=== PATIENT | female | born 1965 | race Caucasian/White ===

== ENCOUNTER 2024-01-03 15:17 | Emergency (ER) | payer MEDICAID, SELFPAY ==
[2024-01-03 15:20] VITALS: BP 158/104; PULSE 73; RESP 18; TEMP 35.9; O2SAT 99; BMI 29.9
--- NOTE | 2024-01-03 15:44 | EDS_ITS ---
HPI History of Present Illness Chief Complaint: Other, Pain/Inj Informant: patient Narrative Narrative: 58-year-old female states her left neck into her trapezius area has hurt for 3 years. 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 She states it is worse in the last 3 days but she has no acute new symptoms. She states she sees a PCP in [place], and this all started [place] to [place] She states between those 2 doctors, there and in [place], she has never talked to her doctor about the symptoms before. She presents to the ER for this, for the first time in 3 years, on Thursday because the pain is worse and she is having trouble tolerating it. She has tried Tylenol but nothing else. She states she is on warfarin because of a longstanding history of DVTs back in the , 1 of which was associated with and the other which happened 2 years later apparently was not triggered by anything obvious, and she states that someone in the told her she was going to be on warfarin for the rest of her life. She states last time she had her INR checked was when she saw her doctor last 3 months ago. She denies any bleeding or systemic symptoms. Denies any obvious injury but states that it seemed to get worse again while she was mopping at work. [facility] Medical History (Updated 01/03/24 @ 15:[address] Amadou Collado MD) DVT (deep venous thrombosis) Arthritis Hypothyroidism Type 2 diabetes mellitus Hyperlipidemia Home Medications ?Medication ?Instructions ?Recorded ?Last Taken ?Type orphenadrine citrate 100 mg 100 mg PO Q12H PRN muscle pain #14 01/03/24 Unknown Rx tablet,extended release tabs tramadol 50 mg tablet 50 mg PO Q6H PRN pain 3 days #12 01/03/24 Unknown Rx tabs Allergy/AdvReac Type Severity Reaction Status Date / Time sulfamethoxazole (From Allergy Mild Rash Verified 01/03/24 15:20 Bactrim) trimethoprim (From Bactrim) Allergy Mild Rash Verified 01/03/24 15:20 metformin AdvReac Intermediate Diarrhea Verified 01/03/24 15:20 Surgical History (Updated 01/03/24 @ 15:[address] Amadou Collado MD) H/O bilateral oophorectomy History of Tubal ligation status ROS ROS ED Constitutional Constitutional ED: Denies chills or fever(s) Eyes Eyes: Denies change in vision or diplopia ENT ENT ED: Denies ear pain, rhinorrhea or sore throat Cardiovascular Cardiovascular: Denies chest pain Gastrointestinal Gastrointestinal: Denies abdominal pain, nausea or vomiting Musculoskeletal Musculoskeletal: Reports back pain and neck pain Integumentary Denies abscess or rash Neurologic Neurologic: Denies headache(s), paresthesias or weakness EXAM Physical Exam Const Vital Signs: 01/03/24 15:20 Temperature 96.6 F L Temperature Source Temporal Pulse Rate 73 Respiratory Rate 18 Blood Pressure 158/104 H Blood Pressure Mean 122 Pulse Ox 99 Oxygen Delivery Method Room Air Positive well nourished and well developed General Appearance ED: well developed and NAD HEENT Reports moist mucous membranes Eyes PERRL and EOMs intact bilaterally Neck no lymphadenopathy and supple Neck Narrative: Tender throughout the left cervical paraspinal musculature and into the trapezius toward th acromion but not including it. No scapular bony tenderness. No midline cervical bony tenderness. No mastoid tenderness or sternocleidomastoid tenderness. Patient can turn to the contralateral right side without any apparent difficulty but has pain with turning to the left. General: tenderness Chest Wall inspection of chest normal Resp normal respiratory effort Extremity normal to inspection Extremity Narrative: Painless abduction both shoulders General Extremety ED: Negative for tenderness Neuro oriented x3, CN's II-XII intact bilaterally, no sensory deficits noted and gait normal Sensorium / Orientation: alert Motor Exam: strength 5/5 throughout MDM MDM MDM Narrative Medical decision making narrative: I do not think this patient needs any emergent imaging or testing. She needs to follow-up with her PCP regarding his chronic pain, and she can have an INR checked when she does so. The area of interest is basically all trapezius, and it is normal-appearing without any signs of ecchymosis or purpura or petechiae to suggest she needs her INR emergently checked Discharge Plan Triage Chief Complaint: Other, Pain/Inj ED Provider: Amadou Collado Dx/Rx/DC Orders Clinical Impression: Acute neck pain Instructions: ED Chronic Pain, ED Neck Pain Prescriptions: New orphenadrine citrate 100 mg tablet extended release 100 mg PO Q12H PRN (Reason: muscle pain) Qty: 14 0RF tramadol 50 mg tablet 50 mg PO Q6H PRN (Reason: pain) 3 Days Qty: 12 0RF Primary Care Provider: Jhony Swenson Jr. Referrals: Jhony Swenson Jr., DO [Primary Care Provider] - As soon as possible Print Language: Georgian Disposition Disposition: Home, Self Care
--- OUTSIDE RECORDS SUMMARY | 2024-01-03 15:59 | XMS RPT_ITS | CCD ---
Author Organization [facility] Care Team Providers Care Photonics Engineer Name Role Phone RYAN HOPE Primary Care Provider JACOBO DAS Emergency Provider LUCAS GRECO Attending Provider LUCAS GRECO Referring Provider DO RYAN HOPE Primary Care Provider [phone] CADENCE GRECO Attending Provider CADENCE GRECO Referring Provider CADENCE GRECO Primary Care Provider CADENCE GRECO Primary Care Provider CADENCE GRECO Attending Provider CADENCE GRECO Primary Care Provider CADENCE GRECO Attending Provider CADENCE GRECO Primary Care Provider CADENCE GRECO Attending Provider CADENCE GRECO Primary Care Provider [phone] CADENCE GRECO Attending Provider CADENCE GRECO Referring Provider Ángel Diop Attending Physician CADENCE GRECO Primary Care Provider DO OMAR VERGARA Emergency Provider [phone] CADENCE GRECO Attending Provider DO MICHELLE CAMACHO Emergency Provider Daemon, Background Attending Unavailable ENCINAS, LEXUS Attending Unavailable Daemon, Background Attending Unavailable JUANA QUINTANA Attending Unavailable VISPAFLOW2, AUTOMATION Attending Unavailab le VISPAFLOW, AUTOMATION Attending Unavailleticia ROBLES, KURT Attending Unavailable ENCINAS, LEXUS Attending Unavailable CHRISTINA CARPENTER Attending Unavailable BAUERBACH, LAYO Attending Unavailable ENCINAS, LEXUS Attending Unavailable MARGARET, KURT Attending Unavailable ENCINAS, LEXUS Attending Unavailable ENCINAS, LEXUS Attending Unavailable BILUCAS TURK Attending Unavailable LUCAS GRECO Referring Unavailable LUCAS GRECO Primary Care Unavailable FANNIE, LUCAS Estes Referring Unavailable BIROSALEE, LUCAS Estes Attending Unavailable BILUCAS TURK Primary Care Unavailable FANNIE, LUCAS Estes Attending Unavailable LUCAS GRECO Referring Unavailable LUCAS GRECO Primary Care Unavailable LUCAS GRECO Referring Unavailable FANNIE, LUCAS Estes Primary Care Unavailable LUCAS GRECO Attending Unavailable GEE, ÁNGEL Referring Unavailable GEE, ÁNGEL Attending Unavailable LUCAS GRCEO Primary Care Unavailable FANNIE, LUCAS Estes Attending Unavailable LUCAS GRECO Primary Care Unavailable FANNIE, LUCAS Estes Attending Unavailable LUCAS GRECO Primary Care Unavailable BIROSALEE, LUCAS Estes Attending Unavailable BILUCAS TURK Primary Care Unavailable LUCAS GRECO Primary Care Unavailable MICHELLE CAMACHO Attending Unavailable OMAR VERGARA Attending Unavailable LUCAS GRECO Primary Care Unavailable GEE, ÁNGEL Referring Unavailable GEE, ÁNGEL Attending Unavailable BIROSALEE, LUCAS Estes Primary Care Unavailable BILUCAS TURK Attending Unavailable BIROSALEE, LUCAS Estes Primary Care Unavailable FANNIE, LUCAS Estes Attending Unavailable FANNIE, LUCAS Estes Primary Care Unavailable GEE, ÁNGEL Referring Unavailable GEE, ÁNGEL Attending Unavailable LUCAS GRECO Primary Care Unavailable Johny Swenson DO Primary Care Provider JOHNY SWENSON Referring Unavailable JOHNY SWENSON Primary Care Unavailable JOHNY SWENSON Attending Unavailable Unavailable Unavailable Unavailable Unavailable Unavailable Unavailable Allergies Allergy Classification Reported Allergen(s) Allergy Type Date of Onset Reaction(s) Facility Dihydrofolate Reductase Inhibitors (antibiotic) (3 sources) Trimethoprim Drug Allergy 1 Itching [facility] Work Phone: Sulfonamides (antibiotic) (4 sources) Sulfamethoxazole; Translations: [SULFAMETHOXAZOLE] Drug Allergy 1 Itching [facility] Repository (20 sources) Sulfamethoxazole; Translations: [SULFAMETHOXAZOLE] Drug Allergy 1 Rash [facility] (20 sources) Trimethoprim Drug Allergy 9 Itching [facility] (20 sources) metFORMIN; Translations: [METFORMIN] Drug Allergy 1 Severe diarrhea, GI Upset [facility] (1 source) Sulfamethoxazole / Trimethoprim Drug Allergy 0 Itching [facility] [place] Work Phone: (1 source) metFORMIN Drug Allergy 3 [facility] Repository (1 source) Sulfamethoxazole Drug Allergy 3 [facility] Repository (1 source) Trimethoprim Drug Allergy 3 [facility] Repository Medications Current Medications Medication Drug Class(es) Dates Sig (Normalized) Sig (Original) [id number] 200 actuat albuterol 0.09 mg/actuat metered dose inhaler (20 sources) beta2-Adrenergic Agonist Start: 08-27-2022 take 2 puff(s) by inhalation every four hours as needed for wheezing Albuterol Hfa Inhaler 90 Mcg/actuation (ProAir HFA) (discharge) [id number] RxNorm 2022-08-27 HFA Inhaler 2 puff every 4 hours prn shortness of breath or wheezing Active Start: 03-21-2021 take 1 puff(s) by in halation every four hours Albuterol Sulfate Active 2 PUFF INH Q4H 8.5 March 21, 2021 8:08am Start: 03-21-2021 take 1 puff(s) by in halation every four hours Albuterol Sulfate Active 2 PUFF INH Q4H 8.5 March 21, 2021 9:08am Start: 08-16-2018 End: 03-21-2021 take 2 puff(s) by inhalation every four hours as needed, then take 2 puff(s) by inhalation every four hours as needed Albuterol Sulfate Discontinued 2 PUFF INH Q4H 1 September 04, 2020 10:10am September 21, 2020 8:41am Inhale 2 puffs every 4 hours while awake for 24 hours, then 2 puffs every 4 hours as needed. Start: 08-16-2018 take 2 puff(s) by in halation every four hours as needed, then take 2 puff(s) by inhalation every four hours as needed Albuterol Inhaler (Ventolin Hfa) 60 PUFF inhaler Active 2 PUFF INH Q4H 1 August 16, 2018 9:05pm Inhale 2 puffs every 4 hours while awake for 24 hours, then 2 puffs every 4 hours as needed. Start: 08-16-2018 take 2 puff(s) by in halation every four hours as needed, then take 2 puff(s) by inhalation every four hours as needed Albuterol Inhaler Active 2 PUFF Q4H August 16, 2018 9:05pm Inhale 2 puffs every 4 hours while awake for 24 hours, then 2 puffs every 4 hours as needed. Start: 08-16-2018 End: 03-21-2021 take 2 puff(s) by inhalation every four hours as needed, then take 2 puff(s) by inhalation every four hours as needed Albuterol Sulfate Discontinued 2 PUFF INH Q4H 1 September 04, 2020 9:10am September 21, 2020 7:41am Inhale 2 puffs every 4 hours while awake for 24 hours, then 2 puffs every 4 hours as needed. baclofen 10 mg oral tablet (20 sources) gamma-Aminobutyric Acid-ergic Agonist Start: 07-06-2023 take 1 tablet by mouth once daily at bedtime baclofen 10 mg tablet Take 10 mg by mouth daily at bedtime. 0 07/06/2023 Active Start: 05-19-2018 End: 03-21-2021 take 10 mg by mouth at bedtime Baclofen Discontinued 1 0 MG PO Bedtime March 18, 2021 11:00am March 21, 2021 8:11am Start: 05-19-2018 End: 05-19-2018 take 5 mg by mouth at bedtime Baclofen (Lioresal) 10 m g tablet Discontinued 5 MG PO Bedtime May 19, 2018 2:02pm May 19, 2018 2:13pm Start: 05-19-2018 End: 05-19-2018 take 5 mg by mouth at bedtime Baclofen Discontinued 5 MG PO Bedtime May 18, 2018 11:00pm May 19, 2018 1:13pm Start: 11-24-2017 End: 05-19-2018 take 5 mg by mouth at bedtime Baclofen Discontinued 5 MG PO Bedtime November 24, 2017 6:22am May 19, 2018 1:01pm Start: 08-13-2017 End: 11-24-2017 take 5 mg by mouth at bedtime Baclofen (Lioresal) 10 M G tablet Discontinued 5 MG PO Bedtime August 13, 2017 8:20am November 24, 2017 7:23am Start: 08-13-2017 End: 11-24-2017 take 5 mg by mouth at bedtime Baclofen Discontinued 5 MG PO Bedtime August 12, 2017 11:00pm November 24, 2017 6:23am Blood-Glucose Meter (20 sources) Start: 04-22-2022 Blood-Glucose Meter Active 0 .ROUTE .MEDSUPPLY April 22, 2022 10:39am DAILY Start: 04-22-2022 Blood-Glucose Meter Active 0 .ROUTE .MEDSUPPLY April 22, 2022 9:39am DAILY Start: 09-07-2020 Blood-Glucose Meter Active 0 .ROUTE .MEDSUPPLY September 07, 2020 9:32am DAILY Start: 09-07-2020 End: 04-22-2022 Blood-Glucose Meter Disconti nued 0 .ROUTE .MEDSUPPLY September 07, 2020 12:00am April 22, 2022 10:40am DAILY Start: 09-07-2020 End: 04-22-2022 Blood-Glucose Meter Disconti nued 0 .ROUTE .MEDSUPPLY September 06, 2020 11:00pm April 22, 2022 9:40am DAILY Start: 09-07-2020 Blood-Glucose Meter Active 0 .ROUTE .MEDSUPPLY September 06, 2020 11:00pm DAILY Start: 09-07-2020 Blood-Glucose Meter Active 0 .ROUTE .MEDSUPPLY September 07, 2020 12:00am DAILY cetirizine hydrochloride 10 mg oral tablet (20 sources) Histamine-1 Receptor Antagonist Start: 07-06-2023 take 1 tablet by mouth once daily cetirizine (ZYRTEC) 10 mg tablet Take 10 mg by mouth once daily. 0 07/06/2023 Active Start: 03-13-2015 End: 04-28-2016 take 1 tablet by mouth once daily Cetirizine Discontinued 1 TAB PO Daily March 13, 2015 1:47pm April 28, 2016 10:57am Start: 03-13-2015 End: 04-28-2016 take 1 tablet by mouth once daily Cetirizine Discontinued 1 TAB PO Daily March 13, 2015 2:47pm April 28, 2016 11:57am Start: 10-12-2013 End: 12-23-2021 take 10 mg by mouth once daily Cetirizine Discontinued 10 MG PO Daily October 28, 2016 4:28pm November 24, 2017 6:23am cloNIDine hydrochloride 0.1 mg oral tablet (20 sources) Central alpha-2 Adrenergic Agonist Start: 04-28-2016 End: 01-10-2024 take 1 tablet by mouth once daily cloNIDine HCl (CATAPRES) 0.1 mg tablet Indications: Medication refill Take 1 tablet by mouth once daily. 90 tablet 1 07/14/2023 01/10/2024 Active Start: 03-13-2015 End: 01-09-2016 take 1 tablet by mouth at bedtime Clonidine Hcl Discontinued 1 TAB PO Bedtime March 13, 2015 2:47pm January 09, 2016 6:06am Start: 03-13-2015 End: 04-28-2016 take 1 tablet by mouth at bedtime Clonidine Hcl Discontinued 1 TAB PO Bedtime March 13, 2015 2:47pm April 28, 2016 11:58am Start: 03-13-2015 End: 01-09-2016 take 1 tablet by mouth at bedtime Clonidine Hcl Discontinued 1 TAB PO Bedtime March 13, 2015 1:47pm January 09, 2016 6:06am Start: 03-13-2015 End: 04-28-2016 take 1 tablet by mouth at bedtime Clonidine Hcl Discontinued 1 TAB PO Bedtime March 13, 2015 1:47pm April 28, 2016 10:58am Start: 12-18-2014 End: 03-13-2015 take 1 tablet by mouth at bedtime Clonidine Hcl Discontinued 1 TAB PO Bedtime December 18, 2014 7:52am March 13, 2015 2:47pm Start: 12-18-2014 End: 03-13-2015 take 1 tablet by mouth at bedtime Clonidine Hcl Discontinued 1 TAB PO Bedtime December 18, 2014 7:52am March 13, 2015 1:47pm Start: 06-06-2014 End: 12-18-2014 take 1 tablet by mouth at bedtime Clonidine Hcl Discontinued 1 TAB PO Bedtime June 06, 2014 1:58pm December 18, 2014 7:52am Start: 03-16-2014 End: 06-06-2014 take 1 tablet by mouth at bedtime Clonidine Hcl Discontinued 1 TAB PO Bedtime March 16, 2014 3:02pm June 06, 2014 1:58pm Start: 03-16-2014 End: 06-06-2014 take 1 tablet by mouth at bedtime Clonidine Hcl Discontinued 1 TAB PO Bedtime March 16, 2014 2:02pm June 06, 2014 1:58pm Start: 03-16-2014 End: 03-16-2014 take 1 tablet by mouth at bedtime Clonidine Hcl Discontinued 1 TAB PO Bedtime March 16, 2014 2:46pm March 16, 2014 3:02pm Start: 03-16-2014 End: 03-16-2014 take 1 tablet by mouth at bedtime Clonidine Hcl Discontinued 1 TAB PO Bedtime March 16, 2014 1:46pm March 16, 2014 2:02pm Start: 02-16-2014 End: 03-16-2014 take 1 tablet by mouth at bedtime Clonidine Hcl Discontinued 1 TAB PO Bedtime February 16, 2014 4:18pm March 16, 2014 2:46pm Start: 02-16-2014 End: 03-16-2014 take 1 tablet by mouth at bedtime Clonidine Hcl Discontinued 1 TAB PO Bedtime February 16, 2014 3:18pm March 16, 2014 1:46pm dapagliflozin 5 mg oral tablet (20 sources) Sodium-Glucose Cotransporter 2 Inhibitor Start: 04-15-2023 take 1 tablet by mouth once daily at breakfast FARXIGA 5 mg tablet Take 1 tablet by mouth daily with breakfast. 0 04/15/2023 Active Start: 01-12-2023 take 1 tablet by evangelina th once daily in the morning Dapagliflozin Propanediol (Farxiga) 5 mg Tablet Active 5 MG PO Every morning January 12, 2023 12:00am Start: 10-03-2021 End: 07-01-2022 take 1 tablet by mouth once daily in the morning Dapagliflozin Propanediol (Farxiga) 10 mg tablet Discontinued 10 MG PO Every morning October 03, 2021 6:49am July 01, 2022 9:32am Start: 09-06-2020 End: 10-03-2021 take 1 tablet by mouth once daily in the morning Dapagliflozin Propanediol (Farxiga) 5 mg tablet Discontinued 5 MG PO Every morning November 21, 2020 11:00pm March 21, 2021 8:11am FREESTYLE AMADOR 2 SENSOR kit (5 sources) Start: 07-03-2023 FREESTYLE AMADOR 2 SENSOR kit insulin glargine 100 unt/ml injectable solution (5 sources) Insulin Analog Start: 07-07-2023 inject 18 [IU] by subcutaneous injection once daily at bedtime LANTUS U-100 INSULIN 100 unit/mL injection Inject 18 Units subcutaneously daily at bedtime. 0 07/07/2023 Active levothyroxine sodium 0.125 mg oral tablet (20 sources) l-Thyroxine Start: 04-07-2023 End: 07-08-2024 take 1 tablet by mouth once daily levothyroxine (SYNTHROID) 125 mcg tablet Indications: Medication refill Take 1 tablet by mouth once daily. 90 tablet 3 07/14/2023 07/08/2024 Active Start: 08-27-2022 take 112 mg by mouth once colleen y Levothyroxine Oral (Levothroid) (discharge) [id number] RxNorm 2022-08-27 Oral 112 microgram every day Active Start: 01-21-2022 End: 09-10-2022 take 137 ug by mouth once daily Levothyroxine Disconti nued 137 MCG PO Daily June 13, 2022 8:56am September 10, 2022 12:12pm Start: 03-21-2021 End: 01-21-2022 take 112 ug by mouth once daily Levothyroxine Disconti nued 112 MCG PO Daily March 21, 2021 12:00am January 21, 2022 7:27am Start: 09-05-2020 End: 03-21-2021 take 1 tablet by mouth once daily in the morning Levothyroxine Discontinued 0 .ROUTE .COMPLEX February 26, 2021 10:39am March 21, 2021 9:10am take 1 tablet by mouth every morning with WATER ONLY (NO OTHER FOOD, DRINK, OR MEDICATIONS FOR 1 HOUR) as directed. F/U APPOINTMENT NEEDED Start: 06-21-2020 End: 03-21-2021 take 1 tablet by mouth once daily in the morning Levothyroxine Discontinued 0 .ROUTE .COMPLEX February 26, 2021 9:39am March 21, 2021 8:10am take 1 tablet by mouth every morning with WATER ONLY (NO OTHER FOOD, DRINK, OR MEDICATIONS FOR 1 HOUR) as directed. F/U APPOINTMENT NEEDED Start: 05-19-2018 End: 06-21-2020 take 112 ug by mouth once daily Levothyroxine Disconti nued 112 MCG PO Daily May 19, 2018 1:11pm June 21, 2020 3:17pm Start: 11-24-2017 End: 05-19-2018 take 100 ug by mouth before breakfast Levothyroxine Discontinued 100 MCG PO BEFORE BREAKFAST November 24, 2017 6:23am May 19, 2018 1:01pm Start: 03-13-2015 End: 11-24-2017 take 1 tablet by mouth before breakfast Levothyroxine Discontinued 1 TAB PO BEFORE BREAKFAST March 13, 2015 1:47pm November 24, 2017 6:23am Start: 03-13-2015 End: 11-24-2017 take 1 tablet by mouth before breakfast Levothyroxine Discontinued 1 TAB PO BEFORE BREAKFAST March 13, 2015 2:47pm November 24, 2017 7:23am Start: 03-13-2015 End: 01-09-2016 take 1 tablet by mouth before breakfast Levothyroxine Sodium Discontinued 1 TAB PO BEFORE BREAKFAST March 13, 2015 2:47pm January 09, 2016 6:06am Start: 03-13-2015 End: 11-24-2017 take 1 tablet by mouth before breakfast Levothyroxine Sodium Discontinued 1 TAB PO BEFORE BREAKFAST March 13, 2015 2:47pm November 24, 2017 7:23am Start: 03-13-2015 End: 01-09-2016 take 1 tablet by mouth before breakfast Levothyroxine Sodium Discontinued 1 TAB PO BEFORE BREAKFAST March 13, 2015 1:47pm January 09, 2016 6:06am Start: 03-13-2015 End: 11-24-2017 take 1 tablet by mouth before breakfast Levothyroxine Sodium Discontinued 1 TAB PO BEFORE BREAKFAST March 13, 2015 1:47pm November 24, 2017 7:23am Start: 10-17-2014 End: 03-13-2015 take 1 tablet by mouth before breakfast Levothyroxine Sodium Discontinued 1 TAB PO BEFORE BREAKFAST October 17, 2014 11:05am March 13, 2015 2:47pm Start: 10-17-2014 End: 03-13-2015 take 1 tablet by mouth before breakfast Levothyroxine Sodium Discontinued 1 TAB PO BEFORE BREAKFAST October 17, 2014 11:05am March 13, 2015 1:47pm Start: 07-12-2014 End: 10-17-2014 take 1 tablet by mouth before breakfast Levothyroxine Sodium Discontinued 1 TAB PO BEFORE BREAKFAST July 12, 2014 8:26am October 17, 2014 11:05am omeprazole 40 mg delayed release oral capsule (20 sources) Proton Pump Inhibitor Start: 03-21-2021 End: 07-08-2024 take 1 capsule by mouth once daily omeprazole (PRILOSEC) 40 mg capsule Indications: Medication refill Take 1 capsule by mouth once daily. 90 capsule 3 07/14/2023 07/08/2024 Active rizatriptan 5 mg oral tablet (20 sources) Serotonin-1b and Serotonin-1d Receptor Agonist Start: 05-08-2023 take 1 tablet by mouth every two hours rizatriptan (MAXALT) 5 mg tablet TAKE 1 TABLET BY MOUTH AT ONSET OF HEADACHE IF NEEDED REPEAT IN 2 HOURS IF HEADACHE HASNT SUBSIDED 0 05/08/2023 Active Start: 05-19-2018 End: 03-21-2021 take 1 tablet by mouth every two hours as needed Rizatriptan Discontinued 5 MG PO PRN September 04, 2020 9:11am March 21, 2021 8:11am take 1 tablet at onset of headache; if no relief, may repeat 1 tablet in 2 hrs PO Rizatriptan Oral Dose Pack 5 Mg (Maxalt) (discharge) (1 source) Start: 08-27-2022 Rizatriptan Or al Dose Pack 5 Mg (Maxalt) (discharge) 0 [facility] 2022-08-27 Oral Dose Pack 5 milligram once Active Indication: migraine sertraline 50 mg oral tablet (20 sources) Serotonin Reuptake Inhibitor Start: 04-15-2023 take 1 tablet by mouth once daily sertraline (ZOLOFT) 50 mg tablet Take 1 tablet by mouth once daily. 0 04/15/2023 Active Start: 08-13-2017 End: 03-21-2021 take 50 mg by mouth once daily Sertraline Discontinued 50 MG PO Daily September 04, 2020 9:11am March 21, 2021 8:11am warfarin sodium 3 mg oral tablet (20 sources) Vitamin K Antagonist Start: 08-27-2022 End: 04-09-2024 take 1 tablet by mouth once daily warfarin (COUMADIN) 1 mg tablet Indications: History of DVT (deep vein thrombosis) Take 1 tablet by mouth daily as directed. Take 1 mg tablet along with 3 mg tablet daily 90 tablet 2 07/14/2023 04/09/2024 Active Start: 08-27-2022 Warfarin Oral (discharge) [id number] [facility] 2022-08-27 Oral 0 3.5 mg daily Active Parameters: 3.5 mg daily Start: 01-20-2022 End: 01-20-2022 take 3.5 mg by mouth once daily Warfarin Discontinued 3.5 MG PO Daily January 20, 2022 9:06am January 20, 2022 12:42pm Start: 01-20-2022 End: 03-17-2022 take 3 mg by mouth once daily Warfarin Active 0.5 MG P O Daily March 17, 2022 8:09am 1/2 tab along with 3 mg tablet every day Start: 03-13-2015 End: 05-21-2016 take 1 tablet by mouth once daily in the evening Warfarin Discontinued 1 TAB PO Every evening March 13, 2015 1:47pm May 21, 2016 1:17pm Start: 03-13-2015 End: 05-21-2016 take 1 tablet by mouth once daily in the evening Warfarin Discontinued 1 TAB PO Every evening March 13, 2015 2:47pm May 21, 2016 2:17pm Start: 03-13-2015 End: 01-09-2016 take 1 tablet by mouth once daily in the evening Warfarin Sodium Discontinued 1 TAB PO Every evening March 13, 2015 2:47pm January 09, 2016 6:06am Start: 03-13-2015 End: 05-21-2016 take 1 tablet by mouth once daily in the evening Warfarin Sodium Discontinued 1 TAB PO Every evening March 13, 2015 2:47pm May 21, 2016 2:17pm Start: 03-13-2015 End: 01-09-2016 take 1 tablet by mouth once daily in the evening Warfarin Sodium Discontinued 1 TAB PO Every evening March 13, 2015 1:47pm January 09, 2016 6:06am Start: 03-13-2015 End: 05-21-2016 take 1 tablet by mouth once daily in the evening Warfarin Sodium Discontinued 1 TAB PO Every evening March 13, 2015 1:47pm May 21, 2016 2:17pm Start: 01-03-2015 End: 03-13-2015 take 1 tablet by mouth once daily in the evening Warfarin Sodium Discontinued 1 TAB PO Every evening January 03, 2015 10:07am March 13, 2015 2:47pm Start: 01-03-2015 End: 03-13-2015 take 1 tablet by mouth once daily in the evening Warfarin Sodium Discontinued 1 TAB PO Every evening January 03, 2015 10:07am March 13, 2015 1:47pm Start: 06-06-2014 End: 01-03-2015 take 1 tablet by mouth once daily in the evening Warfarin Sodium Discontinued 1 TAB PO Every evening June 06, 2014 1:58pm January 03, 2015 10:07am Start: 11-24-2013 End: 06-06-2014 take 1 tablet by mouth once daily in the evening Warfarin Sodium Discontinued 1 TAB PO Every evening November 24, 2013 3:19pm June 06, 2014 1:58pm Start: 09-26-2013 End: 11-24-2013 take 1 tablet by mouth once daily in the evening Warfarin Sodium Discontinued 1 TAB PO Every evening September 26, 2013 12:04pm November 24, 2013 3:19pm Start: 09-26-2013 End: 09-26-2013 take 1 tablet by mouth once daily in the evening Warfarin Discontinued 1 TAB PO Every evening September 26, 2013 11:03am September 26, 2013 11:04am Start: 09-26-2013 End: 09-26-2013 take 1 tablet by mouth once daily in the evening Warfarin Discontinued 1 TAB PO Every evening September 26, 2013 12:03pm September 26, 2013 12:04pm Start: 09-26-2013 End: 09-26-2013 take 1 tablet by mouth once daily in the evening Warfarin Sodium Discontinued 1 TAB PO Every evening September 26, 2013 12:03pm September 26, 2013 12:04pm Start: 07-21-2013 End: 10-12-2013 take 0.5 tablet by mouth at bedtime Warfarin Sodium Discontinued 0.5 TAB PO Bedtime July 21, 2013 2:14pm October 12, 2013 12:59pm Start: 07-11-2013 End: 07-08-2024 take 1 mg by mouth once daily warfarin (COUMADIN) 3 mg tablet Indications: History of DVT (deep vein thrombosis) Take 1 tablet by mouth once daily. Take 3 mg tablet along with 1 mg tablet daily 90 tablet 3 07/14/2023 07/08/2024 Active Completed/Discontinued Medications Medication Drug Class(es) Dates Sig (Normalized) Sig (Original) acetaminophen 300 mg / codeine phosphate 30 mg oral tablet (20 sources) Opioid Agonist Start: 11-29-2014 End: 12-19-2014 take 1 tablet by mouth every six hours Acetaminophen-Codei ne Discontinued 1 TAB PO Q6H November 29, 2014 7:14pm December 19, 2014 1:33pm Start: 11-29-2014 End: 12-19-2014 take 1 tablet by mouth every six hours Acetaminophen-Codeine Discontinued 1 TAB PO Q6H November 28, 2014 11:00pm December 19, 2014 12:33pm Start: 09-03-2014 End: 10-24-2014 take 1 tablet by mouth four times daily Acetaminophen-Codeine Discontinued 1 TAB PO 4 times per day September 03, 2014 8:38pm October 24, 2014 1:30pm Start: 09-03-2014 End: 10-24-2014 take 1 tablet by mouth four times daily Acetaminophen-Codeine Discontinued 1 TAB PO 4 times per day September 02, 2014 11:00pm October 24, 2014 12:30pm Acetaminophen / HYDROcodone (20 sources) Opioid Agonist Start: 09-28-2017 End: 11-23-2017 take 1 tablet by mouth every four hours Hydrocodone-Acetaminophen Discontinued 1 - 2 TAB PO Q4H 42 September 28, 2017 8:14am November 23, 2017 12:36pm Start: 09-28-2017 End: 11-23-2017 take 1 tablet by mouth every four hours Hydrocodone-Acetaminophen Discontinued 1 - 2 TAB PO Q4H 42 September 28, 2017 9:14am November 23, 2017 1:36pm Start: 09-28-2017 End: 11-23-2017 Hydrocodone/Acetaminophen ([place] or[place] 5-325 Tablet) 1 EACH tablet Discontinued 1 - 2 TAB PO Q4H 42 September 28, 2017 9:14am November 23, 2017 1:36pm Start: 08-13-2017 End: 05-19-2018 Hydrocodone-Acetaminophen Di scontinued 1 EA PO 4 times per day August 13, 2017 8:25am May 19, 2018 2:03pm Start: 08-13-2017 End: 05-19-2018 Hydrocodone-Acetaminophen Di scontinued 1 EA PO 4 times per day August 12, 2017 11:00pm May 19, 2018 1:03pm Start: 11-14-2015 End: 05-05-2016 take 1 tablet by mouth every six hours Hydrocodone-Acetaminophen Discontinued 1 TAB PO Every 6 hours 60 November 14, 2015 9:11am May 05, 2016 9:40am Start: 11-14-2015 End: 05-05-2016 take 1 tablet by mouth every six hours Hydrocodone-Acetaminophen Discontinued 1 TAB PO Every 6 hours 60 November 14, 2015 10:11am May 05, 2016 10:40am Start: 11-14-2015 End: 05-05-2016 Hydrocodone Bit/Acetaminophe n (Hydrocodon-Acetaminophen 5-325) 5 MG-325 MG tablet Discontinued 1 TAB PO Every 6 hours 60 November 14, 2015 10:11am May 05, 2016 10:40am Start: 07-04-2015 End: 10-15-2015 take 6 tablets by mouth once as needed Hydrocodone/Acetaminophen ([place] 5-325 Tablet) 5 MG-325 MG TABLET Discontinued 1 EACH PO Q6PRN 120 July 04, 2015 1:12pm October 15, 2015 9:24am Start: 06-06-2015 End: 07-04-2015 take 6 tablets by mouth once as needed Hydrocodone/Acetaminophen ([place] 5-325 Tablet) 5 MG-325 MG TABLET Discontinued 1 EACH PO Q6PRN 120 June 06, 2015 1:45pm July 04, 2015 1:12pm Start: 05-09-2015 End: 06-06-2015 take 6 tablets by mouth once as needed Hydrocodone/Acetaminophen ([place] 5-325 Tablet) 5 MG-325 MG TABLET Discontinued 1 EACH PO Q6PRN 120 May 09, 2015 2:30pm June 06, 2015 1:45pm Start: 05-09-2015 End: 06-06-2015 take 6 tablets by mouth once as needed Hydrocodone/Acetaminophen (Independence 5-325 Tablet) 5 MG-325 MG TABLET Discontinued 1 EACH PO Q6PRN 120 May 09, 2015 1:30pm June 06, 2015 1:45pm Start: 04-12-2015 End: 05-09-2015 take 6 tablets by mouth once as needed Hydrocodone/Acetaminophen (Independence 5-325 Tablet) 5 MG-325 MG TABLET Discontinued 1 EACH PO Q6PRN 120 April 12, 2015 10:32am May 09, 2015 2:30pm Start: 04-12-2015 End: 05-09-2015 take 6 tablets by mouth once as needed Hydrocodone/Acetaminophen (Independence 5-325 Tablet) 5 MG-325 MG TABLET Discontinued 1 EACH PO Q6PRN 120 April 12, 2015 9:32am May 09, 2015 1:30pm Start: 03-13-2015 End: 04-12-2015 take 6 tablets by mouth once as needed Hydrocodone/Acetaminophen (Independence 5-325 Tablet) 5 MG-325 MG TABLET Discontinued 1 EACH PO Q6PRN 120 March 13, 2015 2:23pm April 12, 2015 10:32am Start: 03-13-2015 End: 04-12-2015 take 6 tablets by mouth once as needed Hydrocodone/Acetaminophen (Independence 5-325 Tablet) 5 MG-325 MG TABLET Discontinued 1 EACH PO Q6PRN 120 March 13, 2015 1:23pm April 12, 2015 9:32am Start: 02-13-2015 End: 03-13-2015 take 6 tablets by mouth once as needed Hydrocodone/Acetaminophen (Independence 5-325 Tablet) 5 MG-325 MG TABLET Discontinued 1 EACH PO Q6PRN 120 February 13, 2015 2:17pm March 13, 2015 2:23pm Start: 02-13-2015 End: 03-13-2015 take 6 tablets by mouth once as needed Hydrocodone/Acetaminophen (Independence 5-325 Tablet) 5 MG-325 MG TABLET Discontinued 1 EACH PO Q6PRN 120 February 13, 2015 1:17pm March 13, 2015 1:23pm Start: 01-16-2015 End: 02-13-2015 take 6 tablets by mouth once as needed Hydrocodone/Acetaminophen (Independence 5-325 Tablet) 5 MG-325 MG TABLET Discontinued 1 EACH PO Q6PRN 120 January 16, 2015 2:28pm February 13, 2015 2:17pm Start: 01-16-2015 End: 02-13-2015 take 6 tablets by mouth once as needed Hydrocodone/Acetaminophen (Independence 5-325 Tablet) 5 MG-325 MG TABLET Discontinued 1 EACH PO Q6PRN 120 January 16, 2015 1:28pm February 13, 2015 1:17pm Start: 12-19-2014 End: 01-16-2015 take 6 tablets by mouth once as needed Hydrocodone/Acetaminophen (Independence 5-325 Tablet) 5 MG-325 MG TABLET Discontinued 1 EACH PO Q6PRN 120 December 19, 2014 1:16pm January 16, 2015 2:28pm Start: 12-19-2014 End: 01-16-2015 take 6 tablets by mouth once as needed Hydrocodone/Acetaminophen (Independence 5-325 Tablet) 5 MG-325 MG TABLET Discontinued 1 EACH PO Q6PRN 120 December 19, 2014 1:16pm January 16, 2015 1:28pm Start: 11-21-2014 End: 12-19-2014 take 6 tablets by mouth once as needed Hydrocodone/Acetaminophen (Independence 5-325 Tablet) 5 MG-325 MG TABLET Discontinued 1 EACH PO Q6PRN 120 November 21, 2014 1:34pm December 19, 2014 1:16pm Start: 10-24-2014 End: 11-21-2014 take 6 tablets by mouth once as needed Hydrocodone/Acetaminophen (Independence 5-325 Tablet) 5 MG-325 MG TABLET Discontinued 1 EACH PO Q6PRN 120 October 24, 2014 1:30pm November 21, 2014 1:34pm Start: 09-26-2014 End: 10-24-2014 take 6 tablets by mouth once as needed Hydrocodone/Acetaminophen (Independence 5-325 Tablet) 5 MG-325 MG TABLET Discontinued 1 EACH PO Q6PRN 120 September 26, 2014 1:21pm October 24, 2014 1:30pm Start: 08-29-2014 End: 09-26-2014 take 6 tablets by mouth once as needed Hydrocodone/Acetaminophen (Independence 5-325 Tablet) 5 MG-325 MG TABLET Discontinued 1 EACH PO Q6PRN 120 August 29, 2014 1:17pm September 26, 2014 1:21pm Start: 08-01-2014 End: 08-29-2014 take 6 tablets by mouth once as needed Hydrocodone/Acetaminophen (Independence 5-325 Tablet) 5 MG-325 MG TABLET Discontinued 1 EACH PO Q6PRN 120 August 01, 2014 1:54pm August 29, 2014 1:17pm Start: 07-04-2014 End: 08-01-2014 take 6 tablets by mouth once as needed Hydrocodone/Acetaminophen (Independence 5-325 Tablet) 5 MG-325 MG TABLET Discontinued 1 EACH PO Q6PRN 120 July 04, 2014 1:19pm August 01, 2014 1:54pm Start: 06-06-2014 End: 07-04-2014 take 6 tablets by mouth once as needed Hydrocodone/Acetaminophen (Independence 5-325 Tablet) 5 MG-325 MG TABLET Discontinued 1 EACH PO Q6PRN 120 June 06, 2014 1:08pm July 04, 2014 1:19pm Start: 05-09-2014 End: 06-06-2014 take 6 tablets by mouth once as needed Hydrocodone/Acetaminophen (Independence 5-325 Tablet) 5 MG-325 MG TABLET Discontinued 1 EACH PO Q6PRN 120 May 09, 2014 4:07pm June 06, 2014 1:08pm Start: 05-09-2014 End: 06-06-2014 take 6 tablets by mouth once as needed Hydrocodone/Acetaminophen (Independence 5-325 Tablet) 5 MG-325 MG TABLET Discontinued 1 EACH PO Q6PRN 120 May 09, 2014 3:07pm June 06, 2014 1:08pm Start: 04-13-2014 End: 05-09-2014 take 6 tablets by mouth once as needed Hydrocodone/Acetaminophen (Independence 5-325 Tablet) 5 MG-325 MG TABLET Discontinued 1 EACH PO Q6PRN 120 April 13, 2014 2:37pm May 09, 2014 4:07pm Start: 04-13-2014 End: 05-09-2014 take 6 tablets by mouth once as needed Hydrocodone/Acetaminophen (Independence 5-325 Tablet) 5 MG-325 MG TABLET Discontinued 1 EACH PO Q6PRN 120 April 13, 2014 1:37pm May 09, 2014 3:07pm Start: 03-16-2014 End: 04-13-2014 take 6 tablets by mouth once as needed Hydrocodone/Acetaminophen (Independence 5-325 Tablet) 5 MG-325 MG TABLET Discontinued 1 EACH PO Q6PRN 120 March 16, 2014 2:46pm April 13, 2014 2:37pm Start: 03-16-2014 End: 04-13-2014 take 6 tablets by mouth once as needed Hydrocodone/Acetaminophen (Independence 5-325 Tablet) 5 MG-325 MG TABLET Discontinued 1 EACH PO Q6PRN 120 March 16, 2014 1:46pm April 13, 2014 1:37pm Start: 02-16-2014 End: 03-16-2014 take 6 tablets by mouth once as needed Hydrocodone/Acetaminophen (Independence 5-325 Tablet) 5 MG-325 MG TABLET Discontinued 1 EACH PO Q6PRN 120 February 16, 2014 3:40pm March 16, 2014 2:46pm Start: 02-16-2014 End: 03-16-2014 take 6 tablets by mouth once as needed Hydrocodone/Acetaminophen (Independence 5-325 Tablet) 5 MG-325 MG TABLET Discontinued 1 EACH PO Q6PRN 120 February 16, 2014 2:40pm March 16, 2014 1:46pm Start: 01-19-2014 End: 02-16-2014 take 6 tablets by mouth once as needed Hydrocodone/Acetaminophen (Independence 5-325 Tablet) 5 MG-325 MG TABLET Discontinued 1 EACH PO Q6PRN 120 January 19, 2014 3:24pm February 16, 2014 3:40pm Start: 01-19-2014 End: 02-16-2014 take 6 tablets by mouth once as needed Hydrocodone/Acetaminophen (Independence 5-325 Tablet) 5 MG-325 MG TABLET Discontinued 1 EACH PO Q6PRN 120 January 19, 2014 2:24pm February 16, 2014 2:40pm Start: 12-22-2013 End: 01-19-2014 take 6 tablets by mouth once as needed Hydrocodone/Acetaminophen (Independence 5-325 Tablet) 5 MG-325 MG TABLET Discontinued 1 EACH PO Q6PRN 120 December 22, 2013 2:17pm January 19, 2014 3:24pm Start: 12-22-2013 End: 01-19-2014 take 6 tablets by mouth once as needed Hydrocodone/Acetaminophen (Independence 5-325 Tablet) 5 MG-325 MG TABLET Discontinued 1 EACH PO Q6PRN 120 December 22, 2013 2:17pm January 19, 2014 2:24pm Start: 11-24-2013 End: 12-22-2013 take 6 tablets by mouth once as needed Hydrocodone/Acetaminophen (Independence 5-325 Tablet) 5 MG-325 MG TABLET Discontinued 1 EACH PO Q6PRN 120 November 24, 2013 2:19pm December 22, 2013 2:17pm Start: 10-27-2013 End: 11-24-2013 take 6 tablets by mouth once as needed Hydrocodone/Acetaminophen (Independence 5-325 Tablet) 5 MG-325 MG TABLET Discontinued 1 EACH PO Q6PRN 120 October 27, 2013 3:13pm November 24, 2013 2:19pm Start: 10-12-2013 End: 10-27-2013 take 6 tablets by mouth once as needed Hydrocodone/Acetaminophen (Independence 5-325 Tablet) 5 MG-325 MG TABLET Discontinued 1 EACH PO Q6PRN 56 October 12, 2013 1:09pm October 27, 2013 3:13pm Start: 10-12-2013 End: 10-12-2013 take 6 tablets by mouth once as needed Hydrocodone-Acetaminophen (Independence 5-325 Tablet) 5 MG-325 MG tablet Discontinued 1 EACH PO Q6PRN 120 October 12, 2013 11:59am October 12, 2013 12:09pm Start: 10-12-2013 End: 10-12-2013 take 6 tablets by mouth once as needed Hydrocodone-Acetaminophen (Independence 5-325 Tablet) 5 MG-325 MG tablet Discontinued 1 EACH PO Q6PRN 120 October 12, 2013 12:59pm October 12, 2013 1:09pm Start: 10-12-2013 End: 10-12-2013 take 6 tablets by mouth once as needed Hydrocodone/Acetaminophen (Independence 5-325 Tablet) 5 MG-325 MG TABLET Discontinued 1 EACH PO Q6PRN 120 October 12, 2013 12:59pm October 12, 2013 1:09pm Start: 07-21-2013 End: 09-14-2013 take 1 tablet by mouth four times daily as needed for pain Hydrocodone-Acetaminophen Discontinued 1 TAB PO 4 times per day 120 July 21, 2013 1:14pm September 14, 2013 11:47am USE NEEDED FOR PAIN Start: 07-21-2013 End: 09-14-2013 take 1 tablet by mouth four times daily as needed for pain Hydrocodone-Acetaminophen Discontinued 1 TAB PO 4 times per day 120 July 21, 2013 2:14pm September 14, 2013 12:47pm USE NEEDED FOR PAIN Start: 07-21-2013 End: 09-14-2013 Hydrocodone Bit/Acetaminophe n (Hydrocodon-Acetaminophen 5-325) 5 MG-325 MG TABLET Discontinued 1 TAB PO 4 times per day 120 July 21, 2013 2:14pm September 14, 2013 12:47pm USE NEEDED FOR PAIN amoxicillin 875 mg oral tablet (14 sources) Penicillin-class Antibacterial Start: 12-20-2021 End: 01-20-2022 take 875 mg by mouth twice daily Amoxicillin Discontinued 875 MG PO 2 times per day December 19, 2021 11:00pm January 20, 2022 8:02am amoxicillin 875 mg / clavulanate 125 mg oral tablet (9 sources) Penicillin-class Antibacterial Start: 10-12-2013 End: 10-27-2013 Amoxicillin/Potass ium Clav (Augmentin 875-125 Tablet) 875 MG-125 MG TABLET Discontinued 1 EACH PO 2 times per day October 12, 2013 1:11pm October 27, 2013 3:13pm Amphet Asp/Amphet/D-Amph et (Adderall 20 Mg Tablet) 20 MG TABLET (20 sources) Start: 12-19-2014 End: 01-16-2015 take 1 tablet by mouth once daily Amphet Asp/Amphet/D-Amphe t (Adderall 20 Mg Tablet) 20 MG TABLET Discontinued 1 TAB PO Daily December 19, 2014 1:16pm January 16, 2015 2:49pm Start: 12-19-2014 End: 01-16-2015 take 1 tablet by mouth once daily Amphet Asp/Amphet/D-Amphet (Adderall 20 Mg Tablet) 20 MG TABLET Discontinued 1 TAB PO Daily December 19, 2014 1:16pm January 16, 2015 1:49pm Start: 11-21-2014 End: 12-19-2014 take 1 tablet by mouth once daily Amphet Asp/Amphet/D-Amphet (Adderall 20 Mg Tablet) 20 MG TABLET Discontinued 1 TAB PO Daily November 21, 2014 1:34pm December 19, 2014 1:16pm Start: 10-24-2014 End: 11-21-2014 take 1 tablet by mouth once daily Amphet Asp/Amphet/D-Amphet (Adderall 20 Mg Tablet) 20 MG TABLET Discontinued 1 TAB PO Daily October 24, 2014 1:30pm November 21, 2014 1:34pm Start: 09-26-2014 End: 10-24-2014 take 1 tablet by mouth once daily Amphet Asp/Amphet/D-Amphet (Adderall 20 Mg Tablet) 20 MG TABLET Discontinued 1 TAB PO Daily September 26, 2014 1:21pm October 24, 2014 1:30pm Start: 08-29-2014 End: 09-26-2014 take 1 tablet by mouth once daily Amphet Asp/Amphet/D-Amphet (Adderall 20 Mg Tablet) 20 MG TABLET Discontinued 1 TAB PO Daily August 29, 2014 1:17pm September 26, 2014 1:21pm Start: 08-01-2014 End: 08-29-2014 take 1 tablet by mouth once daily Amphet Asp/Amphet/D-Amphet (Adderall 20 Mg Tablet) 20 MG TABLET Discontinued 1 TAB PO Daily August 01, 2014 1:54pm August 29, 2014 1:17pm Start: 07-04-2014 End: 08-01-2014 take 1 tablet by mouth once daily Amphet Asp/Amphet/D-Amphet (Adderall 20 Mg Tablet) 20 MG TABLET Discontinued 1 TAB PO Daily July 04, 2014 1:19pm August 01, 2014 1:54pm Start: 06-06-2014 End: 07-04-2014 take 1 tablet by mouth once daily Amphet Asp/Amphet/D-Amphet (Adderall 20 Mg Tablet) 20 MG TABLET Discontinued 1 TAB PO Daily June 06, 2014 2:01pm July 04, 2014 1:19pm 24 hr amphetamine aspartate 5 mg / amphetamine sulfate 5 mg / dextroamphetamine saccharate 5 mg / dextroamphetamine sulfate 5 mg extended release oral capsule (20 sources) Central Nervous System Stimulant Start: 06-09-2016 End: 05-19-2018 take 1 capsule by mouth once daily, then take 1 capsule by mouth every twenty-four hours Dextroamphetamine-Amphetamine (Adderall Xr) 20 mg capsule,extended release 24hr Discontinued 20 MG PO Daily June 09, 2016 1:20pm May 19, 2018 2:03pm Start: 01-16-2015 End: 05-05-2016 take 1 capsule by mouth once daily Dextroamphetamine/Amphetamine (Adderall Xr 20 Mg Capsule) 20 MG capsule,extended release 24hr Discontinued 1 CAP PO Daily January 16, 2015 2:49pm May 05, 2016 10:40am Start: 01-19-2014 End: 06-06-2014 take 1 tablet by mouth once daily Dextroamphetamine/Amphetamine (Adderall 30 Mg Tablet) 30 MG TABLET Discontinued 1 TAB PO Daily June 06, 2014 1:08pm June 06, 2014 2:01pm Start: 09-25-2013 End: 01-19-2014 take 1 tablet by mouth once daily Dextroamphetamine/Amphetamine (Amphetami ne Salts 20 Mg Tablet) 20 MG TABLET Discontinued 20 MG PO Daily December 22, 2013 2:36pm January 19, 2014 4:20pm atorvastatin 20 mg oral tablet (20 sources) HMG-CoA Reductase Inhibitor Start: 11-28-2016 End: 03-21-2021 take 20 mg by mouth once daily Atorvastatin Discontinued 20 MG PO Daily June 08, 2017 8:51am May 19, 2018 1:13pm benzonatate 100 mg oral capsule (20 sources) Non-narcotic Antitussive Start: 08-16-2018 End: 03-10-2019 take 100 mg by mouth three times daily Benzonatate Discontinued 100 MG PO 3 times per day August 15, 2018 11:00pm March 10, 2019 11:15pm bisacodyl 5 mg delayed release oral tablet (20 sources) Stimulant Laxative Start: 07-19-2020 take 8 [oz_av] by mouth once Bisacodyl Active 20 MG PO Once July 19, 2020 1:28pm Take at 12 noon day before colonoscopy with 8 oz of clear liquid Start: 07-19-2020 End: 12-12-2020 take 8 [oz_av] by mouth once Bisacodyl (Dulcolax (Bisa codyl)) 5 mg tablet,delayed release (DR/EC) Discontinued 20 MG PO Once July 18, 2020 11:00pm December 12, 2020 12:50pm Take at 12 noon day before colonoscopy with 8 oz of clear liquid Start: 12-01-2017 End: 05-19-2018 take 4 tablets by mouth once daily Bisacodyl (Dulcolax (Bisacodyl)) 5 mg tablet,delayed release (DR/EC) Discontinued 5 MG PO Once 4 December 01, 2017 6:20pm May 19, 2018 2:11pm Take 4 tabs @ 8am the day before your surgery Bisacodyl (Dulcolax (Bisacodyl)) 5 mg tablet,delayed release (DR/EC) (17 sources) Start: 12-01-2017 End: 05-19-2018 take 4 tablets by mouth once daily Bisacodyl (Dulcolax (Bisacodyl)) 5 mg tablet,delayed release (DR/EC) Discontinued 5 MG PO Once December 01, 2017 6:20pm May 19, 2018 2:11pm Take 4 tabs @ 8am the day before your surgery Start: 12-01-2017 End: 05-19-2018 take 4 tablets by mouth once daily Bisacodyl (Dulcolax (Bisacodyl)) 5 mg tablet,delayed release (DR/EC) Discontinued 5 MG PO Once November 30, 2017 11:00pm May 19, 2018 1:11pm Take 4 tabs @ 8am the day before your surgery Start: 12-01-2017 End: 05-19-2018 take 4 tablets by mouth once daily Bisacodyl (Dulcolax (Bisacodyl)) 5 mg tablet,delayed release (DR/EC) Discontinued 5 MG PO Once 4 December 01, 2017 12:00am May 19, 2018 2:11pm Take 4 tabs @ 8am the day before your surgery carisoprodol 350 mg oral tablet (20 sources) Muscle Relaxant Start: 05-09-2015 End: 05-05-2016 Carisoprodol Discontinued 1 TAB PO Bedtime May 09, 2015 1:48pm May 05, 2016 9:39am TAKE NEEDED FOR MUSCLE SPASMS Start: 02-13-2015 End: 05-05-2016 Carisoprodol Discontinued 1 TAB PO Bedtime May 09, 2015 2:48pm May 05, 2016 10:39am TAKE NEEDED FOR MUSCLE SPASMS Start: 10-24-2014 End: 02-13-2015 Carisoprodol Discontinued 1 TAB PO Bedtime October 24, 2014 1:32pm February 13, 2015 2:21pm TAKE NEEDED FOR MUSCLE SPASMS Start: 10-24-2014 End: 02-13-2015 Carisoprodol Discontinued 1 TAB PO Bedtime October 24, 2014 1:32pm February 13, 2015 1:21pm TAKE NEEDED FOR MUSCLE SPASMS Start: 08-29-2014 End: 10-24-2014 Carisoprodol Discontinued 1 TAB PO Bedtime August 29, 2014 1:34pm October 24, 2014 1:32pm TAKE NEEDED FOR MUSCLE SPASMS cefdinir 300 mg oral capsule (9 sources) Cephalosporin Antibacterial Start: 05-09-2014 End: 06-06-2014 take 300 mg by mouth twice daily Cefdinir Discontinued 300 MG PO 2 times per day May 09, 2014 5:09pm June 06, 2014 1:57pm cefuroxime 500 mg oral tablet (20 sources) Cephalosporin Antibacterial Start: 11-27-2014 End: 12-19-2014 take 9-19 tablets by mouth twice daily Cefuroxime Axetil (Ceftin) 500 MG tablet Discontinued 500 MG PO 2 times per day November 27, 2014 10:01am December 19, 2014 12:33pm ER Rx'd 11-25-14 cephalexin 500 mg oral capsule (20 sources) Cephalosporin Antibacterial Start: 12-19-2013 End: 12-22-2013 take 500 mg by mouth three times daily Cephalexin Discontinued 500 MG PO 3 times per day December 18, 2013 11:00pm December 22, 2013 1:17pm Dextroamphetamine -Amphetamine (19 sources) Start: 01-16-2015 End: 05-05-2016 take 1 capsule by mouth once daily Dextroamphetamine- Amphetamine Discontinued 1 CAP PO Daily January 16, 2015 1:49pm May 05, 2016 9:40am Start: 01-16-2015 End: 05-05-2016 take 1 capsule by mouth once daily Dextroamphetamine-Amphetamine Discontinu ed 1 CAP PO Daily January 16, 2015 2:49pm May 05, 2016 10:40am Dextroamphetamine-Amphetamin e (Adderall Xr) 20 mg capsule,extended release 24hr (15 sources) Start: 06-09-2016 End: 05-19-2018 take 1 capsule by mouth once daily, then take 1 capsule by mouth every twenty-four hours Dextroamphetamine-Amphetamine (Adderall Xr) 20 mg capsule,extended release 24hr Discontinued 20 MG PO Daily June 08, 2016 11:00pm May 19, 2018 1:03pm Start: 06-09-2016 End: 05-19-2018 take 1 capsule by mouth once daily, then take 1 capsule by mouth every twenty-four hours Dextroamphetamine-Amphetamine (Adderall Xr) 20 mg capsule,extended release 24hr Discontinued 20 MG PO Daily June 09, 2016 12:00am May 19, 2018 2:03pm Dextroamphetamine/Amphetamin e (Amphetamine Salts 20 Mg Tablet) 20 MG TABLET (4 sources) Start: 12-22-2013 End: 01-19-2014 take 1 tablet by mouth once daily Dextroamphetamine/Amphetamine (Amphetamine Salts 20 Mg Tablet) 20 MG TABLET Discontinued 20 MG PO Daily December 22, 2013 2:36pm January 19, 2014 4:20pm Start: 11-29-2013 End: 12-22-2013 take 1 tablet by mouth once daily Dextroamphetamine/Amphetamine (Amphetami ne Salts 20 Mg Tablet) 20 MG TABLET Discontinued 20 MG PO Daily November 29, 2013 8:18am December 22, 2013 2:36pm Start: 10-12-2013 End: 11-29-2013 take 1 tablet by mouth once daily Dextroamphetamine/Amphetamine (Amphetami ne Salts 20 Mg Tablet) 20 MG TABLET Discontinued 20 MG PO Daily October 12, 2013 1:09pm November 29, 2013 8:18am Start: 09-25-2013 End: 10-12-2013 take 1 tablet by mouth once daily Dextroamphetamine/Amphetamine (Amphetami ne Salts 20 Mg Tablet) 20 MG TABLET Discontinued 20 MG PO Daily September 25, 2013 4:31pm October 12, 2013 1:09pm dicyclomine hydrochloride 20 mg oral tablet (20 sources) Anticholinergic Start: 03-11-2019 End: 03-20-2020 take 20 mg by mouth four times daily Dicyclomine Discontinued 20 MG PO 4 times per day March 11, 2019 1:45am March 20, 2020 10:17am doxycycline hyclate 100 mg oral tablet (9 sources) Tetracycline-class Drug Start: 11-27-2014 End: 12-19-2014 take 100 mg by mouth twice daily Doxycycline Hyclate Discontinued 100 MG PO 2 times per day November 27, 2014 11:22am December 19, 2014 1:33pm fluocinonide 0.5 mg/ml topical cream (20 sources) Corticosteroid Start: 06-12-2020 End: 12-12-2020 Fluocinonide Discontinued 1 APPLIC TOP 2 times per day June 12, 2020 1:13pm December 12, 2020 1:52pm Start: 06-12-2020 End: 12-12-2020 Fluocinonide Discontinued 1 APPLIC TOP 2 times per day June 11, 2020 11:00pm December 12, 2020 12:52pm fluticasone propionate 0.05 mg/actuat metered dose nasal spray (9 sources) Corticosteroid Start: 05-09-2014 End: 06-06-2014 Fluticasone Propionate Discontinued 1 - 2 SPRAY NS Daily May 09, 2014 5:09pm June 06, 2014 1:57pm Guaifenesin (Guaifenesin Er) 600 MG TABLET.ER (9 sources) Start: 05-09-2014 End: 06-06-2014 take 1 tablet by mouth twice daily Guaifenesin (Guaifenesin Er) 600 MG TABLET.ER Discontinued 600 MG PO 2 times per day May 09, 2014 5:09pm June 06, 2014 1:57pm Start: 05-09-2014 End: 06-06-2014 take 1 tablet by mouth twice daily Guaifenesin (Guaifenesin Er) 600 MG TABLET.ER Discontinued 600 MG PO 2 times per day May 09, 2014 4:09pm June 06, 2014 1:57pm lisdexamfetamine dimesylate 40 mg oral capsule (9 sources) Central Nervous System Stimulant Start: 09-14-2013 End: 09-25-2013 take 1 capsule by mouth once daily Lisdexamfetamine Dimesylate (Vyvanse) 40 MG CAPSULE Discontinued 1 CAPSULE PO Daily September 14, 2013 1:01pm September 25, 2013 4:31pm melatonin 10 mg extended release oral tablet (20 sources) Start: 05-19-2018 End: 05-21-2021 take 10 mg by mouth at bedtime Melatonin Discontinued 10 MG PO Bedtime May 19, 2018 2:00pm May 21, 2021 4:34pm Start: 05-19-2018 Melatonin Acti ve 10 MG Bedtime May 19, 2018 2:00pm Start: 05-19-2018 End: 05-21-2021 take 10 mg by mouth at bedtime Melatonin Discontinued 10 MG PO Bedtime May 18, 2018 11:00pm May 21, 2021 3:34pm metFORMIN hydrochloride 500 mg oral tablet (20 sources) Biguanide Start: 05-05-2016 End: 03-23-2020 take 500 mg by mouth once daily Metformin Discontinued 500 MG PO Daily April 08, 2019 2:58pm March 23, 2020 1:00pm Start: 05-05-2016 End: 03-23-2020 take 500 mg by mouth once daily Metformin Discontinued 500 MG PO Daily April 08, 2019 1:58pm March 23, 2020 12:00pm Methylphenidate (20 sources) Central Nervous System Stimulant Start: 07-21-2013 End: 07-21-2013 take 1 tablet by mouth twice daily Methylphenidate Hcl Discontinued 1 TAB PO 2 times per day 60 July 21, 2013 1:14pm July 21, 2013 1:37pm Start: 07-21-2013 End: 07-21-2013 take 1 tablet by mouth twice daily Methylphenidate Hcl Discontinued 1 TAB PO 2 times per day July 21, 2013 2:14pm July 21, 2013 2:37pm Start: 03-22-2013 End: 07-21-2013 take 1 tablet by mouth once daily Methylphenidate Hcl Discontinued 1 TAB PO Daily March 22, 2013 10:59am July 21, 2013 2:14pm Start: 03-03-2013 take 1 tablet by evangelina th once daily methylphenidate ER (RITALIN SR) 20 mg ER tablet Indications: ADD (attention deficit disorder) Take 1 tablet by mouth once daily. 30 tablet 0 03/03/2013 Active Methylphenidate Hcl (Methylphenidate Sr) 20 MG TABLET.ER (20 sources) Start: 08-18-2013 End: 09-14-2013 take 1 tablet by mouth twice daily Methylphenidate Hcl (Methylphenidate Sr) 20 MG TABLET.ER Discontinued 1 TAB PO 2 times per day 60 August 18, 2013 1:02pm September 14, 2013 1:01pm Start: 07-21-2013 End: 08-18-2013 take 1 tablet by mouth twice daily Methylphenidate Hcl (Methylphenidate Sr) 20 MG TABLET.ER Discontinued 1 TAB PO 2 times per day 60 July 21, 2013 2:37pm August 18, 2013 1:02pm Start: 07-21-2013 End: 07-21-2013 take 1 tablet by mouth twice daily Methylphenidate Hcl (Methylphenidate Sr) 20 MG TABLET.ER Discontinued 1 TAB PO 2 times per day 60 July 21, 2013 2:14pm July 21, 2013 2:37pm polyethylene glycol 3350 62731 mg powder for oral solution (20 sources) Osmotic Laxative Start: 07-19-2020 End: 09-21-2020 Polyethylene Glycol 3350 (Miralax) 17 gram powder in packet Discontinued 238 G PO Daily July 18, 2020 11:00pm September 21, 2020 7:40am Mix with 64 oz of Gatorade. Start drinking at 2 pm day before colonoscopy Start: 12-01-2017 End: 08-16-2018 Polyethylene Glycol 3350 (Mi ralax) 17 gram/dose powder Discontinued 0 PO .COMPLEX 238 December 01, 2017 6:22pm August 16, 2018 8:45pm Mix with 64oz of clear liquid. Drink an 8oz glass every 30 minutes, starting @ 11am the day before your surgery. Drink all until gone. Start: 12-01-2017 End: 08-16-2018 Polyethylene Glycol 3350 (Mi ralax) 17 gram/dose powder Discontinued 0 PO .COMPLEX November 30, 2017 11:00pm August 16, 2018 7:45pm Mix with 64oz of clear liquid. Drink an 8oz glass every 30 minutes, starting @ 11am the day before your surgery. Drink all until gone. predniSONE 20 mg oral tablet (20 sources) Start: 03-18-2016 End: 05-05-2016 take 2 tablets by mouth once daily Prednisone (Prednisone Tablet) 20 MG tablet Discontinued 40 MG PO Daily March 18, 2016 7:11pm May 05, 2016 10:39am Start: 03-18-2016 End: 05-05-2016 take 40 mg by mouth once daily Prednisone Discontinued 40 MG PO Daily March 18, 2016 12:00am May 05, 2016 9:39am tiZANidine 4 mg oral tablet (20 sources) Central alpha-2 Adrenergic Agonist Start: 07-21-2013 End: 08-29-2014 take 4 mg by mouth at bedtime Tizanidine Hcl Discontinued 4 MG PO Bedtime June 06, 2014 1:58pm August 29, 2014 1:34pm Urea (9 sources) Start: 06-06-2014 End: 11-14-2015 Urea Discontinued 1 APLICATION TP Bedtime June 06, 2014 2:03pm November 14, 2015 10:11am Problems Active Problems Problem Classification Problem Date Documented Da te Episodic/Chronic Abdominal pain (20 sources) Abdominal pain; Translations: [Unspecified abdominal pain] 04-26-2019 Episodic Administrative/social admission (1 source) Repeated prescription; Translations: [Encounter for issue of repeat prescription] 07-14-2023 Episodic Anal and rectal conditions (20 sources) Rectal pain; Translations: [Other specified diseases of anus and rectum] 04-26-2019 Episodic Anxiety disorders (1 source) Anxiety disorder Onset: 06-12-2020 Chronic Asthma (5 sources) Asthma; Translations: [Asthma] 11-25-2011 Chronic Attention-deficit conduct and disruptive behavior disorders (20 sources) Attention deficit hyperactivity disorder; Translations: [Attention-deficit hyperactivity disorder, unspecified type] Onset: 04-06-2019 09-16-2016 Chronic Complications of surgical procedures or medical care (5 sources) Postsurgical menopause; Translations: [Asymptomatic postprocedural ovarian failure] Onset: 10-26-2008 11-25-2011 Chronic Conditions associated with dizziness or vertigo (4 sources) Dizziness; Translations: [Dizziness and giddiness] 01-12-2023 Episodic Diabetes mellitus with complications (5 sources) Hyperglycemia due to type 2 diabetes mellitus; Translations: [Type 2 diabetes mellitus with hyperglycemia] Onset: 01-12-2023 01-12-2023 Chronic Diabetes mellitus without complication (20 sources) Type 2 diabetes mellitus; Translations: [Type 2 diabetes mellitus without complications] Onset: 04-08-2019 04-26-2019 Chronic Disorders of lipid metabolism (20 sources) Mixed hyperlipidemia; Translations: [Mixed hyperlipidemia] Onset: 04-06-2019 09-16-2016 Chronic Disorders usually diagnosed in infancy, childhood, or adolescence (5 sources) Attention deficit hyperactivity disorder, predominantly inattentive type; Translations: [Other specified behavioral and emotional disorders with onset usually occurring in childhood and adolescence] Onset: 11-04-2011 11-25-2011 Chronic Esophageal disorders (2 sources) Moreno's esophagus; Translations: [Gastroesophageal reflux disease with hiatal hernia] Onset: 01-03-2021 Chronic Essential hypertension (1 source) Essential hypertension; Translations: [Essential (primary) hypertension] 07-14-2023 Chronic Gastrointestinal hemorrhage (20 sources) Rectal hemorrhage; Translations: [Hemorrhage of anus and rectum] 04-26-2019 Episodic Headache; including migraine (20 sources) Migraine; Translations: [Migraine, unspecified, not intractable, without status migrainosus] 04-26-2019 Chronic Immunizations and screening for infectious disease (2 sources) Viral screening status; Translations: [Encounter for screening for other viral diseases] Onset: 07-14-2023 07-14-2023 Episodic Nonmalignant breast conditions (20 sources) Discharge from nipple; Translations: [Nipple discharge] 04-26-2019 Episodic Open wounds of extremities (20 sources) Laceration of finger; Translations: [Laceration without foreign body of left thumb without damage to nail, initial encounter] 04-26-2019 Episodic Osteoarthritis (20 sources) Degenerative joint disease involving multiple joints; Translations: [Other hypertrophic osteoarthropathy, multiple sites] Onset: 04-08-2019 09-16-2016 Chronic Other gastrointestinal disorders (20 sources) Diarrhea; Translations: [Diarrhea, unspecified] 04-26-2019 Episodic Other lower respiratory disease (20 sources) Cough; Translations: [Cough] 04-26-2019 Episodic Other nutritional; endocrine; and metabolic disorders (5 sources) Disorder of lipid metabolism; Translations: [Disorder of lipoprotein metabolism, unspecified] Onset: 12-18-2008 11-25-2011 Chronic Other screening for suspected conditions (not mental disorders or infectious disease) (2 sources) Patient encounter status; Translations: [Encounter for screening mammogram for malignant neoplasm of breast] 07-15-2023 Episodic Other skin disorders (1 source) Foot callus Onset: 07-01-2022 Episodic Phlebitis; thrombophlebitis and thromboembolism (20 sources) Deep venous thrombosis; Translations: [Acute embolism and thrombosis of unspecified deep veins of unspecified lower extremity] Onset: 06-12-2020 04-26-2019 Episodic Spondylosis; intervertebral disc disorders; other back problems (20 sources) Degeneration of cervical intervertebral disc; Translations: [Other cervical disc degeneration, unspecified cervical region] Onset: 04-06-2019 09-16-2016 Chronic Spondylosis; intervertebral disc disorders; other back problems (20 sources) Chronic neck pain; Translations: [Pain in spine] Onset: 05-11-2009 04-26-2019 Episodic Substance-related disorders (20 sources) Smoker; Translations: [Nicotine dependence, unspecified, uncomplicated] Onset: 10-26-2008 04-26-2019 Chronic Thyroid disorders (20 sources) Acquired hypothyroidism; Translations: [Mindy thyroiditis] Onset: 04-06-2019 09-16-2016 Chronic Viral infection (20 sources) Verruca plantaris; Translations: [Plantar wart] 04-26-2019 Episodic Past or Other Problems Problem Classification Problem Date Documented Da te Episodic/Chronic Diabetes mellitus without complication (5 sources) Impaired fasting glycemia; Translations: [Impaired fasting glucose] Onset: 12-18-2008 11-25-2011 Episodic Malaise and fatigue (5 sources) Physical deconditioning; Translations: [Other malaise] Onset: 07-20-2012 07-20-2012 Episodic Other and unspecified benign neoplasm (1 source) Polyp of colon Onset: 01-03-2021 Episodic Other connective tissue disease (5 sources) Acquired trigger finger; Translations: [Trigger finger, unspecified finger] Onset: 08-10-2009 11-25-2011 Episodic Other connective tissue disease (5 sources) Trochanteric bursitis of left hip; Translations: [Trochanteric bursitis, left hip] Onset: 02-13-2011 11-25-2011 Episodic Other connective tissue disease (5 sources) Impingement syndrome of left shoulder region; Translations: [Impingement syndrome of left shoulder] Onset: 02-13-2011 11-25-2011 Episodic Other connective tissue disease (5 sources) Myofascial pain; Translations: [Myalgia, other site] Onset: 07-20-2012 07-20-2012 Episodic Other diseases of kidney and ureters (1 source) Cyst of kidney Onset: 09-24-2020 Episodic Other non-traumatic joint disorders (1 source) Hip pain Onset: 05-21-2021 Episodic Other upper respiratory infections (20 sources) Sore throat symptom; Translations: [Acute pharyngitis, unspecified] Onset: 01-28-2023 04-26-2019 Episodic Unclassified (1 source) Acute COVID-19 Onset: 12-20-2021 Results Test Name Value Interpretation Reference Range Facility [facility] JD [facility] ([id number]) 1965 F Date Time Provider Department 07/21/23 JOHNY SWENSON During your visit today, we recorded the following information about you: Lizbeth Infante LPN 07/21/2023 4:27 PM Signed ----- Message from Johny Swenson DO sent at 07/21/2023 2:55 PM EDT ----- Pt can do a phone visit to discuss results Kea Amaro 07/22/2023 10:40 AM Signed Called and left Kae Powers 07/23/2023 12:13 PM Signed 2nd try. Left Luna Walsh 07/24/2023 8:19 AM Signed 3rd attempt LVM to call our office back to [facility] to discuss results. Please assist with scheduling once patient calls back. Thanks Luna Hargrove Allergies As of Date: 07/21/2023 Noted Allergy Reaction BACTRIM (SULFAMETHOXAZOLE) 08/15/2010 2 - Rash Comments: itching METFORMIN 07/14/2023 8 - GI Upset Date Reviewed: 07/14/2023 Reviewed by: Lizbeth Infante LPN - Fully Assessed Prescriptions as of 07/28/2023 - baclofen 10 mg tablet Take 10 mg by mouth daily at bedtime. - cetirizine (ZYRTEC) 10 mg tablet Take 10 mg by mouth once daily. - FARXIGA 5 mg tablet Take 1 tablet by mouth daily with breakfast. - FREESTYLE AMADOR 2 SENSOR kit - ONETOUCH DELICA PLUS LANCET 33 gauge use 1 LANCET to TEST BLOOD SUGAR daily - LANTUS U-100 INSULIN 100 unit/mL injection Inject 18 Units subcutaneously daily at bedtime. - rizatriptan (MAXALT) 5 mg tablet TAKE 1 TABLET BY MOUTH AT ONSET OF HEADACHE IF NEEDED REPEAT IN 2 HOURS IF HEADACHE HASNT SUBSIDED - sertraline (ZOLOFT) 50 mg tablet Take 1 tablet by mouth once daily. - BD INSULIN SYRINGE ULTRA-FINE 0.3 mL 31 gauge x 5/16 Inject 1 Each subcutaneously once daily. - cloNIDine HCl (CATAPRES) 0.1 mg tablet Take 1 tablet by mouth once daily. - omeprazole (PRILOSEC) 40 mg capsule Take 1 capsule by mouth once daily. - warfarin (COUMADIN) 1 mg tablet Take 1 tablet by mouth daily as directed. Take 1 mg tablet along with 3 mg tablet daily - warfarin (COUMADIN) 3 mg tablet Take 1 tablet by mouth once daily. Take 3 mg tablet along with 1 mg tablet daily - levothyroxine (SYNTHROID) 125 mcg tablet Take 1 tablet by mouth once daily. - methylphenidate ER (RITALIN SR) 20 mg ER tablet Take 1 tablet by mouth once daily. Problem List As Of Date 07/21/2023 Noted Resolved Asthma [493] Phlebitis and Thrombophlebitis of Unspecified S* Lumbago [M54.50] Tobacco dependency [F17.200] 10/26/2008 Postsurgical menopause [E89.40] 10/26/2008 Impaired fasting glucose [R73.01] 12/18/2008 Lipid disorder [E78.9] 12/18/2008 Low Back Ache; chronic; very rare use of Independence *05/11/2009 Trigger finger (acquired) [M65.30] 08/10/2009 Trochanteric bursitis of left hip [M70.62] 02/13/2011 Impingement syndrome of left shoulder [M75.42] 02/13/2011 ADD (attention deficit disorder) [F98.8] 11/04/2011 Myofascial pain [M79.18] 07/20/2012 Physical deconditioning [R53.81] 07/20/2012 Low back pain [M54.50] 07/20/2012 DVT (deep venous thrombosis) ([facility]) [I82.409] 07/14/2023 Encounter Status:Closed by LIZBETH INFANTE on 07/28/23 [facility] 07-15-2023 CNPN Telephone (PHARMN) JD MILLER ([id number]) 1965 F Date Time Provider Department 07/15/23 PHARMACIST PHARMN During your visit today, we recorded the following information about you: Beatris Grimes RN 07/15/2023 4:08 PM Signed A call was placed to patient's home and cell telephone number. A voicemail message was left with request for patient to return call to [facility] at [phone] Option #2 to discuss new referral to PAC. Mychart message sent. Natalee Grimes RN Pharmacy, Anticoagulation Clinic Beatris Grimes RN 07/24/2023 9:56 AM Signed A call was placed to patient's home and cell telephone number. A voicemail message was left with request for patient to return call to [facility] at [phone] Option #2 to discuss new referral to PAC. Mychart message sent. Natalee Grimes RN Pharmacy, Anticoagulation Clinic Beatris Grimes RN 07/28/2023 11:08 AM Signed Call to patient's home/cell telephone number; left a voicemail message with request for the patient to return call to PAC at [phone] Option #2. Patient has not read Mychart message. Natalee Grimes RN Pharmacy, Anticoagulation Clinic Samaria Michel [facility] 07/30/2023 8:55 AM Signed Left voice message asking patient to call the Anticoagulation Clinic at [phone] to discuss her referral to the coumadin clinic. Per Dr. Swenson's note - she has been on coumadin since the . Samaria Michel, PharmD, CACP [facility] Beatris Grimes RN 08/07/2023 4:43 PM Signed A call was placed to patient's home and cell telephone number. A voicemail message was left with request for patient to return call to Pharmacy [facility] at [phone] Option #2 to discuss new referral to PAC. Natalee Grimes RN Pharmacy, Anticoagulation Clinic Beatris Grimes RN 08/12/2023 10:22 AM Signed A call was placed to patient's home and cell telephone number. A voicemail message was left with request for patient to return call to Pharmacy [facility] at [phone] Option #2 to discuss new referral to PAC. Mychart has not been read. Will send the patient a letter. If there is no response, PAC will disregard referral. Natalee Grimes RN Pharmacy, Anticoagulation Clinic Beatris Grimes RN 08/20/2023 1:40 PM Signed Attempted to reach the patient but the number is disconnected. Patient has not read mychart. Letter was sent on 08/12/2023. Natalee Grimes RN [facility] Beatris Grimes RN 08/27/2023 9:03 AM Signed Original referral was placed on 07/14/2023. Patient has not responded to messages, Mychart, or a letter sent to the patient's residence. [facility] will disregard referral at this time. Natalee Grimes RN [facility] Allergies As of Date: 07/15/2023 Noted Allergy Reaction BACTRIM (SULFAMETHOXAZOLE) 08/15/2010 2 - Rash Comments: itching METFORMIN 07/14/2023 8 - GI Upset Date Reviewed: 07/14/2023 Reviewed by: Lizbeth Infante LPN - Fully Assessed Reason for Visit: Anticoagulation - Initial Consult [144] Prescriptions as of 08/27/2023 - baclofen 10 mg tablet Take 10 mg by mouth daily at bedtime. - cetirizine (ZYRTEC) 10 mg tablet Take 10 mg by mouth once daily. - FARXIGA 5 mg tablet Take 1 tablet by mouth daily with breakfast. - FREESTYLE AMADOR 2 SENSOR kit - ONETOUCH DELICA PLUS LANCET 33 gauge use 1 LANCET to TEST BLOOD SUGAR daily - LANTUS U-100 INSULIN 100 unit/mL injection Inject 18 Units subcutaneously daily at bedtime. - rizatriptan (MAXALT) 5 mg tablet TAKE 1 TABLET BY MOUTH AT ONSET OF HEADACHE IF NEEDED REPEAT IN 2 HOURS IF HEADACHE HASNT SUBSIDED - sertraline (ZOLOFT) 50 mg tablet Take 1 tablet by mouth once daily. - BD INSULIN SYRINGE ULTRA-FINE 0.3 mL 31 gauge x 07/22 Inject 1 Each subcutaneously once daily. - cloNIDine HCl (CATAPRES) 0.1 mg tablet Take 1 tablet by mouth once daily. - omeprazole (PRILOSEC) 40 mg capsule Take 1 capsule by mouth once daily. - warfarin (COUMADIN) 1 mg tablet Take 1 tablet by mouth daily as directed. Take 1 mg tablet along with 3 mg tablet daily - warfarin (COUMADIN) 3 mg tablet Take 1 tablet by mouth once daily. Take 3 mg tablet along with 1 mg tablet daily - levothyroxine (SYNTHROID) 125 mcg tablet Take 1 tablet by mouth once daily. - methylphenidate ER (RITALIN SR) 20 mg ER tablet Take 1 tablet by mouth once daily. Problem List As Of Date 07/15/2023 Noted Resolved Asthma [493] Phlebitis and Thrombophlebitis of Unspecified S* Lumbago [M54.50] Tobacco dependency [F17.200] 10/26/2008 Postsurgical menopause [E89.40] 10/26/2008 Impaired fasting glucose [R73.01] 12/18/2008 Lipid disorder [E78.9] 12/18/2008 Low Back Ache; chronic; very rare use of Independence *05/11/2009 Trigger finger ( (more content not included)... Normal [facility] CNOVon 07-14-2023 CNOV Office Visit (FAMDNA) JD MILLER ([id number]) 1965 F Date Time Provider Department 07/14/23 10:20 AM ARJUNJOHNY BHARAT During your visit today, we recorded the following information about you: Temperature Pulse Respiration Blood pressure 97.4 degrees 70/minute 16/minute 182/81 Weight Height 81.1 kg 1.651 m Arjun, ChrismeraryDO 07/14/2023 1:06 PM Signed 58 year old female presenting for new pt I have fully reviewed the past medical, surgical, social and family history and updated the Histories section of [facility]. Recurrent DVTs has been on coumadin since the INR goal 2-3 Coumadin clinic Hypothyroidism diagnosed decades ago stable on regimen Current Outpatient Medications on File Prior to Visit: Current Outpatient Medications Medication Sig Dispense Refill warfarin (COUMADIN) 1 mg tablet Take 1 mg by mouth daily as directed. Take 1 mg tablet along with 3 mg tablet daily baclofen 10 mg tablet Take 10 mg by mouth daily at bedtime. cetirizine (ZYRTEC) 10 mg tablet Take 10 mg by mouth once daily. FARXIGA 5 mg tablet Take 1 tablet by mouth daily with breakfast. FREESTYLE AMADOR 2 SENSOR kit [employer] DEL[employer] PLUS LANCET 33 gauge use 1 LANCET to TEST BLOOD SUGAR daily LANTUS U-100 INSULIN 100 unit/mL injection Inject 18 Units subcutaneously daily at bedtime. levothyroxine (SYNTHROID) 125 mcg tablet Take 1 tablet by mouth once daily. rizatriptan (MAXALT) 5 mg tablet TAKE 1 TABLET BY MOUTH AT ONSET OF HEADACHE IF NEEDED REPEAT IN 2 HOURS IF HEADACHE HASNT SUBSIDED sertraline (ZOLOFT) 50 mg tablet Take 1 tablet by mouth once daily. BD INSULIN SYRINGE ULTRA-FINE 0.3 mL 31 gauge x 07/22 Inject 1 Each subcutaneously once daily. omeprazole (PRILOSEC) 40 mg capsule Take 40 mg by mouth once daily. cloNIDine HCl (CATAPRES) 0.1 mg tablet Take 0.1 mg by mouth once daily. warfarin (COUMADIN) 3 mg tablet Take 3 mg by mouth once daily. Take 3 mg tablet along with 1 mg tablet daily 0 methylphenidate ER (RITALIN SR) 20 mg ER tablet Take 1 tablet by mouth once daily. (Patient not taking: Reported on 07/14/2023) 30 tablet 0 No current facility-administere d medications for this visit. ALLERGIES Allergen Reactions Bactrim [Sulfametho* Rash itching Metformin GI Upset PAST SURGICAL HISTORY Procedure Laterality Date LIG/TRNSXJ FLP TUBE ABDL/VAG APPR UNI/1992 PAST SURGICAL HISTORY OF 1990 csection PAST SURGICAL HISTORY OF right CTR PAST SURGICAL HISTORY OF foot plantar fasciectomy PAST SURGICAL HISTORY OF 1999 dental extractions SALPINGO-OOPHORECTOM Y COMPL/PRTL UNI/BI SPX 1999 Salpingo-oophorectom y B9 d/t pain - uterus remains Social history reviewed in [facility]. REVIEW OF SYSTEMS: Constitutional: Denies fever, denies chills, denies fatigue Head: Denies headache Eyes: Denies changes in vision or blurry vision Ears/Nose/Throat: Denies sore throat, denies rhinorrhea Musculoskeletal: Denies joint pain, denies myalgias Abd: No abd pain, no vomiting, no diarrhea, no nausea Skin/Breast: Denies rash or lesions Cardiovascular: Denies chest pain, denies palpitations, denies LE edema Respiratory: Denies cough, denies SOB, denies wheezing Neurological: Denies numbness, denies tingling, denies weakness PHYSICAL EXAMINATION: General appearance: Well appearing, alert, in no acute distress, well-hydrated, well nourished. Skin: no suspicious rashes or lesions Head: Normocephalic, atraumatic Eyes: Anicteric sclera Nose/Sinuses: Nares normal Oropharynx: Mucosa moist Neck: Supple Lungs: Lungs clear to auscultation. No wheezing, rhonchi, rales. Heart: RRR without murmur, gallop, or rubs. Abdomen: Normal abdominal exam, Abdomen soft, non-tender. No masses Extremities: No deformities, no edema, no cyanosis. Musculoskeletal: No joint swelling, no deformity Neuro: Speech intact ASSESSMENT/PLAN: 1. Primary hypertension - ICD9: 401.9, ICD10: I10 (primary diagnosis) - Controlled - Recommend home blood pressure monitoring, to bring results to next visit - Encouraged sodium restriction, DASH or Mediterranean diet - Recommend regular aerobic exercise - HEMOGLOBIN A1C - LIPID PANEL BASIC - HEPATITIS C ANTIBODY IA WITH CONFIRMATION 2. Special screening examination for viral disease - ICD9: V73.99, ICD10: Z11.59 - HEPATITIS C ANTIBODY IA WITH CONFIRMATION 3. History of DVT (deep vein thrombosis) - ICD9: V12.51, ICD10: Z86.718 - WARFARIN 1 MG TABLET - WARFARIN 3 MG TABLET - ANTICOAG/COUMADIN CLINIC PHARM - PROTHROMBIN TIME 4. Medication refill - ICD9: V68.1, ICD10: Z76.0 - CLONIDINE HCL 0.1 MG TABLET - OMEPRAZOLE 40 MG CAPSULE,DELAYED RELEASE - LEVOTHYROXINE 125 MCG TABLET 5. Hypothyroidism, acquired - ICD9: 244.9, ICD10: E03.9 - Instructed patient on importance of taking on an empty stomach either first thing in the morning or at bedtime. - THYROID ST (more content not included)... Normal [facility] HCV Ab Ql (S)on 07-14-2023 Interpretation and review of laboratory results Normal [facility] HCV Ab Ser Qlon 07-14-2023 HCV Ab Ql (S) Negative Normal Negative [facility] Comment on above: Order Comment: Speci men Type: BLOOD SPECIMEN Ordering Facility: [facility] Address: [address] [place] [address] Result Comment: The result suggests no evidence of active infection with Hepatitis C virus. Should recent infection be suspected, repeat testing may be considered 4-6 weeks after this draw. Performed By: #### 1 6128-1 #### [facility] CLIA [id number] [address] [place] [address] [place] HEPATITIS C ANTIBODY IA WITH CONFIRMATIONon 07-14-2023 HCV Ab Ql (S) Negative Negative [facility] Comment on above: The result suggests no evidence of active infection with Hepatitis C virus. Should recent infection be suspected, repeat testing may be considered 4-6 weeks after this draw. HbA1c (Bld)on 07-14-2023 Average glucose Estimated from glycated hemoglobin (Bld) [Mass/Vol] 154 mg/dL [facility] Comment on above: eAG: (Estimated aver age glucose) is a calculated value from HgbA1c and is education courses sales representative of the average blood glucose level in the last 2-3 month period. HbA1c (Bld) [Mass fraction] 7.0 % High 4.3 - 5.6 % [facility] Comment on above: [place] Diabetes As sociation guidelines indicate that patients with HgbA1c in the range 5.7-6.4% are at increased risk for development of diabetes, and intervention by lifestyle modification may be beneficial. HgbA1c greater or equal to 6.5% is considered diagnostic of diabetes. Interpretation and review of laboratory results Abnormal [facility] Average glucose Estimated from glycated hemoglobin (Bld) [Mass/Vol] 154 mg/dL Normal [facility] Comment on above: Order Comment: Ada anne Type: BLOOD SPECIMEN Ordering Facility: [facility] Address: [address] [place] [address] Result Comment: eAG: (Estimated average glucose) is a calculated value from HgbA1c and is education courses sales representative of the average blood glucose level in the last 2-3 month period. Performed By: #### 5 5454-3 #### [facility] CLIA [id number] [address] [place] [address] [place] HbA1c (Bld) [Mass fraction] 7.0 % High 4.3-5.6 [facility] Comment on above: Order Comment: Ada anne Type: BLOOD SPECIMEN Ordering Facility: [facility] Address: [address] [place] [address] Result Comment: [place] Diabetes Association guidelines indicate that patients with HgbA1c in the range 5.7-6.4% are at increased risk for development of diabetes, and intervention by lifestyle modification may be beneficial. HgbA1c greater or equal to 6.5% is considered diagnostic of diabetes. Performed By: #### 5 5454-3 #### [facility] CLIA [id number] [address] [place] [address] [place] Lipid 1996 panelon 4 Cholesterol [Mass/Vol] 181 mg/dL Normal <200 [facility] Comment on above: Order Comment: Ada anne Type: BLOOD SPECIMEN Ordering Facility: [facility] Address: [address] [place] [address] Result Comment: <200 mg/dL, Desirable 200-239 mg/dL, Borderline high >239 mg/dL, High Performed By: #### 3 016-3, 38700-5 #### [facility] CLIA [id number] [address] [place] [address] [place] Cholesterol in HDL [Mass/Vol] 56 mg/dL Normal >39 [facility] Comment on above: Order Comment: Ada omid Type: BLOOD SPECIMEN Ordering Facility: [facility] Address: [address] [place] [address] Result Comment: 40-5 9 mg/dL, Acceptable >59 mg/dL, High: Negative risk factor for coronary heart disease <40 mg/dL, Low: Positive risk factor for coronary heart disease Performed By: #### 3 016-3, 22843-0 #### [facility] CLIA [id number] [address] Cholesterol in LDL [Mass/Vol] 104 mg/dL High <100 [facility] Comment on above: Order Comment: Ada omid Type: BLOOD SPECIMEN Ordering Facility: [facility] Address: [address] [place] [address] Result Comment: <100 mg/dL, Optimal 100-129 mg/dL, Near optimal/above optimal 130-159 mg/dL, Borderline high 160-189 mg/dL, High >189 mg/dL, Very high Secondary prevention optimal LDL Cholesterol levels are recommended to be < 70 mg/dL Performed By: #### 3 016-3, 32993-2 #### [facility] CLIA [id number] [address] Cholesterol in LDL/Cholesterol in HDL [Mass ratio] 1.86 {ratio} Normal <2.54 [facility] Comment on above: Order Comment: Ada omid Type: BLOOD SPECIMEN Ordering Facility: [facility] Address: [address] [place] [address] Result Comment: Ayesha rojas: 1. National Cholesterol Education Program ATP III Guideline At-A-Glance Quick Desk Reference: National Heart, Lung, and Blood Grubbs. National Institutes of Health. 2001: NIH Publication No. 01-3305. 2. An International Atherosclerosis Society position paper: global recommendations for the management of dyslipidemia: executive summary, Atherosclerosis. 2014: 232(2):410-413. Performed By: #### 3 016-3, 38479-9 #### [facility] CLIA [id number] [address] Cholesterol in VLDL [Mass/Vol] 21 mg/dL Normal <30 [facility] Comment on above: Order Comment: Speci men Type: BLOOD SPECIMEN Ordering Facility: [facility] Address: [address] [place] [address] Performed By: #### 3 016-3, 31082-3 #### [facility] CLIA [id number] [address] Cholesterol non HDL [Mass/Vol] 125 mg/dL Normal <130 [facility] Comment on above: Order Comment: Speci men Type: BLOOD SPECIMEN Ordering Facility: [facility] Address: [address] [place] [address] Result Comment: <130 mg/dL, Optimal 130-159 mg/dL, Near optimal/above optimal 160-189 mg/dL, Borderline high 190-219 mg/dL, High >219 mg/dL, Very high Secondary prevention optimal non HDL Cholesterol levels are recommended to be <100 mg/dL Performed By: #### 3 016-3, 89825-5 #### [facility] CLIA [id number] [address] Cholesterol.total/Annalise sterol in HDL [Mass ratio] 3.23 {ratio} Normal <5.10 [facility] Comment on above: Order Comment: Speci men Type: BLOOD SPECIMEN Ordering Facility: [facility] Address: [address] [place] [address] Performed By: #### 3 016-3, 79325-9 #### [facility] CLIA [id number] [address] FASTING TIME 4 hrs Normal [facility] Comment on above: Order Comment: Speci men Type: BLOOD SPECIMEN Ordering Facility: [facility] Address: [address] [place] [address] Performed By: #### 3 016-3, 22893-8 #### [facility] CLIA [id number] [address] Triglyceride [Mass/Vol] 104 mg/dL Normal <150 [facility] Comment on above: Order Comment: Speci men Type: BLOOD SPECIMEN Ordering Facility: [facility] Address: [address] [place] [address] Result Comment: <150 mg/dL, Normal 150-199 mg/dL, Borderline high 200-499 mg/dL, High >499 mg/dL, Very high Performed By: #### 3 016-3, 15254-3 #### [facility] CLIA [id number] [address] [place] [address] [place] Cholesterol [Mass/Vol] 181 mg/dL NINF - 200 mg/dL [facility] Comment on above: <200 mg/dL, Desirabl e 200-239 mg/dL, Borderline high >239 mg/dL, High Cholesterol in HDL [Mass/Vol] 56 mg/dL 39 - PINF mg/dL [facility] Comment on above: 40-59 mg/dL, Accepta ble >59 mg/dL, High: Negative risk factor for coronary heart disease <40 mg/dL, Low: Positive risk factor for coronary heart disease Cholesterol in LDL [Mass/Vol] 104 mg/dL High NINF - 100 mg/dL [facility] Comment on above: <100 mg/dL, Optimal 100-129 mg/dL, Near optimal/above optimal 130-159 mg/dL, Borderline high 160-189 mg/dL, High >189 mg/dL, Very high Secondary prevention optimal LDL Cholesterol levels are recommended to be < 70 mg/dL Cholesterol in LDL/Cholesterol in HDL [Mass ratio] 1.86 {ratio} NINF - 2.54 [facility] Comment on above: Reference: 1. National Cholesterol Education Program ATP III Guideline At-A-Glance Quick Desk Reference: National Heart, Lung, and Blood Grubbs. National Institutes of Health. 2001: NIH Publication No. 01-3305. 2. An International Atherosclerosis Society position paper: global recommendations for the management of dyslipidemia: executive summary, Atherosclerosis. 2014: 232(2):410-413. Cholesterol in VLDL [Mass/Vol] 21 mg/dL NINF - 30 mg/dL [facility] Cholesterol non HDL [Mass/Vol] 125 mg/dL NINF - 130 mg/dL [facility] Comment on above: <130 mg/dL, Optimal 130-159 mg/dL, Near optimal/above optimal 160-189 mg/dL, Borderline high 190-219 mg/dL, High >219 mg/dL, Very high Secondary prevention optimal non HDL Cholesterol levels are recommended to be <100 mg/dL Cholesterol.total/Annalise sterol in HDL [Mass ratio] 3.23 {ratio} NINF - 5.10 [facility] Fasting Time 4 hrs [facility] Interpretation and review of laboratory results Abnormal [facility] Triglyceride [Mass/Vol] 104 mg/dL NINF - 150 mg/dL [facility] Comment on above: <150 mg/dL, Normal 150-199 mg/dL, Borderline high 200-499 mg/dL, High >499 mg/dL, Very high [facility] PT panel Coag (PPP)on 2023 INR Coag (PPP) [Relative time] 1.1 {INR} Normal 0.9-1.3 [facility] Comment on above: Order Comment: Ada anne Type: BLOOD SPECIMEN Ordering Facility: [facility] Address: [address] [place], [place] [id number] Result Comment: Abi min K Antagonist (VKA) Therapeutic Range: INR 2 to 3 (Target INR of 2.5) Note: For patients treated with VKA drugs, such as warfarin, the [place] [employer] 2012 Guideline recommends a therapeutic INR range of 2 to 3 (target INR of 2.5). This recommendation includes high-risk patients with antiphospholipid syndrome with previous arterial or venous thromboembolism, current-generation mechanical or bioprosthetic aortic heart valve replacement. Note: Patients with mechanical aortic valve replacement and additional risk factors for thromboembolic events (atrial fibrillation, previous thromboembolism, LV dysfunction, hypercoagulable conditions) or an older generation mechanical AVR (i.e., ball in-Cage) or any mechanical MVR should have a INR therapeutic range of 2.5 to 3.5 (target INR of 3). Christie GH, et al. Chest 2012, 141:7S-47S Viktor RA, et al. [facility] 2017, 70: 252-289 Performed By: #### 3 4528-0 #### [facility] CLIA [id number] [address] [place] PT Coag (PPP) [Time] 11.4 s Normal 9.7-13.0 [facility] Comment on above: Order Comment: Ada anne Type: BLOOD SPECIMEN Ordering Facility: [facility] Address: [address] [place] [address] Performed By: #### 3 4528-0 #### [facility] CLIA [id number] [address] [place] [address] [place] INR Coag (PPP) [Relative time] 1.1 {INR} 0.9 - 1.3 [facility] Comment on above: Vitamin K Antagonist (VKA) Therapeutic Range: INR 2 to 3 (Target INR of 2.5) Note: For patients treated with VKA drugs, such as warfarin, the [place] [employer] 2012 Guideline recommends a therapeutic INR range of 2 to 3 (target INR of 2.5). This recommendation includes high-risk patients with antiphospholipid syndrome with previous arterial or venous thromboembolism, current-generation mechanical or bioprosthetic aortic heart valve replacement. Note: Patients with mechanical aortic valve replacement and additional risk factors for thromboembolic events (atrial fibrillation, previous thromboembolism, LV dysfunction, hypercoagulable conditions) or an older generation mechanical AVR (i.e., ball in-Cage) or any mechanical MVR should have a INR therapeutic range of 2.5 to 3.5 (target INR of 3). Christie GH, et al. Chest 2012, 141:7S-47S Viktor RA, et al. [facility] 2017, 70: 252-289 Interpretation and review of laboratory results Normal [facility] PT Coag (PPP) [Time] 11.4 s [facility] THYROID STIMULATING HORMONEo n 07-14-2023 TSH Qn 7.770 m[IU]/L High [facility] TSH Qnon 07-14-2023 Interpretation and review of laboratory results Abnormal [facility] TSH SerPl-aCncon 07-14-2023 TSH Qn 7.770 m[IU]/L High 0.270-4.200 [facility] Comment on above: Order Comment: Speci men Type: BLOOD SPECIMEN Ordering Facility: [facility] Address: [address] [place] [address] Performed By: #### 3 016-3, 86324-8 #### [facility] CLIA [id number] [address] [place] [address] [place] Glycosylated Hemoglobinon Glycosylated Hemoglobin 7.2 % High 4.4-5.6 M [facility] Comment on above: Order Comment: Is th is for the Diabetic ED Research Study No Hemoglobin A1c Nurse Monitor? N Diagnosis/Reason for Test: Type 2 diabetes mellitus without complications Comments: 1 sample(s), Collect by: Lab. Comments: 1 sample(s), Collect by: Lab., When: in 3 months Result Comment: PRE- DIABETES 5.7-6.4 DIABETES > OR = 6.5 Performed By: #### G H #### [facility] [address] [place] [address] , Brannon Mckeon M.D. FCAP, FASCP T4-Freeon 04-16-2023 Free T4 [Mass/Vol] 1.49 ng/dL Normal 0.93-1.70 [facility] Comment on above: Order Comment: Nurse Monitor? N Diagnosis/Reason for Test: Hypothyroidism, unspecified Comments: 1 sample(s), Collect by: Collected. TSH Comments: 1 sample(s), Collect by: Collected., When: Urgent (within 24 hours) Performed By: #### T SH #### [facility] [address] [place] [address] , Jeffry Stokes, FASCP Thyroid Stimulating Hormoneo n 04-16-2023 Thyroid Stimulating Hormone 0.5010 uIU/mL Normal 0.270-4.200 [facility] Comment on above: Order Comment: Nurse Monitor? N Diagnosis/Reason for Test: Hypothyroidism, unspecified Comments: 1 sample(s), Collect by: Collected. TSH Comments: 1 sample(s), Collect by: Collected., When: Urgent (within 24 hours) Performed By: #### T SH #### [facility] [address] [place] [address] , Jeffry StokesAP, FASCP Group A Strep NAATon 01-28-2 023 Group A Strep NAAT S pyo DNA Throat Ql CHELSEY+probe: GAS NOT DETECTED NEGATIVE for: Group A Strep by NAAT Note: Negative results should be followed up with a CULTURE for patients when clinical symptoms persist or during an outbreak of Acute Rheumatic Fever. Normal [facility] Comment on above: Performed By: #### G #### [facility] [address] [place] [address] , Brannon Mckeon M.D. FCAP, FASCP Streptococcus group A nuclei c acid amplified probeOrdered By: MICHELLE CAMACHO on 01-28-2023 S. pyogenes DNA CHELSEY+probe Ql (Throat) [facility] Glycosylated Hemoglobinon Glycosylated Hemoglobin 14.1 % High 4.4-5.6 [facility] Comment on above: Order Comment: Is th is for the Diabetic ED Research Study No Hemoglobin A1c Nurse Monitor? N Diagnosis/Reason for Test: Type 2 diabetes mellitus without complications Comments: 1 sample(s), Collect by: Collected. Comments: 1 sample(s), Collect by: Collected., When: Urgent (within 24 hours) Result Comment: PRE- DIABETES 5.7-6.4 DIABETES > OR = 6.5 Performed By: #### G H #### [facility] [address] [place], [place] [id number] , Brannon Mckeon M.D. FCAP, FASCP HbA1c HPLC (Bld) [Mass fract ion]Ordered By: LUCAS GRECO on 01-14-2023 HbA1c (Bld) [Mass fraction] 14.1 % High 4.4-5.6 [facility] Comment on above: PRE-DIABETES 5.7-6.4 DIABETES > OR = 6.5 TSH ser/plasOrdered By: LUCAS GRECO on 01-14-2023 TSH Qn 0.0420 uIU/mL Low 0.270-4.200 [facility] Thyroid Stimulating Hormoneo n 01-14-2023 Thyroid Stimulating Hormone 0.0420 uIU/mL Low 0.270-4.200 [facility] Comment on above: Order Comment: Nurse Monitor? N Diagnosis/Reason for Test: Hypothyroidism, unspecified Comments: 1 sample(s), Collect by: Collected. TSH Comments: 1 sample(s), Collect by: Collected., When: Urgent (within 24 hours) Performed By: #### T SH #### [facility] [address] [place], [place] [id number] , Brannon Mckeon M.D. FCAP, FASCP Alanine aminotransferase [En zymatic activity/volume] in Serum or PlasmaOrdered By: OMAR VERGARA on 01-12-2023 ALT [Catalytic activity/Vol] 13 U/L 10-35 [facility] Bacteria [Presence] in Urine by AutomatedOrdered By: OMAR VERGARA on 01-12-2023 Bacteria Auto Ql (U) Not performed [facility] Base excessOrdered By: CAMRON VERGARA on 01-12-2023 Base excess Calc (BldV) [Moles/Vol] 0 mmol/L -3-3 [facility] Basophils Auto (Bld) [#/Vol] Ordered By: OMAR VERGARA on 01-12-2023 Basophils (Bld) [#/Vol] 0.06 10*3/uL 0.0-0.2 [facility] Basophils/100 WBC Auto (Bld) Ordered By: OMAR VERGARA on 01-12-2023 Basophils/100 WBC (Bld) 0.9 % 0-1.0 [facility] Beta Hydroxybutyrateon 01-12 Beta Hydroxybutyrate < 0.18 Normal 0.00-0.30 [facility] Comment on above: Result Comment: Less than measurable range. Normal: 0.00-0.30 mM/L Ketosis: > 0.30 mM/L Possible ketoacidosis: > 3.00 mM/L Performed By: #### T SH #### [facility] [address] [place], [place] [id number] , Brannon Mckeon M.D. FCAP, FASCP Beta hydroxybutyrate [Moles/ volume] in Serum or PlasmaOrdered By: OMAR VERGARA on 01-12-2023 Beta hydroxybutyrate [Moles/Vol] < 0.18 mM/L 0.00-0.30 [facility] Comment on above: Less than measurable range.Normal: 0.00-0.30 mM/LKetosis: > 0.30 mM/LPossible ketoacidosis: > 3.00 mM/L Bilirubin Auto test strip (U ) [Mass/Vol]Ordered By: OMAR VERGARA on 01-12-2023 Bilirubin (U) [Mass/Vol] Negative NEGATIVE [facility] Blood Glucose Meteron 2022 Glucose [Mass/Vol] 300 mg/dL High 70-100 [facility] Comment on above: Performed By: #### A CC #### [facility] [address] [place] [address] , Brannon Mckeon M.D. FCAP, FASCP Glucose [Mass/Vol] 436 mg/dL Critically high 70-100 [facility] Comment on above: Performed By: #### T SH #### [facility] [address] [place] [address] , Brannon Mckeon M.D. FCAP, FASCP Blood hemoglobin measurement (mass/volume)Ordered By: OMAR VERGARA on 01-12-2023 Hemoglobin (Bld) [Mass/Vol] 13.2 g/dL 11.7-15.7 [facility] Blood lipase measurementOrde red By: OMAR VERGARA on 01-12-2023 Lipase [Catalytic activity/Vol] 44 U/L 13-60 [facility] CBC With Differentialon 11-0 Basophils Absolute Auto 0.06 10*3/uL Normal 0.0-0.2 [facility] Comment on above: Performed By: #### T SH #### [facility] [address] [place] [address] , Brannon Mckeon M.D. FCAP, FASCP Basophils/100 WBC (Bld) 0.9 % Normal 0-1.0 [facility] Comment on above: Performed By: #### T SH #### [facility] [address] [place] [address] , Brannon Mckeon M.D. FCAP, FASCP Differential Type? Auto Differential Normal [facility] Comment on above: Performed By: #### T SH #### [address] [id number] , Brannon Mckeon M.D. FCAP, FASCP Eosinophils (Bld) [#/Vol] 0.07 10*3/uL Normal 0.0-0.5 [facility] Comment on above: Performed By: #### T SH #### [address] [id number] , Brannon Mckeon M.D. FCAP, FASCP Eosinophils/100 WBC (Bld) 1.0 % Normal 0.0-3.0 [facility] Comment on above: Performed By: #### T SH #### [address] [id number] , Brannon Mckeon M.D. FCAP, FASCP Hematocrit (Bld) [Volume fraction] 40.5 % Normal 35.0-47.0 [facility] Comment on above: Performed By: #### T SH #### [address] [id number] , Brannon Mckeon M.D. FCAP, FASCP Hemoglobin (Bld) [Mass/Vol] 13.2 g/dL Normal 11.7-15.7 [facility] Comment on above: Performed By: #### T SH #### [address] [id number] , Brannon Mckeon M.D. FCAP, FASCP Immature Gran Absolute Auto 0.02 10*3/uL Normal 0.01-0.2 [facility] Comment on above: Performed By: #### T SH #### [address] [id number] , Brannon Mckeon M.D. FCAP, FASCP Immature granulocytes/100 WBC (Bld) 0.3 % Normal 0-0.9 [facility] Comment on above: Performed By: #### T SH #### [address] [id number] , Brannon Mckeon M.D. FCAP, FASCP Lymphocytes (Bld) [#/Vol] 2.41 10*3/uL Normal 1.5-4.0 [facility] Comment on above: Performed By: #### T SH #### [address] [id number] , Brannon Mckeon M.D. FCAP, FASCP Lymphocytes/100 WBC (Bld) 35.4 % Normal 20.0-40.0 [facility] Comment on above: Performed By: #### T SH #### [address] [id number] , Brannon Mckeon M.D. FCAP, FASCP MCH (RBC) [Entitic mass] 29.6 pg Normal 27.0-40.0 [facility] Comment on above: Performed By: #### T SH #### [address] [id number] , Brannon Mckeon M.D. FCAP, FASCP Mean Corpusc Hgb Concentration 32.6 g/dL Normal 31.0-36.0 [facility] Comment on above: Performed By: #### T SH #### [address] [id number] , Brannon Mckeon M.D. FCAP, FASCP Mean Corpuscular Volume 90.8 CU uM Normal 80.0-100.0 [facility] Comment on above: Performed By: #### T SH #### [address] [id number] , Brannon Mckeon M.D. FCAP, FASCP Monocytes (Bld) [#/Vol] 0.50 10*3/uL Normal 0.2-0.8 [facility] Comment on above: Performed By: #### T SH #### [address] [id number] , Brannon Mckeon M.D. FCAP, FASCP Monocytes/100 WBC (Bld) 7.4 % Normal 4.0-10.0 [facility] Comment on above: Performed By: #### T SH #### [address] [id number] , Brannon Mckeon M.D. FCAP, FASCP Neutrophils Absolute Auto 3.74 10*3/uL Normal 2.0-7.0 [facility] Comment on above: Performed By: #### T SH #### [address] [id number] , Brannon Mckeon M.D. FCAP, FASCP Neutrophils/100 WBC (Bld) 55.0 % Normal 54.0-62.0 [facility] Comment on above: Performed By: #### T SH #### [address] [id number] , Brannon Mckeon M.D. FCAP, FASCP Nucleated RBC (Bld) [#/Vol] 0.00 10*3/uL Normal -0 [facility] Comment on above: Performed By: #### T SH #### [address] [id number] , Brannon Mckeon M.D. FCAP, FASCP Nucleated RBC's % 0.0 /100WBC Normal -0 [facility] Comment on above: Performed By: #### T SH #### [address], [place] [id number] , Brannon Mckeon M.D. FCAP, FASCP Platelets (Bld) [#/Vol] 187 10*3/uL Normal 130-440 [facility] Comment on above: Performed By: #### T SH #### [facility] [address] [facility], [place] [id number] , Brannon Mckeon M.D. FCAP, FASCP RBC (Bld) [#/Vol] 4.46 10*6/uL Normal 3.80-5.20 [facility] Comment on above: Performed By: #### T SH #### [facility] [address] [facility], [place] [id number] , Brannon Mckeon M.D. FCAP, FASCP Red Cell Distribution 13.1 Normal 11.5-14.5 [facility] Comment on above: Performed By: #### T SH #### [address], [place] [id number] , Brannon Mckeon M.D. FCAP, FASCP WBC (Bld) [#/Vol] 6.8 10*3/uL Normal 3.5-11.0 [facility] Comment on above: Performed By: #### T SH #### [address], [place] [id number] , Brannon Mckeon M.D. FCAP, FASCP Casts [#/area] in Urine sedi ment by Microscopy low power fieldOrdered By: OMAR VERGARA on 01-12-2023 Casts LM.LPF (Urine sed) [#/Area] Not performed [facility] Comprehensive Metabolic Pane betty 01-12-2023 Albumin [Mass/Vol] 3.9 g/dL Low 4.0-4.9 [facility] Comment on above: Performed By: #### T SH #### [facility] [address] [place] [address] [place] [id number] , Brannon Mckeon M.D. FCAP, FASCP ALP [Catalytic activity/Vol] 106 U/L High 35-104 [facility] Comment on above: Performed By: #### T SH #### [address], [place] [id number] , Jeffry StokesAP, FASCP ALT [Catalytic activity/Vol] 13 U/L Normal 10-35 [facility] Comment on above: Performed By: #### T SH #### [address], [place] [phone] , Jeffry StokesAP, FASCP Anion gap [Moles/Vol] 12 mmol/L Normal 9-15 [facility] Comment on above: Performed By: #### T SH #### [address], [place] [id number] , Jeffry StokesAP, FASCP AST [Catalytic activity/Vol] 17 U/L Normal 10-35 [facility] Comment on above: Performed By: #### T SH #### [address], [place] [id number] , Jeffry StokesAP, FASCP Bilirubin [Mass/Vol] 0.2 mg/dL Normal 0.2-1.2 [facility] Comment on above: Performed By: #### T SH #### [address], [place] [id number] , Jeffry StokesAP, FASCP Calcium [Mass/Vol] 9.6 mg/dL Normal 8.6-10.0 [facility] Comment on above: Performed By: #### T SH #### [address], [place] [id number] , Brannon Mckeon M.D. FCAP, FASCP Chloride [Moles/Vol] 103 mmol/L Normal 98-107 [facility] Comment on above: Performed By: #### T SH #### [facility] [address] [place] [address] , Brannon Mckeon M.D. FCAP, FASCP CO2 [Moles/Vol] 24 mmol/L Normal 22-29 [facility] Comment on above: Performed By: #### T SH #### [address] [address] , Brannon Mckeon M.D. FCAP, FASCP Creatinine [Mass/Vol] 0.64 mg/dL Normal 0.51-0.95 [facility] Comment on above: Performed By: #### T SH #### [address] [address] , Brannon Mckeon M.D. FCAP, FASCP GFR/1.73 sq M.predicted among non-blacks MDRD (S/P/Bld) [Vol rate/Area] mL/min/{1.73_m2} Normal [facility] Comment on above: Result Comment: THE GFR IS ESTIMATED USING THE MDRD STUDY EQUATION. *NOTE* IF THE RACE OF THE PATIENT WAS UNKNOWN AT THE TIME OF REGISTRATION, AND THE PATIENT IS , MULTIPLY THE EGFR RESULT PROVIDED BY 1.21. NORMAL: EGFR >60.0 Performed By: #### T SH #### [address] [address] , Brannon Mckeon M.D. FCAP, FASCP Glucose [Mass/Vol] 434 mg/dL Critically high 70-100 M [facility] Comment on above: Result Comment: Darian marroquin Value called to ANNA LOCKHART, DATE: 2023-01-12 19:08:10 BY:kristina Read Back? YES INTREPRETATION FOR FASTING BLOOD GLUCOSE: 70-100 mg/dl NORMAL GLUCOSE TOLERANCE 100-125 mg/dl IMPAIRED FASTING GLUCOSE (PRE-DIABETES) >125 mg/dl DIABETES - ON MORE THAN ONE TESTING ALERT VALUE ATTENTION NURSING ALERT VALUE NOTIFY PHYSICIAN WITHIN 30 MINUTES OF RECEIVING THIS REPORT Performed By: #### T SH #### [address], [place] [id number] , Brannon Mckeon M.D. FCAP, FASCP Potassium [Moles/Vol] 3.6 mmol/L Normal 3.6-5.0 [facility] Comment on above: Performed By: #### T SH #### [address] [id number] , Brannon Mckeon M.D. FCAP, FASCP Protein [Mass/Vol] 6.9 g/dL Normal 6.4-8.3 [facility] Comment on above: Performed By: #### T SH #### [address] [id number] , Jeffry StokesAP, FASCP Sodium [Moles/Vol] 139 mmol/L Normal 136-145 [facility] Comment on above: Performed By: #### T SH #### [address] [id number] , Jeffry StokesAP, FASCP Urea nitrogen [Mass/Vol] 9.0 mg/dL Normal 6.0-20.0 [facility] Comment on above: Performed By: #### T SH #### [address] [id number] , Brannon Mckeon M.D. FCAP, FASCP Differential cell count meth od - BloodOrdered By: OMAR VERGARA on 01-12-2023 Differential cell count method Nom (Bld) Auto differential [facility] Eosinophils Auto (Bld) [#/Vo l]Ordered By: OMAR VERGARA on 01-12-2023 Eosinophils (Bld) [#/Vol] 0.07 10*3/uL 0.0-0.5 [facility] Eosinophils/100 WBC Auto (Bl d)Ordered By: OMAR VERGARA on 01-12-2023 Eosinophils/100 WBC (Bld) 1.0 % 0.0-3.0 [facility] Epithelial cells [#/area] in Urine sediment by Automated countOrdered By: OMAR VERGARA on 01-12-2023 Epithelial cells Auto (Urine sed) [#/Area] Not performed [facility] Erythrocyte distribution wid th Auto (RBC) [Ratio]Ordered By: OMAR VERGARA on 01-12-2023 Erythrocyte distribution width (RBC) [Ratio] 13.1 % 11.5-14.5 [facility] Erythrocytes [#/area] in Uri ne sediment by Automated countOrdered By: OMAR VERGARA on 01-12-2023 RBC Auto (Urine sed) [#/Area] Not performed [facility] Glomerular filtration rate/1 .73 sq M.predicted [Volume Rate/Area] in Serum, Plasma orOrdered By: OMAR VERGARA on 01-12-2023 GFR/1.73 sq M.predicted (S/P/Bld) [Vol rate/Area] mL/min [facility] Comment on above: NORMAL: EGFR >60.0TH E GFR IS ESTIMATED USING THE MDRD STUDY EQUATION.*NOTE* IF THE RACE OF THE PATIENT WAS UNKNOWN AT THE TIME OFREGISTRATION, AND THE PATIENT IS , MULTIPLYTHE EGFR RESULT PROVIDED BY 1.21. Glucose (Bld) [Mass/Vol]Orde red By: OMAR VERGARA on 01-12-2023 Glucose [Mass/Vol] 300 mg/dL High 70-100 [facility] Comment on above: Delta: 436 on -1826 HCO3 (BldV) [Moles/Vol]Order ed By: OMAR VERGARA on 01-12-2023 HCO3 (Bld) [Moles/Vol] 25 mmol/L 22-27 [facility] Hematocrit Auto (Bld) [Volum e fraction]Ordered By: OMAR VERGARA on 01-12-2023 Hematocrit (Bld) [Volume fraction] 40.5 % 35.0-47.0 [facility] Immature granulocytes Auto ( Bld) [#/Vol]Ordered By: OMAR VERGARA on 01-12-2023 Immature granulocytes (Bld) [#/Vol] 0.02 10*3/uL 0.01-0.2 [facility] Immature granulocytes/100 WB C Auto (Bld)Ordered By: OMAR VERGARA on 01-12-2023 Immature granulocytes/100 WBC (Bld) 0.3 % 0-0.9 [facility] Ketones Auto test strip (U) [Mass/Vol]Ordered By: OMAR VERGARA on 01-12-2023 Ketones (U) [Mass/Vol] Negative NEGATIVE [facility] Leukocytes [#/area] in Urine sediment by Automated countOrdered By: OMAR VERGARA on 01-12-2023 WBC Auto (Urine sed) [#/Area] Not performed [facility] Lipase Bloodon 01-12-2023 Lipase Blood 44 U/L Normal 13-60 [facility] Comment on above: Performed By: #### T SH #### [facility] Lab [address] [place] [address] , Brannon Mckeon M.D. FCAP, FASCP Lymphocytes Auto (Bld) [#/Vo l]Ordered By: OMAR VERGARA on 01-12-2023 Lymphocytes (Bld) [#/Vol] 2.41 10*3/uL 1.5-4.0 [facility] Lymphocytes/100 WBC Auto (Bl d)Ordered By: OMAR VERGARA on 01-12-2023 Lymphocytes/100 WBC (Bld) 35.4 % 20.0-40.0 [facility] MCH Auto (RBC) [Entitic mass ]Ordered By: OMAR VERGARA on 01-12-2023 MCH (RBC) [Entitic mass] 29.6 pg 27-40 [facility] MCHC Auto (RBC) [Mass/Vol]Or dered By: OMAR VERGARA on 01-12-2023 MCHC (RBC) [Mass/Vol] 32.6 g/dL 31-36 [facility] MCV Auto (RBC) [Entitic vol] Ordered By: OMAR VERGARA on 01-12-2023 MCV (RBC) [Entitic vol] 90.8 CU uM 80.0-100.0 [facility] Magnesium Bloodon 01-12-2023 Magnesium [Mass/Vol] 2.0 mg/dL Normal 1.6-2.6 [facility] Comment on above: Performed By: #### T #### [facility] Lab [address] [place] [id number] , Brannon Mckeon M.D. FCAP, FASCP Monocytes Auto (Bld) [#/Vol] Ordered By: OMAR VERGARA on 01-12-2023 Monocytes (Bld) [#/Vol] 0.50 10*3/uL 0.2-0.8 [facility] Monocytes/100 WBC Auto (Bld) Ordered By: OMAR VERGARA on 01-12-2023 Monocytes/100 WBC (Bld) 7.4 % 4.0-10.0 [facility] Neutrophils Auto (Bld) [#/Vo l]Ordered By: OMAR VERGARA on 01-12-2023 Neutrophils (Bld) [#/Vol] 3.74 10*3/uL 2.0-7.0 [facility] Neutrophils/100 WBC Auto (Bl d)Ordered By: OMAR VERGARA on 01-12-2023 Neutrophils/100 WBC (Bld) 55.0 % 54.0-62.0 [facility] No Panel InformationOrdered By: OMAR VERGARA on 01-12-2023 Blood Gas Notified Time 01/12/2023 6:35:57 pm [facility] Specimen Drawn By (Blood Gas) Rachel wei [facility] Nucleated RBC Auto (Bld) [#/ Vol]Ordered By: OMAR VERGARA on 01-12-2023 Nucleated RBC (Bld) [#/Vol] 0.00 10*3/uL <0 [facility] Nucleated RBC/100 WBC Auto ( Bld) [Ratio]Ordered By: OMAR VERGARA on 01-12-2023 Nucleated RBC/100 WBC (Bld) [Ratio] 0.0 /100WBC <0 [facility] PCO2 venousOrdered By: CAMRON VERGARA on 01-12-2023 CO2 (BldV) [Partial pressure] 43 mm[Hg] 40-52 [facility] PO2 venousOrdered By: OMAR VERGARA on 01-12-2023 Oxygen (BldV) [Partial pressure] 31 mm[Hg] 30-40 [facility] Platelets Auto (Bld) [#/Vol] Ordered By: OMAR VERGARA on 01-12-2023 Platelets (Bld) [#/Vol] 187 10*3/uL 130-440 [facility] Protein Auto test strip (U) [Mass/Vol]Ordered By: OMAR VERGARA on 01-12-2023 Protein (U) [Mass/Vol] Negative NEGATIVE [facility] RBC Auto (Bld) [#/Vol]Ordere d By: OMAR VERGARA on 01-12-2023 RBC (Bld) [#/Vol] 4.46 10*6/uL 3.80-5.20 [facility] Serum or plasma albumin morgan urement (mass/volume)Ordered By: OMAR VERGARA on 01-12-2023 Albumin [Mass/Vol] 3.9 g/dL Low 4.0-4.9 [facility] Serum or plasma alkaline fatemeh sphatase measurement (enzymatic activity/volume)Ordered By: OMAR VERGARA on 01-12-2023 ALP [Catalytic activity/Vol] 106 U/L High 35-104 [facility] Serum or plasma anion gapOrd ered By: OMAR VERGARA on 01-12-2023 Anion gap [Moles/Vol] 12 mmol/L 9-15 [facility] Serum or plasma aspartate am inotransferase measurement (enzymatic activity/volume)Ordered By: OMAR VERGARA on 01-12-2023 AST [Catalytic activity/Vol] 17 U/L 10-35 [facility] Serum or plasma calcium morgan urement (mass/volume)Ordered By: OMAR VERGARA on 01-12-2023 Calcium [Mass/Vol] 9.6 mg/dL 8.6-10.0 [facility] Serum or plasma carbon dioxi de, total measurement (moles/volume)Ordered By: OMAR VERGARA on 01-12-2023 CO2 [Moles/Vol] 24 mmol/L 22-29 [facility] Serum or plasma chloride sweta surement (moles/volume)Ordered By: OMAR VERGARA on 01-12-2023 Chloride [Moles/Vol] 103 mmol/L 98-107 [facility] Serum or plasma creatinine m easurement (mass/volume)Ordered By: OMAR VERGARA on 01-12-2023 Creatinine [Mass/Vol] 0.64 mg/dL 0.51-0.95 [facility] Serum or plasma glucose morgan urement (mass/volume)Ordered By: OMAR VERGARA on 01-12-2023 Glucose [Mass/Vol] 434 mg/dL High 70-100 [facility] Comment on above: Alert Value called cara LOCKHART, DATE: 2023-01-12 19:08:10 BY:kristina Read Back? YES ALERT VALUE ATTENTION NURSING ALERT VALUE NOTIFY PHYSICIAN WITHIN 30 MINUTES OF RECEIVING THIS REPORTINTREPRETATION FOR FASTING BLOOD GLUCOSE: 70-100 mg/dl NORMAL GLUCOSE [id number] mg/dl IMPAIRED FASTING GLUCOSE (PRE-DIABETES)>125 mg/dl DIABETES - ON MORE THAN ONE TESTING Serum or plasma magnesium me asurement (mass/volume)Ordered By: OMAR VERGARA on 01-12-2023 Magnesium [Mass/Vol] 2.0 mg/dL 1.6-2.6 [facility] Serum or plasma potassium me asurement (moles/volume)Ordered By: OMAR VERGARA on 01-12-2023 Potassium [Moles/Vol] 3.6 mmol/L 3.6-5.0 [facility] Serum or plasma protein morgan urement (mass/volume)Ordered By: OMAR VERGARA on 01-12-2023 Protein [Mass/Vol] 6.9 g/dL 6.4-8.3 [facility] Serum or plasma sodium measu rement (moles/volume)Ordered By: OMAR VERGARA on 01-12-2023 Sodium [Moles/Vol] 139 mmol/L 136-145 [facility] Serum or plasma urea nitroge n measurement (mass/volume)Ordered By: OMAR VERGARA on 01-12-2023 Urea nitrogen [Mass/Vol] 9.0 mg/dL 6.0-20.0 [facility] Serum total bilirubin measur ement (mass/volume)Ordered By: OMAR VERGARA on 01-12-2023 Bilirubin [Mass/Vol] 0.2 mg/dL 0.2-1.2 [facility] Specific gravity Auto test s trip (U) [Rel density]Ordered By: OMAR JAI on 01-12-2023 Specific gravity (U) [Rel density] > 1.035 High 1.005-1.035 [facility] Specimen typeOrdered By: ALLEN SALDAÑA JAI on 01-12-2023 Specimen type Nom (Spec) Venous [facility] Urinalysis complete W Reflex Culture panel - UrineOrdered By: OMARPIOTR VERGARA on 01-12-2023 Urinalysis complete W Reflex Culture panel (U) Not performed [facility] Urinalysis with Reflex Cultu reon 01-12-2023 Specific gravity (U) [Rel density] > 1.035 High 1.005-1.035 [facility] Comment on above: Order Comment: Sourc e Of Urine Specimen? Clean Catch` Performed By: #### U REFLEX #### [facility] Lab [address] [place] [id number] , Brannon Mckeon M.D. FCAP, FASCP Bilirubin Ql (U) Negative Normal NEGATIVE [facility] Comment on above: Order Comment: Sourc e Of Urine Specimen? Clean Catch` Performed By: #### U REFLEX #### [facility] [address] [place] [id number] , Brannon Mckeon M.D. FCAP, FASCP Character Urine CLEAR Normal [facility] Comment on above: Order Comment: Sourc e Of Urine Specimen? Clean Catch` Performed By: #### U REFLEX #### [facility] [address] [place] [id number] , Brannon Mckeon M.D. FCAP, FASCP Color (U) YELLOW Normal [facility] Comment on above: Order Comment: Sourc e Of Urine Specimen? Clean Catch` Performed By: #### U REFLEX #### [facility] [address] [place] [id number] , Brannon Mckeon M.D. FCAP, FASCP Glucose Ql (U) >=1000 Abnormal NEGATIVE [facility] Comment on above: Order Comment: Sourc e Of Urine Specimen? Clean Catch` Performed By: #### U REFLEX #### [address] [address] , Brannon Mckeon M.D. FCAP, FASCP Hemoglobin Ql (U) Negative Normal NEGATIVE [facility] Comment on above: Order Comment: Sourc e Of Urine Specimen? Clean Catch` Performed By: #### U REFLEX #### [address] [address] , Brannon Mckeon M.D. FCAP, FASCP Ketones Ql (U) Negative Normal NEGATIVE [facility] Comment on above: Order Comment: Sourc e Of Urine Specimen? Clean Catch` Performed By: #### U REFLEX #### [address] [address] , Brannon Mckeon M.D. FCAP, FASCP Leukocyte esterase Test strip Ql (U) Negative Normal NEGATIVE [facility] Comment on above: Order Comment: Sourc e Of Urine Specimen? Clean Catch` Performed By: #### U REFLEX #### [address] [address] , Brannon Mckeon M.D. FCAP, FASCP Nitrite Ql (U) Negative Normal NEGATIVE [facility] Comment on above: Order Comment: Sourc e Of Urine Specimen? Clean Catch` Performed By: #### U REFLEX #### [address] [address] , Brannon Mckeon M.D. FCAP, FASCP pH (U) 6.5 [pH] Normal 5.0-8.5 [facility] Comment on above: Order Comment: Sourc e Of Urine Specimen? Clean Catch` Performed By: #### U REFLEX #### [facility] [address] [place] [address] , Brannon Mckeon M.D. FCAP, FASCP Protein Ql (U) Negative Normal NEGATIVE [facility] Comment on above: Order Comment: Sourc e Of Urine Specimen? Clean Catch` Performed By: #### U REFLEX #### [facility] [address] [place] [address] , Brannon Mckeon M.D. FCAP, FASCP Urobilinogen Qn (U) 0.2 {Emily'U}/dL Normal 0-1.0 [facility] Comment on above: Order Comment: Sourc e Of Urine Specimen? Clean Catch` Performed By: #### U REFLEX #### [facility] [address] [place] [id number] , Brannon Mckeon M.D. FCAP, FASCP Urine clarityOrdered By: ALLEN VERGARA on 01-12-2023 Clarity (U) Clear [facility] Urine colorOrdered By: CAMRON VERGARA on 01-12-2023 Color (U) Yellow [facility] Urine glucose measurement by automated test strip (mass/volume)Ordered By: OMAR VERGARA on 01-12-2023 Glucose Auto test strip (U) [Mass/Vol] >=1000 MG/DL High NEGATIVE [facility] Urine hemoglobin measurement by automated test strip (mass/volume)Ordered By: OMAR VERGARA on 01-12-2023 Hemoglobin Auto test strip (U) [Mass/Vol] Negative NEGATIVE [facility] Urine leukocyte esterase det ection by automated test stripOrdered By: OMAR VERGARA on 01-12-2023 Leukocyte esterase Auto test strip Ql (U) Negative NEGATIVE [facility] Urine nitrite detection by a utomated test stripOrdered By: OMAR VERGARA on 01-12-2023 Nitrite Auto test strip Ql (U) Negative NEGATIVE [facility] Urobilinogen Auto test strip (U) [Mass/Vol]Ordered By: OMAR VERGARA on 01-12-2023 Urobilinogen Qn (U) 0.2 {Emily'U}/dL 0-1.0 [facility] Venous Blood Gason 3 HCO3 (Bld) [Moles/Vol] 25 mmol/L Normal 22-27 [facility] Comment on above: Performed By: #### V BG #### [facility] [address] [place] [address] , Brannon Mckeon M.D. FCAP, FASCP Sample Type Venous Normal [facility] Comment on above: Performed By: #### V BG #### [address] [address] , Jeffry StokesAP, FASCP [employer] Rachel Wei Normal [facility] Comment on above: Performed By: #### V BG #### [address] [place] [address] , Brannon Mckeon M.D. FCAP, FASCP Time Notified 01/12/2023 6:35:57 PM Normal [facility] Comment on above: Performed By: #### V BG #### [address] [place] [address] , Brannon Mckeon M.D. FCAP, FASCP Venous Base Excess 0 Normal (-3)-(3) [facility] Comment on above: Performed By: #### V BG #### [address] [place] [address] , Brannon Mckeon M.D. FCAP, FASCP Venous pCO2 43 mmHg Normal 40-52 [facility] Comment on above: Performed By: #### V BG #### [address] [place] [address] , Brannon Mckeon M.D. FCAP, FASCP Venous pH 7.38 Normal 7.31-7.41 [facility] Comment on above: Performed By: #### V BG #### [facility] [address] [place], [place] [id number] , Brannon Mckeon M.D. FCAP, FASCP Venous pO2 31 mmHg Normal 30-40 [facility] Comment on above: Performed By: #### V BG #### [facility] [address], [place] [id number] , Brannon Mckeon M.D. FCAP, FASCP Venous sO2 62.5 % Normal 60-85 [facility] Comment on above: Performed By: #### V BG #### [facility] [address], [place] [id number] , Brannon Mckeon M.D. FCAP, FASCP Venous blood oxygen saturati on (mass fraction)Ordered By: OMAR VERGARA on 01-12-2023 Oxygen saturation in Venous blood 62.5 % 60-85 [facility] Venous blood pH measurementO rdered By: OMAR VERGARA on 01-12-2023 pH (BldV) 7.38 [pH] 7.31-7.41 [facility] WBC Auto (Bld) [#/Vol]Ordere d By: OMAR VERGARA on 01-12-2023 WBC (Bld) [#/Vol] 6.8 10*3/uL 3.5-11.0 [facility] pH Auto test strip (U)Ordere d By: OMAR VERGARA on 01-12-2023 pH (U) 6.5 [pH] 5.0-8.5 [facility] Glycosylated Hemoglobinon Glycosylated Hemoglobin 11.9 % High 4.4-5.6 [facility] Comment on above: Order Comment: Is th is for the Diabetic ED Research Study No Hemoglobin A1c Nurse Monitor? N Diagnosis/Reason for Test: Hypothyroidism, unspecified Comments: 1 sample(s), Collect by: Collected. Comments: 1 sample(s), Collect by: Collected., When: ANGEL Result Comment: PRE- DIABETES 5.7-6.4 DIABETES > OR = 6.5 Performed By: #### G H #### [facility] [address] [place] [address] , Brannon Mckeon M.D. FCAP, FASCP HbA1c HPLC (Bld) [Mass fract ion]on 08-28-2022 HbA1c (Bld) [Mass fraction] 11.52605 % Invalid Interpretation Code 4.4 - 5.6 % [facility] [place] Work Phone: Serum or plasma thyroxine (T 4) free measurement (mass/volume)Ordered By: LUCAS GRECO on 08-28-2022 Free T4 [Mass/Vol] 1.64 ng/dL 0.93-1.70 [facility] T4 Free SerPl-mCncon 023 Free T4 [Mass/Vol] 1.02484 ng/dL Normal 0.93 - 1 .70 ng/dL [facility] [place] Work Phone: T4-Freeon 08-28-2022 Free T4 [Mass/Vol] 1.64 ng/dL Normal 0.93-1.70 [facility] Comment on above: Order Comment: Nurse Monitor? N Diagnosis/Reason for Test: Hypothyroidism, unspecified Comments: 1 sample(s), Collect by: Collected. Free T4 Comments: 1 sample(s), Collect by: Collected., When: ANGEL Nurse Monitor? N Diagnosis/Reason for Test: Hypothyroidism, unspecified Comments: 1 sample(s), Collect by: Collected. TSH Comments: 1 sample(s), Collect by: Collected., When: ANGEL Performed By: #### T SH, T4F #### [facility] [address] [place] [address] , Brannon Mckeon M.D. FCAP, FASCP TSH SerPl-aCncon 08-28-2022 TSH Qn 0.10278 uIU/mL Invalid Interpretation Code 0.270 - 4.200 uIU/mL [facility] [place] Work Phone: TSH ser/plasOrdered By: LUCAS GRECO on 08-28-2022 TSH Qn 0.1770 uIU/mL Low 0.270-4.200 [facility] Thyroid Stimulating Hormoneo n 08-28-2022 Thyroid Stimulating Hormone 0.1770 uIU/mL Low 0.270-4.200 [facility] Comment on above: Order Comment: Nurse Monitor? N Diagnosis/Reason for Test: Hypothyroidism, unspecified Comments: 1 sample(s), Collect by: Collected. Free T4 Comments: 1 sample(s), Collect by: Collected., When: ANGEL Nurse Monitor? N Diagnosis/Reason for Test: Hypothyroidism, unspecified Comments: 1 sample(s), Collect by: Collected. TSH Comments: 1 sample(s), Collect by: Collected., When: ANGEL Performed By: #### T SH, T4F #### [facility] [address] [place] [address] , Brannon Mckeon M.D. FCAP, FASCP HbA1c HPLC (Bld) [Mass fract ion]Ordered By: LUCAS GRECO on 04-22-2022 HbA1c (Bld) [Mass fraction] 7.9 % High 4.4-5.6 [facility] Comment on above: PRE-DIABETES 5.7-6.4 DIABETES > OR = 6.5 TSH ser/plasOrdered By: LUCAS GRECO on 02-04-2022 TSH Qn 2.3400 uIU/mL 0.270-4.200 [facility] Serum or plasma thyroxine (T 4) free measurement (mass/volume)Ordered By: LUCAS GRECO on 01-20-2022 Free T4 [Mass/Vol] 0.63 ng/dL Low 0.93-1.70 [facility] TSH ser/plasOrdered By: LUCAS GRECO on 01-20-2022 TSH Qn 75.2000 uIU/mL High 0.270-4.200 [facility] Absolute immature granulocyt e countOrdered By: LUCAS GRECO on 12-20-2021 Immature granulocytes (Bld) [#/Vol] 0.03 10:3/uL 0.01-0.2 [facility] Absolute lymphocyte countOrd ered By: LUCAS GRECO on 12-20-2021 Lymphocytes Auto (Unsp spec) [#/Vol] 2.61 10:3/uL 1.5-4.0 [facility] Alanine aminotransferase [En zymatic activity/volume] in Serum or PlasmaOrdered By: LUCAS GRECO on 12-20-2021 ALT [Catalytic activity/Vol] 18 U/L 10-35 [facility] Blood basophils count (numbe r/volume)Ordered By: LUCAS GRECO on 12-20-2021 Basophils (Bld) [#/Vol] 0.08 10:3/uL 0.0-0.2 [facility] Blood eosinophils count (num myra/volume)Ordered By: LUCAS GRECO on 12-20-2021 Eosinophils (Bld) [#/Vol] 0.17 10:3/uL 0.0-0.5 [facility] Blood erythrocytes count (nu mber/volume)Ordered By: LUCAS GRECO on 12-20-2021 RBC (Bld) [#/Vol] 4.32 10:6/uL 3.80-5.20 [facility] Blood hemoglobin measurement (mass/volume)Ordered By: LUCAS GRECO on 12-20-2021 Hemoglobin (Bld) [Mass/Vol] 12.8 g/dL 11.7-15.7 [facility] Blood leukocytes count (numb er/volume)Ordered By: LUCAS GRECO on 12-20-2021 WBC (Bld) [#/Vol] 8.9 10:3/uL 3.5-11.0 [facility] Blood nucleated erythrocytes count (number/volume)Ordered By: LUCAS GRECO on 12-20-2021 Nucleated RBC (Bld) [#/Vol] 0.00 10:3/uL <0 [facility] Blood platelet countOrdered By: LUCAS GRECO on 12-20-2021 Platelets (Bld) [#/Vol] 222 10:3/uL 130-440 [facility] Complete blood count (CBC) w ith reflex manual white blood cell differentialOrdered By: LUCAS GRECO on 12-20-2021 CBC W Reflex Manual Differential panel (Bld) No [facility] Determination of erythrocyte mean corpuscular volume (MCV)Ordered By: LUCAS GRECO on 12-20-2021 MCV (RBC) [Entitic vol] 92.8 CU uM 80.0-100.0 [facility] Erythrocyte distribution wid th standard deviationOrdered By: LUCAS GRECO on 12-20-2021 Erythrocyte distribution width (RBC) [Entitic vol] 13.2 fL 11.5-14.5 [facility] Erythrocyte mean corpuscular hemoglobin concentration measurement (mass/volume)Ordered By: LUCAS GRECO on 12-20-2021 MCHC (RBC) [Mass/Vol] 31.9 g/dL 31-36 [facility] HbA1c HPLC (Bld) [Mass fract ion]Ordered By: LUCAS GRECO on 12-20-2021 HbA1c (Bld) [Mass fraction] 8.1 % High 4.4-5.6 [facility] Comment on above: PRE-DIABETES 5.7-6.4 DIABETES > OR = 6.5 Hematocrit Auto (Bld) [Volum e fraction]Ordered By: LUCAS GRECO on 12-20-2021 Hematocrit (Bld) [Volume fraction] 40.1 % 35.0-47.0 [facility] Immature granulocytes/100 WB C Auto (Bld)Ordered By: LUCAS GRECO on 12-20-2021 Immature granulocytes/100 WBC (Bld) 0.3 % 0-0.9 [facility] Laboratory - Chemistry and C hemistry - challengeOrdered By: LUCAS GRECO on 12-20-2021 GFR/1.73 sq M.predicted among non-blacks MDRD (S/P/Bld) [Vol rate/Area] mL/min/{1.73_m2} [facility] Comment on above: NORMAL: EGFR >60.0TH E GFR IS ESTIMATED USING THE MDRD STUDY EQUATION.*NOTE* IF THE RACE OF THE PATIENT WAS UNKNOWN AT THE TIME OFREGISTRATION, AND THE PATIENT IS , MULTIPLYTHE EGFR RESULT PROVIDED BY 1.21. Laboratory - Hematology and Cell countsOrdered By: LUCAS GRECO on 12-20-2021 MCH (RBC) [Entitic mass] 29.6 pg 27-40 [facility] Lymphocyte percentOrdered By : LUCAS GRECO on 12-20-2021 Basophils/100 WBC (Bld) 0.9 % 0-1.0 [facility] Eosinophils/100 WBC (Bld) 1.9 % 0.0-3.0 [facility] Lymphocyte percent 5.38 10:3/uL 2.0-7.0 [facility] Lymphocyte percent 0.63 10:3/uL 0.2-0.8 [facility] Lymphocyte percent 0 /100WBC <0 [facility] Lymphocytes/100 WBC (Bld) 29.3 % 20.0-40.0 [facility] Monocytes/100 WBC (Bld) 7.1 % 4.0-10.0 [facility] Segmented neutrophils/100 WB C Auto (Bld)Ordered By: LUCAS GRECO on 12-20-2021 Segmented neutrophils/100 WBC (Bld) 60.5 % 54.0-62.0 [facility] Serum or plasma albumin morgan urement (mass/volume)Ordered By: LUCAS GRECO on 12-20-2021 Albumin [Mass/Vol] 4.3 g/dL 4.0-4.9 [facility] Serum or plasma alkaline fatemeh sphatase measurement (enzymatic activity/volume)Ordered By: LUCAS GRECO on 12-20-2021 ALP [Catalytic activity/Vol] 109 U/L High 35-104 [facility] Serum or plasma anion gapOrd ered By: LUCAS GRECO on 12-20-2021 Anion gap [Moles/Vol] 9 mmol/L -15 [facility] Serum or plasma aspartate am inotransferase measurement (enzymatic activity/volume)Ordered By: LUCAS GRECO on 12-20-2021 AST [Catalytic activity/Vol] 17 U/L 10 [facility] Serum or plasma calcium morgan urement (mass/volume)Ordered By: LUCAS GRECO on 12-20-2021 Calcium [Mass/Vol] 9.4 mg/dL 8.6-10.0 [facility] Serum or plasma carbon dioxi de, total measurement (moles/volume)Ordered By: LUCAS GRECO on 12-20-2021 CO2 [Moles/Vol] 29 mmol/L 22-29 [facility] Serum or plasma chloride sweta surement (moles/volume)Ordered By: LUCAS GRECO on 12-20-2021 Chloride [Moles/Vol] 105 mmol/L 98-107 [facility] Serum or plasma creatinine m easurement (mass/volume)Ordered By: LUCAS GRECO on 12-20-2021 Creatinine [Mass/Vol] 0.74 mg/dL 0.51-0.95 [facility] Serum or plasma glucose morgan urement (mass/volume)Ordered By: LUCAS GRECO on 12-20-2021 Glucose [Mass/Vol] 171 mg/dL High 70-100 [facility] Comment on above: INTREPRETATION FOR F ASTING BLOOD GLUCOSE: 70-100 mg/dl NORMAL GLUCOSE [id number] mg/dl IMPAIRED FASTING GLUCOSE (PRE-DIABETES)>125 mg/dl DIABETES - ON MORE THAN ONE TESTING Serum or plasma potassium me asurement (moles/volume)Ordered By: LUCAS GRECO on 12-20-2021 Potassium [Moles/Vol] 3.7 mmol/L 3.6-5.0 [facility] Serum or plasma protein morgan urement (mass/volume)Ordered By: LUCAS GRECO on 12-20-2021 Protein [Mass/Vol] 6.7 g/dL 6.4-8.3 [facility] Serum or plasma sodium measu rement (moles/volume)Ordered By: LUCAS GRECO on 12-20-2021 Sodium [Moles/Vol] 143 mmol/L 136-145 [facility] Serum or plasma urea nitroge n measurement (mass/volume)Ordered By: LUCAS GRECO on 12-20-2021 Urea nitrogen [Mass/Vol] 13.4 mg/dL 6.0-20.0 [facility] Serum total bilirubin measur ement (mass/volume)Ordered By: LUCAS GRECO on 12-20-2021 Bilirubin [Mass/Vol] 0.3 mg/dL 0.2-1.2 [facility] TSH ser/plasOrdered By: LUCAS GRECO on 12-20-2021 TSH Qn 51.5000 uIU/mL High 0.270-4.200 [facility] Cholesterol in LDL Calc [Mas s/Vol]Ordered By: LUCAS GRECO on 10-02-2021 Cholesterol in LDL [Mass/Vol] 116 mg/dL High <100 [facility] Serum or plasma cardiac hear t disease risk ratioOrdered By: LUCAS GRECO on 10-02-2021 Cardiac heart disease risk [Ratio] 4.62 [facility] Comment on above: RISK NORMALS MEN WOMEN 1/[address] 23[address]39 11.04 TRIGLYCERIDES >400 MG/DL MAY CAUSE INCONSISTENCIES IN THE LDL. RISK NORMALS MEN WOM EN1/[address] 23[address]39 11.04 TRIGLYCERIDES >400 MG/DL MAY CAUSE INCONSISTENCIES IN THE LDL. Serum or plasma cholesterol measurement (mass/volume)Ordered By: LUCAS GRECO on 10-02-2021 Cholesterol [Mass/Vol] 180 mg/dL 0-199 [facility] Serum or plasma glucose morgan urement (mass/volume)Ordered By: LUCAS GRECO on 10-02-2021 Glucose [Mass/Vol] 277 mg/dL High 70-100 [facility] Comment on above: INTREPRETATION FOR F ASTING BLOOD GLUCOSE: 70-100 mg/dl NORMAL GLUCOSE TOLERANCE 100-125 mg/dl IMPAIRED FASTING GLUCOSE (PRE-DIABETES) >125 mg/dl DIABETES - ON MORE THAN ONE TESTING INTREPRETATION FOR F ASTING BLOOD GLUCOSE: 70-100 mg/dl NORMAL GLUCOSE [id number] mg/dl IMPAIRED FASTING GLUCOSE (PRE-DIABETES)>125 mg/dl DIABETES - ON MORE THAN ONE TESTING Serum or plasma high density lipoprotein (HDL) cholesterol measurementOrdered By: LUCAS GRECO on 10-02-2021 Cholesterol in HDL [Mass/Vol] 39 mg/dL Low >61 [facility] Serum or plasma thyroxine (T 4) free measurement (mass/volume)Ordered By: LUCAS GRECO on 10-02-2021 Free T4 [Mass/Vol] 1.38 ng/dL 0.93-1.70 [facility] Serum or plasma triglyceride measurement (mass/volume)Ordered By: LUCAS GRECO on 10-02-2021 Triglyceride [Mass/Vol] 127 mg/dL <150 [facility] TSH ser/plasOrdered By: LUCAS GRECO on 10-02-2021 TSH Qn 0.8190 uIU/mL 0.270-4.200 [facility] HbA1c HPLC (Bld) [Mass fract ion]on 07-18-2021 HbA1c (Bld) [Mass fraction] 8.5 % 4.4-5.6 [facility] Work Phone: Comment on above: PRE-DIABETES 5.7-6.4 DIABETES > OR = 6.5 Absolute lymphocyte counton 06-12-2020 Lymphocytes Auto (Unsp spec) [#/Vol] 2.20 10:3/uL 1.5-4.0 [facility] Work Phone: Automated blood hematocrit ( volume fraction)on 06-12-2020 Hematocrit (Bld) [Volume fraction] 39.8 % 35.0-47.0 [facility] Work Phone: Automated blood segmented ne utrophils/100 leukocyteson 06-12-2020 Segmented neutrophils/100 WBC (Bld) 63.0 % 54.0-62.0 [facility] Work Phone: Basophil %on 06-12-2020 Basophils/100 WBC (Unsp spec) 0 % 0-1.0 [facility] Work Phone: Blood basophils count (numbe r/volume)on 06-12-2020 Basophils (Bld) [#/Vol] 0 10:3/uL 0.02-0.2 [facility] Work Phone: Blood eosinophils count (num myra/volume)on 06-12-2020 Eosinophils (Bld) [#/Vol] 0.26 10:3/uL 0-0.5 [facility] Work Phone: Blood erythrocytes count (nu mber/volume)on 06-12-2020 RBC (Bld) [#/Vol] 4.37 10:6/uL 3.80-5.20 [facility] Work Phone: Blood hemoglobin measurement (mass/volume)on 06-12-2020 Hemoglobin (Bld) [Mass/Vol] 12.9 g/dL 11.7-15.7 [facility] Work Phone: Blood leukocytes count (numb er/volume)on 06-12-2020 WBC (Bld) [#/Vol] 8.8 10:3/uL 3.5-11.0 [facility] Work Phone: Blood nucleated erythrocytes count (number/volume)on 06-12-2020 Nucleated RBC (Bld) [#/Vol] 0 10:3/uL <0 [facility] Work Phone: Blood platelet counton 06-12 Platelets (Bld) [#/Vol] 196 10:3/uL 130-440 [facility] Work Phone: Cholesterol in LDL [Mass/vol ume] in Serum or Plasma by calculationon 06-12-2020 Cholesterol in LDL [Mass/Vol] 151 mg/dL <100 [facility] Work Phone: Complete blood count (CBC) w ith reflex manual white blood cell differentialon 06-12-2020 CBC W Reflex Manual Differential panel - Blood Yes [facility] Work Phone: Determination of erythrocyte mean corpuscular volume (MCV)on 06-12-2020 MCV (RBC) [Entitic vol] 91.1 CU uM 80.0-100.0 [facility] Work Phone: Erythrocyte distribution wid th standard deviationon 06-12-2020 Erythrocyte distribution width (RBC) [Entitic vol] 13.2 fL 11.5-14.5 [facility] Work Phone: Erythrocyte mean corpuscular hemoglobin concentration measurement (mass/volume)on 06-12-2020 MCHC (RBC) [Mass/Vol] 32.4 g/dL 31-36 [facility] Work Phone: Hematologyon 06-12-2020 MCH (RBC) [Entitic mass] 29.5 pg 27-40 [facility] Work Phone: INR in Platelet poor plasma or blood by Coagulation assayon 06-12-2020 INR Coag (Platelet poor plasma or blood) [Relative time] 1.28 0.92-1.2 [facility] Work Phone: Comment on above: THERAPEUTIC: LOW LEV EL COUMADIN = 2.0 - 3.0 HIGH LEVEL COUMADIN = 2.5 - 3.5 Lymphocyte percenton 021 Eosinophils/100 WBC (Bld) 3.0 % 1.0-3.0 [facility] Work Phone: Lymphocyte percent 5.54 10:3/uL 2.0-7.0 [facility] Work Phone: Lymphocyte percent 0.79 10:3/uL 0.2-0.8 [facility] Work Phone: Lymphocyte percent 0 /100WBC <0 [facility] Work Phone: Lymphocytes/100 WBC (Bld) 25.0 % 20.0-40.0 [facility] Work Phone: Lymphocytes/100 WBC (Bld) 5.54 10:3/uL 2.0-7.0 [facility] Work Phone: Monocytes (Bld) [#/Vol] 0.79 10:3/uL 0.2-0.8 [facility] Work Phone: Monocytes/100 WBC (Bld) 9.0 % 4.0-10.0 [facility] Work Phone: Nucleated RBC (Bld) [#/Vol] 0 /100WBC <0 [facility] Work Phone: Prothrombin time (PT) in pat telet poor plasma by coagulation assayon 06-12-2020 PT Coag (PPP) [Time] 15.9 s 12.1-14.6 [facility] Work Phone: Serum or plasma cardiac hear t disease risk ratioon 06-12-2020 Cardiac heart disease risk [Ratio] 5.55 [facility] Work Phone: Comment on above: RISK NORMALS MEN WOM EN1/[address] 23[address]39 11.04 TRIGLYCERIDES >400 MG/DL MAY CAUSE INCONSISTENCIES IN THE LDL. Serum or plasma cholesterol measurement (mass/volume)on 06-12-2020 Cholesterol [Mass/Vol] 222 mg/dL 0-199 [facility] Work Phone: Serum or plasma high density lipoprotein (HDL) cholesterol measurementon 06-12-2020 Cholesterol in HDL [Mass/Vol] 40 mg/dL >61 [facility] Work Phone: Serum or plasma thyroxine (T 4) free measurement (mass/volume)on 06-12-2020 Free T4 [Mass/Vol] 1.23 ng/dL 0.93-1.70 [facility] Work Phone: Serum or plasma triglyceride measurement (mass/volume)on 06-12-2020 Triglyceride [Mass/Vol] 157 mg/dL <150 [facility] Work Phone: TSH ser/plason 06-12-2020 TSH Qn 5.6500 uIU/mL 0.270-4.200 [facility] Work Phone: Absolute immature granulocyt e counton 03-20-2020 Immature granulocytes (Bld) [#/Vol] 0.05 10:3/uL 0.01-0.2 [facility] Work Phone: Absolute lymphocyte counton 03-20-2020 Lymphocytes Auto (Unsp spec) [#/Vol] 2.32 10:3/uL 1.5-4.0 [facility] Work Phone: Alanine aminotransferase [En zymatic activity/volume] in Serum or Plasmaon 03-20-2020 ALT [Catalytic activity/Vol] 16 U/L 5-33 [facility] Work Phone: Automated blood hematocrit ( volume fraction)on 03-20-2020 Hematocrit (Bld) [Volume fraction] 40.4 % 35.0-47.0 [facility] Work Phone: Automated blood segmented ne utrophils/100 leukocyteson 03-20-2020 Segmented neutrophils/100 WBC (Bld) 62.7 % 54.0-62.0 [facility] Work Phone: Automated immature granulocy te percentageon 03-20-2020 Immature granulocytes/100 WBC (Bld) 0.6 % 0-0.9 [facility] Work Phone: Basophil %on 03-20-2020 Basophils/100 WBC (Unsp spec) 0.7 % 0-1.0 [facility] Work Phone: Blood basophils count (numbe r/volume)on 03-20-2020 Basophils (Bld) [#/Vol] 0.06 10:3/uL 0.02-0.2 [facility] Work Phone: Blood eosinophils count (num myra/volume)on 03-20-2020 Eosinophils (Bld) [#/Vol] 0.11 10:3/uL 0-0.5 [facility] Work Phone: Blood erythrocytes count (nu mber/volume)on 03-20-2020 RBC (Bld) [#/Vol] 4.26 10:6/uL 3.80-5.20 [facility] Work Phone: Blood hemoglobin A1C/total h emoglobin By HPLCon 03-20-2020 HbA1c (Bld) [Mass fraction] 6.7 % 4.4-5.6 [facility] Work Phone: Comment on above: PRE-DIABETES 5.7-6.4 DIABETES > OR = 6.5 Blood hemoglobin measurement (mass/volume)on 03-20-2020 Hemoglobin (Bld) [Mass/Vol] 12.8 g/dL 11.7-15.7 [facility] Work Phone: Blood leukocytes count (numb er/volume)on 03-20-2020 WBC (Bld) [#/Vol] 8.5 10:3/uL 3.5-11.0 [facility] Work Phone: Blood nucleated erythrocytes count (number/volume)on 03-20-2020 Nucleated RBC (Bld) [#/Vol] 0 10:3/uL <0 [facility] Work Phone: Blood platelet counton 03-20 Platelets (Bld) [#/Vol] 197 10:3/uL 130-440 [facility] Work Phone: Cholesterol in LDL [Mass/vol ume] in Serum or Plasma by calculationon 03-20-2020 Cholesterol in LDL [Mass/Vol] 139 mg/dL <100 [facility] Work Phone: Complete blood count (CBC) w ith reflex manual white blood cell differentialon 03-20-2020 CBC W Reflex Manual Differential panel - Blood No [facility] Work Phone: Determination of erythrocyte mean corpuscular volume (MCV)on 03-20-2020 MCV (RBC) [Entitic vol] 94.8 CU uM 80.0-100.0 [facility] Work Phone: Erythrocyte distribution wid th standard deviationon 03-20-2020 Erythrocyte distribution width (RBC) [Entitic vol] 12.8 fL 11.5-14.5 [facility] Work Phone: Erythrocyte mean corpuscular hemoglobin concentration measurement (mass/volume)on 03-20-2020 MCHC (RBC) [Mass/Vol] 31.7 g/dL 31-36 [facility] Work Phone: Hematologyon 03-20-2020 MCH (RBC) [Entitic mass] 30.0 pg 27-40 [facility] Work Phone: INR in Platelet poor plasma or blood by Coagulation assayon 03-20-2020 INR Coag (Platelet poor plasma or blood) [Relative time] 0.98 0.92-1.2 [facility] Work Phone: Comment on above: THERAPEUTIC: LOW LEV EL COUMADIN = 2.0 - 3.0 HIGH LEVEL COUMADIN = 2.5 - 3.5 Lymphocyte percenton 021 Eosinophils/100 WBC (Bld) 1.3 % 1.0-3.0 [facility] Work Phone: Lymphocytes/100 WBC (Bld) 5.34 10:3/uL 2.0-7.0 [facility] Work Phone: Lymphocytes/100 WBC (Bld) 27.2 % 20.0-40.0 [facility] Work Phone: Monocytes (Bld) [#/Vol] 0.64 10:3/uL 0.2-0.8 [facility] Work Phone: Monocytes/100 WBC (Bld) 7.5 % 4.0-10.0 [facility] Work Phone: Nucleated RBC (Bld) [#/Vol] 0 /100WBC <0 [facility] Work Phone: Metabolic Panelon 03-20-2020 GFR/1.73 sq M predicted among non-blacks MDRD (S/P/Bld) [Vol rate/Area] mL/min/{1.73_m2} [facility] Work Phone: Comment on above: NORMAL: EGFR >60.0TH E GFR IS ESTIMATED USING THE MDRD STUDY EQUATION.*NOTE* IF THE RACE OF THE PATIENT WAS UNKNOWN AT THE TIME OFREGISTRATION, AND THE PATIENT IS , MULTIPLYTHE EGFR RESULT PROVIDED BY 1.21. Prothrombin time (PT) in pat telet poor plasma by coagulation assayon 03-20-2020 PT Coag (PPP) [Time] 12.9 s 12.1-14.6 [facility] Work Phone: Serum or plasma albumin morgan urement (mass/volume)on 03-20-2020 Albumin [Mass/Vol] 4.4 g/dL 4.0-4.9 [facility] Work Phone: Serum or plasma alkaline fatemeh sphatase measurement (enzymatic activity/volume)on 03-20-2020 ALP [Catalytic activity/Vol] 95 U/L 35-104 [facility] Work Phone: Serum or plasma anion gapon 03-20-2020 Anion gap [Moles/Vol] 13 mmol/L 9-15 [facility] Work Phone: Serum or plasma aspartate am inotransferase measurement (enzymatic activity/volume)on 03-20-2020 AST [Catalytic activity/Vol] 17 U/L 5-32 [facility] Work Phone: Serum or plasma calcium morgan urement (mass/volume)on 03-20-2020 Calcium [Mass/Vol] 9.5 mg/dL 8.6-10.0 [facility] Work Phone: Serum or plasma carbon dioxi de, total measurement (moles/volume)on 03-20-2020 CO2 [Moles/Vol] 27 mmol/L 22-29 [facility] Work Phone: Serum or plasma cardiac hear t disease risk ratioon 03-20-2020 Cardiac heart disease risk [Ratio] 4.90 [facility] Work Phone: Comment on above: RISK NORMALS MEN WOM EN1/[address] 23.39 11.04 TRIGLYCERIDES >400 MG/DL MAY CAUSE INCONSISTENCIES IN THE LDL. Serum or plasma chloride sweta surement (moles/volume)on 03-20-2020 Chloride [Moles/Vol] 103 mmol/L 98-107 [facility] Work Phone: Serum or plasma cholesterol measurement (mass/volume)on 03-20-2020 Cholesterol [Mass/Vol] 206 mg/dL 0-199 [facility] Work Phone: Serum or plasma creatinine m easurement (mass/volume)on 03-20-2020 Creatinine [Mass/Vol] 0.89 mg/dL 0.51-0.95 [facility] Work Phone: Serum or plasma glucose morgan urement (mass/volume)on 03-20-2020 Glucose [Mass/Vol] 142 mg/dL 70-100 [facility] Work Phone: Comment on above: INTREPRETATION FOR F ASTING BLOOD GLUCOSE: 70-100 mg/dl NORMAL GLUCOSE [id number] mg/dl IMPAIRED FASTING GLUCOSE (PRE-DIABETES)>125 mg/dl DIABETES - ON MORE THAN ONE TESTING Serum or plasma high density lipoprotein (HDL) cholesterol measurementon 03-20-2020 Cholesterol in HDL [Mass/Vol] 42 mg/dL >66 [facility] Work Phone: Serum or plasma potassium me asurement (moles/volume)on 03-20-2020 Potassium [Moles/Vol] 4.1 mmol/L 3.6-5.0 [facility] Work Phone: Serum or plasma protein morgan urement (mass/volume)on 03-20-2020 Protein [Mass/Vol] 6.8 g/dL 6.4-8.3 [facility] Work Phone: Serum or plasma sodium measu rement (moles/volume)on 03-20-2020 Sodium [Moles/Vol] 143 mmol/L 136-145 [facility] Work Phone: Serum or plasma thyroxine (T 4) free measurement (mass/volume)on 03-20-2020 Free T4 [Mass/Vol] 0.72 ng/dL 0.93-1.70 [facility] Work Phone: Serum or plasma triglyceride measurement (mass/volume)on 03-20-2020 Triglyceride [Mass/Vol] 125 mg/dL <150 [facility] Work Phone: Serum or plasma urea nitroge n measurement (mass/volume)on 03-20-2020 Urea nitrogen [Mass/Vol] 10.8 mg/dL 6.0-20.0 [facility] Work Phone: Serum total bilirubin measur ement (mass/volume)on 03-20-2020 Bilirubin [Mass/Vol] 0.3 mg/dL 0.2-1.2 [facility] Work Phone: TSH ser/plason 03-20-2020 TSH Qn 23.1600 uIU/mL 0.270-4.200 [facility] Work Phone: APTT panel in platelet poor plasmaon 03-10-2019 aPTT Coag (Bld) [Time] 27.0 s 23.9-35.7 [facility] Work Phone: Absolute lymphocyte counton 03-10-2019 Lymphocytes Auto (Unsp spec) [#/Vol] 3.13 10:3/uL 1.5-4.0 [facility] Work Phone: Automated blood hematocrit ( volume fraction)on 03-10-2019 Hematocrit (Bld) [Volume fraction] 40.4 % 35.0-47.0 [facility] Work Phone: Automated blood segmented ne utrophils/100 leukocyteson 03-10-2019 Segmented neutrophils/100 WBC (Bld) 64.0 % High 54.0-62.0 [facility] Work Phone: Automated urine erythrocytes count (number/volume)on 03-10-2019 RBC (U) [#/Vol] 3-5 /HPF [facility] Work Phone: Automated urine hyaline cast s count (number/volume)on 03-10-2019 Hyaline casts Auto (U) [#/Vol] 3-5 /LPF High [facility] Work Phone: Basophil %on 03-10-2019 Basophils/100 WBC (Unsp spec) 0 % 0-1.0 [facility] Work Phone: Blood basophils count (numbe r/volume)on 03-10-2019 Basophils (Bld) [#/Vol] 0 10:3/uL Low 0.02-0.2 [facility] Work Phone: Blood eosinophils count (num myra/volume)on 03-10-2019 Eosinophils (Bld) [#/Vol] 0 10:3/uL 0-0.5 [facility] Work Phone: Blood erythrocytes count (nu mber/volume)on 03-10-2019 RBC (Bld) [#/Vol] 4.32 10:6/uL 3.80-5.20 [facility] Work Phone: Blood hemoglobin measurement (mass/volume)on 03-10-2019 Hemoglobin (Bld) [Mass/Vol] 12.7 g/dL 11.7-15.7 [facility] Work Phone: Blood leukocytes count (numb er/volume)on 03-10-2019 WBC (Bld) [#/Vol] 10.1 10:3/uL 3.5-11.0 [facility] Work Phone: Blood lipase measurementon 0 03-10-2019 Lipase [Catalytic activity/Vol] 30 U/L 13-60 [facility] Work Phone: Blood nucleated erythrocytes count (number/volume)on 03-10-2019 Nucleated RBC (Bld) [#/Vol] 0 10:3/uL <0 [facility] Work Phone: Blood platelet counton 03-10 Platelets (Bld) [#/Vol] 227 10:3/uL 130-440 [facility] Work Phone: Determination of erythrocyte mean corpuscular volume (MCV)on 03-10-2019 MCV (RBC) [Entitic vol] 93.5 CU uM 80.0-100.0 [facility] Work Phone: Epithelial cells.squamous [# /volume] in Urine by Automated counton 03-10-2019 Epithelial cells.squamous Auto (U) [#/Vol] 5-10 /HPF High [facility] Work Phone: Erythrocyte distribution wid th standard deviationon 03-10-2019 Erythrocyte distribution width (RBC) [Entitic vol] 13.2 fL 11.5-14.5 [facility] Work Phone: Erythrocyte mean corpuscular hemoglobin concentration measurement (mass/volume)on 03-10-2019 MCHC (RBC) [Mass/Vol] 31.4 g/dL 31-36 [facility] Work Phone: GFR estimate MDRDon 03-10-19 20 GFR/1.73 sq M.predicted MDRD (S/P/Bld) [Vol rate/Area] mL/min/{1.73_m2} [facility] Work Phone: Comment on above: NORMAL: EGFR >60.0TH E GFR IS ESTIMATED USING THE MDRD STUDY EQUATION.*NOTE* IF THE RACE OF THE PATIENT WAS UNKNOWN AT THE TIME OFREGISTRATION, AND THE PATIENT IS , MULTIPLYTHE EGFR RESULT PROVIDED BY 1.21. Hematologyon 03-10-2019 Lymphocytes/100 WBC (Bld) 31.0 % 20.0-40.0 [facility] Work Phone: MCH (RBC) [Entitic mass] 29.4 pg 27-40 [facility] Work Phone: INR in Platelet poor plasma or blood by Coagulation assayon 03-10-2019 INR Coag (Platelet poor plasma or blood) [Relative time] 1.04 0.92-1.2 [facility] Work Phone: Comment on above: THERAPEUTIC: LOW LEV EL COUMADIN = 2.0 - 3.0 HIGH LEVEL COUMADIN = 2.5 - 3.5 Leukocytes [#/volume] in Uri ne by Automated counton 03-10-2019 WBC Auto (U) [#/Vol] 3-5 /HPF [facility] Work Phone: Monocyte %on 03-10-2019 Monocytes/100 WBC (Bld) 5.0 % 4.0-10.0 [facility] Work Phone: Monocytes/100 WBC (Bld) 6.46 10:3/uL 2.0-7.0 [facility] Work Phone: Monocytes/100 WBC (Bld) 0 /100WBC <0 [facility] Work Phone: Monocytes/100 WBC (Bld) 0.50 10:3/uL 0.2-0.8 [facility] Work Phone: Monocytes/100 WBC (Bld) 0 % Low 1.0-3.0 [facility] Work Phone: Prothrombin time (PT) in pat telet poor plasma by coagulation assayon 03-10-2019 PT Coag (PPP) [Time] 13.5 s 12.1-14.6 [facility] Work Phone: Serum or plasma alanine wang otransferase measurement (enzymatic activity/volume)on 03-10-2019 ALT [Catalytic activity/Vol] 16 U/L 5-33 [facility] Work Phone: Serum or plasma albumin morgan urement (mass/volume)on 03-10-2019 Albumin [Mass/Vol] 3.9 g/dL Low 4.0-4.9 [facility] Work Phone: Serum or plasma alkaline fatemeh sphatase measurement (enzymatic activity/volume)on 03-10-2019 ALP [Catalytic activity/Vol] 91 U/L 35-104 [facility] Work Phone: Serum or plasma anion gapon 03-10-2019 Anion gap [Moles/Vol] 12 mmol/L 9-15 [facility] Work Phone: Serum or plasma aspartate am inotransferase measurement (enzymatic activity/volume)on 03-10-2019 AST [Catalytic activity/Vol] 23 U/L 5-32 [facility] Work Phone: Serum or plasma calcium morgan urement (mass/volume)on 03-10-2019 Calcium [Mass/Vol] 9.1 mg/dL 8.6-10.0 [facility] Work Phone: Serum or plasma carbon dioxi de, total measurement (moles/volume)on 03-10-2019 CO2 [Moles/Vol] 27 mmol/L 22-29 [facility] Work Phone: Serum or plasma chloride sweta surement (moles/volume)on 03-10-2019 Chloride [Moles/Vol] 100 mmol/L 98-107 [facility] Work Phone: Serum or plasma creatinine m easurement (mass/volume)on 03-10-2019 Creatinine [Mass/Vol] 0.85 mg/dL 0.51-0.95 [facility] Work Phone: Serum or plasma glucose morgan urement (mass/volume)on 03-10-2019 Glucose [Mass/Vol] 156 mg/dL High 70-100 [facility] Work Phone: Comment on above: INTREPRETATION FOR F ASTING BLOOD GLUCOSE: 70-100 mg/dl NORMAL GLUCOSE [id number] mg/dl IMPAIRED FASTING GLUCOSE (PRE-DIABETES)>125 mg/dl DIABETES - ON MORE THAN ONE TESTING Serum or plasma potassium me asurement (moles/volume)on 03-10-2019 Potassium [Moles/Vol] 3.6 mmol/L 3.6-5.0 [facility] Work Phone: Serum or plasma protein morgan urement (mass/volume)on 03-10-2019 Protein [Mass/Vol] 7.2 g/dL 6.4-8.3 [facility] Work Phone: Serum or plasma sodium measu rement (moles/volume)on 03-10-2019 Sodium [Moles/Vol] 139 mmol/L 136-145 [facility] Work Phone: Serum or plasma total biliru bin measurement (mass/volume)on 03-10-2019 Bilirubin [Mass/Vol] 0.3 mg/dL 0.2-1.2 [facility] Work Phone: Serum or plasma urea nitroge n measurement (mass/volume)on 03-10-2019 Urea nitrogen [Mass/Vol] 10.9 mg/dL 6.0-20.0 [facility] Work Phone: Specific gravity of Urine by Automated test stripon 03-10-2019 Specific gravity (U) [Rel density] 1.011 1.005-1.035 [facility] Work Phone: UA + reflex cultureon 2019 Urinalysis complete W Reflex Culture panel - Urine No culture ordered [facility] Work Phone: Urine clarityon 03-10-2019 Clarity (U) Clear [facility] Work Phone: Urine coloron 03-10-2019 Color (U) Yellow [facility] Work Phone: Urine glucose measurement by automated test strip (mass/volume)on 03-10-2019 Glucose Auto test strip (U) [Mass/Vol] Negative NEGATIVE [facility] Work Phone: Urine hemoglobin measurement by automated test strip (mass/volume)on 03-10-2019 Hemoglobin Auto test strip (U) [Mass/Vol] Negative NEGATIVE [facility] Work Phone: Urine ketones measurement by automated test strip (mass/volume)on 03-10-2019 Ketones (U) [Mass/Vol] Negative NEGATIVE [facility] Work Phone: Urine leukocyte esterase det ection by automated test stripon 03-10-2019 Leukocyte esterase Auto test strip Ql (U) Negative NEGATIVE [facility] Work Phone: Urine nitrite detection by a utomated test stripon 03-10-2019 Nitrite Auto test strip Ql (U) Negative NEGATIVE [facility] Work Phone: Urine pH measurement by auto mated test stripon 03-10-2019 pH (U) 6.0 [pH] 5.0-8.5 [facility] Work Phone: Urine protein measurement by automated test strip (mass/volume)on 03-10-2019 Protein (U) [Mass/Vol] Negative NEGATIVE [facility] Work Phone: Urine total bilirubin measur ement by automated test strip (mass/volume)on 03-10-2019 Bilirubin Auto test strip (U) [Mass/Vol] Negative NEGATIVE [facility] Work Phone: Urine urobilinogen measureme nt by automated test strip (mass/volume)on 03-10-2019 Urobilinogen (U) [Mass/Vol] 0.2 EU/DL [facility] Work Phone: Vital Signs Date Time Vital Sign Value Performing Clinician Facility 07-14-2023 11:01-0400 Diastolic blood pressure 81 mm[Hg] Johny Swenson DO Work Phone: [facility] 07-14-2023 11:01-0400 Systolic blood pressure 182 mm[Hg] Johny Swenson DO Work Phone: [facility] 07-14-2023 10:57-0400 Body height 165.1 cm Johny Swenson DO Work Phone: [facility] 07-14-2023 10:57-0400 Body mass index (BMI) [Ratio] 29.77 kg/m2 Johny Sewnson DO Work Phone: [facility] 07-14-2023 10:57-0400 Body temperature 97.39 [degF] Johny Swenson DO Work Phone: [facility] 07-14-2023 10:57-0400 Body weight 81.15 kg Johny Swenson DO Work Phone: [facility] 07-14-2023 10:57-0400 Heart rate 70 /min Johny Swenson DO Work Phone: [facility] 07-14-2023 10:57-0400 Respiratory rate 16 /min Johny Swenson DO Work Phone: [facility] 07-14-2023 10:57-0400 SaO2% (BldA) [Mass fraction] 100 % Johny Swenson DO Work Phone: [facility] 01-28-2023 16:37-0500 Diastolic blood pressure 69 mm[Hg] CADENCE GRECO Work Phone: [facility] 01-28-2023 16:37-0500 Heart rate 63 /min [employer]LEMENTARY [employer] TE[employer]ER LUCAS GRECO Work Phone: [facility] 01-28-2023 16:37-0500 Respiratory rate 18 /min [employer]LEMENT[employer] TE[employer]ER LUCAS GRECO Work Phone: [facility] 01-28-2023 16:37-0500 SaO2% (BldA) [Mass fraction] 97 % [employer]LEMENT[employer] TEACHER LUCAS GRECO Work Phone: [facility] 01-28-2023 16:37-0500 Systolic blood pressure 146 mm[Hg] ELEMENTARY [employer] TEACHER LUCAS GRECO Work Phone: [facility] 01-28-2023 15:57-0500 Body temperature 98.5 [degF] CADENCE GRECO Work Phone: [facility] 01-28-2023 15:38-0500 Body height 165.1 cm CADENCE GRECO Work Phone: [facility] 01-28-2023 15:38-0500 Body mass index (BMI) [Ratio] 25 kg/m2 CADENCE GRECO Work Phone: [facility] 01-28-2023 15:38-0500 Body weight 68.03 kg CADENCE GRECO Work Phone: [facility] 01-12-2023 18:01-0500 Body height 165.1 cm CADENCE GRECO Work Phone: [facility] 01-12-2023 18:01-0500 Body mass index (BMI) [Ratio] 26.6 kg/m2 CADENCE GRECO Work Phone: [facility] 01-12-2023 18:01-0500 Body temperature 97.8 [degF] CADENCE GRECO Work Phone: [facility] 01-12-2023 18:01-0500 Body weight 72.57 kg CADENCE LUCAS GRECO Work Phone: [facility] 01-12-2023 18:01-0500 Diastolic blood pressure 101 mm[Hg] ELEMENTARY [employer] TE[employer]ER LUCAS GRECO Work Phone: [facility] 01-12-2023 18:01-0500 Heart rate 85 /min [employer]LEMENT[employer] TE[employer]ER LUCAS GRECO Work Phone: [facility] 01-12-2023 18:01-0500 Respiratory rate 19 /min ELEMENTARY [employer] TE[employer]ER LUCAS GRECO Work Phone: [facility] 01-12-2023 18:01-0500 SaO2% (BldA) [Mass fraction] 100 % CADENCE LUCAS GRECO Work Phone: [facility] 01-12-2023 18:01-0500 Systolic blood pressure 180 mm[Hg] CADENCE LUCAS GRECO Work Phone: [facility] 08-27-2022 11:04-0400 Body height 165 cm Ángel Lambertr PA C Mobile Phone: [facility] Work Phone: 08-27-2022 11:04-0400 Body mass index (BMI) [Ratio] 29 kg/m2 Ángel Gee PA C Mobile Phone: [facility] Work Phone: 08-27-2022 11:04-0400 Body weight 78 kg Ángel Lambertr PA C Mobile Phone: [facility] Work Phone: 08-27-2022 11:04-0400 Respiratory rate 18 /min Ángel Lambertr PA C Mobile Phone: [facility] Work Phone: 03-11-2019 01:01-0500 BP Diastolic 84 mm[Hg] [facility] Work Phone: 03-11-2019 01:01-0500 BP Systolic 137 mm[Hg] [facility] Work Phone: 03-11-2019 01:01-0500 Pulse (Heart Rate) 62 /min [facility] Work Phone: 03-11-2019 01:01-0500 Pulse Oximetry 98 % [facility] Work Phone: 03-11-2019 01:01-0500 Respiratory Rate 16 /min [facility] Work Phone: 03-10-2019 23:13-0500 Body Temperature 98.3 [degF] [facility] Work Phone: 03-10-2019 23:10-0500 BMI (Body Mass Index) 31 kg/m2 [facility] Work Phone: 03-10-2019 23:10-0500 Body weight 84.64 kg [facility] Work Phone: 03-10-2019 23:10-0500 Height 165.1 cm [facility] Work Phone: Encounters Encounter Date Encounter Type Care Provider Facility Start: 09-29-2023 ambulatory Johny nazario DO Work Phone: Internal [place] [id number] Start: 07-21-2023 Telephone encounter Johny taylor DO Work Phone: [facility] [place] Start: 07-15-2023 ambulatory Johny nazario DO Work Phone: Internal [facility] Start: 07-15-2023 Telephone encounter Pharmacist [facility] Comment on above: Anticoagulation - In itial Consult Start: 07-14-2023 End: 07-15-2023 ambulatory JOHNY SWENSON Facility:[facility] Start: 07-14-2023 Encounter for genera l adult medical examination without abnormal findings [facility] Start: 07-14-2023 End: 07-14-2023 [facility] Start: 07-14-2023 End: 07-14-2023 Office outpatient new 45 minutes Johny Swenson DO Work Phone: [facility] [place] Comment on above: Primary hypertension (Primary Dx); Special screening examination for viral disease; History of DVT (deep vein thrombosis); Medication refill; Hypothyroidism, acquired Start: 04-21-2023 ambulatory LUCAS GRECO Facil ity:[facility] Start: 04-21-2023 Evaluation and manag ement of inpatient KURT ROBLES [facility] Start: 04-16-2023 End: 04-16-2023 ambulatory LUCAS GRECO Facility:[facility] Start: 04-16-2023 Evaluation and manag ement of inpatient LEXUS ENCINAS [facility] Start: 01-28-2023 End: 01-28-2023 Emergency department patient visit LUCAS GRECO Facility:[facility] Start: 01-28-2023 Evaluation and manag ement of inpatient LEXUS ENCINAS [facility] Start: 01-28-2023 End: 01-28-2023 Emergency department patient visit CADENCE GRECO Work Phone: [facility] Work Phone: Start: 01-23-2023 ambulatory LUCAS GRECO Facil ity:[facility] Start: 01-23-2023 Evaluation and manag ement of inpatient LAYO HERNANDEZ [facility] Start: 01-14-2023 End: 01-14-2023 ambulatory LUCAS GRECO Facility:[facility] Start: 01-14-2023 Evaluation and manag ement of inpatient CHRISTINA CARPENTER [facility] Start: 01-14-2023 End: 01-14-2023 ambulatory CADENCE GRECO Work Phone: [facility] Work Phone: Start: 01-14-2023 End: 01-14-2023 Patient encounter procedure CADENCE GRECO Work Phone: [facility] Start: 01-12-2023 End: 01-12-2023 Emergency department patient visit OMAR VERGARA Facility:[facility] Start: 01-12-2023 Evaluation and manag ement of inpatient LEXUS ENCINAS [facility] Start: 01-12-2023 End: 01-12-2023 Emergency department patient visit CADENCE LUCAS GRECO Work Phone: [facility] Work Phone: Start: 11-26-2022 ambulatory ÁNGEL GEE Facility:[facility] Start: 11-26-2022 Evaluation and manag ement of inpatient AUTOMATION VISPAFLOW [facility] Start: 11-19-2022 ambulatory LUCAS GRECO [facility] Start: 11-19-2022 Evaluation and manag ement of inpatient AUTOMATION VISPAFLOW2 [facility] Start: 08-28-2022 End: 08-28-2022 ambulatory LUCAS GRECO Facility:[facility] Start: 08-28-2022 Evaluation and manag ement of inpatient Background Daon [facility] Start: 08-28-2022 End: 08-28-2022 ambulatory ELEMENTARY [employer] TE[employer]ER LUCAS GRECO Work Phone: [facility] Work Phone: Start: 08-28-2022 End: 08-28-2022 Patient encounter procedure CADENCE GRECO Work Phone: [facility] Start: 08-27-2022 End: 08-27-2022 ambulatory ÁNGEL GEE Facility:[facility] Start: 08-27-2022 Evaluation and manag ement of inpatient Background [facility] Start: 08-27-2022 Office outpatient ne w 30 minutes [facility] Start: 07-01-2022 Non-patient / Non-visit CADENCE GRECO [facility] Start: 04-22-2022 End: 04-22-2022 ambulatory ELEMENTARY [employer] TE[employer]ER LUCAS GRECO Work Phone: [facility] Work Phone: Start: 04-22-2022 End: 04-22-2022 Patient encounter procedure CADENCE GRECO Work Phone: [facility] Start: 02-04-2022 End: 02-04-2022 ambulatory ELEMENTARY [employer] TE[employer]ER LUCAS GRECO Work Phone: [facility] Work Phone: Start: 02-04-2022 End: 02-04-2022 Patient encounter procedure CADENCE GRECO Work Phone: [facility] Start: 01-20-2022 End: 01-20-2022 ambulatory ELEMENTARY [employer] TE[employer]ER LUCAS GRECO Work Phone: [facility] Work Phone: Start: 01-20-2022 End: 01-20-2022 Patient encounter procedure CADENCE GRECO Work Phone: [facility] Start: 12-20-2021 End: 12-20-2021 ambulatory DO RYAN HOPE Work Phone: [facility] Work Phone: Start: 12-20-2021 End: 12-20-2021 Patient encounter procedure DO RYAN HOPE Work Phone: [facility] Start: 10-02-2021 End: 10-02-2021 Patient encounter procedure [facility] Start: 07-18-2021 End: 07-18-2021 Patient encounter procedure [facility] Start: 05-21-2021 End: 05-21-2021 Non-patient / Non-visit [facility] Regina Robles ([facility]) Start: 09-04-2020 Patient encounter procedure [facility] Start: 07-19-2020 End: 07-19-2020 Patient encounter procedure [facility] Start: 07-06-2020 End: 07-06-2020 Patient encounter procedure [facility] Start: 06-21-2020 End: 06-21-2020 Patient encounter procedure [facility] Start: 06-12-2020 End: 06-12-2020 Patient encounter procedure [facility] Start: 03-23-2020 End: 03-23-[address] [facility] Start: 03-20-2020 End: 03-20-2020 Patient encounter procedure [facility] Start: 04-08-2019 [facility] Start: 03-10-2019 End: 03-11-2019 Emergency department patient visit RYAN HOPE -Emergency Room Procedures Date Procedure Procedure Detail Performing Clinician Start: 07-14-2023 Lipid 1996 panel - Serum or Plasma Jean Pierre Swenson DO Work Phone: Start: 01-28-2023 Bacterial nucleic acid assay ELEMENT[employer] TEACHER LUCAS KWAME TURK Work Phone: Start: 11-14-2020 Colonoscopy Ángel Shearer Mobile Phone: Start: 11-14-2020 Esophagogastroduodenoscopy Ángel Shearer Mobile Phone: Start: 07-19-2020 Screening mammography Start: 07-19-2020 Plain chest X-ray Start: 07-06-2020 Ultrasonography of bilateral kidneys Start: 07-06-2020 US scan of thyroid Start: 03-10-2019 Computed tomography of abdomen and pelvis with contrast RYAN HOPE Start: 09-28-2017 Release of trigger finger Ángel Shearer Mobile Phone: Biopsy of breast Ángel Shearer Mobile Phone: section Ángel Shearer Mobile Phone: Decompression of median nerve Ángel Gee PA C Mobile Phone: H/O: tubal ligation Ángel Gee PA C Mobile Phone: Hemorrhoidectomy Ángel Petra r PA C Mobile Phone: Oophorectomy Ángel Gee PA C Mobile Phone: Plan of Treatment Date Care Activity Detail Author Start: 07-13-2028 Lipid panel Lipid Screening [facility] Start: 07-13-2026 Diabetes Screening Diabetes Screenin g [facility] Start: 07-13-2024 Annual PCP Team Acute Dialysis Registered Nurse elyssa Disease Visit Annual PCP Team Chronic Disease Visit [facility] Start: 11-08-2023 Influenza vaccination [facility] Start: 10-14-2023 End: 10-14-2023 Patient encounter procedure 10/14/2023 10:40 AM EDT Office Visit [address] [address] Johny Swenson DO [address] [place] [address] / [place] [address] [facility] Comment on above: Follow Up Start: 09-29-2023 End: 12-29-2023 CBC panel - Blood by Automated count COMPLETE BLOOD COUNT Lab Routine Medication management Expected: 09/29/2023, Expires: 12/29/2023 [facility] Comment on above: Expected: 09/29/2023 , Expires: 12/29/2023 Start: 09-29-2023 End: 12-29-2023 Microalbumin/Creatinine [Mass Ratio] in Urine ALBUMIN/CREATININE RATIO, URINE Lab Routine Medication management Expected: 09/29/2023, Expires: 12/29/2023 [facility] Work Phone: Comment on above: Expected: 09/29/2023 , Expires: 12/29/2023 Start: 03-09-2023 Behavioral Health Screening Behavioral Health Screening [facility] Start: 11-07-2022 Covid-19 Vaccine ( season) Covid-19 Vaccine ( season) [facility] Start: 2017 Shingrix Vaccine (1 of 2) Garcia grix Vaccine (1 of 2) [facility] Start: 2012 Screening for malign ant neoplasm of colon [facility] Start: 01-30-2012 Screening for malign ant neoplasm of breast Mammogram Screening [facility] Start: 06-02-2005 Screening for malign ant neoplasm of cervix Pap Testing [facility] Start: 06-03-2003 Screening for malign ant neoplasm of cervix Cervical Cancer Screening [facility] Start: 1997 Screening for malign ant neoplasm of cervix HPV Testing [facility] Start: 1986 Hepatitis B Vaccine (1 of 3 - + 3-dose series) Hepatitis B Vaccine (1 of 3 - + 3-dose series) [facility] Start: 1986 Urine microalbumin profile DTa P,Tdap,Td Vaccine (1 - Tdap) [facility] Start: 1985 Anxiety Screening Anxiety Screening [facility] Start: 1985 Depression Screening Depression Scre ening [facility] Start: 1985 HIV screening HIV Screening [facility] Start: 1985 Spirometry Spirometry [facility] Start: 1973 Pneumococcal vaccination Pneum ococcal Vaccine (1 of 2 - PCV) [facility] Alanine aminotransfe rase [Enzymatic activity/volume] in Serum or Plasma [facility] Work Phone: Albumin [Mass/volume ] in Serum or Plasma [facility] Work Phone: Alkaline phosphatase [Enzymatic activity/volume] in Serum or Plasma [facility] Work Phone: Anion gap measurement [facility] Phys[facility] Work Phone: Aspartate aminotrans ferase [Enzymatic activity/volume] in Serum or Plasma [facility] Work Phone: Assessment for risk of cardiovascular disease [facility] Work Phone: Bilirubin.total [Mass/volume] in Serum or Plasma [facility] Work Phone: Calcium [Mass/volume ] in Serum or Plasma [facility] Work Phone: Calculated LDL annalise sterol level [facility] Work Phone: Carbon dioxide, tota l [Moles/volume] in Serum or Plasma [facility] Work Phone: CBC W Reflex Manual Differential panel - Blood [facility] Work Phone: Chloride [Moles/volu me] in Serum or Plasma [facility] Work Phone: Cholesterol [Mass/vo lume] in Serum or Plasma [facility] Work Phone: Cholesterol in HDL [Mass/volume] in Serum or Plasma [facility] Work Phone: Creatinine [Mass/vol ume] in Serum or Plasma [facility] Work Phone: Glucose [Mass/volume ] in Serum or Plasma [facility] Work Phone: Hematocrit [Volume Fraction] of Blood [facility] Work Phone: Hemoglobin [Mass/vol ume] in Blood [facility] Work Phone: Hemoglobin A1c/Hemoglobin.total in Blood [facility] Work Phone: Hemoglobin A1c/Hemoglobin.total in Blood [facility] Hemoglobin A1c/Hemoglobin.total in Blood [facility] Hemoglobin A1c/Hemoglobin.total in Blood [facility] Leukocytes [#/volume ] in Blood [facility] Work Phone: Measurement of renal function [facility] Work Phone: End: 08-13-2024 MG Breast Screening NATY SCREENING Radiology Routine Encounter for screening mammogram for breast cancer 1 Occurrences starting 07/15/2023 until 08/13/2024 [facility] Work Phone: Comment on above: 1 Occurrences starti ng 07/15/2023 until 08/13/2024 Patient Education [facility] Work Phone: Patient referral [facility] Work Phone: Platelets [#/volume] in Blood [facility] Work Phone: Potassium [Moles/vol ume] in Serum or Plasma [facility] Work Phone: Protein [Mass/volume ] in Serum or Plasma [facility] Work Phone: Red blood cell count [facility] Physician Work Phone: Segmented neutrophil count, blood [facility] Work Phone: Sodium [Moles/volume ] in Serum or Plasma [facility] Work Phone: Thyrotropin [Units/v olume] in Serum or Plasma [facility] Work Phone: Thyrotropin [Units/v olume] in Serum or Plasma [facility] Thyrotropin [Units/v olume] in Serum or Plasma [facility] Thyroxine (T4) free [Moles/volume] in Serum or Plasma [facility] Work Phone: Thyroxine (T4) free [Moles/volume] in Serum or Plasma [facility] Triglyceride [Mass/v olume] in Serum or Plasma [facility] Work Phone: Urea nitrogen [Mass/volume] in Serum or Plasma [facility] Work Phone: Immunizations Immunization Date Immunization Notes Care Provider [facility] 11-05-2021 influenza, injectabl e, quadrivalent, preservative free Ángel Shearer Mobile Phone: [facility] [place]: 11-05-2021 influenza, seasonal, injectable Ángel Shearer Mobile Phone: [facility] Work Phone: 05-21-2021 COVID-19, mRNA, LNP- S, PF, 100 mcg/0.5 mL dose (Moderna) Ángel Shearer Mobile Phone: [facility] Work Phone: 05-10-2021 COVID-19, mRNA, LNP- S, PF, 100 mcg/0.5 mL dose (Moderna) Ángel Lambertr PA C Mobile Phone: [facility] Work Phone: 11-10-2020 COVID-19, mRNA, LNP- S, PF, 100 mcg/0.5 mL dose (Moderna) Ángel Gee PA C Mobile Phone: [facility] Work Phone: 11-05-2020 influenza, seasonal, injectable, preservative free Ángel Gee PA C Mobile [facility] [place] Work Phone: 10-22-2020 influenza, injectabl e, quadrivalent, preservative free Ángel Gee PA C Mobile Phone: [facility] Work Phone: 10-13-2020 COVID-19 (Moderna); Translations: [COVID-19, mRNA, LNP-S, PF, 100 mcg/0.5 mL dose (Moderna)] [facility] 03-20-2020 influenza, injectabl e, quadrivalent, preservative free Ángel Gee PA C Mobile Phone: [facility] Work Phone: 11-25-2018 influenza virus vacc ine, unspecified formulation Ángel Gee PA Manfred Mobile Phone: [facility] Work Phone: 11-25-2018 influenza, injectabl e, quadrivalent, preservative free; Translations: [influenza, injectable, quadrivalent, preservative free] RYAN HERMINIA [facility] 11-25-2018 zoster vaccine recombinant; Translations: [zoster recombinant] [facility] 11-25-2018 zoster vaccine, live Ángel Shearer Mobile Phone: [facility] Work Phone: 08-17-2018 pneumococcal polysaccharide vaccine, 23 valent; Translations: [pneumococcal polysaccharide PPV23] [facility] 08-17-2018 zoster vaccine recombinant; Translations: [zoster recombinant] [facility] 08-17-2018 zoster vaccine, live Ángel Shearer Mobile Phone: [facility] Work Phone: 11-23-2017 influenza, injectabl e, quadrivalent, preservative free [facility] 11-23-2017 Fluarix Quad 19 (PF) (flu vacc [id number] 6mos up(PF)) 60 mcg (15 mcg x [facility] Work Phone: 12-19-2014 influenza, seasonal, injectable Ángel Shearer Mobile Phone: [facility] Work Phone: 03-09-2014 varicella virus vaccine Raysa etcara Shearer Mobile Phone: [facility] Work Phone: 12-22-2013 Flu Vaccine Qs 2013-(6mos+) (Fluzone Quad ) 1 EACH EACH [facility] Work Phone: 12-22-2013 influenza, seasonal, injectable Ángel Shearer Mobile Phone: [facility] Work Phone: 11-25-2011 influenza virus vacc ine, unspecified formulation Johny Swenson DO Work Phone: [facility] 12-18-2008 influenza virus vacc ine, unspecified formulation Johny Swenson DO Work Phone: [facility] Payers Date Payer Category Payer Self-pay [id number] 2022 Medicaid [id number] 2022 Unknown [id number] 2.16. [id number] Unknown [id number] 2.16. [id number] Unknown [id number] 2.16. [id number] Unknown [id number] 2.16. [id number] Unknown [id number] 2.16. [id number] Unknown [id number] 2.16. [id number] Unknown [id number] 2.16. [id number] Unknown [id number] 2.16. [id number] Unknown [id number] 2.16. [id number] Unknown [id number] 2.16. [id number] Unknown [id number] 2.16. [id number] Unknown [id number] 2.16. [id number] Unknown [id number] 2.16. [id number] Social History Date Type Detail Facility Tobacco smoking stat [email or web address]IS Unknown if ever smoked [facility] Work Phone: Start: 1965 End: 1965 Sex Assigned At Female [facility] Start: 03-10-2019 End: 07-14-2023 Tobacco smoking status NHIS Current every day smoker [facility] Start: 09-21-2017 No [facility] Start: 03-10-2019 Current Every Day Smoker [facility] Start: 09-21-2017 10 [facility] Start: 05-19-2018 [facility] Start: 04-11-201303/10 [facility] Work Phone: Start: 12-17-2017 former substan ce user;marijuana [facility] Start: 09-21-2020 Yes [facility] Start: 04-11-201303/10 [facility] History of tobacco use Cigarette Smoker [facility] Start: 07-14-2023 Cigarettes smoked current (pack per day) - Reported 0.5 [facility] Start: 07-14-2023 Tobacco use and exposure Smokeless tobacco non-user [facility] Start: 07-14-2023 Alcohol intake Current drinke r of alcohol (finding) [facility] Start: 07-14-2023 Tobacco use panel [facility] National Score (1-10 0), lower number is lower risk 80 [facility] Start: 11-04-2011 Alcohol Comment 1 drink every 6 months or so [facility] Start: 1965 Sex Assigned At Not on file [facility] Medical Equipment Procedure Code Equipment Code Equipment Origin al Text Equipment Identifier Dates Implant ([id number]) Start: 03-18-2021 Lancets Start: 02-21-2021 Blood Sugar Diag nostic (Blood Glucose Test) strip Start: 09-07-2020 End: 03-18-2021 Lancets Start: 09-07-2020 End: 01-21-2021 Lancets Start: 01-21-2021 End: 02-21-2021 Blood Sugar Diag nostic (Blood Glucose Test) strip Start: 03-18-2021 Lancets Start: 02-21-2021 Blood Sugar Diag nostic (Blood Glucose Test) strip Start: 09-07-2020 End: 03-18-2021 Lancets Start: 09-07-2020 End: 01-21-2021 Lancets Start: 01-21-2021 End: 02-21-2021 Blood Sugar Diag nostic (Blood Glucose Test) strip Start: 03-18-2021 Lancets Start: 02-21-2021 Blood Sugar Diag nostic (Blood Glucose Test) strip Start: 09-07-2020 End: 03-18-2021 Lancets Start: 09-07-2020 End: 01-21-2021 Lancets Start: 01-21-2021 End: 02-21-2021 Blood Sugar Diag nostic (Blood Glucose Test) strip Start: 03-18-2021 Lancets Start: 02-21-2021 Blood Sugar Diag nostic (Blood Glucose Test) strip Start: 09-07-2020 End: 03-18-2021 Lancets Start: 09-07-2020 End: 01-21-2021 Lancets Start: 01-21-2021 End: 02-21-2021 Blood Sugar Diag nostic (Blood Glucose Test) strip Start: 03-18-2021 Lancets Start: 10-28-2021 Blood Sugar Diag nostic (Blood Glucose Test) strip Start: 09-07-2020 End: 03-18-2021 Lancets Start: 09-07-2020 End: 01-21-2021 Lancets Start: 01-21-2021 End: 02-21-2021 Lancets Start: 02-21-2021 End: 10-28-2021 Blood Sugar Diag nostic (Blood Glucose Test) strip Start: 03-18-2021 Lancets Start: 10-28-2021 Blood Sugar Diag nostic (Blood Glucose Test) strip Start: 09-07-2020 End: 03-18-2021 Lancets Start: 09-07-2020 End: 01-21-2021 Lancets Start: 01-21-2021 End: 02-21-2021 Lancets Start: 02-21-2021 End: 10-28-2021 Blood Sugar Diag nostic (Blood Glucose Test) strip Start: 03-18-2021 Lancets Start: 10-28-2021 Blood Sugar Diag nostic (Blood Glucose Test) strip Start: 09-07-2020 End: 03-18-2021 Lancets Start: 09-07-2020 End: 01-21-2021 Lancets Start: 01-21-2021 End: 02-21-2021 Lancets Start: 02-21-2021 End: 10-28-2021 Blood Sugar Diag nostic (Blood Glucose Test) strip Start: 03-18-2021 Lancets Start: 10-28-2021 Blood Sugar Diag nostic (Blood Glucose Test) strip Start: 09-07-2020 End: 03-18-2021 Lancets Start: 09-07-2020 End: 01-21-2021 Lancets Start: 01-21-2021 End: 02-21-2021 Lancets Start: 02-21-2021 End: 10-28-2021 Blood Sugar Diag nostic (Blood Glucose Test) strip Start: 03-18-2021 Lancets Start: 10-28-2021 Blood Sugar Diag nostic (Blood Glucose Test) strip Start: 09-07-2020 End: 03-18-2021 Lancets Start: 09-07-2020 End: 01-21-2021 Lancets Start: 01-21-2021 End: 02-21-2021 Lancets Start: 02-21-2021 End: 10-28-2021 Blood Sugar Diag nostic (Blood Glucose Test) strip Start: 04-21-2022 Lancets Start: 10-28-2021 Blood Sugar Diag nostic (Blood Glucose Test) strip Start: 09-07-2020 End: 03-18-2021 Blood Sugar Diag nostic (Blood Glucose Test) strip Start: 03-18-2021 End: 04-21-2022 Lancets Start: 09-07-2020 End: 01-21-2021 Lancets Start: 01-21-2021 End: 02-21-2021 Lancets Start: 02-21-2021 End: 10-28-2021 Blood Sugar Diag nostic (Blood Glucose Test) strip Start: 04-21-2022 Lancets Start: 10-28-2021 Blood Sugar Diag nostic (Blood Glucose Test) strip Start: 09-07-2020 End: 03-18-2021 Blood Sugar Diag nostic (Blood Glucose Test) strip Start: 03-18-2021 End: 04-21-2022 Lancets Start: 09-07-2020 End: 01-21-2021 Lancets Start: 01-21-2021 End: 02-21-2021 Lancets Start: 02-21-2021 End: 10-28-2021 Blood Sugar Diag nostic (Blood Glucose Test) strip Start: 04-21-2022 Lancets Start: 10-28-2021 Blood Sugar Diag nostic (Blood Glucose Test) strip Start: 09-07-2020 End: 03-18-2021 Blood Sugar Diag nostic (Blood Glucose Test) strip Start: 03-18-2021 End: 04-21-2022 Lancets Start: 09-07-2020 End: 01-21-2021 Lancets Start: 01-21-2021 End: 02-21-2021 Lancets Start: 02-21-2021 End: 10-28-2021 Blood Sugar Diag nostic (Blood Glucose Test) strip Start: 04-21-2022 Lancets Start: 10-28-2021 Blood Sugar Diag nostic (Blood Glucose Test) strip Start: 09-07-2020 End: 03-18-2021 Blood Sugar Diag nostic (Blood Glucose Test) strip Start: 03-18-2021 End: 04-21-2022 Lancets Start: 09-07-2020 End: 01-21-2021 Lancets Start: 01-21-2021 End: 02-21-2021 Lancets Start: 02-21-2021 End: 10-28-2021 Blood Sugar Diag nostic (Blood Glucose Test) strip Start: 04-21-2022 Lancets Start: 10-28-2021 Blood Sugar Diag nostic (Blood Glucose Test) strip Start: 09-07-2020 End: 03-18-2021 Blood Sugar Diag nostic (Blood Glucose Test) strip Start: 03-18-2021 End: 04-21-2022 Lancets Start: 09-07-2020 End: 01-21-2021 Lancets Start: 01-21-2021 End: 02-21-2021 Lancets Start: 02-21-2021 End: 10-28-2021 Blood Sugar Diag nostic (Blood Glucose Test) strip Start: 04-21-2022 Lancets Start: 10-28-2021 Blood Sugar Diag nostic (Blood Glucose Test) strip Start: 09-07-2020 End: 03-18-2021 Blood Sugar Diag nostic (Blood Glucose Test) strip Start: 03-18-2021 End: 04-21-2022 Lancets Start: 09-07-2020 End: 01-21-2021 Lancets Start: 01-21-2021 End: 02-21-2021 Lancets Start: 02-21-2021 End: 10-28-2021 Blood Sugar Diag nostic (Blood Glucose Test) strip Start: 04-21-2022 Lancets Start: 10-28-2021 Blood Sugar Diag nostic (Blood Glucose Test) strip Start: 09-07-2020 End: 03-18-2021 Blood Sugar Diag nostic (Blood Glucose Test) strip Start: 03-18-2021 End: 04-21-2022 Lancets Start: 09-07-2020 End: 01-21-2021 Lancets Start: 01-21-2021 End: 02-21-2021 Lancets Start: 02-21-2021 End: 10-28-2021 Blood Sugar Diag nostic (Blood Glucose Test) strip Start: 04-21-2022 Lancets Start: 10-28-2021 Blood Sugar Diag nostic (Blood Glucose Test) strip Start: 09-07-2020 End: 03-18-2021 Blood Sugar Diag nostic (Blood Glucose Test) strip Start: 03-18-2021 End: 04-21-2022 Lancets Start: 09-07-2020 End: 01-21-2021 Lancets Start: 01-21-2021 End: 02-21-2021 Lancets Start: 02-21-2021 End: 10-28-2021 Blood Sugar Diag nostic (Blood Glucose Test) strip Start: 04-21-2022 Lancets Start: 10-28-2021 Blood Sugar Diag nostic (Blood Glucose Test) strip Start: 09-07-2020 End: 03-18-2021 Blood Sugar Diag nostic (Blood Glucose Test) strip Start: 03-18-2021 End: 02-13-2023 Lancets Start: 09-07-2020 End: 01-21-2021 Lancets Start: 01-21-2021 End: 02-21-2021 Lancets Start: 02-21-2021 End: 10-28-2021 Blood Sugar Diag nostic (Blood Glucose Test) strip Start: 04-21-2022 Lancets Start: 10-28-2021 Blood Sugar Diag nostic (Blood Glucose Test) strip Start: 09-07-2020 End: 03-18-2021 Blood Sugar Diag nostic (Blood Glucose Test) strip Start: 03-18-2021 End: 04-21-2022 Lancets Start: 09-07-2020 End: 01-21-2021 Lancets Start: 01-21-2021 End: 02-21-2021 Lancets Start: 02-21-2021 End: 10-28-2021 Inject 1 Each subcutaneously once daily. [id number] Start: 04-12-2023 use 1 LANCET to TEST BLOOD SUGAR daily [id number] Start: 04-07-2023 Goals Date Patient Goal Desired Activity /State Mental Status Date Assessment Result Facility 01-28-2023 Cognitive function Person;Place;Time [facility] Work Phone: 03-10-2019 Cognitive function Person;Place;Time [facility] Work Phone: Clinical Notes 07-14-2023 to 08-27-2023 Telephone Encounter - Beatris Grimes RN - 08/27/2023 8:59 AM EDTTelephone Encounter - Beatris Grimes RN - 08/27/2023 8:59 AM EDTTelephone Encounter - Luna Hargrove - 07/24/2023 8:18 AM EDT Note Date & Type Note Facility 08-27-2023 Telephone encounter Note Original referral was placed on 07/14/2023. Patient has not responded to messages, Mychart, or a letter sent to the patient's residence. [facility] will disregard referral at this time. Natalee Grimes RN Pharmacy [facility]tico[facility] 08-27-2023 Miscellaneous Notes Original referral was placed on 07/14/2023. Patient has not responded to messages, Mychart, or a letter sent to the patient's residence. [facility] will disregard referral at this time. Natalee Grimes RN [facility] Attempted to reach the patient but the number is disconnected. Patient has not read mychart. Letter was sent on 08/12/2023. Natalee Grimes RN [facility] A call was placed to patient's home and cell telephone number. A voicemail message was left with request for patient to return call to [facility]acy [facility] at [phone] Option #2 to discuss new referral to PAC. Mychart has not been read. Will send the patient a letter. If there is no response, PAC will disregard referral. Natalee Grimes RN Pharmacy, Anticoagulation Clinic A call was placed to patient's home and cell telephone number. A voicemail message was left with request for patient to return call to [facility]acy [facility] at [phone] Option #2 to discuss new referral to PAC. Natalee Grimes RN Pharmacy, Anticoagulation Clinic Left voice message asking patient to call the Anticoagulation Clinic at [phone] to discuss her referral to the coumadin clinic. Per Dr. Swenson's note - she has been on coumadin since the . Samaria Michel, PharmD, CACP [facility] Call to patient's home/cell telephone number; left a voicemail message with request for the patient to return call to PAC at [phone] Option #2. Patient has not read Mychart message. Natalee Grimes RN Pharmacy, Anticoagulation Clinic A call was placed to patient's home and cell telephone number. A voicemail message was left with request for patient to return call to [facility]acy [facility] at [phone] Option #2 to discuss new referral to PAC. Mychart message sent. Natalee Grimes RN Pharmacy, Anticoagulation Clinic A call was placed to patient's home and cell telephone number. A voicemail message was left with request for patient to return call to [facility]acy [facility] at [phone] Option #2 to discuss new referral to PAC. Mychart message sent. Natalee Grimes RN Pharmacy, Anticoagulation Clinic documented in this encounter [facility] 08-20-2023 Telephone encounter Note Attempted to reach the patient but the number is disconnected. Patient has not read mychart. Letter was sent on 08/12/2023. Natalee Grimes RN [facility] 08-12-2023 Telephone encounter Note A call was placed to patient's home and cell telephone number. A voicemail message was left with request for patient to return call to Pharmacy [facility] at [phone] Option #2 to discuss new referral to PAC. Mychart has not been read. Will send the patient a letter. If there is no response, PAC will disregard referral. Natalee Grimes RN Pharmacy, Anticoagulation Clinic [facility] 08-07-2023 Telephone encounter Note A call was placed to patient's home and cell telephone number. A voicemail message was left with request for patient to return call to Pharmacy [facility] at [phone] Option #2 to discuss new referral to PAC. Natalee Grimes RN Pharmacy, Anticoagulation Clinic [facility] 07-30-2023 Telephone encounter Note Left voice message asking patient to call the Anticoagulation Clinic at [phone] to discuss her referral to the coumadin clinic. Per Dr. Swenson's note - she has been on coumadin since the . Samaria Michel, [place], [facility] 07-28-2023 Telephone encounter Note Call to patient's home/cell telephone number; left a voicemail message with request for the patient to return call to PAC at [phone] Option #2. Patient has not read Mychart message. Natalee Grimes RN Pharmacy, Anticoagulation Clinic [facility] 07-24-2023 Telephone encounter Note A call was placed to patient's home and cell telephone number. A voicemail message was left with request for patient to return call to Pharmacy Anticoagulation Clinic at [phone] Option #2 to discuss new referral to PAC. Mychart message sent. Natalee Grimes RN Pharmacy, Anticoagulation Clinic [facility] 07-24-2023 Telephone encounter Note 3rd attempt LVM to call our office back to scheule a VV to discuss results. Please assist with scheduling once patient calls back. Thanks Luna Hargrove [facility] 07-24-2023 Miscellaneous Notes 3rd attempt LVM to call our office back to scheule a VV to discuss results. Please assist with scheduling once patient calls back. Thanks Luna Hargrove 2nd try. Left Vm Called and left VM ----- Message from Johny Swenson DO sent at 07/21/2023 2:55 PM EDT ----- Pt can do a phone visit to discuss results thx documented in this encounter [facility] 07-23-2023 Telephone encounter Note 2nd try. Left Vm [facility] 07-22-2023 Telephone encounter Note Called and left VM [facility] 07-21-2023 Telephone encounter Note ----- Message from Johny Swenson DO sent at 07/21/2023 2:55 PM EDT ----- Pt can do a phone visit to discuss results thx [facility] 07-15-2023 Telephone encounter Note A call was placed to patient's home and cell telephone number. A voicemail message was left with request for patient to return call to Pharmacy Anticoagulation Clinic at [phone] Option #2 to discuss new referral to PAC. [employer] message sent. Natalee Grimes RN Pharmacy, Anticoagulation Clinic [facility] 07-15-2023 Note Patient Outreach (IN [facility]) JD MILLER ([id number]) 1965 F Date Time Provider Department 07/15/23 JOHNY SWENSON During your visit today, we recorded the following information about you: Allergies As of Date: 07/15/2023 Noted Allergy Reaction BACTRIM (SULFAMETHOXAZOLE) 08/15/2010 2 - Rash Comments: itching METFORMIN 07/14/2023 8 - GI Upset Date Reviewed: 07/14/2023 Reviewed by: Lizbeth Infante LPN - Fully Assessed Visit Diagnosis:Encounter for screening mammogram for breast cancer [Z12.31] Order(s):[facility] [[id number]] Order #: [id number] FUTURE Prescriptions as of 07/20/2023 - baclofen 10 mg tablet Take 10 mg by mouth daily at bedtime. - cetirizine (ZYRTEC) 10 mg tablet Take 10 mg by mouth once daily. - FARXIGA 5 mg tablet Take 1 tablet by mouth daily with breakfast. - FREESTYLE AMADOR 2 SENSOR kit - ONETOUCH DELICA PLUS LANCET 33 gauge use 1 LANCET to TEST BLOOD SUGAR daily - LANTUS U-100 INSULIN 100 unit/mL injection Inject 18 Units subcutaneously daily at bedtime. - rizatriptan (MAXALT) 5 mg tablet TAKE 1 TABLET BY MOUTH AT ONSET OF HEADACHE IF NEEDED REPEAT IN 2 HOURS IF HEADACHE HASNT SUBSIDED - sertraline (ZOLOFT) 50 mg tablet Take 1 tablet by mouth once daily. - BD INSULIN SYRINGE ULTRA-FINE 0.3 mL 31 gauge x 5/16 Inject 1 Each subcutaneously once daily. - cloNIDine HCl (CATAPRES) 0.1 mg tablet Take 1 tablet by mouth once daily. - omeprazole (PRILOSEC) 40 mg capsule Take 1 capsule by mouth once daily. - warfarin (COUMADIN) 1 mg tablet Take 1 tablet by mouth daily as directed. Take 1 mg tablet along with 3 mg tablet daily - warfarin (COUMADIN) 3 mg tablet Take 1 tablet by mouth once daily. Take 3 mg tablet along with 1 mg tablet daily - levothyroxine (SYNTHROID) 125 mcg tablet Take 1 tablet by mouth once daily. - methylphenidate ER (RITALIN SR) 20 mg ER tablet Take 1 tablet by mouth once daily. Problem List As Of Date 07/15/2023 Noted Resolved Asthma [493] Phlebitis and Thrombophlebitis of Unspecified S* Lumbago [M54.50] Tobacco dependency [F17.200] 10/26/2008 Postsurgical menopause [E89.40] 10/26/2008 Impaired fasting glucose [R73.01] 12/18/2008 Lipid disorder [E78.9] 12/18/2008 Low Back Ache; chronic; very rare use of [place] *05/11/2009 Trigger finger (acquired) [M65.30] 08/10/2009 Trochanteric bursitis of left hip [M70.62] 02/13/2011 Impingement syndrome of left shoulder [M75.42] 02/13/2011 ADD (attention deficit disorder) [F98.8] 11/04/2011 Myofascial pain [M79.18] 07/20/2012 Physical deconditioning [R53.81] 07/20/2012 Low back pain [M54.50] 07/20/2012 DVT (deep venous thrombosis) ([facility]) [I82.409] 07/14/2023 Encounter Status:Closed by EPIC, PRODUSER on 07/20/23 [facility] 07-14-2023 Note HNO ID: [id number] Author: JOHNY SWENSON, DO Service: ? Author Type: Physician Type: Progress Notes Filed: 07/14/2023 13:06 Note Text: 58 year old female presenting for new pt I have fully reviewed the past medical, surgical, social and family history and updated the Histories section of [facility]. 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 Take 1 mg tablet along with 3 mg tablet daily baclofen 10 mg tablet Take 10 mg by mouth daily at bedtime. cetirizine (ZYRTEC) 10 mg tablet Take 10 mg by mouth once daily. FARXIGA 5 mg tablet Take 1 tablet by mouth daily with breakfast. FREESTYLE AMADOR 2 SENSOR kit [employer] DELICA PLUS LANCET 33 gauge use 1 LANCET to TEST BLOOD SUGAR daily LANTUS U-100 INSULIN 100 unit/mL injection Inject 18 Units subcutaneously daily at bedtime. levothyroxine (SYNTHROID) 125 mcg tablet Take 1 tablet by mouth once daily. rizatriptan (MAXALT) 5 mg tablet TAKE 1 TABLET BY MOUTH AT ONSET OF HEADACHE IF NEEDED REPEAT IN 2 HOURS IF HEADACHE HASNT SUBSIDED sertraline (ZOLOFT) 50 mg tablet Take 1 tablet by mouth once daily. BD INSULIN SYRINGE ULTRA-FINE 0.3 mL 31 gauge x 5/16 Inject 1 Each subcutaneously once daily. omeprazole (PRILOSEC) 40 mg capsule Take 40 mg by mouth once daily. cloNIDine HCl (CATAPRES) 0.1 mg tablet Take 0.1 mg by mouth once daily. warfarin (COUMADIN) 3 mg tablet Take 3 mg by mouth once daily. Take 3 mg tablet along with 1 mg tablet daily 0 methylphenidate ER (RITALIN SR) 20 mg ER tablet Take 1 tablet by mouth once daily. (Patient not taking: Reported on 07/14/2023) 30 tablet 0 No current facility-administered medications for this visit. ALLERGIES Allergen Reactions Bactrim [Sulfametho* Rash itching Metformin GI Upset PAST SURGICAL HISTORY Procedure Laterality Date LIG/TRNSXJ FLP TUBE ABDL/VAG APPR /1992 PAST SURGICAL HISTORY OF 1990 csection PAST SURGICAL HISTORY OF right CTR PAST SURGICAL HISTORY OF foot plantar fasciectomy PAST SURGICAL HISTORY OF 1999 dental extractions SALPINGO-OOPHORECTOMY COMPL/PRTL UNI/BI SPX 1999 Salpingo-oophorectomy B9 d/t pain - uterus remains Social history reviewed in [facility]. REVIEW OF SYSTEMS: Constitutional: Denies fever, denies chills, denies fatigue Head: Denies headache Eyes: Denies changes in vision or blurry vision Ears/Nose/Throat: Denies sore throat, denies rhinorrhea Musculoskeletal: Denies joint pain, denies myalgias Abd: No abd pain, no vomiting, no diarrhea, no nausea Skin/Breast: Denies rash or lesions Cardiovascular: Denies chest pain, denies palpitations, denies LE edema Respiratory: Denies cough, denies SOB, denies wheezing Neurological: Denies numbness, denies tingling, denies weakness PHYSICAL EXAMINATION: General appearance: Well appearing, alert, in no acute distress, well-hydrated, well nourished. Skin: no suspicious rashes or lesions Head: Normocephalic, atraumatic Eyes: Anicteric sclera Nose/Sinuses: Nares normal Oropharynx: Mucosa moist Neck: Supple Lungs: Lungs clear to auscultation. No wheezing, rhonchi, rales. Heart: RRR without murmur, gallop, or rubs. Abdomen: Normal abdominal exam, Abdomen soft, non-tender. No masses Extremities: No deformities, no edema, no cyanosis. Musculoskeletal: No joint swelling, no deformity Neuro: Speech intact ASSESSMENT/PLAN: 1. Primary hypertension - ICD9: 401.9, ICD10: I10 (primary diagnosis) - Controlled - Recommend home blood pressure monitoring, to bring results to next visit - Encouraged sodium restriction, DASH or Mediterranean diet - Recommend regular aerobic exercise - HEMOGLOBIN A1C - LIPID PANEL BASIC - HEPATITIS C ANTIBODY IA WITH CONFIRMATION 2. Special screening examination for viral disease - ICD9: V73.99, ICD10: Z11.59 - HEPATITIS C ANTIBODY IA WITH CONFIRMATION 3. History of DVT (deep vein thrombosis) - ICD9: V12.51, ICD10: Z86.718 - WARFARIN 1 MG TABLET - WARFARIN 3 MG TABLET - ANTICOAG/COUMADIN CLINIC PHARM - PROTHROMBIN TIME 4. Medication refill - ICD9: V68.1, ICD10: Z76.0 - CLONIDINE HCL 0.1 MG TABLET - OMEPRAZOLE 40 MG CAPSULE,DELAYED RELEASE - LEVOTHYROXINE 125 MCG TABLET 5. Hypothyroidism, acquired - ICD9: 244.9, ICD10: E03.9 - Instructed patient on importance of taking on an empty stomach either first thing in the morning or at bedtime. - THYROID STIMULATING HORMONE INR goal 2-3 recurrent DVTs has been on regimen for 20+ years Follows with GI Discussed with patient red flag symptoms. Discussed risks and benefits of treatment plan. Pt understands to seek appropriate evaluation for new or worsening symptoms. Patient understands and agrees with plan, all (more content not included)... [facility] 07-14-2023 History of Presen t illness Narrative 58 year old female presenting for new pt I have fully reviewed the past medical, surgical, social and family history and updated the Histories section of [facility]. Recurrent DVTs has been on coumadin since the INR goal 2-3 Coumadin clinic Hypothyroidism diagnosed decades ago stable on regimen Current Outpatient Medications on File Prior to Visit: Current Outpatient Medications Medication Sig Dispense Refill warfarin (COUMADIN) 1 mg tablet Take 1 mg by mouth daily as directed. Take 1 mg tablet along with 3 mg tablet daily baclofen 10 mg tablet Take 10 mg by mouth daily at bedtime. cetirizine (ZYRTEC) 10 mg tablet Take 10 mg by mouth once daily. FARXIGA 5 mg tablet Take 1 tablet by mouth daily with breakfast. FREESTYLE AMADOR 2 SENSOR kit ONETOUCH DELICA PLUS LANCET 33 gauge use 1 LANCET to TEST BLOOD SUGAR daily LANTUS U-100 INSULIN 100 unit/mL injection Inject 18 Units subcutaneously daily at bedtime. levothyroxine (SYNTHROID) 125 mcg tablet Take 1 tablet by mouth once daily. rizatriptan (MAXALT) 5 mg tablet TAKE 1 TABLET BY MOUTH AT ONSET OF HEADACHE IF NEEDED REPEAT IN 2 HOURS IF HEADACHE HASNT SUBSIDED sertraline (ZOLOFT) 50 mg tablet Take 1 tablet by mouth once daily. BD INSULIN SYRINGE ULTRA-FINE 0.3 mL 31 gauge x 5/16 Inject 1 Each subcutaneously once daily. omeprazole (PRILOSEC) 40 mg capsule Take 40 mg by mouth once daily. cloNIDine HCl (CATAPRES) 0.1 mg tablet Take 0.1 mg by mouth once daily. warfarin (COUMADIN) 3 mg tablet Take 3 mg by mouth once daily. Take 3 mg tablet along with 1 mg tablet daily 0 methylphenidate ER (RITALIN SR) 20 mg ER tablet Take 1 tablet by mouth once daily. (Patient not taking: Reported on 07/14/2023) 30 tablet 0 No current facility-administered medications for this visit. ALLERGIES Allergen Reactions Bactrim [Sulfametho* Rash itching Metformin GI Upset PAST SURGICAL HISTORY Procedure Laterality Date LIG/TRNSXJ FLP TUBE ABDL/VAG APPR UNI/BI 1992 PAST SURGICAL HISTORY OF 1990 csection PAST SURGICAL HISTORY OF right CTR PAST SURGICAL HISTORY OF foot plantar fasciectomy PAST SURGICAL HISTORY OF 1999 dental extractions SALPINGO-OOPHORECTOMY COMPL/PRTL UNI/BI SPX 1999 Salpingo-oophorectomy B9 d/t pain - uterus remains Social history reviewed in [facility]. REVIEW OF SYSTEMS: Constitutional: Denies fever, denies chills, denies fatigue Head: Denies headache Eyes: Denies changes in vision or blurry vision Ears/Nose/Throat: Denies sore throat, denies rhinorrhea Musculoskeletal: Denies joint pain, denies myalgias Abd: No abd pain, no vomiting, no diarrhea, no nausea Skin/Breast: Denies rash or lesions Cardiovascular: Denies chest pain, denies palpitations, denies LE edema Respiratory: Denies cough, denies SOB, denies wheezing Neurological: Denies numbness, denies tingling, denies weakness PHYSICAL EXAMINATION: General appearance: Well appearing, alert, in no acute distress, well-hydrated, well nourished. Skin: no suspicious rashes or lesions Head: Normocephalic, atraumatic Eyes: Anicteric sclera Nose/Sinuses: Nares normal Oropharynx: Mucosa moist Neck: Supple Lungs: Lungs clear to auscultation. No wheezing, rhonchi, rales. Heart: RRR without murmur, gallop, or rubs. Abdomen: Normal abdominal exam, Abdomen soft, non-tender. No masses Extremities: No deformities, no edema, no cyanosis. Musculoskeletal: No joint swelling, no deformity Neuro: Speech intact ASSESSMENT/PLAN: 1. Primary hypertension - ICD9: 401.9, ICD10: I10 (primary diagnosis) - Controlled - Recommend home blood pressure monitoring, to bring results to next visit - Encouraged sodium restriction, DASH or Mediterranean diet - Recommend regular aerobic exercise - HEMOGLOBIN A1C - LIPID PANEL BASIC - HEPATITIS C ANTIBODY IA WITH CONFIRMATION 2. Special screening examination for viral disease - ICD9: V73.99, ICD10: Z11.59 - HEPATITIS C ANTIBODY IA WITH CONFIRMATION 3. History of DVT (deep vein thrombosis) - ICD9: V12.51, ICD10: Z86.718 - WARFARIN 1 MG TABLET - WARFARIN 3 MG TABLET - ANTICOAG/COUMADIN CLINIC PHARM - PROTHROMBIN TIME 4. Medication refill - ICD9: V68.1, ICD10: Z76.0 - CLONIDINE HCL 0.1 MG TABLET - OMEPRAZOLE 40 MG CAPSULE,DELAYED RELEASE - LEVOTHYROXINE 125 MCG TABLET 5. Hypothyroidism, acquired - ICD9: 244.9, ICD10: E03.9 - Instructed patient on importance of taking on an empty stomach either first thing in the morning or at bedtime. - THYROID STIMULATING HORMONE INR goal 2-3 recurrent DVTs has been on regimen for 20+ years Follows with GI Discussed with patient red flag symptoms. Discussed risks and benefits of treatment plan. Pt understands to seek appropriate evaluation for new or worsening symptoms. Patient understands and agrees with plan, all concerns and questions addressed. documented in this encounter [facility] Evaluation note No assessment inform ation available [facility] Work Phone: Evaluation note 1. Diabetes: Foot ex am performed. Last hemoglobin A1c was 7.9%. Discussed the importance of improving glycemic control through diet, exercise and medication. Patient voiced understanding.2. Foot callus/ right foot pain: Pared today. See procedure note for details.3. Smoker: 4. Difficulty performing nail care: Toenails debrided. Jd is a 57-year-old female who presents today as a new patient to the podiatry department for a diabetic foot exam, right foot pain/callus formation and requesting a toenail debridement. She reports pain during ambulation right lateral foot due to skin lesion. Patient reports she works multiple hours per day at [employer]. She has no other foot complaints at this time.We discussed proper diabetic foot care including daily foot inspection, proper foot hygiene, avoiding barefoot ambulation and proper foot wear. We also discussed complications of diabetes affecting the foot including neuropathy, peripheral vascular disease, foot ulcer, infection and amputation. Today I recommended/patient requested debridement of toenails 1-5 right and left foot in length and thickness using nail nippers without complication. Callus formation right lateral foot pared today (see procedure note for details). Patient tolerated procedure well. Patient will follow-up in 3 months for routine diabetic foot care. [facility] [place] Work Phone: Evaluation note Diagnosis Primary hypertension- Primary Unspecified essential hypertension Special screening examination for viral disease Special screening examination for unspecified viral disease History of DVT (deep vein thrombosis) Personal history of venous thrombosis and embolism Medication refill Issue of repeat prescriptions Hypothyroidism, acquired Unspecified hypothyroidism [facility] Encounter for screening mammogram for breast cancer [facility] Diagnosis Medication management Encounter for long-term (current) use of other medications [facility] Additional Instructions Please follow-up with your PCP for further evaluation and management of your blood sugar. Please return for any new or worsening conditions.[facility] Work Phone: Reason for referral (narrative)* Diagnostic Procedure Only (Routine) - Pending Review Specialty Diagnoses / Procedures Referred By Tanya marroquin Referred To Contact [facility] Diagnoses Encounter for screening mammogram for breast cancer Procedures NATY SCREENING SCREENING MAMMOGRAPHY BI 2-VIEW BREAST INC [facility] Adam [facility] [place] [address] [facility] [address] [place] [address] Referral ID Status Reason Start Date Expiration Date Visits Requested Visits Authorized [id number] Pending Review Auto-Generat ed Referral 07/15/2023 08/13/2024 1 1 [facility] Chief Complaint and Reason for Visit Chief Complaint BACK PAIN/ABD PAIN MEDS Chief Complaint CHECKUP Chief Complaint CHECKUP Hypothyroidism /BIEDENBACH Chief Complaint CHECKUP Hypothyroidism /BIEDENBACH CHECKUP Chief Complaint Hypothyroidism /BIED ENBACH CHECKUP thyroid Chief Complaint CHECKUP thyroid N28.1 E03.8 E06.3 Chief Complaint CHECKUP thyroid N28.1 E03.8 E06.3 projects CHECKUP Chief Complaint COUGH,CONGESTION,SIN US CHECKUP Chief Complaint CHECKUP CHECKUP Chief Complaint CHECKUP - Chief Complaint - - Chief Complaint - - - Chief Complaint - Chief Complaint CHECK UP AND LABS Chief Complaint CHECK UP AND LABS - Chief Complaint HIGH BLOOD SUGAR Chief Complaint HIGH BLOOD SUGAR - SORE THROAT Assessments No Assessments Information AvailableNo Assessments Information AvailableNo Assessments Information AvailableNo Assessments Information AvailableNo Assessments Information AvailableNo Assessments Information AvailableNo Assessments Information Available Family History Relationship Condition Age at Onset Recorded Date/T tari Not Specified Diabetes mellitus Unknown Coronary artery disease Unknown Not Specified Malignant neoplasm Unknown Not Specified Malignant neoplasm of lung Unknown Not Specified Taylor of multiple specified sites Unknow n Not Specified Bipolar affective disorder Unknown Not Specified Epilepsy Unknown Relationship Condition Age at Onset Recorded Date/T tari Not Specified Diabetes mellitus Unknown Coronary artery disease Unknown Not Specified Malignant neoplasm Unknown Parent Malignant neoplasm of lung Unknown Parent Taylor of multiple specified sites Unknown Child Bipolar affective disorder Unknown Child Epilepsy Unknown Relationship Condition Age at Onset Recorded Date/T tari Not Specified Diabetes mellitus Unknown Coronary artery disease Unknown Not Specified Malignant neoplasm Unknown Parent Malignant neoplasm of lung Unknown Parent Taylor of multiple specified sites Unknown Child Bipolar affective disorder Unknown Child Epilepsy Unknown Relationship Condition Age at Onset Recorded Date/T tari Not Specified Diabetes mellitus Unknown Coronary artery disease Unknown Not Specified Malignant neoplasm Unknown Not Specified Malignant neoplasm of lung Unknown Not Specified Taylor of multiple specified sites Unknow n Not Specified Bipolar affective disorder Unknown Not Specified Epilepsy Unknown Discharge Instructions Additional Instructions Take Bentyl as needed for stomach pain, please call and schedule appointment with your PCP for follow-up. Return if you have any worsening symptoms. Advance Directives Advance Directive Response Recorded Date/ Time Does Patient Have Advance Directives? No March 10, 2019 11:10pm Code Status Full Code March 10 0 11:10pm Advance Directive Response Recorded Date/ Time Does Patient Have Advance Directives? No March 10, 2019 11:10pm Code Status Full Code March 10 0 11:10pm advanced care plan March 23, 2020 1:02pm Advance Directive Response Recorded Date/ Time Does Patient Have Advance Directives? No March 10, 2019 11:10pm Code Status Full Code March 10 11:10pm advanced care plan June 21 4:18pm Advance Directive Response Recorded Date/ Time Does Patient Have Advance Directives? No March 11, 2019 12:10am Code Status Full Code March 11 12:10am advanced care plan June 21 4:18pm Advance Directive Response Recorded Date/ Time Living Will No September 21, 2020 8:33am Does Patient Have Advance Directives? No September 21, 2020 8:33am Healthcare POA? No September 21, 2020 8:33am Code Status Full Code March 11 12:10am Legal POA No September 21, 2020 8:33am advanced care plan June 21 4:18pm Advance Directive Response Recorded Date/ Time Living Will No September 21, 2020 7:33am Does Patient Have Advance Directives? No September 21, 2020 7:33am Healthcare POA? No September 21, 2020 7:33am Code Status Full Code March 10 11:10pm Legal POA No September 21, 2020 7:33am advanced care plan June 21 3:18pm Advance Directive Response Recorded Date/ Time Living Will No September 21, 2020 7:33am Does Patient Have Advance Directives? No September 21, 2020 7:33am Healthcare POA? No September 21, 2020 7:33am Code Status Full Code January 12 6:01pm Legal POA No September 21, 2020 7:33am advanced care plan June 21 3:18pm Advance Directive Response Recorded Date/ Time Living Will No September 21, 2020 7:33am Does Patient Have Advance Directives? No January 28, 2023 3:37pm Healthcare POA? No September 21, 2020 7:33am Code Status Full Code January 28 3:37pm Legal POA No September 21, 2020 7:33am advanced care plan June 21 3:18pm Reason for Referral 3 months: DFE Summary Purpose Additional Source Comments Goals (unrecognized section and content) Goals may be documented in a n alternate sectionGoals may be documented in an alternate sectionGoals may be documented in an alternate sectionGoals may be documented in an alternate sectionGoals may be documented in an alternate sectionGoals may be documented in an alternate sectionGoals may be documented in an alternate sectionGoals may be documented in an alternate sectionGoals may be documented in an alternate sectionGoals may be documented in an alternate sectionGoals may be documented in an alternate sectionGoals may be documented in an alternate sectionGoals may be documented in an alternate sectionGoals may be documented in an alternate sectionGoals may be documented in an alternate sectionGoals may be documented in an alternate sectionGoals may be documented in an alternate sectionGoals may be documented in an alternate sectionNo InformationGoals may be documented in an alternate sectionGoals may be documented in an alternate sectionGoals may be documented in an alternate sectionGoals may be documented in an alternate section Care Teams (unrecognized sec tion and content) Team Status: Active Member Role Status Dates LUCAS GRECO CNP Primary Care Provider Active Team Status: Inactive Member Role Status Dates LUCAS GRECO CNP Primary Care Provider Active Start: January 12, 2023 End: January 12, 2023 OMAR VERGARA , Emergency Provider Active Start: January 12, 2023 End: January 12, 2023 Team Status: Active Member Role Status Dates LUCAS GRECO CNP Primary Care Pro vider, Attending Provider, Referring Provider Active Team Status: Inactive Member Role Status Dates RYAN HOPE , Primary Care Provider Active LUCAS GRECO CNP Attending Provider, Referring Provider Active Team Status: Active Member Role Status Dates LUCAS GRECO CNP Primary Care Provider, Attendi ng Provider Active Team Status: Inactive Member Role Status Dates LUCAS GRECO CNP Primary Care Provider, Attendi ng Provider Active Team Status: Active Member Role Status Dates LUCAS GRECO CNP Primary Care Pro vider, Attending Provider Active Start: January 14, 2023 Team Status: Inactive Member Role Status Dates LUCAS GRECO CNP Primary Care Pro vider, Attending Provider Active Start: January 14, 2023 End: January 14, 2023 Team Status: Inactive Member Role Status Dates LUCAS GRECO CNP Primary Care Provider Active Start: January 28, 2023 End: January 28, 2023 MICHELLE CAMACHO , DO Emergency Provider Active St art: January 28, 2023 End: January 28, 2023 Photonics Engineer Relationship Specialty Start Date End Date Arjun ChrismeraryDO [address] [place] [facility] [place] [address] PCP - General Family Medicine 07/14/23 Photonics Engineer Relationship Specialty Start Date End Date Johny Swenson DO [address] [place] [facility] [place] [address] PCP - General Family Medicine 07/14/23 Photonics Engineer Relationship Specialty Start Date End Date Johyn Swenson DO [address] [facility] / [place] [address] PCP - General Family Medicine 07/14/23 Photonics Engineer Relationship Specialty Start Date End Date Johny Swenson DO [address] [facility] / [place] [address] PCP - General Family Medicine 07/14/23 Photonics Engineer Relationship Specialty Start Date End Date Arjun DO Johny [address] [facility] / [place] [address] PCP - General Family Medicine 07/14/23 INFORMATION SOURCE (unrecogn ized section and content) DATE CREATED AUTHOR 07/11/[address] [facility] DATE CREATED AUTHOR AUTHOR'S ORGANIZ ATION 07/11/[address] [facility] DATE CREATED AUTHOR AUTHOR'S ORGANIZ ATION 07/15/2023 [facility] DATE CREATED AUTHOR AUTHOR'S ORGANIZ ATION 08/28/2023 [facility] Source Comments (unrecognize d section and content) In the event this informatio n is protected by the Federal Confidentiality of Alcohol and Drug Abuse Patient Records regulations: The Federal rules restrict any use of the information to criminally investigate or prosecute any alcohol or drug abuse patient.[facility] the event this information is protected by the Federal Confidentiality of Alcohol and Drug Abuse Patient Records regulations: The Federal rules restrict any use of the information to criminally investigate or prosecute any alcohol or drug abuse patient.[facility] the event this information is protected by the Federal Confidentiality of Alcohol and Drug Abuse Patient Records regulations: The Federal rules restrict any use of the information to criminally investigate or prosecute any alcohol or drug abuse patient.[facility] the event this information is protected by the Federal Confidentiality of Alcohol and Drug Abuse Patient Records regulations: The Federal rules restrict any use of the information to criminally investigate or prosecute any alcohol or drug abuse patient.[facility] the event this information is protected by the Federal Confidentiality of Alcohol and Drug Abuse Patient Records regulations: The Federal rules restrict any use of the information to criminally investigate or prosecute any alcohol or drug abuse patient.[facility] Reason for Visit (unrecogniz ed section and content) Reason Comments Establish Care Reason Comments Anticoagulation - Initial Consult FOR RECORDS PERTAINING TO PATIENTS WHO ARE OR HAVE BEEN ENROLLED IN A CHEMICAL DEPENDENCY/SUBSTANCEABUSE PROGRAM, SOME INFORMATION MAY BE OMITTED. This clinical summary was aggregated from multiple sources. Caution should be exercised in using it in the provision of clinical care. This summary normalizes information from multiple sources, and as a consequence, information in this document may materially change the coding, format and clinical context of patient data. In addition, data may be omitted in some cases. CLINICAL DECISIONS SHOULD BE BASED ON THE PRIMARY CLINICAL RECORDS. [employer] [facility]. provides no warranty or guarantee of the accuracy or completeness of information in this document.
== END 2024-01-03 16:19 | disposition home or self-care (01) ==
PROVIDERS: Emergency Provider Emergency Medicine; PCP Family Medicine; Visit Provider Emergency Medicine
DX: M54.2 Cervicalgia (principal); E11.9 Type 2 diabetes mellitus without complications; Z86.718 Personal history of other venous thrombosis and embolism; Z79.899 Other long term (current) drug therapy; Z79.01 Long term (current) use of anticoagulants
CPT/HCPCS: 99282

== ENCOUNTER 2024-07-19 10:35 | Emergency (ER) | payer MEDICAID, SELFPAY ==
[2024-07-19 10:36] VITALS: BP 156/109; PULSE 86; RESP 19; TEMP 36.6; O2SAT 99; BMI 27.3
--- NOTE | 2024-07-19 10:42 | EX.ED.UPPERE ---
HPI History of Present Illness HPI Narrative: Patient presents with left hand numbness and tingling that has been getting worse over the past 2 days. Patient states it is constant. Patient states all of her fingers feel numb. Patient states she has a history of carpal tunnel syndrome and states this feels similar to the symptoms she had prior to her carpal tunnel surgery. Patient denies any trauma or injury. Patient denies any weakness. Patient denies any coldness or cyanosis of her fingers. Chief Complaint: Upper Extremity Injury Informant: patient Onset/Context/Timing Onset: Days (2) Context: Gradual Onset Timing: Continuous Quality of Pain: - (Numbness) Location: Left 2nd through 5th fingers Worsened by: Nothing Relieved by: Nothing Associated Symptoms Associated Symptoms: Positive for Parasthesia; Negative for Weakness or Loss of Funtion [facility] Medical History DVT (deep venous thrombosis) Arthritis Hypothyroidism Type 2 diabetes mellitus Hyperlipidemia Home Medications ?Medication ?Instructions ?Recorded ?Last Taken ?Type cetirizine 10 mg tablet 10 mg PO DAILY 01/03/24 Unknown History clonidine HCl 0.1 mg tablet 0.1 mg PO DAILY 01/03/24 Unknown History levothyroxine 125 mcg tablet 125 mcg PO DAILY 01/03/24 Unknown History omeprazole 40 mg capsule,delayed 40 mg PO DAILY 01/03/24 Unknown History release orphenadrine citrate 100 mg 100 mg PO Q12H PRN muscle pain #14 01/03/24 Unknown Rx tablet,extended release tabs tramadol 50 mg tablet 50 mg PO Q6H PRN pain 3 days #12 01/03/24 Unknown Rx tabs warfarin 1 mg tablet 1 mg PO DAILY 01/03/24 Unknown History warfarin 3 mg tablet mg PO 01/03/24 Unknown History tramadol 50 mg tablet 50 mg PO Q6H PRN PRN Pain 3 days 07/19/24 Unknown Rx #10 tabs Allergy/AdvReac Type Severity Reaction Status Date / Time sulfamethoxazole (From Allergy Mild Rash Verified 07/19/24 10:35 Bactrim) trimethoprim (From Bactrim) Allergy Mild Rash Verified 07/19/24 10:35 metformin AdvReac Intermediate Diarrhea Verified 07/19/24 10:35 Surgical History H/O bilateral oophorectomy History of Tubal ligation status Social History Smoking Status: Unknown if ever smoked ROS ROS ED Constitutional Constitutional ED: Denies chills or fever(s) Eyes Eyes: Denies blurry vision or change in vision ENT ENT ED: Denies rhinorrhea or sore throat Cardiovascular Cardiovascular: Denies chest pain or palpitations Respiratory/Chest Respiratory/Chest: Denies cough or dyspnea Gastrointestinal Gastrointestinal: Denies nausea or vomiting Genitourinary Genitourinary ED: Denies dysuria or hematuria Musculoskeletal Musculoskeletal: Reports neck pain; Denies back pain Integumentary Denies abscess or rash Neurologic Neurologic: Reports paresthesias LUE; Denies headache(s) or weakness Allergic/Immunologic Allergic/Immunologic ED: Denies mouth swelling or urticaria EXAM Physical Exam Const Vital Signs: 07/19/24 10:36 Temperature 98 F Temperature Source Oral Pulse Rate 86 Respiratory Rate 19 H Blood Pressure 156/109 H Blood Pressure Mean 124 Pulse Ox 99 Oxygen Delivery Method Room Air Positive well nourished and well developed General Appearance ED: well developed and NAD HEENT Reports moist mucous membranes Neck full ROM and supple Extremity Extremity Narrative: There is no tenderness, edema, or ecchymosis of the left hand or wrist. There is full range of motion. There is negative Phalen's and Tinel's sign. Strength is 5/5 in the radial, median, and ulnar areas. Sensation was decreased to light touch in the 2nd through 5th fingers. Capillary refill was less than 2 seconds in all digits. Radial pulses are equal bilaterally. Neuro oriented x3, CN's II-XII intact bilaterally, moves all extremities and no focal motor deficits Sensorium / Orientation: alert Motor Exam: strength 5/5 throughout Psych mental status grossly normal MDM MDM MDM Narrative Medical decision making narrative: Patient was advised that this could be carpal tunnel syndrome however, with it including the little finger and having negative Tinel's and Phalen sign, it could be peripheral neuropathy. Patient was given a cock up wrist splint. Patient was given a prescription for a short course of Ultram to take as needed for pain. Patient was instructed to follow-up with her primary care physician in 5 to 7 days. Patient was instructed to return if worse in any way. Patient understood and was agreeable with the plan. All questions were answered. Discharge Plan Triage Chief Complaint: Upper Extremity Injury ED Provider: Philippe Aviles Dx/Rx/DC Orders Clinical Impression: Left hand paresthesia, Tobacco use Instructions: ED Paraesthesias Prescriptions: New tramadol 50 mg tablet 50 mg PO Q6H PRN PRN (Reason: Pain) 3 Days Qty: 10 0RF No Action orphenadrine citrate 100 mg tablet extended release 100 mg PO Q12H PRN (Reason: muscle pain) Qty: 14 0RF tramadol 50 mg tablet 50 mg PO Q6H PRN (Reason: pain) 3 Days Qty: 12 0RF clonidine HCl 0.1 mg tablet 0.1 mg PO DAILY cetirizine 10 mg tablet 10 mg PO DAILY omeprazole 40 mg capsule,delayed release(DR/EC) 40 mg PO DAILY warfarin 3 mg tablet PO levothyroxine 125 mcg tablet 125 mcg PO DAILY warfarin 1 mg tablet 1 mg PO DAILY Primary Care Provider: Johny Swenson Jr. Referrals: Johny Swenson Jr., DO [Primary Care Provider] - 5-7 Days Print Language: Guatemalan Disposition Disposition: Home, Self Care
== END 2024-07-19 12:00 | disposition home or self-care (01) ==
LOC: ED 11:30
PROVIDERS: Emergency Provider Emergency Medicine; Visit Provider Emergency Medicine
DX: R20.2 Paresthesia of skin (principal); E11.9 Type 2 diabetes mellitus without complications; E78.5 Hyperlipidemia, unspecified; E03.9 Hypothyroidism, unspecified; Z79.890 Hormone replacement therapy; Z86.718 Personal history of other venous thrombosis and embolism; Z79.01 Long term (current) use of anticoagulants; Z90.722 Acquired absence of ovaries, bilateral; Z98.51 Tubal ligation status; Z72.0 Tobacco use
CPT/HCPCS: 99282

== ENCOUNTER 2024-09-19 19:23 | Emergency (ER) | payer MEDICAID, SELFPAY ==
[2024-09-19 19:24] VITALS: BP 158/97; PULSE 86; RESP 18; TEMP 36.8; O2SAT 98; BMI 28.7
[2024-09-19 21:48] VITALS: BP 165/85; PULSE 71; RESP 18; O2SAT 99
--- NOTE | 2024-09-19 21:49 | ED.RN ---
PT IS A KNOWN DIABETIC WHO IS ALSO TO BE TAKING HER THYROID MEDS. SHE HAS NOT HAD A PCP FOR ABOUT A MONTH SO SHE HAS NOT HAD ANY OF HER MEDICATIONS FOR ABOUT A MONTH PER PT. SHE HAS AN APPT WITH NEW PCP ON THE OF THIS MONTH.
[2024-09-19 23:00] VITALS: BP 183/99; PULSE 67; RESP 18; O2SAT 97
[2024-09-19] MEDS: 0.9% Normal Saline (1000mL) 1,000 ML 999 ML IV (23:16)
[2024-09-19 23:26] LABS: Hematocrit 41.9 % (37-47); Hemoglobin 14.0 g/dL (12.0-15.0); Immature Granulocytes Count 0.060 X10^3/uL (0.0-0.0); Mean Corp Hgb Conc 33.4 g/dL (32-36); Mean Corpuscular Volume 90.7 fL (81-99); Mean Platelet Vol. 9.1 fl (6.2-12.0); NRBC Flagged by Analyzer 0 % (0-5); POSITIVE MORPHOLOGY YES; Platelet Count 202 K/mm3 (150-450); RBC Distribution Width CV 13.6 % (11.6-14.6); RBC Distribution Width SD 45.3 fl (35.1-43.9); Red Blood Count 4.62 M/mm3 (4.2-5.4); White Blood Count 10.8 K/mm3 (4.4-11.0)
[2024-09-19 23:32] LABS: Differential Indicated SCAN CRITERIA MET
[2024-09-19 23:49] LABS: Anion Gap 12 (5-15); BUN 8 mg/dL (4-19); BUN/Creat Ratio 9.6 RATIO (10-20); Calcium,Total 9.6 mg/dL (7.6-11.0); Carbon Dioxide 27.6 mmol/L (21.0-32.0); Chloride 102 mmol/L (98-108); Estimated Creatinine Clearance 77.34 ml/min (50-250); Glucose 180 mg/dL (70-99); Magnesium 2.4 mg/dL (1.5-2.2); Potassium 3.9 mmol/L (3.3-5.1)
[2024-09-20 00:43] VITALS: BP 180/164; PULSE 66; RESP 18; TEMP 36.7; O2SAT 97
--- NOTE | 2024-09-20 00:44 | EDS_ITS ---
HPI History of Present Illness Chief Complaint: Fatigue Informant: patient Narrative Narrative: Patient is a 59-year-old female with past medical history of [id number] type 2 diabetes as well as hyperlipidemia and hypothyroidism. She states she has been out of her medication for approximately 1 month. She states this is because she has changed doctors and has not been able to see the new physician at this time. She states that in the last few day s she has has had generalized fatigue/weakness. She states has been no fevers or chills or sick symptoms such as vomiting diarrhea or dysuria. However because of the worsening fatigue she presents for evaluation [facility] Medical History DVT (deep venous thrombosis) Arthritis Hypothyroidism Type 2 diabetes mellitus Hyperlipidemia Home Medications ?Medication ?Instructions ?Recorded ?Last Taken ?Type hydralazine 10 mg tablet 10 mg PO TID 30 days #90 tab s 09/20/24 Unknown Rx levothyroxine 75 mcg tablet 75 mcg PO DAILY 30 days #3 0 tabs 09/20/24 Unknown Rx (Synthroid) Allergy/AdvReac Type Severity Reaction Status Date / Time sulfamethoxazole (From Allergy Mild Rash Verified 09/19/24 21:51 Bactrim) trimethoprim (From Bactrim) Allergy Mild Rash Verified 09/19/24 21:51 metformin AdvReac Intermediate Diarrhea Verified 09/19/24 21:51 Surgical History H/O bilateral oophorectomy History of Tubal ligation status Social History Smoking Status: Current every day smoker tobacco type: cigarettes ROS ROS ED Constitutional Constitutional ED: Reports other Details: Positive fatigue ; Denies chills or fever(s) Eyes Eyes: Denies blurry vision or change in vision ENT ENT ED: Denies sore throat Cardiovascular Cardiovascular: Denies chest pain Respiratory/Chest Respiratory/Chest: Denies cough or dyspnea Gastrointestinal Gastrointestinal: Denies abdominal pain, diarrhea, nausea or vomiting Genitourinary Genitourinary ED: Denies dysuria Musculoskeletal Musculoskeletal: Denies myalgias Integumentary Denies rash Neurologic Neurologic: Reports weakness; Denies headache(s) Hematologic/Lymphatic Hematologic/Lymphatic: Denies easy bleeding or easy bruising EXAM Physical Exam Const Vital Signs: 09/19/24 19:24 09/19/24 21:48 09/19/24 21:48 Temperature 98.3 F Temperature Source Oral Pulse Rate 86 71 Respiratory Rate 18 18 Respiratory Effort Normal Respiratory Pattern Normal Blood Pressure 158/97 H 165/85 H Blood Pressure Mean 117 111 Pulse Ox 98 99 Oxygen Delivery Method Room Air Room Air 09/19/24 23:00 Temperature Temperature Source Pulse Rate 67 Respiratory Rate 18 Respiratory Effort Respiratory Pattern Blood Pressure 183/99 H Blood Pressure Mean 127 Pulse Ox 97 Oxygen Delivery Method Room Air Positive well nourished and well developed General Appearance ED: well developed; Negative for pallor HEENT HEENT Narrative: Normocephalic atraumatic No tongue or lip swelling no oral lesions no airway edema or compromise; no secondary findings in the posterior pharynx to suggest infection Eyes PERRL and EOMs intact bilaterally General Eye ED: Negative for scleral icterus Neck supple Neck Narrative: No nuchal rigidity or meningeal signs Resp normal respiratory effort and clear to auscultation bilaterally Cardio regular rate and regular rhythm GI normal to inspection, nondistended, normoactive bowel sounds, non-tender, non-d istended and no masses GI Narrative: No voluntary guarding or rigidity or pulsatile mass Auscultation: normoactive bowel sounds Palpation: soft Back/Spine no CVA tenderness Extremity normal to inspection Neuro oriented x3, CN's II-XII intact bilaterally and no sensory deficits noted Sensorium / Orientation: alert Motor Exam: strength 5/5 throughout Psych mental status grossly normal Skin no rashes or lesions noted and no wounds General Skin Exam: Negative for jaundice or pallor MDM MDM MDM Narrative Medical decision making narrative: Patient arrived to the ER hypertensive otherwise with stable vitals. She denied any sick symptoms but reported generalized fatigue. The patient reports as well that she has not been on her chronic medication. There is high likelihood that her fatigue is related to lack of medication compliance. However in order to rule out acute kidney injury acute blood loss anemia or clinically significant electrolyte abnormality basic blood work was ordered. As the patient also has history of hypothyroidism and has not been taking Synthroid there is concern for developing myxedema. Patient's H&H is stable there is no leukocytosis or left shift to suggest infection and she has no findings of acute kidney injury or electrolyte abnormality. Her TSH however is greatly elevated at 126 consistent with developing myxedema. She is awake and alert without derangement to mental status or focal neurologic deficit. Therefore at this time as she is not showing signs of myxedema coma there is no need for admission. I will start the patient back on Synthroid and this should help reduce her fatigue symptoms. She is also showing persistent hypertension throughout the ER visit and therefore should be placed on hydralazine to help control this. However as she does not have signs of endorgan damage from it there is no need for admission and she is otherwise safe for discharge. History & Record Review Discussion w/independent historian: Patient Lab Data Attestation: I reviewed the patient's lab results. Labs: Laboratory Results - last 24 hr 09/19/24 23:16 WBC 10.8 RBC 4.62 Hgb 14.0 Hct 41.9 MCV 90.7 MCH 30.3 MCHC 33.4 RDW Std Deviation 45.3 H RDW Coeff of Rachele 13.6 Plt Count 202 MPV 9.1 Immature Gran % (Auto) 0.600 Neut % (Auto) 53.8 Lymph % (Auto) 37.4 Cherry % (Auto) 6.1 Eos % (Auto) 1.4 Baso % (Auto) 0.7 Absolute Neuts (auto) 5.8 Absolute Lymphs (auto) 4.04 Nucleated RBC % 0 Atypical Lymphocytes 1+ Sodium 142 Potassium 3.9 Chloride 102 Carbon Dioxide 27.6 Anion Gap 12 BUN 8 Creatinine 0.83 Estim Creat Clear Calc 77.34 Est GFR (MDRD) Non-Af 82 BUN/Creatinine Ratio 9.6 L Glucose 180 H Calcium 9.6 Magnesium 2.4 H TSH 126.000 H Discharge Plan Triage Chief Complaint: Fatigue ED Provider: Zeb Iverson Dx/Rx/DC Orders Clinical Impression: Hypothyroidism, Hypertension Instructions: ED Hypertension New Begin Treatment, ED Hypothyroidism Prescriptions: New hydralazine 10 mg tablet 10 mg PO TID 30 Days Qty: 90 0RF levothyroxine [Synthroid] 75 mcg tablet 75 mcg PO DAILY 30 Days Qty: 30 0RF Primary Care Provider: Care Physician,No Primary Referrals: Jeet Santoyo MD [Med Staff - Active Staff] - Care Physician,No Primary [Primary Care Provider] - Activity Restrictions/Additional Instructions: Please begin taking the Synthroid and hydralazine as directed to improve your fatigue as well as control your blood pressure and thyroid levels. Follow-up with Dr. Santoyo as you will need repeat testing to ensure the medications are at the appropriate dose. Return to the ER should you have any further concerns Print Language: Libyan Disposition Disposition: Home, Self Care Discharge Date/Time: 09/20/24 00:55
== END 2024-09-20 00:55 | disposition home or self-care (01) ==
PROVIDERS: Emergency Provider Emergency Medicine; Visit Provider Emergency Medicine
DX: E03.9 Hypothyroidism, unspecified (principal); I10 Essential (primary) hypertension; F17.210 Nicotine dependence, cigarettes, uncomplicated; Z79.890 Hormone replacement therapy; Z79.899 Other long term (current) drug therapy
CPT/HCPCS: 80048; 83735; 84443; 85025; 96360; 99283; A4216

== ENCOUNTER 2024-09-24 15:22 | Emergency (ER) | payer MEDICAID, SELFPAY ==
[2024-09-24 15:23] VITALS: BP 158/108; PULSE 87; RESP 16; TEMP 36.5; O2SAT 98; BMI 29.0
--- NOTE | 2024-09-24 15:46 | CT_ITS ---
PROCEDURE: BRAIN/HEAD WITHOUT CONTRAST 09/24/2024 REASON FOR EXAM: HTN, BLURRY VISION TECHNIQUE: BRAIN/HEAD WITHOUT CONTRAST Coronal and Sagittal reconstruction series were provided. One or more dose reduction techniques were used (e.g., Automated exposure control, adjustment of the mA and/or kV according to patient size, use of iterative reconstruction technique. RADIATION DOSE SUMMARY: CTDlvol: 45 mGy DLP: 779 mGycm FINDINGS: Brain: No acute intracranial hemorrhage, mass effect, or midline shift. There is focal hypodensity in the left basal ganglia (series 2, image 19; sagittal image 42). Additional areas of low density in the periventricular white matter suggests mild chronic small vessel ischemic changes. CSF Spaces: Normal Sinuses/Mastoids: Trace secretions in the left posterior ethmoid air cells. No mastoid effusion. Bones: Unremarkable CT/Brain/Head without Contrast IMPRESSION: Focal hypodensity in the left basal ganglia could be the result of an infarct o f unknown chronicity, prominent perivascular cyst, or neoplasm. Consider MRI for further evaluation. Reading Location: [id number]
--- NOTE | 2024-09-24 15:46 | RAD_ITS ---
PROCEDURE: CHEST PA AND LATERAL 09/24/2024 REASON FOR EXAM: HTN TECHNIQUE: CHEST PA AND LATERAL COMPARISON: None FINDINGS: Hardware: None Heart: The heart size is normal. Mediastinum: The mediastinal contour is unremarkable. Lungs: Slight increased prominence of the interstitial markings. No focal consolidation. No significant pleural effusion. Bones: Degenerative changes are identified within the thoracic spine. RAD/Chest PA and Lateral IMPRESSION: Slightly prominent interstitial markings may be the result of atypical/viral in fection or pulmonary edema. Reading Location: [id number]
--- NOTE | 2024-09-24 15:47 | EDS_ITS ---
HPI History of Present Illness Chief Complaint: Eye Problem Narrative Narrative: Patient is a 59-year-old female with past medical history of type 2 diabetes, hypothyroidism, hyperlipidemia, DVT on warfarin who presents to the emergency department with a chief complaint of blurry vision. She states that she was here a few days ago and was placed on hydralazine and she states that she has been taking this as prescribed as well as her thyroid medication. States that she has been out of her diabetes medication for a while now as notes that she is attempting to establish with a new doctor. Patient states that today she was walking to work when she developed lightheadedness and states that she was having some blurry vision associated with this therefore she came here for further evaluation management. Patient states that she does have a mild headache associated with this as well. In triage patient was noted to be hypertensive. [facility] Medical History DVT (deep venous thrombosis) Arthritis Hypothyroidism Type 2 diabetes mellitus Hyperlipidemia Home Medications ?Medication ?Instructions ?Recorded ?Last Taken ?Type hydralazine 10 mg tablet 10 mg PO TID 30 days #90 tab s 09/20/24 Unknown Rx levothyroxine 75 mcg tablet 75 mcg PO DAILY 30 days #3 0 tabs 09/20/24 Unknown Rx (Synthroid) Allergy/AdvReac Type Severity Reaction Status Date / Time sulfamethoxazole (From Allergy Mild Rash Verified 09/19/24 21:51 Bactrim) trimethoprim (From Bactrim) Allergy Mild Rash Verified 09/19/24 21:51 metformin AdvReac Intermediate Diarrhea Verified 09/19/24 21:51 Surgical History H/O bilateral oophorectomy History of Tubal ligation status Social History Smoking Status: Current every day smoker tobacco type: cigarettes ROS ROS ED ROS Narrative Constitutional: Planes of headache as noted above as well as lightheadedness denies dizziness, fevers, chills Eyes: Complains of blurry vision denies double vision Cardiovascular: Denies chest pain Respiratory: Denies coughing wheezing shortness of breath Abdomen: Denies nausea vomit diarrhea : Denies urinary symptoms Neurological: Denies any numbness, weakness, tingling Musculoskeletal: Denies back pain Skin: Denies any rashes or lesions EXAM Physical Exam Narrative Exam Narrative: General: Patient is lying in bed rest comfortably did not appear to be in acute distress Head: Atraumatic, normocephalic Eyes: PERRL bilaterally, EOMI blood, no conjunctival injection noted Neck: Soft, supple, trachea midline Cardiovascular: Regular rate and rhythm no murmurs gallops rubs noted Respiratory: Clear to auscultation bilaterally no rales rhonchi or wheeze noted Abdomen: Soft, nondistended, nontender to palpation Extremities: +5/5 strength noted in the bilateral upper and lower extremities, radial pulses +2/4 in the bilateral extremities Neurological: Patient following commands and that she was at [facility] the year is 2024. NIH of 0 GCS 15 Skin: Warm, dry, intact no rashes or lesions noted Const Vital Signs: 09/24/24 15:23 Temperature 97.7 F L Temperature Source Oral Pulse Rate 87 Respiratory Rate 16 Blood Pressure 158/108 H Blood Pressure Mean 124 Pulse Ox 98 Oxygen Delivery Method Room Air MDM MDM MDM Narrative Medical decision making narrative: Patient is a 59-year-old female who presented to the emergency department with a chief complaint of blurry vision and hypertension. On the differential diagnosis includes but not limited to hypertensive emergency, intracranial hemorrhage, migraine headache. Once workup is obtained reviewed she will be reevaluated. Patient will be given IV fluids and Reglan and Tylenol. She will be reevaluated Patient's CBC reviewed and showed no evidence leukocytosis white was count over 9, he was 12.9, plate count of 180. Patient INR was 1, PT 12.8. Patient sodium 140, potassium was 3.4, creatinine was 0.79. Patient's troponin was noted to be 13, delta troponin 12 with a 4-hour troponin of 13. Patient's EKG showed sinus rhythm with a rate of [address] head and brain showed focal hypodensity in the left basal ganglia could be result of infarct of unknown chronicity, prominent perivascular cyst or neoplasm consider MRI for further evaluation management. Patient's chest x-ray reviewed by myself and by radiology showed slightly prominent social markings could be result of atypical/viral infection or pulmonary edema have low suspicion for infection as she has no upper respiratory symptoms at this point in time. Given the patient's uncontrolled hypertension, her abnormal CT findings, blurry vision will discuss case with hospitalist for admission. Patient states that her symptoms are improving here in the emergency department. Discussed case with hospitalist Dr. Guardado who given her abnormal CT findings is recommending transfer to tertiary center. Patient's original request was transferred to [place] however they do not accept her insurance therefore we reach out to [facility]. I spoke with [facility] Transfer line who then discussed with other individuals including a hospitalist there and the hospitalist accepted for transfer Dr. Ramirez. Patient is notified is agreeable this plan all question concerns answered. Discharge Plan Triage Chief Complaint: Eye Problem ED Provider: David Curran Dx/Rx/DC Orders Clinical Impression: Hypothyroidism, Hypertension, Hypertensive emergency, Abnormal CT of the head Prescriptions: No Action hydralazine 10 mg tablet 10 mg PO TID 30 Days Qty: 90 0RF levothyroxine [Synthroid] 75 mcg tablet 75 mcg PO DAILY 30 Days Qty: 30 0RF Primary Care Provider: Care Physician,No Primary Referrals: Care Physician,No Primary [Primary Care Provider] - Print Language: Urdu Disposition Disposition: DC/Tx to Another Type of HCF
--- OUTSIDE RECORDS SUMMARY | 2024-09-24 15:50 | XMS RPT_ITS | CCD ---
Author Organization [facility] CliniSysd Care Team Providers Care 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 Name Role Phone RYAN HOPE Primary Care Provider JACOBO DAS Emergency Provider [phone] LUCAS GRECO Attending Provider [phone] LUCAS GRECO Referring Provider [phone] DO RYAN HOPE Primary Care Provider CADENCE GRECO Attending Provider CADENCE GRECO Referring Provider CADENCE GRECO Primary Care Provider CADENCE GRECO Primary Care Provider CADENCE GRECO Attending Provider CADENCE GRECO Primary Care Provider CADENCE GRECO Attending Provider CADENCE GRECO Primary Care Provider CADENCE GRECO Attending Provider CADENCE GRECO Primary Care Provider CADENCE GRECO Attending Provider CADENCE GRECO Referring Provider Ángel Diop Attending Physician CADENCE GRECO Primary Care Provider DO OMAR VERGARA Emergency Provider CADENCE GRECO Attending Provider DO MICHELLE CAMACHO Emergency Provider Daemon, Background Attending Unavailable ENCINAS, LEXUS Attending Unavailable Daemon, Background Attending Unavailable JUANA QUINTANA Attending Unavailable VISPAFLOW2, AUTOMATION Attending Unavailab le VISPAFLOW, AUTOMATION Attending Unavailleticia e MARGARET, KURT Attending Unavailable ENCINAS, LEXUS Attending Unavailable CHRISTINA CARPENTER Attending Unavailable BAUERBACH, LAYO Attending Unavailable ENCINAS, LEXUS Attending Unavailable MARGARET, KURT Attending Unavailable ENCINAS, LEXUS Attending Unavailable ENCINAS, LEXUS Attending Unavailable BILUCAS TURK Attending Unavailable FANNIE, LUCAS Estes Referring Unavailable BIROSALEE, LUCAS Estes Primary Care Unavailable BIROSALEE, LUCAS Estes Referring Unavailable BIROSALEE, LUCAS Estes Attending Unavailable BIROSALEE, LUCAS Estes Primary Care Unavailable BIROSALEE, LUCAS Estes Attending Unavailable BIROSALEE, LUCAS Estes Referring Unavailable FANNIE, LUCAS Estes Primary Care Unavailable FANNIE, LUCAS Estes Referring Unavailable FANNIE, LUCAS Estes Primary Care Unavailable LUCAS GRECO Attending Unavailable GEE, ÁNGEL Referring Unavailable GEE, ÁNGEL Attending Unavailable LUCAS GRECO Primary Care Unavailable BIROSALEE, LUCAS Estes Attending Unavailable BIROSALEE, LUCAS Estes Primary Care Unavailable FANNIE, LUCAS Estes Attending Unavailable BIROSALEE, LUCAS Estes Primary Care Unavailable BIROSALEE, LUCAS Estes Attending Unavailable FANNIE, LUCAS Estes Primary Care Unavailable FANNIE, LUCAS Estes Primary Care Unavailable MICHELLE CAMACHO Attending Unavailable OMRA VERGARA Attending Unavailable LUCAS GRECO Primary Care Unavailable GEE, ÁNGEL Referring Unavailable GEE, ÁNGEL Attending Unavailable FANNIE, LUCAS Estes Primary Care Unavailable BIROSALEE, LUCAS Estes Attending Unavailable BIROSALEE, LUCAS Estes Primary Care Unavailable BIROSALEE, LUCAS Estes Attending Unavailable BIROSALEE, LUCAS Estes Primary Care Unavailable GEE, ÁNGEL Referring Unavailable GEE, ÁNGEL Attending Unavailable FANNIE, LUCAS Estes Primary Care Unavailable Johny Swenson DO Primary Care Provider JOHNY SWENSON Attending Unavailable Renard [employer], Vani Unavailable JOHNY SWENSON Primary Care Unavailable JOHNY SWENSON Referring Unavailable JOHNY SWENSON Primary Care Unavailable Dr. Philippe Aviles DO Emergency Provider Care Physician, No Primary Primary Care Provider Unavailable Dr. Philippe Aviles DO Attending Provider Dr. Zeb Iverson DO Emergency Provider Amadou Collado Attending Unavailable Johyn Swenson Jr. Primary Care Unavailab le Care Physician, No Primary Primary Care Unava ilable Philippe Aviles Attending Unavailable AndZeb chávez Attending Unavailable Care Physician, No Primary Primary Care Unava ilable Unavailable Unavailable Unavailable Unavailable Unavailable Unavailable Allergies Allergy Classification Reported Allergen(s) Allergy Type Date of Onset Reaction(s) Facility Dihydrofolate Reductase Inhibitors (antibiotic) (3 sources) Trimethoprim Drug Allergy 1 Itching [facility] Work Phone: Sulfonamides (antibiotic) (3 sources) Sulfamethoxazole Drug Allergy 1 Itching [facility] Work Phone: (20 sources) Sulfamethoxazole; Translations: [SULFAMETHOXAZOLE] Drug Allergy 1 Rash [facility] (20 sources) Trimethoprim Drug Allergy 9 Itching, Rash [facility] (20 sources) metFORMIN; Translations: [METFORMIN] Drug Allergy 1 Severe diarrhea, GI Upset [facility] (1 source) Sulfamethoxazole / Trimethoprim Drug Allergy 0 Itching [facility] [place] Work Phone: (2 sources) metFORMIN Drug Allergy 3 [facility] (2 sources) Sulfamethoxazole Drug Allergy 3 [facility] (2 sources) Trimethoprim Drug Allergy 3 [facility] Medications Current Medications Medication Drug Class(es) Dates Sig (Normalized) Sig (Original) [id number] 200 actuat albuterol 0.09 mg/actuat metered dose inhaler (20 sources) beta2-Adrenergic Agonist Start: 08-27-2022 take 2 puff(s) by inhalation every four hours as needed for wheezing Albuterol Hfa Inhaler 90 Mcg/actuation (ProAir HFA) (discharge) [id number] RxNorm 2022-08-27 HFA Inhaler 2 puff every [...] 10 mg by mouth daily at bedtime. 07/06/2023 Active Start: 05-19-2018 End: 03-21-2021 take [...] .ROUTE .MEDSUPPLY September 07, 2020 12:00am DAILY dapagliflozin 5 mg oral tablet (20 sources) Sodium-Glucose Cotransporter 2 Inhibitor Start: 04-15-2023 take 1 tablet by mouth once daily at breakfast FARXIGA 5 mg tablet Take 1 tablet by mouth daily with breakfast. 04/15/2023 Active Start: 01-12-2023 take 1 tablet [...] 2021 8:11am FREESTYLE AMADOR 2 SENSOR kit (7 sources) Start: 07-03-2023 FREESTYLE LIBR E 2 SENSOR kit 07/03/2023 Active Start: 07-03-2023 FREESTYLE LIBR E 2 SENSOR kit hydrALAZINE hydrochloride 10 mg oral tablet (1 source) Arteriolar Vasodilator Start: 09-20-2024 take 1 tablet by mouth three times daily Hydralazine 10 mg tablet Active 10 mg PO THREE TIMES A DAY September 20, 2024 12:00am insulin glargine 100 unt/ml injectable solution (7 sources) Insulin Analog Start: 07-07-2023 inject 18 [IU] by subcutaneous injection once daily at bedtime LANTUS U-100 INSULIN 100 unit/mL injection Inject 18 Units subcutaneously daily at bedtime. 07/07/2023 Active levothyroxine sodium 0.075 mg oral tablet (20 sources) l-Thyroxine Start: 09-20-2024 take 1 tablet by mouth once daily Levothyroxine (Synthroid) 75 mcg tablet Active 75 ug PO DAILY September 20, 2024 12:00am Start: 04-07-2023 End: 09-19-2024 take 1 tablet by mouth once daily Levothyroxine 125 mcg tablet Discontinued 125 ug PO DAILY January 03, 2024 12:00am September 19, 2024 11:18pm Start: 08-27-2022 take 112 mg by mouth once colleen y Levothyroxine Oral (Levothroid) (discharge) [id number] RxNorm 2022-08-27 Oral 112 microgram every day [...] 12, 2014 8:26am October 17, 2014 11:05am rizatriptan 5 mg oral tablet (20 sources) Serotonin-1b and Serotonin-1d Receptor Agonist Start: 05-08-2023 take 1 tablet by mouth every two hours rizatriptan (MAXALT) 5 mg tablet TAKE 1 TABLET BY MOUTH AT ONSET OF HEADACHE IF NEEDED REPEAT IN 2 HOURS IF HEADACHE HASNT SUBSIDED 05/08/2023 Active Start: 05-19-2018 End: 03-21-2021 take [...] Dose Pack 5 Mg (Maxalt) (discharge) 0 RxNorm 2022-08-27 Oral Dose Pack 5 milligram once Active Indication: migraine sertraline 50 mg oral tablet (20 sources) Serotonin Reuptake Inhibitor Start: 04-15-2023 take 1 tablet by mouth once daily sertraline (ZOLOFT) 50 mg tablet Take 1 tablet by mouth once daily. 04/15/2023 Active Start: 08-13-2017 End: 03-21-2021 take 50 mg by mouth once daily Sertraline Discontinued 50 MG PO Daily September 04, 2020 9:11am March 21, 2021 8:11am Completed/Discontinued Medications Medication Drug Class(es) Dates Sig [...] Discontinued 1 - 2 TAB PO Q4H September 28, 2017 9:14am November 23, 2017 [...] tablets by mouth once as needed Hydrocodone/Acetaminophen (Comstock 5-325 Tablet) 5 MG-325 MG TABLET Discontinued 1 EACH PO Q6PRN 120 July 04, 2015 1:12pm October 15, 2015 9:24am Start: 06-06-2015 End: 07-04-2015 take 6 tablets by mouth once as needed Hydrocodone/Acetaminophen (Comstock 5-325 Tablet) 5 MG-325 MG TABLET Discontinued 1 EACH PO Q6PRN 120 June 06, 2015 1:45pm July 04, 2015 1:12pm Start: 05-09-2015 End: 06-06-2015 take 6 tablets by mouth once as needed Hydrocodone/Acetaminophen (Comstock 5-325 Tablet) 5 MG-325 MG TABLET Discontinued 1 EACH PO Q6PRN 120 May 09, 2015 2:30pm June 06, 2015 1:45pm Start: 05-09-2015 End: 06-06-2015 take 6 tablets by mouth once as needed Hydrocodone/Acetaminophen (Comstock 5-325 Tablet) 5 MG-325 MG TABLET Discontinued 1 EACH PO Q6PRN 120 May 09, 2015 1:30pm June 06, 2015 1:45pm Start: 04-12-2015 End: 05-09-2015 take 6 tablets by mouth once as needed Hydrocodone/Acetaminophen (Comstock 5-325 Tablet) 5 MG-325 MG TABLET Discontinued 1 EACH PO Q6PRN 120 April 12, 2015 10:32am May 09, 2015 2:30pm Start: 04-12-2015 End: 05-09-2015 take 6 tablets by mouth once as needed Hydrocodone/Acetaminophen (Comstock 5-325 Tablet) 5 MG-325 MG TABLET Discontinued 1 EACH PO Q6PRN 120 April 12, 2015 9:32am May 09, 2015 1:30pm Start: 03-13-2015 End: 04-12-2015 take 6 tablets by mouth once as needed Hydrocodone/Acetaminophen (Comstock 5-325 Tablet) 5 MG-325 MG TABLET Discontinued 1 EACH PO Q6PRN 120 March 13, 2015 2:23pm April 12, 2015 10:32am Start: 03-13-2015 End: 04-12-2015 take 6 tablets by mouth once as needed Hydrocodone/Acetaminophen (Comstock 5-325 Tablet) 5 MG-325 MG TABLET Discontinued 1 EACH PO Q6PRN 120 March 13, 2015 1:23pm April 12, 2015 9:32am Start: 02-13-2015 End: 03-13-2015 take 6 tablets by mouth once as needed Hydrocodone/Acetaminophen (Comstock 5-325 Tablet) 5 MG-325 MG TABLET Discontinued 1 EACH PO Q6PRN 120 February 13, 2015 2:17pm March 13, 2015 2:23pm Start: 02-13-2015 End: 03-13-2015 take 6 tablets by mouth once as needed Hydrocodone/Acetaminophen (Comstock 5-325 Tablet) 5 MG-325 MG TABLET Discontinued 1 EACH PO Q6PRN 120 February 13, 2015 1:17pm March 13, 2015 1:23pm Start: 01-16-2015 End: 02-13-2015 take 6 tablets by mouth once as needed Hydrocodone/Acetaminophen (Comstock 5-325 Tablet) 5 MG-325 MG TABLET Discontinued 1 EACH PO Q6PRN 120 January 16, 2015 2:28pm February 13, 2015 2:17pm Start: 01-16-2015 End: 02-13-2015 take 6 tablets by mouth once as needed Hydrocodone/Acetaminophen (Comstock 5-325 Tablet) 5 MG-325 MG TABLET Discontinued 1 EACH PO Q6PRN 120 January 16, 2015 1:28pm February 13, 2015 1:17pm Start: 12-19-2014 End: 01-16-2015 take 6 tablets by mouth once as needed Hydrocodone/Acetaminophen (Comstock 5-325 Tablet) 5 MG-325 MG TABLET Discontinued 1 EACH PO Q6PRN 120 December 19, 2014 1:16pm January 16, 2015 2:28pm Start: 12-19-2014 End: 01-16-2015 take 6 tablets by mouth once as needed Hydrocodone/Acetaminophen (Comstock 5-325 Tablet) 5 MG-325 MG TABLET Discontinued 1 EACH PO Q6PRN 120 December 19, 2014 1:16pm January 16, 2015 1:28pm Start: 11-21-2014 End: 12-19-2014 take 6 tablets by mouth once as needed Hydrocodone/Acetaminophen (Comstock 5-325 Tablet) 5 MG-325 MG TABLET Discontinued 1 EACH PO Q6PRN 120 November 21, 2014 1:34pm December 19, 2014 1:16pm Start: 10-24-2014 End: 11-21-2014 take 6 tablets by mouth once as needed Hydrocodone/Acetaminophen (Comstock 5-325 Tablet) 5 MG-325 MG TABLET Discontinued 1 EACH PO Q6PRN 120 October 24, 2014 1:30pm November 21, 2014 1:34pm Start: 09-26-2014 End: 10-24-2014 take 6 tablets by mouth once as needed Hydrocodone/Acetaminophen (Comstock 5-325 Tablet) 5 MG-325 MG TABLET Discontinued 1 EACH PO Q6PRN 120 September 26, 2014 1:21pm October 24, 2014 1:30pm Start: 08-29-2014 End: 09-26-2014 take 6 tablets by mouth once as needed Hydrocodone/Acetaminophen (Comstock 5-325 Tablet) 5 MG-325 MG TABLET Discontinued 1 EACH PO Q6PRN 120 August 29, 2014 1:17pm September 26, 2014 1:21pm Start: 08-01-2014 End: 08-29-2014 take 6 tablets by mouth once as needed Hydrocodone/Acetaminophen (Comstock 5-325 Tablet) 5 MG-325 MG TABLET Discontinued 1 EACH PO Q6PRN 120 August 01, 2014 1:54pm August 29, 2014 1:17pm Start: 07-04-2014 End: 08-01-2014 take 6 tablets by mouth once as needed Hydrocodone/Acetaminophen (Comstock 5-325 Tablet) 5 MG-325 MG TABLET Discontinued 1 EACH PO Q6PRN 120 July 04, 2014 1:19pm August 01, 2014 1:54pm Start: 06-06-2014 End: 07-04-2014 take 6 tablets by mouth once as needed Hydrocodone/Acetaminophen (Comstock 5-325 Tablet) 5 MG-325 MG TABLET Discontinued 1 EACH PO Q6PRN 120 June 06, 2014 1:08pm July 04, 2014 1:19pm Start: 05-09-2014 End: 06-06-2014 take 6 tablets by mouth once as needed Hydrocodone/Acetaminophen (Comstock 5-325 Tablet) 5 MG-325 MG TABLET Discontinued 1 EACH PO Q6PRN 120 May 09, 2014 4:07pm June 06, 2014 1:08pm Start: 05-09-2014 End: 06-06-2014 take 6 tablets by mouth once as needed Hydrocodone/Acetaminophen (Comstock 5-325 Tablet) 5 MG-325 MG TABLET Discontinued 1 EACH PO Q6PRN 120 May 09, 2014 3:07pm June 06, 2014 1:08pm Start: 04-13-2014 End: 05-09-2014 take 6 tablets by mouth once as needed Hydrocodone/Acetaminophen (Comstock 5-325 Tablet) 5 MG-325 MG TABLET Discontinued 1 EACH PO Q6PRN 120 April 13, 2014 2:37pm May 09, 2014 4:07pm Start: 04-13-2014 End: 05-09-2014 take 6 tablets by mouth once as needed Hydrocodone/Acetaminophen (Comstock 5-325 Tablet) 5 MG-325 MG TABLET Discontinued 1 EACH PO Q6PRN 120 April 13, 2014 1:37pm May 09, 2014 3:07pm Start: 03-16-2014 End: 04-13-2014 take 6 tablets by mouth once as needed Hydrocodone/Acetaminophen (Comstock 5-325 Tablet) 5 MG-325 MG TABLET Discontinued 1 EACH PO Q6PRN 120 March 16, 2014 2:46pm April 13, 2014 2:37pm Start: 03-16-2014 End: 04-13-2014 take 6 tablets by mouth once as needed Hydrocodone/Acetaminophen (Comstock 5-325 Tablet) 5 MG-325 MG TABLET Discontinued 1 EACH PO Q6PRN 120 March 16, 2014 1:46pm April 13, 2014 1:37pm Start: 02-16-2014 End: 03-16-2014 take 6 tablets by mouth once as needed Hydrocodone/Acetaminophen (Comstock 5-325 Tablet) 5 MG-325 MG TABLET Discontinued 1 EACH PO Q6PRN 120 February 16, 2014 3:40pm March 16, 2014 2:46pm Start: 02-16-2014 End: 03-16-2014 take 6 tablets by mouth once as needed Hydrocodone/Acetaminophen (Comstock 5-325 Tablet) 5 MG-325 MG TABLET Discontinued 1 EACH PO Q6PRN 120 February 16, 2014 2:40pm March 16, 2014 1:46pm Start: 01-19-2014 End: 02-16-2014 take 6 tablets by mouth once as needed Hydrocodone/Acetaminophen (Comstock 5-325 Tablet) 5 MG-325 MG TABLET Discontinued 1 EACH PO Q6PRN 120 January 19, 2014 3:24pm February 16, 2014 3:40pm Start: 01-19-2014 End: 02-16-2014 take 6 tablets by mouth once as needed Hydrocodone/Acetaminophen (Comstock 5-325 Tablet) 5 MG-325 MG TABLET Discontinued 1 EACH PO Q6PRN 120 January 19, 2014 2:24pm February 16, 2014 2:40pm Start: 12-22-2013 End: 01-19-2014 take 6 tablets by mouth once as needed Hydrocodone/Acetaminophen (Comstock 5-325 Tablet) 5 MG-325 MG TABLET Discontinued 1 EACH PO Q6PRN 120 December 22, 2013 2:17pm January 19, 2014 3:24pm Start: 12-22-2013 End: 01-19-2014 take 6 tablets by mouth once as needed Hydrocodone/Acetaminophen (Comstock 5-325 Tablet) 5 MG-325 MG TABLET Discontinued 1 EACH PO Q6PRN 120 December 22, 2013 2:17pm January 19, 2014 2:24pm Start: 11-24-2013 End: 12-22-2013 take 6 tablets by mouth once as needed Hydrocodone/Acetaminophen (Comstock 5-325 Tablet) 5 MG-325 MG TABLET Discontinued 1 EACH PO Q6PRN 120 November 24, 2013 2:19pm December 22, 2013 2:17pm Start: 10-27-2013 End: 11-24-2013 take 6 tablets by mouth once as needed Hydrocodone/Acetaminophen (Comstock 5-325 Tablet) 5 MG-325 MG TABLET Discontinued 1 EACH PO Q6PRN 120 October 27, 2013 3:13pm November 24, 2013 2:19pm Start: 10-12-2013 End: 10-27-2013 take 6 tablets by mouth once as needed Hydrocodone/Acetaminophen (Comstock 5-325 Tablet) 5 MG-325 MG TABLET Discontinued 1 EACH PO Q6PRN 56 October 12, 2013 1:09pm October 27, 2013 3:13pm Start: 10-12-2013 End: 10-12-2013 take 6 tablets by mouth once as needed Hydrocodone-Acetaminophen (Comstock 5-325 Tablet) 5 MG-325 MG tablet Discontinued 1 EACH PO Q6PRN 120 October 12, 2013 11:59am October 12, 2013 12:09pm Start: 10-12-2013 End: 10-12-2013 take 6 tablets by mouth once as needed Hydrocodone-Acetaminophen (Comstock 5-325 Tablet) 5 MG-325 MG tablet Discontinued 1 EACH PO Q6PRN 120 October 12, 2013 12:59pm October 12, 2013 1:09pm Start: 10-12-2013 End: 10-12-2013 take 6 tablets by mouth once as needed Hydrocodone/Acetaminophen (Comstock 5-325 Tablet) 5 MG-325 MG TABLET Discontinued [...] (DR/EC) Discontinued 5 MG PO Once 4 November 30, 2017 11:00pm May 19, 2018 1:11pm Take 4 tabs @ 8am the day before your surgery Start: 12-01-2017 End: 05-19-2018 take 4 tablets by mouth once daily Bisacodyl (Dulcolax (Bisacodyl)) 5 mg tablet,delayed release (DR/EC) Discontinued 5 MG PO Once December 01, 2017 12:00am May 19, 2018 [...] 18, 2013 11:00pm December 22, 2013 1:17pm cetirizine hydrochloride 10 mg oral tablet (20 sources) Histamine-1 Receptor Antagonist Start: 07-06-2023 End: 09-19-2024 take 1 tablet by mouth once daily Cetirizine 10 mg tablet Discontinued 10 mg PO DAILY January 03, 2024 12:00am September 19, 2024 11:18pm Start: 03-13-2015 End: 04-28-2016 take 1 tablet [...] Central alpha-2 Adrenergic Agonist Start: 04-28-2016 End: 09-19-2024 take 1 tablet by mouth once daily Clonidine Hcl 0.1 mg tablet Discontinued 0.1 mg PO DAILY January 03, 2024 12:00am September 19, 2024 11:18pm Start: 03-13-2015 End: 01-09-2016 take 1 tablet [...] 16, 2014 3:18pm March 16, 2014 1:46pm Dextroamphetamine-Amphetamin e (19 sources) Start: 01-16-2015 End: 05-05-2016 take 1 capsule by mouth once daily Dextroamphetamine-Amphetamine Discontinued 1 CAP PO Daily January 16, [...] 2 times per day July 21, 2013 1:14pm July 21, 2013 [...] 21, 2013 2:14pm July 21, 2013 2:37pm omeprazole 40 mg delayed release oral capsule (20 sources) Proton Pump Inhibitor Start: 03-21-2021 End: 09-19-2024 take 1 capsule by mouth once daily Omeprazole 40 mg capsule,delayed release(DR/EC) Discontinued 40 mg PO DAILY January 03, 2024 12:00am September 19, 2024 11:18pm 12 hr orphenadrine citrate 100 mg extended release oral tablet (2 sources) Muscle Relaxant Start: 01-03-2024 End: 09-19-2024 take 1 tablet by mouth every twelve hours as needed for pain Orphenadrine Citrate 100 mg tablet extended release Discontinued 100 mg PO Q12H as needed for muscle pain 14 0 January 03, 2024 3:46pm September 19, 2024 11:18pm polyethylene glycol [id number] [id number] mg powder for oral solution (20 sources) [...] 06, 2014 1:58pm August 29, 2014 1:34pm traMADol hydrochloride 50 mg oral tablet (4 sources) Opioid Agonist Start: 01-03-2024 End: 09-19-2024 take 1 tablet by mouth every six hours as needed for pain Tramadol 50 mg tablet Discontinued 50 mg PO EVERY 6 HOURS NEEDED as needed for Pain 10 3 0 July 19, 2024 11:20am September 19, 2024 11:18pm Urea (9 sources) Start: 06-06-2014 End: 11-14-2015 Urea Discontinued 1 APLICATION TP Bedtime June 06, 2014 2:03pm November 14, 2015 10:11am warfarin sodium 1 mg oral tablet (20 sources) Vitamin K Antagonist Start: 08-27-2022 End: 09-19-2024 take 1 tablet by mouth once daily Warfarin 1 mg tablet Discontinued 1 mg PO DAILY January 03, 2024 12:00am September 19, 2024 11:18pm Start: 08-27-2022 Warfarin Oral (discharge) [id number] RxNorm 2022-08-27 Oral 0 3.5 mg daily Active [...] October 12, 2013 12:59pm Start: 07-11-2013 End: 09-19-2024 Warfarin 3 mg tablet Discont inued mg PO January 03, 2024 12:00am September 19, 2024 11:18pm Problems Active Problems Problem Classification Problem Date Documented Da te Episodic/Chronic Abdominal pain (20 sources) Abdominal pain; Translations: [Unspecified abdominal pain] 04-26-2019 Episodic Administrative/social admission (2 sources) Repeated prescription; Translations: [Encounter for issue of repeat prescription] 07-14-2023 Episodic Anal and rectal conditions (20 sources) Rectal pain; Translations: [Other specified diseases of anus and rectum] 04-26-2019 Episodic Anxiety disorders (1 source) Anxiety disorder Onset: 06-12-2020 Chronic Asthma (7 sources) Asthma; Translations: [Asthma] 11-25-2011 Chronic Attention-deficit conduct and disruptive behavior disorders (20 sources) Attention deficit hyperactivity disorder; Translations: [Attention-deficit hyperactivity disorder, unspecified type] Onset: 04-06-2019 09-16-2016 Chronic Complications of surgical procedures or medical care (7 sources) Postsurgical menopause; Translations: [Asymptomatic postprocedural ovarian [...] usually diagnosed in infancy, childhood, or adolescence (7 sources) Attention deficit hyperactivity disorder, predominantly inattentive type; Translations: [Other specified behavioral and emotional disorders with onset usually occurring in childhood and adolescence] Onset: 11-04-2011 11-25-2011 Chronic Esophageal disorders (2 sources) Moreno's esophagus; Translations: [Gastroesophageal reflux disease with hiatal hernia] Onset: 01-03-2021 Chronic Essential hypertension (2 sources) Essential hypertension; Translations: [Essential (primary) hypertension] 07-14-2023 Chronic Gastrointestinal hemorrhage (20 sources) Rectal hemorrhage; Translations: [Hemorrhage of anus and rectum] 04-26-2019 Episodic Headache; including migraine (20 sources) Migraine; Translations: [Migraine, unspecified, not intractable, without status migrainosus] 04-26-2019 Chronic Nonmalignant breast conditions (20 sources) Discharge from [...] respiratory disease (20 sources) Cough; Translations: [Cough] Onset: 04-27-2024 04-26-2019 Episodic Other nervous system disorders (2 sources) Paresthesia of hand ; Translations: [Paresthesia of skin] 07-19-2024 Episodic Other nervous system disorders (1 source) Paresthesia of skin; Translations: [Paresthesia of skin] Onset: 07-27-2024 Episodic Other nutritional; endocrine; and metabolic disorders (7 sources) Disorder of lipid metabolism; Translations: [Disorder of lipoprotein metabolism, unspecified] Onset: 12-18-2008 11-25-2011 Chronic Other screening for suspected conditions (not mental disorders or infectious disease) (2 sources) Patient encounter status; Translations: [Encounter for screening mammogram for malignant neoplasm of breast] 07-15-2023 Episodic Other skin disorders (1 source) Foot callus Onset: 07-01-2022 Episodic Residual codes; unclassified (2 sources) Tobacco use and exposure - finding; Translations: [Tobacco use] 07-19-2024 Episodic Spondylosis; intervertebral disc disorders; other back problems (20 sources) Degeneration of cervical intervertebral disc; Translations: [Other cervical disc degeneration, unspecified cervical region] Onset: 04-06-2019 09-16-2016 Chronic Substance-related disorders (20 sources) Smoker; Translations: [Nicotine dependence, unspecified, uncomplicated] Onset: 10-26-2008 04-26-2019 Chronic Thyroid disorders (20 sources) Acquired hypothyroidism; Translations: [Mindy thyroiditis] Onset: 04-06-2019 09-16-2016 Chronic Viral infection (20 sources) Verruca plantaris; Translations: [Plantar wart] 04-26-2019 Episodic Past or Other Problems Problem Classification Problem Date Documented Da te Episodic/Chronic Diabetes mellitus without complication (7 sources) Impaired fasting glycemia; Translations: [Impaired fasting glucose] Onset: 12-18-2008 11-25-2011 Episodic Immunizations and screening for infectious disease (2 sources) Viral screening status; Translations: [Encounter for screening for other viral diseases] Onset: 07-14-2023 07-14-2023 Episodic Malaise and fatigue (7 sources) Physical deconditioning; Translations: [Other malaise] Onset: 07-20-2012 07-20-2012 Episodic Other and unspecified benign neoplasm (1 source) Polyp of colon Onset: 01-03-2021 Episodic Other connective tissue disease (7 sources) Acquired trigger finger; Translations: [Trigger finger, unspecified finger] Onset: 08-10-2009 11-25-2011 Episodic Other connective tissue disease (7 sources) Trochanteric bursitis of left hip; Translations: [Trochanteric bursitis, left hip] Onset: 02-13-2011 11-25-2011 Episodic Other connective tissue disease (7 sources) Impingement syndrome of left shoulder region; Translations: [Impingement syndrome of left shoulder] Onset: 02-13-2011 11-25-2011 Episodic Other connective tissue disease (7 sources) Myofascial pain; Translations: [Myalgia, other site] Onset: 07-20-2012 07-20-2012 Episodic Other diseases of kidney and ureters (1 source) Cyst of kidney Onset: 09-24-2020 Episodic Other non-traumatic joint disorders (1 source) Hip pain Onset: 05-21-2021 Episodic Other upper respiratory infections (20 sources) Sore throat symptom; Translations: [Acute pharyngitis, unspecified] Onset: 01-28-2023 04-26-2019 Episodic Phlebitis; thrombophlebitis and thromboembolism (20 sources) Deep venous thrombosis; Translations: [Acute embolism and thrombosis of unspecified deep veins of unspecified lower extremity] Onset: 06-12-2020 04-26-2019 Episodic Spondylosis; intervertebral disc disorders; other back problems (20 sources) Chronic neck pain; Translations: [Pain in spine] Onset: 05-11-2009 04-26-2019 Episodic Unclassified (1 source) Acute COVID-19 Onset: 12-20-2021 Results Test Name Value Interpretation Reference Range Facility CBC W/Diff, Automatedon 09-06 ATYPICAL LYMPH 1+ Normal [facility] Comment on above: Performed By: #### L 500.2500, L100.0100, L501.9520, L501.5200 #### [facility] Laboratory [address] [place], [address] Emergency Department Summary on 09-20-2024 Emergency Department Summary [facility] Medical Records Department [address] [place] [address] Emergency Department Summary 09/20/24 MR#: [id number] Acct: [id number] Name: JD MILLER Rep #: [id number] : 1965 59 From: Zeb Iverson DO PCP: Care Physician,No Primary Status:DEP ER Location: ED HPI History of Present Illness Chief Complaint: Fatigue Informant: patient Narrative Narrative: Patient is a 59-year-old female with past medical history of vhc-yiovaur-amghxtygs type 2 diabetes as well as hyperlipidemia and hypothyroidism. She states she has been out of her medication for approximately 1 month. She states this is because she has changed doctors and has not been able to see the new physician at this time. She states that in the last few days she has has had generalized fatigue/weakness. She states has been no fevers or chills or sick symptoms such as vomiting diarrhea or dysuria. However because of the worsening fatigue she presents for evaluation [facility] Medical History DVT (deep venous thrombosis) Arthritis Hypothyroidism Type 2 diabetes mellitus Hyperlipidemia Home Medications ???Medication ???Instructions ???Recorded ???Last Taken ???Type hydralazine 10 mg tablet 10 mg PO TID 30 days #90 tabs 09/06 07/31 Unknown Rx levothyroxine 75 mcg tablet 75 mcg PO DAILY 30 days #30 tabs 0 09/20/24 Unknown Rx (Synthroid) Allergy/AdvReac Type Severity Reaction Status Date / Time sulfamethoxazole (From Allergy Mild Rash Verified 09/19/24 21:51 Bactrim) trimethoprim (From Bactrim) Allergy Mild Rash Verified 09/19/24 21:51 metformin AdvReac Intermediate Diarrhea Verified 09/19/24 21:51 Surgical History H/O bilateral oophorectomy History of Tubal ligation status Social History Smoking Status: Current every day smoker tobacco type: cigarettes ROS ROS ED Constitutional Constitutional ED: Reports other Details: Positive fatigue ; Denies chills or fever(s) Eyes Eyes: Denies blurry vision or change in vision ENT ENT ED: Denies sore throat Cardiovascular Cardiovascular: Denies chest pain Respiratory/Chest Respiratory/Chest: Denies cough or dyspnea Gastrointestinal Gastrointestinal: Denies abdominal pain, diarrhea, nausea or vomiting Genitourinary Genitourinary ED: Denies dysuria Musculoskeletal Musculoskeletal: Denies myalgias Integumentary Denies rash Neurologic Neurologic: Reports weakness; Denies headache(s) Hematologic/Lymphatic Hematologic/Lymphatic: Denies easy bleeding or easy bruising EXAM Physical Exam Const Vital Signs: 09/19/24 19:24 09/19/24 21:48 09/19/24 21:48 Temperature 98.3 F Temperature Source Oral Pulse Rate 86 71 Respiratory Rate 18 18 Respiratory Effort Normal Respiratory Pattern Normal Blood Pressure 158/97 H 165/85 H Blood Pressure Mean 117 111 Pulse Ox 98 99 Oxygen Delivery Method Room Air Room Air 09/19/24 23:00 Temperature Temperature Source Pulse Rate 67 Respiratory Rate 18 Respiratory Effort Respiratory Pattern Blood Pressure 183/99 H Blood Pressure Mean 127 Pulse Ox 97 Oxygen Delivery Method Room Air Positive well nourished and well developed General Appearance ED: well developed; Negative for pallor HEENT HEENT Narrative: Normocephalic atraumatic No tongue or lip swelling no oral lesions no airway edema or compromise; no secondary findings in the posterior pharynx to suggest infection Eyes PERRL and EOMs intact bilaterally General Eye ED: Negative for scleral icterus Neck supple Neck Narrative: No nuchal rigidity or meningeal signs Resp normal respiratory effort and clear to auscultation bilaterally Cardio regular rate and regular rhythm GI normal to inspection, nondistended, normoactive bowel sounds, non-tender, non-distended and no masses GI Narrative: No voluntary guarding or rigidity or pulsatile mass Auscultation: normoactive bowel sounds Palpation: soft Back/Spine no CVA tenderness Extremity normal to inspection Neuro oriented x3, CN's II-XII intact bilaterally and no sensory deficits noted Sensorium / Orientation: alert Motor Exam: strength 5/5 throughout Psych mental status grossly normal Skin no rashes or lesions noted and no wounds General Skin Exam: Negative for jaundice or pallor MDM MDM MDM Narrative Medical decision making narrative: Patient arrived to the ER hypertensive otherwise with stable vitals. She denied any sick symptoms but reported generalized fatigue. The patient reports as well that she has not been on her chronic medication. There is high likelihoo (more content not included)... Normal [facility] Thyroid Stim Hormone (TSH)on 09-20-2024 TSH 126.000 uIU/mL High 0.300-4.200 [facility] Comment on above: Performed By: #### L 500.2500, L100.0100, L501.9520, L501.5200 #### [facility] Laboratory [facility] [place] [address], [address] Absolute lymphocyte countOrd ered By: Zeb Iverson on 09-19-2024 Lymphocytes Auto (Unsp spec) [#/Vol] 4.04 10*3/uL 0.83-4.51 [facility] Absolute neutrophil countOrd ered By: Zeb Iverson on 09-19-2024 Neutrophils (Bld) [#/Vol] 5.8 10*3/uL 2.0-7.7 [facility] Anion gap in Serum or Plasma Ordered By: Zeb Iverson on 09-19-2024 Anion gap [Moles/Vol] 12 mmol/L - [facility] Automated lymphocyte count a s percentage of total leukocytesOrdered By: Zeb Iverson on 09-19-2024 Lymphocytes/100 WBC Auto (Unsp spec) 37.4 % - [facility] BUN/creatinine ratioOrdered By: Zeb Iverson on 09-19-2024 Urea nitrogen/Creatinine [Mass ratio] 9.6 mg/mg Low 10-20 [facility] Basic Metabolic Profile (BMP )on 07-14-2025 BUN/CRE 9.6 RATIO Low 10-20 [facility] Comment on above: Performed By: #### L 500.2500, L100.0100, L501.9520, L501.5200 #### [facility] Laboratory [address] [place], [address] Calcium [Mass/Vol] 9.6 mg/dL Normal 7.6-11.0 [facility] Comment on above: Performed By: #### L 500.2500, L100.0100, L501.9520, L501.5200 #### [facility] [address] [place], [address] Chloride [Moles/Vol] 102 mmol/L Normal 98-108 [facility] Comment on above: Performed By: #### L 500.2500, L100.0100, L501.9520, L501.5200 #### [facility] [address] [place], [address] CO2 [Moles/Vol] 27.6 mmol/L Normal 21.0-32.0 [facility] Comment on above: Performed By: #### L 500.2500, L100.0100, L501.9520, L501.5200 #### [facility] [address] [place], [address] Creatinine [Mass/Vol] 0.83 mg/dL Normal 0.70-1.20 [facility] Comment on above: Performed By: #### L 500.2500, L100.0100, L501.9520, L501.5200 #### [facility] [address] [place], [address] ECRCL 77.34 ml/min Normal 50-250 [facility] Comment on above: Performed By: #### L 500.2500, L100.0100, L501.9520, L501.5200 #### [facility] [address] [place], [address] GAP 12 Normal 5-15 [facility] Comment on above: Performed By: #### L 500.2500, L100.0100, L501.9520, L501.5200 #### [facility] [address] [place], [address] GFR/1.73 sq M.predicted among non-blacks MDRD (S/P/Bld) [Vol rate/Area] 82 mL/min/{1.73_m2} Normal >60 [facility] Comment on above: Result Comment: mL/m in/1.73m2 CKD-EPI Creatinine Equation (2020) Performed By: #### L 500.2500, L100.0100, L501.9520, L501.5200 #### [facility] [address] [place], [address] Glucose [Mass/Vol] 180 mg/dL High 70-99 [facility] Comment on above: Performed By: #### L 500.2500, L100.0100, L501.9520, L501.5200 #### [facility] [address] [place], [address] Potassium [Moles/Vol] 3.9 mmol/L Normal 3.3-5.1 [facility] Comment on above: Performed By: #### L 500.2500, L100.0100, L501.9520, L501.5200 #### [facility] [address] [place], [address] Sodium [Moles/Vol] 142 mmol/L Normal 133-145 [facility] Comment on above: Performed By: #### L 500.2500, L100.0100, L501.9520, L501.5200 #### [facility] [address] [place], [address] Urea nitrogen [Mass/Vol] 8 mg/dL Normal 4-19 [facility] Comment on above: Performed By: #### L 500.2500, L100.0100, L501.9520, L501.5200 #### [facility] [address] [place], [address] Basophil percentageOrdered B y: Zeb Iverson on 09-19-2024 Basophils/100 WBC (Bld) 0.7 % 0-1 [facility] Carbon dioxide, total [Moles /volume] in Central venous bloodOrdered By: Zeb Iverson on 09-19-2024 CO2 [Moles/Vol] 27.6 mmol/L 21.0-32.0 [facility] Chloride assayOrdered By: Kami Iverson on 09-19-2024 Chloride [Moles/Vol] 102 mmol/L 98-108 [facility] Eosinophil percentageOrdered By: Zeb Iverson on 09-19-2024 Eosinophils/100 WBC (Bld) 1.4 % 0-5 [facility] Erythrocyte distribution wid th ratioOrdered By: Zeb Iverson on 09-19-2024 Erythrocyte distribution width (RBC) [Ratio] 13.6 % 11.6-14.6 [facility] Erythrocyte distribution wid th standard deviationOrdered By: Zeb Iverson on 09-19-2024 Erythrocyte distribution width (RBC) [Ratio] 45.3 fl High 35.1-43.9 [facility] Glomerular filtration rate ( GFR) estimation/1.73 sq m using serum, plasma, or whole bOrdered By: Zeb Iverson on 09-19-2024 GFR/1.73 sq M.predicted among non-blacks MDRD (S/P/Bld) [Vol rate/Area] 82 mL/min/{1.73_m2} >60 [facility] Comment on above: mL/min/1.73m2 CKD-EP I Creatinine Equation (2020) Hematocrit Auto (Bld) [Volum e fraction]Ordered By: Zeb Iverson on 09-19-2024 Hematocrit (Bld) [Volume fraction] 41.9 % 37-47 [facility] Hemoglobin measurementOrdere d By: Zeb Iverson on 09-19-2024 Hemoglobin (Bld) [Mass/Vol] 14.0 g/dL 12.0-15.0 [facility] Immature granulocytes/100 WB C Auto (Bld)Ordered By: Zeb Iverson on 09-19-2024 Immature granulocytes/100 WBC (Bld) 0.600 % 0.0-0.9 [facility] Comment on above: IG% - Immature Granu locytes (promyelocytes, myelocytes and metamyelocytes) > 1% indicates that a LEFT SHIFT is Present. MCV (mean corpuscular volume ) determinationOrdered By: Zeb Iverson on 09-19-2024 MCV (RBC) [Entitic vol] 90.7 fL 81-99 [facility] Magnesiumon 09-19-2024 Magnesium [Mass/Vol] 2.4 mg/dL High 1.5-2.2 [facility] Comment on above: Performed By: #### L 500.2500, L100.0100, L501.9520, L501.5200 #### [facility] [address] [place] [address], [id number] Magnesium measurement (mass/ volume)Ordered By: Zeb Iverson on 09-19-2024 Magnesium (Unsp spec) [Mass/Vol] 2.4 mg/dL High 1.5-2.2 [facility] Mean corpuscular hemoglobin (MCH) determinationOrdered By: Zeb Iverson on 09-19-2024 MCH (RBC) [Entitic mass] 30.3 pg 27.0-32.0 [facility] Mean corpuscular hemoglobin concentration (MCHC) determinationOrdered By: Zeb Iverson on 09-19-2024 MCHC (RBC) [Mass/Vol] 33.4 g/dL 32-36 [facility] Mean platelet volume determi nationOrdered By: Zeb Iverson on 09-19-2024 Platelet mean volume (Bld) [Entitic vol] 9.1 fL 6.2-12.0 [facility] Monocyte percentageOrdered B y: Zeb Iverson on 09-19-2024 Monocytes/100 WBC (Bld) 6.1 % 0-10 [facility] Neutrophil percentageOrdered By: Zeb Iverson on 09-19-2024 Neutrophils/100 WBC (Bld) 53.8 % 47-70 [facility] Nucleated red blood cell per centageOrdered By: Zeb Iverson on 09-19-2024 Nucleated RBC/100 WBC (Bld) [Ratio] 0 % 0-5 [facility] Platelet countOrdered By: Kami Iverson on 09-19-2024 Platelets (Bld) [#/Vol] 202 10*3/uL 150-450 [facility] Potassium measurement (mass/ volume)Ordered By: Zeb Iverson on 09-19-2024 Potassium (Unsp spec) [Mass/Vol] 3.9 mmol/L 3.3-5.1 [facility] RBC Auto (Bld) [#/Vol]Ordere d By: Zeb Iverson on 09-19-2024 RBC (Bld) [#/Vol] 4.62 10*6/uL 4.2-5.4 [facility] Serum creatinine measurement (mass/volume)Ordered By: Zeb Iverson on 09-19-2024 Creatinine [Mass/Vol] 0.83 mg/dL 0.70-1.20 [facility] Serum glucose measurement (m ass/volume)Ordered By: Zeb Iverson on 09-19-2024 Glucose [Mass/Vol] 180 mg/dL High 70-99 [facility] Serum or plasma calcium morgan urement (mass/volume)Ordered By: Zeb Iverson on 09-19-2024 Calcium [Mass/Vol] 9.6 mg/dL 7.6-11.0 [facility] Serum or plasma urea nitroge n measurement (mass/volume)Ordered By: Zeb Iverson on 09-19-2024 Urea nitrogen [Mass/Vol] 8 mg/dL 4-19 [facility] Sodium levelOrdered By: Jesu Iverson on 09-19-2024 Sodium [Moles/Vol] 142 mmol/L 133-145 [facility] TSH DL <= 0.005 mIU/L QnOrde red By: Zeb Iverson on 09-19-2024 TSH Qn 126.000 uIU/mL High 0.300-4.200 [facility] White blood cell (WBC) count Ordered By: Zeb Iverson on 09-19-2024 WBC (Bld) [#/Vol] 10.8 10*3/uL 4.4-11.0 [facility] Emergency Department Summary on 07-19-2024 Emergency Department Summary [facility] Medical Records Department [address] [place] [address] Emergency Department Summary 07/19/24 MR#: [id number] Acct: [id number] Name: JD MILLER Rep #: [id number] : 1965 59 From: Philippe Aviles DO PCP: Care Physician,No Primary Status:DEP ER Location: ED HPI History of Present Illness HPI Narrative: Patient presents with left hand numbness and tingling that has been getting worse over the past 2 days. Patient states it is constant. Patient states all of her fingers feel numb. Patient states she has a history of carpal tunnel syndrome and states this feels similar to the symptoms she had prior to her carpal tunnel surgery. Patient denies any trauma or injury. Patient denies any weakness. Patient denies any coldness or cyanosis of her fingers. Chief Complaint: Upper Extremity Injury Informant: patient Onset/Context/Timing Onset: Days (2) Context: Gradual Onset Timing: Continuous Quality of Pain: - (Numbness) Location: Left 2nd through 5th fingers Worsened by: Nothing Relieved by: Nothing Associated Symptoms Associated Symptoms: Positive for Parasthesia; Negative for Weakness or Loss of Funtion [facility] Medical History DVT (deep venous thrombosis) Arthritis Hypothyroidism Type 2 diabetes mellitus Hyperlipidemia Home Medications ???Medication ???Instructions ???Recorded ???Last Taken ???Type cetirizine 10 mg tablet 10 mg PO DAILY 01/03/24 Unknown Hi story clonidine HCl 0.1 mg tablet 0.1 mg PO DAILY 01/03/24 Unknown H istory levothyroxine 125 mcg tablet 125 mcg PO DAILY 01/03/24 Unknown History omeprazole 40 mg capsule,delayed 40 mg PO DAILY 01/03/24 Unknown Hi story release orphenadrine citrate 100 mg 100 mg PO Q12H PRN muscle pain #14 01/03/24 Unknown Rx tablet,extended release tabs tramadol 50 mg tablet 50 mg PO Q6H PRN pain 3 days #12 1 Unknown Rx tabs warfarin 1 mg tablet 1 mg PO DAILY 01/03/24 Unknown His tory warfarin 3 mg tablet mg PO 01/03/24 Unknown History tramadol 50 mg tablet 50 mg PO Q6H PRN PRN Pain 3 days 0 07/19/24 Unknown Rx #10 tabs Allergy/AdvReac Type Severity Reaction Status Date / Time sulfamethoxazole (From Allergy Mild Rash Verified 07/19/24 10:35 Bactrim) trimethoprim (From Bactrim) Allergy Mild Rash Verified 07/19/24 10:35 metformin AdvReac Intermediate Diarrhea Verified 07/19/24 10:35 Surgical History H/O bilateral oophorectomy History of Tubal ligation status Social History Smoking Status: Unknown if ever smoked ROS ROS ED Constitutional Constitutional ED: Denies chills or fever(s) Eyes Eyes: Denies blurry vision or change in vision ENT ENT ED: Denies rhinorrhea or sore throat Cardiovascular Cardiovascular: Denies chest pain or palpitations Respiratory/Chest Respiratory/Chest: Denies cough or dyspnea Gastrointestinal Gastrointestinal: Denies nausea or vomiting Genitourinary Genitourinary ED: Denies dysuria or hematuria Musculoskeletal Musculoskeletal: Reports neck pain; Denies back pain Integumentary Denies abscess or rash Neurologic Neurologic: Reports paresthesias LUE; Denies headache(s) or weakness Allergic/Immunologic Allergic/Immunologic ED: Denies mouth swelling or urticaria EXAM Physical Exam Const Vital Signs: 07/19/24 10:36 Temperature 98 F Temperature Source Oral Pulse Rate 86 Respiratory Rate 19 H Blood Pressure 156/109 H Blood Pressure Mean 124 Pulse Ox 99 Oxygen Delivery Method Room Air Positive well nourished and well developed General Appearance ED: well developed and NAD HEENT Reports moist mucous membranes Neck full ROM and supple Extremity Extremity Narrative: There is no tenderness, edema, or ecchymosis of the left hand or wrist. There is full range of motion. There is negative Phalen's and Tinel's sign. Strength is 5/5 in the radial, median, and ulnar areas. Sensation was decreased to light touch in the 2nd through 5th fingers. Capillary refill was less than 2 seconds in all digits. Radial pulses are equal bilaterally. Neuro oriented x3, CN's II-XII intact bilaterally, moves all extremities and no focal motor deficits Sensorium / Orientation: alert Motor Exam: strength 5/5 throughout Psych mental status grossly normal MDM MDM MDM Narrative Medical decision making narrative: Patient was advised that this could be carpal tunnel syndrome however, with it including the little finger and having negative Tinel's and Phalen sign, it could be peripheral neuropathy. Patient was given a cock up wrist splint. Patient was given a prescription for a short (more content not included)... [facility] HEALTHon 04-27-2024 ALLIED HEALTH HNO ID: [id number] Author: MIS FRANCISCO RT(R) Service: Radiology Author Type: Technologist Type: Allied Health Filed: 04/27/2024 11:48 Note Text: Radiology Service Progress Note PATIENT NAME: Jd Miller DATE OF SERVICE: April 27, 2024 TIME: 11:47 AM PATIENT IDENTITY VERIFICATION COMPLETED USING TWO (2) IDENTIFIERS: Name and Date of confirmed by patient verbally. FALL SCREENING: Has the patient had 2 falls in the last year or 1 fall with injury or currently using an Ambulatory Assistive Device (Walker, Cane, Wheelchair, Crutches, etc.)? Emergency Room Patient: Screened in ED PATIENT GENDER DATA: Assigned female at . status: : No status: NO. PATIENT RELEVANT IMPLANT DATA REVIEWED: Not Applicable PATIENT PRESENTS WITH AN IMPLANTABLE OR ATTACHED HUNTER: No RADIOLOGY DEPARTMENT: General X-ray: Exam(s) Completed: Chest X-Ray PERIPHERAL IV DATA: Not applicable SIGNED BY: RT Sen(R) April 27, 2024 11:47 AM [facility] ED NOTEon 04-27-2024 ED NOTE HNO ID: [id number] Author: ADRIEL VIERA RN Service: ? Author Type: Registered Nurse Type: ED Notes Filed: 04/27/2024 12:08 Note Text: TALHA Benjamin rounded on patient at this time. Patient results of testing, imaging, and discharge plan of care was discussed by provider at this time. Patient is agreeable to discharge plan of care at this time. This RN provided prescription education, discharge instructions, and follow up care instructions. Patient verbalized understanding of all discharge teaching. VS are stable. Patient was discharged in stable condition in care of self Normal [facility] ED PROV NOTEon 04-27-2024 ED PROV NOTE HNO ID: [id number] Author: KAREN SOLOMON APRN.CADENCE Service: ? Author Type: Nurse Practitioner Type: ED Provider Notes Filed: 04/27/2024 12:03 Note Text: ED Provider Note Patient Name: Jd Miller : 1965 SERVICE DATE: 04/27/24 History Patient presents with: Cough: Cough and congestion x one month. Denies fevers, sob. Smoker 59-year-old female presents the emergency department with cough and congestion x 1 month. She denies any fevers or chills. She is not bringing up any mucus. She has been using NyQuil with some relief in symptoms. She is a current smoker. No known history of COPD she does not have oxygen requirements at home. She denies that she has seen anybody for the symptoms yet, she has not been on any antibiotics or had any treatment thus far. 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: No PAST MEDICAL HISTORY Diagnosis Date - DM (diabetes mellitus) (HCC) - Hemorrhoids, internal - History of blood clots PAST SURGICAL HISTORY Procedure Laterality Date - LIG/TRNSXJ FLP TUBE ABDL/VAG APPR UNI/BI 1992 - PAST SURGICAL HISTORY OF 1990 csection - PAST SURGICAL HISTORY OF right CTR - PAST SURGICAL HISTORY OF foot plantar fasciectomy - PAST SURGICAL HISTORY OF 1999 dental extractions - SALPINGO-OOPHORECTOMY COMPL/PRTL UNI/BI SPX 1999 Salpingo-oophorectomy B9 d/t pain - uterus remains FAMILY HISTORY Problem Relation Age of Onset - Alzheimer's Disease Maternal Grandmother - Cancer Father lung - Coronary Artery Disease Maternal Uncle - Diabetes Maternal Uncle - Stroke Maternal Grandmother Social History Tobacco Use - Smoking status: Every Day Current packs/day: 0.50 Average packs/day: 0.5 packs/day for 20.0 years (10.0 ttl pk-yrs) Types: Cigarettes - Smokeless tobacco: Never Substance and Sexual Activity - Alcohol use: Yes Comment: 1 drink every 6 months or so - Drug use: No - Sexual activity: Yes Partners: Male control/protection: Surgical ALLERGIES Allergen Reactions - Bactrim [Sulfametho* Rash itching - Metformin GI Upset Review of Systems Constitutional: Negative for chills and fever. HENT: Positive for congestion. Negative for sore throat. Eyes: Negative. Respiratory: Positive for cough and shortness of breath. Cardiovascular: Negative for chest pain and palpitations. Gastrointestinal: Negative for abdominal pain and vomiting. Endocrine: Negative. Genitourinary: Negative for dysuria and frequency. Musculoskeletal: Negative for arthralgias and myalgias. Skin: Negative for rash and wound. Allergic/Immunologic: Negative. Neurological: Negative for dizziness and syncope. Psychiatric/Behavioral : Negative. Physical Exam Vitals [04/27/24 1112] BP Pulse Temp Temp src Resp SpO2 Weight Height 147/87 85 36.6 ?C (97.9 ?F) Oral 16 100 % 78 kg (171 lb 15.3 oz) -- Physical Exam Vitals and nursing note reviewed. Constitutional: General: She is not in acute distress. Appearance: Normal appearance. She is not toxic-appearing. HENT: Head: Normocephalic and atraumatic. Cardiovascular: Rate and Rhythm: Normal rate and regular rhythm. Pulses: Normal pulses. Pulmonary: Effort: Pulmonary effort is normal. Breath sounds: Normal breath sounds. No wheezing, rhonchi or rales. Abdominal: General: Bowel sounds are normal. Palpations: Abdomen is soft. Tenderness: There is no abdominal tenderness. Skin: General: Skin is warm. Capillary Refill: Capillary refill takes less than 2 seconds. Neurological: Mental Status: She is alert and oriented to person, place, and time. Psychiatric: Mood and Affect: Mood normal. Behavior: Behavior normal. Behavior is cooperative. Diagnostic Testing ED Labs Ordered and Reviewed - No data to display Procedures ED Course / Clinical Impression Clinical Impressions as of 04/27/24 1203 Bronchitis Current smoker MDM / Disposition / Plan Vital signs, triage records and nursing notes were reviewed and incorporated. Patient is a 59 year old female who presents today with cough and congestion x 1 month. Physical exam reveals non-toxic appearing female, AANDOX3, neurologically intact, breathing is unlabored, no use of accessory muscles. Heart rate and rhythm are regular. Lungs are clear. Abdomen is soft, nondistended, nontender. . Vital signs are stable on initial exam. History and Record Review External record(s) reviewed: prior outpatient record. Findings from review of outpatient records: Follows outpatient with PCP for routine medical care Differential Diagnoses - Bronchitis is more likely for the following reason(s): suggested by HANDP - Pneumonia, sinusitis, AOM is less likely for the following reason(s): HANDP not suggestive and no evidence on imaging Management I performed an independent interpretation of the following:imaging Imaging: My interpretation is no infiltrate on CXR Radiolog (more content not included)... [facility] XR CHEST 2V FRONTAL/LATon XR CHEST 2V FRONTAL/LAT * * *Final Repor t* * * DATE OF EXAM: Apr 27 2024 11:47AM MDX 5291 - XR CHEST 2V FRONTAL/LAT / PROCEDURE REASON: Cough * * * * Physician Interpretation * * * * EXAMINATION: CHEST RADIOGRAPH (2 VIEW FRONTAL and LATERAL) CLINICAL HISTORY: Cough MQ: XC2_6 EXAM DATE/TIME: 04/27/2024 11:47 AM COMPARISON: No relevant prior studies available. RESULT: Lines, tubes, and devices: None. Lungs and pleura: No consolidation. No lung mass. No pleural effusion. No pneumothorax. Cardiomediastinal silhouette: Normal cardiomediastinal silhouette. Bones and soft tissues: Unremarkable. IMPRESSION: No acute radiographic abnormality. Concrete Form Setter: PSCB Transcribe Date/Time: Apr 27 2024 11:49A Dictated by : CYNDY SPENCE MD This examination was interpreted and the report reviewed and electronically signed by: CYNDY SPENCE MD on Apr 27 2024 11:50AM EST [id number] [facility] JD MILLER ([id number]) 1965 F Date Time Provider Department 01/04/24 JOHNY SWENSON During your visit today, we recorded the following information about you: Christina Martinez 01/04/2024 12:23 PM Signed Patient calling today in regard to ER visit at [facility] Patient is asking for prior authorization for medication Tramadol and orphenacrine which was written by the ER. Patient states she was told by ER that her PCP had to get the prior authorization for the medication. We don't have those records in our system including the ER visit and medications prescribed as we are not tied to the same system. Please return call [phone] Lizbeth Infante LPN 01/05/2024 11:54 AM Signed Message left on Patient Private voicemail. Advised that we do not have records from her ER visit at [facility]. Fax number given. Patient has an ER follow up appointment scheduled for 01/11/[address] Swenson, advised that she can bring information with her to that visit. Allergies As of Date: 01/04/2024 Noted Allergy Reaction BACTRIM (SULFAMETHOXAZOLE) 08/15/2010 2 - Rash Comments: itching METFORMIN 07/14/2023 8 - GI Upset Date Reviewed: 07/14/2023 Reviewed by: Lizbeth Infante LPN - Fully Assessed Reason for Visit: prior authorization [Other] Prescriptions as of 01/05/2024 - baclofen 10 mg tablet Take 10 [...] once daily. Problem List As Of Date 01/04/2024 Noted Resolved Asthma [493] Phlebitis and Thrombophlebitis of Unspecified S* Lumbago [M54.50] Tobacco dependency [F17.200] 10/26/2008 Postsurgical menopause [E89.40] 10/26/2008 Impaired fasting glucose [R73.01] 12/18/2008 Lipid disorder [E78.9] 12/18/2008 Low Back Ache; chronic; very rare use of Comstock *05/11/2009 Trigger finger (acquired) [M65.30] 08/10/2009 Trochanteric bursitis of left hip [M70.62] 02/13/2011 Impingement syndrome of left shoulder [M75.42] 02/13/2011 ADD (attention deficit disorder) [F98.8] 11/04/2011 Myofascial pain [M79.18] 07/20/2012 Physical deconditioning [R53.81] 07/20/2012 Low back pain [M54.50] 07/20/2012 DVT (deep venous thrombosis) ([facility]) [I82.409] 07/14/2023 Encounter Status:Closed by LIZBETH INFANTE on 01/05/24 Normal [facility] Emergency Department Summary on 01-03-2024 Emergency Department Summary [facility] Medical Records Department [address] [place] [address] Emergency Department Summary 01/03/24 MR#: [id number] Acct: [id number] Name: JD MILLER Rep #: [id number] : 1965 58 From: Amadou Collado MD PCP: Dr. Johny Swenson Jr., DO Status:PRE ER Location: ED HPI History of Present Illness Chief Complaint: Other, Pain/Inj Informant: patient Narrative Narrative: 58-year-old female states her left neck into her trapezius area has hurt for 3 years. 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 She states it is worse in the last 3 days but she has no acute new symptoms. She states she sees a PCP in [place], and this all started [place] to [place] She states between those 2 doctors, there and in [place], she has never talked to her doctor about the symptoms before. She presents to the ER for this, for the first time in 3 years, on Thursday because the pain is worse and she is having trouble tolerating it. She has tried Tylenol but nothing else. She states she is on warfarin because of a longstanding history of DVTs back in the , 1 of which was associated with and the other which happened 2 years later apparently was not triggered by anything obvious, and she states that someone in the told her she was going to be on warfarin for the rest of her life. She states last time she had her INR checked was when she saw her doctor last 3 months ago. She denies any bleeding or systemic symptoms. Denies any obvious injury but states that it seemed to get worse again while she was mopping at work. [facility] Medical History (Updated 01/03/24 @ 15:[address] Amadou Collado MD) DVT (deep venous thrombosis) Arthritis Hypothyroidism Type 2 diabetes mellitus Hyperlipidemia Home Medications ???Medication ???Instructions ???Recorded ???Last Taken ???Type orphenadrine citrate 100 mg 100 mg PO Q12H PRN muscle pain #14 01/03/24 Unknown Rx tablet,extended release tabs tramadol 50 mg tablet 50 mg PO Q6H PRN pain 3 days #12 01/03/24 Unknown Rx tabs Allergy/AdvReac Type Severity Reaction Status Date / Time sulfamethoxazole (From Allergy Mild Rash Verified 01/03/24 15:20 Bactrim) trimethoprim (From Bactrim) Allergy Mild Rash Verified 01/03/24 15:20 metformin AdvReac Intermediate Diarrhea Verified 01/03/24 15:20 Surgical History (Updated 01/03/24 @ 15:[address] Amadou Collado MD) H/O bilateral oophorectomy History of Tubal ligation status ROS ROS ED Constitutional Constitutional ED: Denies chills or fever(s) Eyes Eyes: Denies change in vision or diplopia ENT ENT ED: Denies ear pain, rhinorrhea or sore throat Cardiovascular Cardiovascular: Denies chest pain Gastrointestinal Gastrointestinal: Denies abdominal pain, nausea or vomiting Musculoskeletal Musculoskeletal: Reports back pain and neck pain Integumentary Denies abscess or rash Neurologic Neurologic: Denies headache(s), paresthesias or weakness EXAM Physical Exam Const Vital Signs: 01/03/24 15:20 Temperature 96.6 F L Temperature Source Temporal Pulse Rate 73 Respiratory Rate 18 Blood Pressure 158/104 H Blood Pressure Mean 122 Pulse Ox 99 Oxygen Delivery Method Room Air Positive well nourished and well developed General Appearance ED: well developed and NAD HEENT Reports moist mucous membranes Eyes PERRL and EOMs intact bilaterally Neck no lymphadenopathy and supple Neck Narrative: Tender throughout the left cervical paraspinal musculature and into the trapezius toward th acromion but not including it. No scapular bony tenderness. No midline cervical bony tenderness. No mastoid tenderness or sternocleidomastoid tenderness. Patient can turn to the contralateral right side without any apparent difficulty but has pain with turning to the left. General: tenderness Chest Wall inspection of chest normal Resp normal respiratory effort Extremity normal to inspection Extremity Narrative: Painless abduction both shoulders General Extremety ED: Negative for tenderness Neuro oriented x3, CN's II-XII intact bilaterally, no sensory deficits noted and gait normal Sensorium / Orientation: alert Motor Exam: strength 5/5 throughout MDM MDM MDM Narrative Medical decision making narrative: I do not think this patient needs any emergent imaging or testing. She needs to follow-up with her PCP regarding his chronic pain, and she can have an INR checked when she does so. The area of interest is basically all trapezius, and it is normal-appearing without any signs of ecchymosis or purpura or petechiae to suggest she needs her INR emergently checked Discharge Plan Triage Chief Complai (more content not included)... [facility] ANGELAJD ([id number]) 1965 F Date Time Provider Department 07/21/23 JOHNY SWENSON During your visit today, we recorded the following information about you: Lizbeth Infante LPN 07/21/2023 4:27 PM Signed ----- Message from Johny Swenson DO sent at 07/21/2023 2:55 PM EDT ----- Pt can do a phone visit to discuss results thKae Hollis 07/22/2023 10:40 AM Signed Called and left [...] Back Ache; chronic; very rare use of Comstock *05/11/2009 Trigger finger (acquired) [M65.30] 08/10/2009 Trochanteric bursitis of left hip [M70.62] 02/13/2011 Impingement syndrome of left shoulder [M75.42] 02/13/2011 ADD (attention deficit disorder) [F98.8] 11/04/2011 Myofascial pain [M79.18] 07/20/2012 Physical deconditioning [R53.81] 07/20/2012 Low back pain [M54.50] 07/20/2012 DVT (deep venous thrombosis) ([facility]) [I82.409] 07/14/2023 Encounter Status:Closed by LIZBETH INFANTE on 07/28/23 [facility] 07-15-2023 KATI Telephone (PHARMN) JD MILLER ([id number]) 1965 F Date Time Provider Department 07/15/23 PHARMACIST PHARMN During your visit today, we recorded the following information about you: Beatris Grimes RN 07/15/2023 4:08 PM Signed A call was placed to patient's home and cell telephone number. A voicemail message was left with request for patient to return call to Pharmacy [facility] at [phone] Option #2 to discuss new referral to PAC. Mychart message sent. Natalee Grimes RN Pharmacy, Anticoagulation Clinic Beatris Grimes RN 07/24/2023 9:56 AM Signed A call was placed to patient's home and cell telephone number. A voicemail message was left with request for patient to return call to [facility]acy [facility] at [phone] Option #2 to discuss new referral to PAC. Mychart message sent. Natalee Grimes RN Pharmacy, Anticoagulation Clinic Beatris Grimes RN 07/28/2023 11:08 AM Signed Call to patient's home/cell telephone number; left a voicemail message with request for the patient to return call to PAC at [phone] Option #2. Patient has not read Mychart message. Natalee Grimes RN Pharmacy, Anticoagulation Clinic Samaria Michel [facility] 07/30/2023 8:55 AM Signed Left voice message asking patient to call the Anticoagulation Clinic at [phone] to discuss her referral to the coumadin clinic. Per Dr. Swenson's note - she has been on coumadin since the . Samaria Michel[facility] Beatris Grimes RN 08/07/2023 4:43 PM Signed A call was placed to patient's home and cell telephone number. A voicemail message was left with request for patient to return call to Pharmacy [facility] at [phone] Option #2 to discuss new referral to PAC. Natalee Grimes RN Pharmacy, Anticoagulation Clinic Beatris Grimes RN 08/12/2023 10:22 AM Signed A call was placed to patient's home and cell telephone number. A voicemail message was left with request for patient to return call to Pharmacy Anticoagulation Clinic at [phone] Option #2 to discuss new referral to [...] SYRINGE ULTRA-FINE 0.3 mL 31 gauge x 16 Inject 1 Each subcutaneously once daily. - [...] Back Ache; chronic; very rare use of Comstock *05/11/2009 Trigger finger ( (more content not included)... Normal [facility] CNOVon 07-14-2023 CNOV Office Visit (FAMDNA ) JD MILLER ([id number]) 1965 F Date Time Provider Department 07/14/23 10:20 AM JOHNY SWENSON During your visit today, we recorded the following information about you: Temperature Pulse Respiration Blood pressure 97.4 degrees 70/minute 16/minute 182/81 Weight Height 81.1 kg 1.651 m Johny Swenson DO 07/14/2023 1:06 PM Signed 58 year old female presenting for new pt I have fully reviewed the past medical, surgical, social and family history and updated the Histories section of [facility]. Recurrent DVTs has been on coumadin since [...] with breakfast. FREESTYLE AMADOR 2 SENSOR kit School YourselfTOUCH DELICA PLUS LANCET 33 gauge use 1 [...] SYRINGE ULTRA-FINE 0.3 mL 31 gauge x 516 Inject 1 Each subcutaneously once daily. omeprazole [...] - uterus remains Social history reviewed in epic. REVIEW OF SYSTEMS: Constitutional: Denies fever, denies [...] THYROID ST (more content not included)... Normal [facility] HCV Ab Ql (S)on 07-14-2023 Interpretation and review of laboratory results Normal [facility] HCV Ab Ser Qlon 07-14-2023 HCV Ab Ql (S) Negative Normal Negative [facility] Comment on above: Order Comment: Ada anne Type: BLOOD SPECIMEN Ordering Facility: [facility] Address: [address] [place] [address] Result Comment: The result suggests no evidence of active infection with Hepatitis C virus. Should recent infection be suspected, repeat testing may be considered 4-6 weeks after this draw. Performed By: #### 1 6128-1 #### [facility] CLIA [id number] [address] [place] [address] [place] HEPATITIS C ANTIBODY IA WITH CONFIRMATIONon 07-14-2023 HCV Ab Ql (S) Negative Negative [facility] Comment on above: The result suggests no evidence of active infection with Hepatitis C virus. Should recent infection be suspected, repeat testing may be considered 4-6 weeks after this draw. HbA1c (Bld)on 07-14-2023 Average glucose Estimated from glycated hemoglobin (Bld) [Mass/Vol] 154 mg/dL [facility] Comment on above: eAG: (Estimated aver age glucose) is a calculated value from HgbA1c and is brand representative of the average blood glucose level in the last 2-3 month period. HbA1c (Bld) [Mass fraction] 7.0 % High 4.3 - 5.6 % [facility] Comment on above: [place] Diabetes As sociation guidelines indicate that patients with HgbA1c in the range 5.7-6.4% are at increased risk for development of diabetes, and intervention by lifestyle modification may be beneficial. HgbA1c greater or equal to 6.5% is considered diagnostic of diabetes. Interpretation and review of laboratory results Abnormal [facility] Average glucose Estimated from glycated hemoglobin (Bld) [Mass/Vol] 154 mg/dL Normal [facility] Comment on above: Order Comment: Ada anne Type: BLOOD SPECIMEN Ordering Facility: [facility] Address: [address] [place] [address] Result Comment: eAG: (Estimated average glucose) is a calculated value from HgbA1c and is brand representative of the average blood glucose level in the last 2-3 month period. Performed By: #### 5 5454-3 #### [facility] CLIA [id number] [facility] [place] [address] [place] HbA1c (Bld) [Mass fraction] 7.0 % High 4.3-5.6 [facility] Comment on above: Order Comment: Speci men Type: BLOOD SPECIMEN Ordering Facility: [facility] Address: [address] [place] [address] [place] [address] Result Comment: [place] Diabetes Association guidelines indicate that patients with HgbA1c in the range 5.7-6.4% are at increased risk for development of diabetes, and intervention by lifestyle modification may be beneficial. HgbA1c greater or equal to 6.5% is considered diagnostic of diabetes. Performed By: #### 5 5454-3 #### [facility] CLIA [id number] [address] [place] [address] [place] Lipid 1996 panelon 4 Cholesterol [Mass/Vol] 181 mg/dL NINF - 200 mg/dL [facility] Comment on above: <200 mg/dL, Desirabl e 200-239 mg/dL, Borderline high >239 mg/dL, High Cholesterol in HDL [Mass/Vol] 56 mg/dL 39 - PINF mg/dL [facility] Comment on above: 40-59 mg/dL, Accepta ble >59 mg/dL, High: Negative risk factor for coronary heart disease <40 mg/dL, Low: Positive risk factor for coronary heart disease Cholesterol in LDL [Mass/Vol] 104 mg/dL High NINF - 100 mg/dL [facility] Comment on above: <100 mg/dL, Optimal 100-129 mg/dL, Near optimal/above optimal 130-159 mg/dL, Borderline high 160-189 mg/dL, High >189 mg/dL, Very high Secondary prevention optimal LDL Cholesterol levels are recommended to be < 70 mg/dL Cholesterol in LDL/Cholesterol in HDL [Mass ratio] 1.86 {ratio} NINF - 2.54 [facility] Comment on above: Reference: 1. National Cholesterol Education Program ATP III Guideline At-A-Glance Quick Desk Reference: National Heart, Lung, and Blood [place]. National Institutes of Health. 2001: NIH Publication No. 01-3305. 2. An International Atherosclerosis Society position paper: global recommendations for the management of dyslipidemia: executive summary, Atherosclerosis. 2014: 232(2):410-413. Cholesterol in VLDL [Mass/Vol] 21 mg/dL NINF - 30 mg/dL [facility] Cholesterol non HDL [Mass/Vol] 125 mg/dL NINF - 130 mg/dL [facility] Comment on above: <130 mg/dL, Optimal 130-159 mg/dL, Near optimal/above optimal 160-189 mg/dL, Borderline high 190-219 mg/dL, High >219 mg/dL, Very high Secondary prevention optimal non HDL Cholesterol levels are recommended to be <100 mg/dL Cholesterol.total/Annalise sterol in HDL [Mass ratio] 3.23 {ratio} NINF - 5.10 [facility] Fasting Time 4 hrs [facility] Interpretation and review of laboratory results Abnormal [facility] Triglyceride [Mass/Vol] 104 mg/dL NINF - 150 mg/dL [facility] Comment on above: <150 mg/dL, Normal 150-199 mg/dL, Borderline high 200-499 mg/dL, High >499 mg/dL, Very high [facility] Cholesterol [Mass/Vol] 181 mg/dL Normal <200 [facility] Comment on above: Order Comment: Ada anne Type: BLOOD SPECIMEN Ordering Facility: [facility] Address: [address] [place] [address] Result Comment: <200 mg/dL, Desirable 200-239 mg/dL, Borderline high >239 mg/dL, High Performed By: #### 3 016-3, 90520-5 #### [facility] CLIA [id number] [address] OF [facility] Cholesterol in HDL [Mass/Vol] 56 mg/dL Normal >39 [facility] Comment on above: Order Comment: Ada anne Type: BLOOD SPECIMEN Ordering Facility: [facility] Address: [address] [place] [address] Result Comment: 40-5 9 mg/dL, Acceptable >59 mg/dL, High: Negative risk factor for coronary heart disease <40 mg/dL, Low: Positive risk factor for coronary heart disease Performed By: #### 3 016-3, 68147-4 #### [facility] CLIA [id number] [address] [place] Cholesterol in LDL [Mass/Vol] 104 mg/dL High <100 [facility] Comment on above: Order Comment: Ada anne Type: BLOOD SPECIMEN Ordering Facility: [facility] Address: [address] [place] [address] Result Comment: <100 mg/dL, Optimal 100-129 mg/dL, Near optimal/above optimal 130-159 mg/dL, Borderline high 160-189 mg/dL, High >189 mg/dL, Very high Secondary prevention optimal LDL Cholesterol levels are recommended to be < 70 mg/dL Performed By: #### 3 -, 23463-0 #### [facility] CLIA [id number] [address] Cholesterol in LDL/Cholesterol in HDL [Mass ratio] 1.86 {ratio} Normal <2.54 [facility] Comment on above: Order Comment: Ada nane Type: BLOOD SPECIMEN Ordering Facility: [facility] Address: [address] [place] [address] Result Comment: Refe rence: 1. National Cholesterol Education Program ATP III Guideline At-A-Glance Quick Desk Reference: National Heart, Lung, and Blood [place]. National Institutes of Health. 2001: NIH Publication No. 01-3305. 2. An International Atherosclerosis Society position paper: global recommendations for the management of dyslipidemia: executive summary, Atherosclerosis. 2014: 232(2):410-413. Performed By: #### 3 , 40043-7 #### [facility] CLIA [id number] [address] STATES [facility] Cholesterol in VLDL [Mass/Vol] 21 mg/dL Normal <30 [facility] Comment on above: Order Comment: Ada omid Type: BLOOD SPECIMEN Ordering Facility: [facility] Address: [address] [place] [address] Performed By: #### 3 016-3, 20067-7 #### [facility] CLIA [id number] [address] [place] Cholesterol non HDL [Mass/Vol] 125 mg/dL Normal <130 [facility] Comment on above: Order Comment: Mollydenis anne Type: BLOOD SPECIMEN Ordering Facility: [facility] Address: [address] [place] [address] Result Comment: <130 mg/dL, Optimal 130-159 mg/dL, Near optimal/above optimal 160-189 mg/dL, Borderline high 190-219 mg/dL, High >219 mg/dL, Very high Secondary prevention optimal non HDL Cholesterol levels are recommended to be <100 mg/dL Performed By: #### 3 016-3, 67690-7 #### [facility] CLIA [id number] [address] Cholesterol.total/Annalise sterol in HDL [Mass ratio] 3.23 {ratio} Normal <5.10 [facility] Comment on above: Order Comment: Ada omid Type: BLOOD SPECIMEN Ordering Facility: [facility] Address: [address] [place] [address] Performed By: #### 3 016-3, 76835-8 #### [facility] CLIA [id number] [address] FASTING TIME 4 hrs Normal [facility] Comment on above: Order Comment: Ada omid Type: BLOOD SPECIMEN Ordering Facility: [facility] Address: [address] [place] [address] Performed By: #### 3 016-3, 60437-4 #### [facility] CLIA [id number] [address] Triglyceride [Mass/Vol] 104 mg/dL Normal <150 [facility] Comment on above: Order Comment: Ada anne Type: BLOOD SPECIMEN Ordering Facility: [facility] Address: [address] [place] [address] Result Comment: <150 mg/dL, Normal 150-199 mg/dL, Borderline high 200-499 mg/dL, High >499 mg/dL, Very high Performed By: #### 3 016-3, 74919-1 #### [facility] CLIA [id number] [address] PT panel Coag (PPP)on 2023 INR Coag (PPP) [Relative time] 1.1 {INR} 0.9 - 1.3 [facility] Comment on above: Vitamin K Antagonist (VKA) Therapeutic Range: INR 2 to 3 (Target INR of 2.5) Note: For patients treated with VKA drugs, such as warfarin, the [employer] 2012 Guideline recommends [...] to 3.5 (target INR of 3). Christie REDDING et al. Chest 2012, 141:7S-47S Viktor RILEY, et al. [facility] 2017, 70: 252-289 Interpretation and review of laboratory results Normal [facility] PT Coag (PPP) [Time] 11.4 s [facility] INR Coag (PPP) [Relative time] 1.1 {INR} Normal 0.9-1.3 [facility] Comment on above: Order Comment: Speci men Type: BLOOD SPECIMEN Ordering Facility: [facility] Address: [address] [place], [place] [id number] Result Comment: Abi min K Antagonist (VKA) Therapeutic Range: INR 2 to 3 (Target INR of 2.5) Note: For patients treated with VKA drugs, such as warfarin, the [employer] 2012 Guideline recommends [...] 2.5 to 3.5 (target INR of 3). Guyatt GH, et al. Chest 2012, 141:7S-47S Viktor RA, et al. [facility] 2017, 70: 252-289 Performed By: #### 3 4528-0 #### [facility] CLIA [id number] [address] [place] [address] [place] PT Coag (PPP) [Time] 11.4 s Normal 9.7-13.0 [facility] Comment on above: Order Comment: Speci men Type: BLOOD SPECIMEN Ordering Facility: [facility] Address: [address] [place] [address] Performed By: #### 3 4528-0 #### [facility] CLIA [id number] [address] [place] THYROID STIMULATING HORMONEo n 07-14-2023 TSH Qn 7.770 m[IU]/L High [facility] TSH Qnon 07-14-2023 Interpretation and review of laboratory results Abnormal [facility] TSH SerPl-aCncon 07-14-2023 TSH Qn 7.770 m[IU]/L High 0.270-4.200 [facility] Comment on above: Order Comment: Speci men Type: BLOOD SPECIMEN Ordering Facility: [facility] Address: [address] [place] [address] Performed By: #### 3 016-3, 76864-2 #### [facility] CLIA [id number] [address] [place] [address] [place] Glycosylated Hemoglobinon Glycosylated Hemoglobin 7.2 % High 4.4-5.6 M [facility] Comment on above: Order Comment: Is th is for the Diabetic ED Research Study No Hemoglobin A1c Nurse Monitor? N Diagnosis/Reason for Test: Type 2 diabetes mellitus without complications Comments: 1 sample(s), Collect by: Lab. Comments: 1 sample(s), Collect by: Lab., When: in 3 months Result Comment: PRE- DIABETES 5.7-6.4 DIABETES > OR = 6.5 Performed By: #### G H #### [facility] [address] [place] [address] , Brannon Mckeon M.D. [facility], FASCP T4-Freeon 04-16-2023 Free T4 [Mass/Vol] 1.49 ng/dL Normal 0.93-1.70 [facility] Comment on above: Order Comment: Nurse Monitor? N Diagnosis/Reason for Test: Hypothyroidism, unspecified Comments: 1 sample(s), Collect by: Collected. TSH Comments: 1 sample(s), Collect by: Collected., When: Urgent (within 24 hours) Performed By: #### T SH #### [facility] [address] [place] [address] , Jeffry Stokes, FASCP Thyroid Stimulating Hormoneo n 04-16-2023 Thyroid Stimulating Hormone 0.5010 uIU/mL Normal 0.270-4.200 [facility] Comment on above: Order Comment: Nurse Monitor? N Diagnosis/Reason for Test: Hypothyroidism, unspecified Comments: 1 sample(s), Collect by: Collected. TSH Comments: 1 sample(s), Collect by: Collected., When: Urgent (within 24 hours) Performed By: #### T SH #### [facility] [address] [place] [address] , Jeffry Stokes, FASCP Group A Strep NAATon 023 Group A Strep NAAT S pyo DNA Throat Ql CHELSEY+probe: GAS NOT DETECTED NEGATIVE for: Group A Strep by NAAT Note: Negative results should be followed up with a CULTURE for patients when clinical symptoms persist or during an outbreak of Acute Rheumatic Fever. Normal [facility] Comment on above: Performed By: #### G #### [facility] [address] [place] [address] , Jeffry Stokes, FASCP Streptococcus group A nuclei c acid amplified probeOrdered By: MICHELLE CAMACHO on 01-28-2023 S. pyogenes DNA CHELSEY+probe Ql (Throat) [facility] Glycosylated Hemoglobinon Glycosylated Hemoglobin 14.1 % High 4.4-5.6 M [facility] Comment on above: Order Comment: Is th is for the Diabetic ED Research Study No Hemoglobin A1c Nurse Monitor? N Diagnosis/Reason for Test: Type 2 diabetes mellitus without complications Comments: 1 sample(s), Collect by: Collected. Comments: 1 sample(s), Collect by: Collected., When: Urgent (within 24 hours) Result Comment: PRE- DIABETES 5.7-6.4 DIABETES > OR = 6.5 Performed By: #### G H #### [facility] [address], [place] [id number] , Brannon Mckeon M.D. [employer], FASCP HbA1c HPLC (Bld) [Mass fract ion]Ordered By: LUCAS GRECO on 01-14-2023 HbA1c (Bld) [Mass fraction] 14.1 % High 4.4-5.6 [facility] Comment on above: PRE-DIABETES 5.7-6.4 DIABETES > OR = 6.5 TSH ser/plasOrdered By: LUCAS GRECO on 01-14-2023 TSH Qn 0.0420 uIU/mL Low 0.270-4.200 [facility] Thyroid Stimulating Hormoneo n 01-14-2023 Thyroid Stimulating Hormone 0.0420 uIU/mL Low 0.270-4.200 [facility] Comment on above: Order Comment: Nurse Monitor? N Diagnosis/Reason for Test: Hypothyroidism, unspecified Comments: 1 sample(s), Collect by: Collected. TSH Comments: 1 sample(s), Collect by: Collected., When: Urgent (within 24 hours) Performed By: #### T SH #### [facility] [address] [place], [place] [id number] , Brannon Mckeon M.D. [employer], FASCP Alanine aminotransferase [En zymatic activity/volume] in Serum or PlasmaOrdered By: OMAR VERGARA on 01-12-2023 ALT [Catalytic activity/Vol] 13 U/L 10-35 [facility] Bacteria [Presence] in Urine by AutomatedOrdered By: OMAR VERGARA on 01-12-2023 Bacteria Auto Ql (U) Not performed [facility] Base excessOrdered By: CAMRON VERGARA on 01-12-2023 Base excess Calc (BldV) [Moles/Vol] 0 mmol/L -3-3 [facility] Basophils Auto (Bld) [#/Vol] Ordered By: OMAR VERGARA on 01-12-2023 Basophils (Bld) [#/Vol] 0.06 10*3/uL 0.0-0.2 [facility] Basophils/100 WBC Auto (Bld) Ordered By: OMAR VERGARA on 01-12-2023 Basophils/100 WBC (Bld) 0.9 % 0-1.0 M [facility] Beta Hydroxybutyrateon 01-12 Beta Hydroxybutyrate < 0.18 Normal 0.00-0.30 [facility] Comment on above: Result Comment: Less than measurable range. Normal: 0.00-0.30 mM/L Ketosis: > 0.30 mM/L Possible ketoacidosis: > 3.00 mM/L Performed By: #### T SH #### [facility] [address] [place] [address] , Brannon Mckeon M.D. [employer], FASCP Beta hydroxybutyrate [Moles/ volume] in Serum or PlasmaOrdered By: OMAR VERGARA on 01-12-2023 Beta hydroxybutyrate [Moles/Vol] < 0.18 mM/L 0.00-0.30 [facility] Comment on above: Less than measurable range.Normal: 0.00-0.30 mM/LKetosis: > 0.30 mM/LPossible ketoacidosis: > 3.00 mM/L Bilirubin Auto test strip (U ) [Mass/Vol]Ordered By: OMAR VERGARA on 01-12-2023 Bilirubin (U) [Mass/Vol] Negative NEGATIVE [facility] Blood Glucose Meteron 2022 Glucose [Mass/Vol] 300 mg/dL High 70-100 [facility] Comment on above: Performed By: #### A CC #### [facility] [address] [place] [address] , Brannon Mckeon M.D. [employer], FASCP Glucose [Mass/Vol] 436 mg/dL Critically high 70-100 M [facility] Comment on above: Performed By: #### T SH #### [facility] [address] [facility], [place] [id number] , Brannon Mckeon M.D. [employer], FASCP Blood hemoglobin measurement (mass/volume)Ordered By: OMAR VERGARA on 01-12-2023 Hemoglobin (Bld) [Mass/Vol] 13.2 g/dL 11.7-15.7 [facility] Blood lipase measurementOrde red By: OMAR VERGARA on 01-12-2023 Lipase [Catalytic activity/Vol] 44 U/L 13-60 [facility] CBC With Differentialon 11-0 Basophils Absolute Auto 0.06 10*3/uL Normal 0.0-0.2 [facility] Comment on above: Performed By: #### T SH #### [facility] [address] [place] [address], [place] [id number] , Brannon Mckeon M.D. [employer], FASCP Basophils/100 WBC (Bld) 0.9 % Normal 0-1.0 [facility] Comment on above: Performed By: #### T SH #### [address], [place] [id number] , Brannon Mckeon M.D. [employer], FASCP Differential Type? Auto Differential Normal [facility] Comment on above: Performed By: #### T SH #### [facility] [address] [facility], [place] [id number] , Brannon Mckeon M.D. [employer], FASCP Eosinophils (Bld) [#/Vol] 0.07 10*3/uL Normal 0.0-0.5 [facility] Comment on above: Performed By: #### T SH #### [facility] [address] [place] [address], [place] [id number] , Brannon Mckeon M.D. [employer], FASCP Eosinophils/100 WBC (Bld) 1.0 % Normal 0.0-3.0 [facility] Comment on above: Performed By: #### T SH #### [address] [id number] , Brannon Mckeon M.D. [employer], FASCP Hematocrit (Bld) [Volume fraction] 40.5 % Normal 35.0-47.0 [facility] Comment on above: Performed By: #### T SH #### [address] [id number] , Brannon Mckeon M.D. [employer], FASCP Hemoglobin (Bld) [Mass/Vol] 13.2 g/dL Normal 11.7-15.7 [facility] Comment on above: Performed By: #### T SH #### [address] [id number] , Brannon Mckeon M.D. [employer], FASCP Immature Gran Absolute Auto 0.02 10*3/uL Normal 0.01-0.2 [facility] Comment on above: Performed By: #### T SH #### [address] [id number] , Brannon Mckeon M.D. [employer], FASCP Immature granulocytes/100 WBC (Bld) 0.3 % Normal 0-0.9 [facility] Comment on above: Performed By: #### T SH #### [address] [id number] , Brannon Mckeon M.D. [employer], FASCP Lymphocytes (Bld) [#/Vol] 2.41 10*3/uL Normal 1.5-4.0 [facility] Comment on above: Performed By: #### T SH #### [address] [id number] , Brannon Mckeon M.D. [employer], FASCP Lymphocytes/100 WBC (Bld) 35.4 % Normal 20.0-40.0 [facility] Comment on above: Performed By: #### T SH #### [address] [place] [address] , Brannon Mckeon M.D. [employer], FASCP MCH (RBC) [Entitic mass] 29.6 pg Normal 27.0-40.0 [facility] Comment on above: Performed By: #### T SH #### [address] [address] , Brannon Mckeon M.D. [employer], FASCP Mean Corpusc Hgb Concentration 32.6 g/dL Normal 31.0-36.0 [facility] Comment on above: Performed By: #### T SH #### [address] [id number] , Brannon Mckeon M.D. [employer], FASCP Mean Corpuscular Volume 90.8 CU uM Normal 80.0-100.0 [facility] Comment on above: Performed By: #### T SH #### [address] [id number] , Brannon Mckeon M.D. [employer], FASCP Monocytes (Bld) [#/Vol] 0.50 10*3/uL Normal 0.2-0.8 [facility] Comment on above: Performed By: #### T SH #### [address] [address] , Brannon Mckeon M.D. FC[employer], FASCP Monocytes/100 WBC (Bld) 7.4 % Normal 4.0-10.0 [facility] Comment on above: Performed By: #### T SH #### [address] [place] [address] , Brannon Mckeon M.D. [employer], FASCP Neutrophils Absolute Auto 3.74 10*3/uL Normal 2.0-7.0 [facility] Comment on above: Performed By: #### T SH #### [address] [address] , Brannon Mckeon M.D. [employer], FASCP Neutrophils/100 WBC (Bld) 55.0 % Normal 54.0-62.0 [facility] Comment on above: Performed By: #### T SH #### [address] [place] [address] , Brannon Mckeon M.D. [employer], FASCP Nucleated RBC (Bld) [#/Vol] 0.00 10*3/uL Normal -0 [facility] Comment on above: Performed By: #### T SH #### [address] [place] [address] , Brannon Mckeon M.D. [employer], FASCP Nucleated RBC's % 0.0 /100WBC Normal -0 [facility] Comment on above: Performed By: #### T SH #### [address] [place] [address] , Brannon Mckeon M.D. FC[employer], FASCP Platelets (Bld) [#/Vol] 187 10*3/uL Normal 130-440 [facility] Comment on above: Performed By: #### T SH #### [address] [place] [address] , Brannon Mckeon M.D. FC[employer], FASCP RBC (Bld) [#/Vol] 4.46 10*6/uL Normal 3.80-5.20 [facility] Comment on above: Performed By: #### T SH #### [facility] [address] [facility], [place] [id number] , Brannon Mckeon M.D. FC[employer], FASCP Red Cell Distribution 13.1 Normal 11.5-14.5 [facility] Comment on above: Performed By: #### T SH #### [facility] [address] [facility], [place] [address] , Brannon Mckeon M.D. FCAP, FASCP WBC (Bld) [#/Vol] 6.8 10*3/uL Normal 3.5-11.0 [facility] Comment on above: Performed By: #### T SH #### [address] [id number] , Brannon Mckeon M.D. FC[employer], FASCP Casts [#/area] in Urine sedi ment by Microscopy low power fieldOrdered By: OMAR VERGARA on 01-12-2023 Casts LM.LPF (Urine sed) [#/Area] Not performed [facility] Comprehensive Metabolic Pane betty 01-12-2023 Albumin [Mass/Vol] 3.9 g/dL Low 4.0-4.9 [facility] Comment on above: Performed By: #### T SH #### [address] [id number] , Brannon Mckeon M.D. [employer], FASCP ALP [Catalytic activity/Vol] 106 U/L High 35-104 [facility] Comment on above: Performed By: #### T SH #### [address] [id number] , Brannon Mckeon M.D. [employer], FASCP ALT [Catalytic activity/Vol] 13 U/L Normal 10-35 [facility] Comment on above: Performed By: #### T SH #### [facility] [address] [place], [place] [address] , Jeffry StokesAP, FASCP Anion gap [Moles/Vol] 12 mmol/L Normal 9-15 [facility] Comment on above: Performed By: #### T SH #### [address] [place] [address] , Brannon Mckeon M.D. [employer], FASCP AST [Catalytic activity/Vol] 17 U/L Normal 10-35 [facility] Comment on above: Performed By: #### T SH #### [address] [place] [address] , Brannon Mckeon M.D. [employer], FASCP Bilirubin [Mass/Vol] 0.2 mg/dL Normal 0.2-1.2 [facility] Comment on above: Performed By: #### T SH #### [address] [place] [address] , Jeffry StokesAP, FASCP Calcium [Mass/Vol] 9.6 mg/dL Normal 8.6-10.0 [facility] Comment on above: Performed By: #### T SH #### [address] [place] [address] , Jeffry StokesAP, FASCP Chloride [Moles/Vol] 103 mmol/L Normal 98-107 [facility] Comment on above: Performed By: #### T SH #### [address] [place] [address] , Brannon Mckeon M.D. [employer], FASCP CO2 [Moles/Vol] 24 mmol/L Normal 22-29 [facility] Comment on above: Performed By: #### T SH #### [address] [place] [address] , Jeffry Stokes, FASCP Creatinine [Mass/Vol] 0.64 mg/dL Normal 0.51-0.95 [facility] Comment on above: Performed By: #### T SH #### [facility] [address] [place] [address] , Brannon Mckeon M.D. [employer], FASCP GFR/1.73 sq M.predicted among non-blacks MDRD (S/P/Bld) [Vol rate/Area] mL/min/{1.73_m2} Normal [facility] Comment on above: Result Comment: THE GFR IS ESTIMATED USING THE MDRD STUDY EQUATION. *NOTE* IF THE RACE OF THE PATIENT WAS UNKNOWN AT THE TIME OF REGISTRATION, AND THE PATIENT IS , MULTIPLY THE EGFR RESULT PROVIDED BY 1.21. NORMAL: EGFR >60.0 Performed By: #### T SH #### [address] [address] , Jeffry StokesAP, FASCP Glucose [Mass/Vol] 434 mg/dL Critically high 70-100 [facility] Comment on above: Result Comment: Darian [...] REPORT Performed By: #### T SH #### [address] [address] , Brannon Mckeon M.D. FC[employer], FASCP Potassium [Moles/Vol] 3.6 mmol/L Normal 3.6-5.0 [facility] Comment on above: Performed By: #### T SH #### [address] [id number] , Brannon Mckeon M.D. FC[employer], FASCP Protein [Mass/Vol] 6.9 g/dL Normal 6.4-8.3 [facility] Comment on above: Performed By: #### T SH #### [facility] [address], [place] [id number] , Brannon Mckeon M.D. FCAP, FASCP Sodium [Moles/Vol] 139 mmol/L Normal 136-145 [facility] Comment on above: Performed By: #### T SH #### [facility] [address] [place] [address] , Brannon Mckeon M.D. [employer], FASCP Urea nitrogen [Mass/Vol] 9.0 mg/dL Normal 6.0-20.0 [facility] Comment on above: Performed By: #### T SH #### [facility] [address] [place], [place] [id number] , Brannon Mckeon M.D. FC[employer], FASCP Differential cell count meth od - BloodOrdered By: OMAR VERGARA on 01-12-2023 Differential cell count method Nom (Bld) Auto differential [facility] Eosinophils Auto (Bld) [#/Vo l]Ordered By: OMAR VERGARA on 01-12-2023 Eosinophils (Bld) [#/Vol] 0.07 10*3/uL 0.0-0.5 [facility] Eosinophils/100 WBC Auto (Bl d)Ordered By: OMAR VERGARA on 01-12-2023 Eosinophils/100 WBC (Bld) 1.0 % 0.0-3.0 [facility] Epithelial cells [#/area] in Urine sediment by Automated countOrdered By: OMAR VERGARA on 01-12-2023 Epithelial cells Auto (Urine sed) [#/Area] Not performed [facility] Erythrocyte distribution wid th Auto (RBC) [Ratio]Ordered By: OMAR VERGARA on 01-12-2023 Erythrocyte distribution width (RBC) [Ratio] 13.1 % 11.5-14.5 [facility] Erythrocytes [#/area] in Uri ne sediment by Automated countOrdered By: OMAR VERGARA on 01-12-2023 RBC Auto (Urine sed) [#/Area] Not performed [facility] Glomerular filtration rate/1 .73 sq M.predicted [Volume Rate/Area] in Serum, Plasma orOrdered By: OMAR VERGARA on 01-12-2023 GFR/1.73 sq M.predicted (S/P/Bld) [Vol rate/Area] mL/min [facility] Comment on above: NORMAL: EGFR >60.0TH E GFR IS ESTIMATED USING THE MDRD STUDY EQUATION.*NOTE* IF THE RACE OF THE PATIENT WAS UNKNOWN AT THE TIME OFREGISTRATION, AND THE PATIENT IS , MULTIPLYTHE EGFR RESULT PROVIDED BY 1.21. Glucose (Bld) [Mass/Vol]Orde red By: OMAR VERGARA on 01-12-2023 Glucose [Mass/Vol] 300 mg/dL High 70-100 [facility] Comment on above: Delta: 436 on -1826 HCO3 (BldV) [Moles/Vol]Order ed By: OMAR VERGARA on 01-12-2023 HCO3 (Bld) [Moles/Vol] 25 mmol/L 22-27 [facility] Hematocrit Auto (Bld) [Volum e fraction]Ordered By: OMAR VERGARA on 01-12-2023 Hematocrit (Bld) [Volume fraction] 40.5 % 35.0-47.0 [facility] Immature granulocytes Auto ( Bld) [#/Vol]Ordered By: OMAR VERGARA on 01-12-2023 Immature granulocytes (Bld) [#/Vol] 0.02 10*3/uL 0.01-0.2 [facility] Immature granulocytes/100 WB C Auto (Bld)Ordered By: OMAR VERGARA on 01-12-2023 Immature granulocytes/100 WBC (Bld) 0.3 % 0-0.9 [facility] Ketones Auto test strip (U) [Mass/Vol]Ordered By: OMAR VERGARA on 01-12-2023 Ketones (U) [Mass/Vol] Negative NEGATIVE [facility] Leukocytes [#/area] in Urine sediment by Automated countOrdered By: OMAR VERGARA on 01-12-2023 WBC Auto (Urine sed) [#/Area] Not performed [facility] Lipase Bloodon 01-12-2023 Lipase Blood 44 U/L Normal 13-60 [facility] Comment on above: Performed By: #### T SH #### [facility] [address] [place] [address] , Brannon Mckeon M.D. [employer], FASCP Lymphocytes Auto (Bld) [#/Vo l]Ordered By: OMAR VERGARA on 01-12-2023 Lymphocytes (Bld) [#/Vol] 2.41 10*3/uL 1.5-4.0 [facility] Lymphocytes/100 WBC Auto (Bl d)Ordered By: OMAR VERGARA on 01-12-2023 Lymphocytes/100 WBC (Bld) 35.4 % 20.0-40.0 [facility] MCH Auto (RBC) [Entitic mass ]Ordered By: OMAR VERGARA on 01-12-2023 MCH (RBC) [Entitic mass] 29.6 pg 27-40 [facility] MCHC Auto (RBC) [Mass/Vol]Or dered By: OMAR VERGARA on 01-12-2023 MCHC (RBC) [Mass/Vol] 32.6 g/dL 31-36 [facility] MCV Auto (RBC) [Entitic vol] Ordered By: OMAR VERGARA on 01-12-2023 MCV (RBC) [Entitic vol] 90.8 CU uM 80.0-100.0 [facility] Magnesium Bloodon 01-12-2023 Magnesium [Mass/Vol] 2.0 mg/dL Normal 1.6-2.6 [facility] Comment on above: Performed By: #### T SH #### [facility] [address] [place] [address] , Brannon Mckeon M.D. [employer], FASCP Monocytes Auto (Bld) [#/Vol] Ordered By: OMAR VERGARA on 01-12-2023 Monocytes (Bld) [#/Vol] 0.50 10*3/uL 0.2-0.8 [facility] Monocytes/100 WBC Auto (Bld) Ordered By: OMAR VERGARA on 01-12-2023 Monocytes/100 WBC (Bld) 7.4 % 4.0-10.0 M [facility] Neutrophils Auto (Bld) [#/Vo l]Ordered By: OMAR VERGARA on 01-12-2023 Neutrophils (Bld) [#/Vol] 3.74 10*3/uL 2.0-7.0 [facility] Neutrophils/100 WBC Auto (Bl d)Ordered By: OMAR VERGARA on 01-12-2023 Neutrophils/100 WBC (Bld) 55.0 % 54.0-62.0 [facility] No Panel InformationOrdered By: OMAR VERGARA on 01-12-2023 Blood Gas Notified Time 01/12/2023 6:35:57 pm [facility] Specimen Drawn By (Blood Gas) Rachel wei [facility] Nucleated RBC Auto (Bld) [#/ Vol]Ordered By: OMAR VERGARA on 01-12-2023 Nucleated RBC (Bld) [#/Vol] 0.00 10*3/uL <0 [facility] Nucleated RBC/100 WBC Auto ( Bld) [Ratio]Ordered By: OMAR VERGARA on 01-12-2023 Nucleated RBC/100 WBC (Bld) [Ratio] 0.0 /100WBC <0 [facility] PCO2 venousOrdered By: CAMRON VERGARA on 01-12-2023 CO2 (BldV) [Partial pressure] 43 mm[Hg] 40-52 [facility] PO2 venousOrdered By: OMAR VERGARA on 01-12-2023 Oxygen (BldV) [Partial pressure] 31 mm[Hg] 30-40 [facility] Platelets Auto (Bld) [#/Vol] Ordered By: OMAR VERGARA on 01-12-2023 Platelets (Bld) [#/Vol] 187 10*3/uL 130-440 [facility] Protein Auto test strip (U) [Mass/Vol]Ordered By: OMAR VERGARA on 01-12-2023 Protein (U) [Mass/Vol] Negative NEGATIVE [facility] RBC Auto (Bld) [#/Vol]Ordere d By: OMAR VERGARA on 01-12-2023 RBC (Bld) [#/Vol] 4.46 10*6/uL 3.80-5.20 [facility] Serum or plasma albumin morgan urement (mass/volume)Ordered By: OMAR VERGARA on 01-12-2023 Albumin [Mass/Vol] 3.9 g/dL Low 4.0-4.9 [facility] Serum or plasma alkaline fatemeh sphatase measurement (enzymatic activity/volume)Ordered By: OMAR VERGARA on 01-12-2023 ALP [Catalytic activity/Vol] 106 U/L High 35-104 [facility] Serum or plasma anion gapOrd ered By: OMAR VERGARA on 01-12-2023 Anion gap [Moles/Vol] 12 mmol/L 9-15 [facility] Serum or plasma aspartate am inotransferase measurement (enzymatic activity/volume)Ordered By: OMAR VERGARA on 01-12-2023 AST [Catalytic activity/Vol] 17 U/L 10-35 [facility] Serum or plasma calcium morgan urement (mass/volume)Ordered By: OMAR VERGARA on 01-12-2023 Calcium [Mass/Vol] 9.6 mg/dL 8.6-10.0 [facility] Serum or plasma carbon dioxi de, total measurement (moles/volume)Ordered By: OMAR VERGARA on 01-12-2023 CO2 [Moles/Vol] 24 mmol/L 22-29 [facility] Serum or plasma chloride sweta surement (moles/volume)Ordered By: OMAR VERGARA on 01-12-2023 Chloride [Moles/Vol] 103 mmol/L 98-107 [facility] Serum or plasma creatinine m easurement (mass/volume)Ordered By: OMAR VERGARA on 01-12-2023 Creatinine [Mass/Vol] 0.64 mg/dL 0.51-0.95 [facility] Serum or plasma glucose morgan urement (mass/volume)Ordered By: OMAR VERGARA on 01-12-2023 Glucose [Mass/Vol] 434 mg/dL High 70-100 [facility] Comment on above: Alert Value called cara LOCKHART, DATE: 2023-01-12 19:08:10 BY:kristina Read Back? YES ALERT VALUE ATTENTION NURSING ALERT VALUE NOTIFY PHYSICIAN WITHIN 30 MINUTES OF RECEIVING THIS REPORTINTREPRETATION FOR FASTING BLOOD GLUCOSE: 70-100 mg/dl NORMAL GLUCOSE DEWNXONIX290-587 mg/dl IMPAIRED FASTING GLUCOSE (PRE-DIABETES)>125 mg/dl DIABETES - ON MORE THAN ONE TESTING Serum or plasma magnesium me asurement (mass/volume)Ordered By: OMAR VERGARA on 01-12-2023 Magnesium [Mass/Vol] 2.0 mg/dL 1.6-2.6 [facility] Serum or plasma potassium me asurement (moles/volume)Ordered By: OMAR VERGARA on 01-12-2023 Potassium [Moles/Vol] 3.6 mmol/L 3.6-5.0 [facility] Serum or plasma protein morgan urement (mass/volume)Ordered By: OMAR VERGARA on 01-12-2023 Protein [Mass/Vol] 6.9 g/dL 6.4-8.3 [facility] Serum or plasma sodium measu rement (moles/volume)Ordered By: OMAR VERGARA on 01-12-2023 Sodium [Moles/Vol] 139 mmol/L 136-145 [facility] Serum or plasma urea nitroge n measurement (mass/volume)Ordered By: OMAR VERGARA on 01-12-2023 Urea nitrogen [Mass/Vol] 9.0 mg/dL 6.0-20.0 [facility] Serum total bilirubin measur ement (mass/volume)Ordered By: OMAR VERGARA on 01-12-2023 Bilirubin [Mass/Vol] 0.2 mg/dL 0.2-1.2 [facility] Specific gravity Auto test s trip (U) [Rel density]Ordered By: OMAR VERGARA on 01-12-2023 Specific gravity (U) [Rel density] > 1.035 High 1.005-1.035 [facility] Specimen typeOrdered By: ALLEN VERGARA on 01-12-2023 Specimen type Nom (Spec) Venous [facility] Urinalysis complete W Reflex Culture panel - UrineOrdered By: OMAR VERGARA on 01-12-2023 Urinalysis complete W Reflex Culture panel (U) Not performed [facility] Urinalysis with Reflex Cultu reon 01-12-2023 Specific gravity (U) [Rel density] > 1.035 High 1.005-1.035 [facility] Comment on above: Order Comment: Sourc e Of Urine Specimen? Clean Catch` Performed By: #### U REFLEX #### [facility] [address] [place] [id number] , Brannon Mckeon M.D. FCAP, FASCP Bilirubin Ql (U) Negative Normal NEGATIVE [facility] Comment on above: Order Comment: Sourc e Of Urine Specimen? Clean Catch` Performed By: #### U REFLEX #### [address] [id number] , Brannon Mckeon M.D. FCAP, FASCP Character Urine CLEAR Normal [facility] Comment on above: Order Comment: Sourc e Of Urine Specimen? Clean Catch` Performed By: #### U REFLEX #### [address] [id number] , Brannon Mckeon M.D. FCAP, FASCP Color (U) YELLOW Normal [facility] Comment on above: Order Comment: Sourc e Of Urine Specimen? Clean Catch` Performed By: #### U REFLEX #### [facility] [address] [place] [id number] , Brannon Mckeon M.D. FCAP, FASCP Glucose Ql (U) >=1000 Abnormal NEGATIVE [facility] Comment on above: Order Comment: Sourc e Of Urine Specimen? Clean Catch` Performed By: #### U REFLEX #### [facility] [address] [place] [address] , Brannon Mckeon M.D. FCAP, FASCP Hemoglobin Ql (U) Negative Normal NEGATIVE [facility] Comment on above: Order Comment: Sourc e Of Urine Specimen? Clean Catch` Performed By: #### U REFLEX #### [address] [id number] , Brannon Mckeon M.D. FCAP, FASCP Ketones Ql (U) Negative Normal NEGATIVE [facility] Comment on above: Order Comment: Sourc e Of Urine Specimen? Clean Catch` Performed By: #### U REFLEX #### [address] [id number] , Brannon Mckeon M.D. FCAP, FASCP Leukocyte esterase Test strip Ql (U) Negative Normal NEGATIVE [facility] Comment on above: Order Comment: Sourc e Of Urine Specimen? Clean Catch` Performed By: #### U REFLEX #### [address] [id number] , Brannon Mckeon M.D. FCAP, FASCP Nitrite Ql (U) Negative Normal NEGATIVE [facility] Comment on above: Order Comment: Sourc e Of Urine Specimen? Clean Catch` Performed By: #### U REFLEX #### [address] [id number] , Brannon Mckeon M.D. FCAP, FASCP pH (U) 6.5 [pH] Normal 5.0-8.5 [facility] Comment on above: Order Comment: Sourc e Of Urine Specimen? Clean Catch` Performed By: #### U REFLEX #### [address] [id number] , Brannon Mckeon M.D. FCAP, FASCP Protein Ql (U) Negative Normal NEGATIVE [facility] Comment on above: Order Comment: Sourc e Of Urine Specimen? Clean Catch` Performed By: #### U REFLEX #### [address] [id number] , Brannon Mckeon M.D. FCAP, FASCP Urobilinogen Qn (U) 0.2 {Emily'U}/dL Normal 0-1.0 [facility] Comment on above: Order Comment: Sourc e Of Urine Specimen? Clean Catch` Performed By: #### U REFLEX #### [facility] [address], [place] [id number] , Brannon Mckeon M.D. FCAP, FASCP Urine clarityOrdered By: ALLEN VERGARA on 01-12-2023 Clarity (U) Clear [facility] Urine colorOrdered By: CAMRON VERGARA on 01-12-2023 Color (U) Yellow [facility] Urine glucose measurement by automated test strip (mass/volume)Ordered By: OMAR VERGARA on 01-12-2023 Glucose Auto test strip (U) [Mass/Vol] >=1000 MG/DL High NEGATIVE [facility] Urine hemoglobin measurement by automated test strip (mass/volume)Ordered By: OMAR VERGARA on 01-12-2023 Hemoglobin Auto test strip (U) [Mass/Vol] Negative NEGATIVE [facility] Urine leukocyte esterase det ection by automated test stripOrdered By: OMAR VERGARA on 01-12-2023 Leukocyte esterase Auto test strip Ql (U) Negative NEGATIVE [facility] Urine nitrite detection by a utomated test stripOrdered By: OMAR VERGARA on 01-12-2023 Nitrite Auto test strip Ql (U) Negative NEGATIVE [facility] Urobilinogen Auto test strip (U) [Mass/Vol]Ordered By: OMAR VERGARA on 01-12-2023 Urobilinogen Qn (U) 0.2 {Emily'U}/dL 0-1.0 [facility] Venous Blood Gason 3 HCO3 (Bld) [Moles/Vol] 25 mmol/L Normal 22-27 [facility] Comment on above: Performed By: #### V BG #### [facility] [address] [place] [address] , Brannon J. Macatol, M.D. FCAP, FASCP Sample Type Venous Normal [facility] Comment on above: Performed By: #### V BG #### [address] [place] [address] , Brannon Mckeon M.D. FCAP, FASCP [employer] Rachel Wei Normal [facility] Comment on above: Performed By: #### V BG #### [address] [place] [address] , Brannon Mckeon M.D. FCAP, FASCP Time Notified 01/12/2023 6:35:57 PM Normal [facility] Comment on above: Performed By: #### V BG #### [address] [id number] , Brannon Mckeon M.D. FCAP, FASCP Venous Base Excess 0 Normal (-3)-(3) [facility] Comment on above: Performed By: #### V BG #### [address] [id number] , Jeffry StokesAP, FASCP Venous pCO2 43 mmHg Normal 40-52 [facility] Comment on above: Performed By: #### V BG #### [address] [place] [address] , Brannon Mckeon M.D. FCAP, FASCP Venous pH 7.38 Normal 7.31-7.41 [facility] Comment on above: Performed By: #### V BG #### [address] [place] [address] , Jeffry StokesAP, FASCP Venous pO2 31 mmHg Normal 30-40 [facility] Comment on above: Performed By: #### V BG #### [address] [place] [address] , Brannon Mckeon M.D. FCAP, FASCP Venous sO2 62.5 % Normal 60-85 [facility] Comment on above: Performed By: #### V BG #### [facility] [address] [place] [address] , Brannon Mckeon M.D. FCAP, FASCP Venous blood oxygen saturati on (mass fraction)Ordered By: MOAR VERGARA on 01-12-2023 Oxygen saturation in Venous blood 62.5 % 60-85 [facility] Venous blood pH measurementO rdered By: OMAR VERGARA on 01-12-2023 pH (BldV) 7.38 [pH] 7.31-7.41 [facility] WBC Auto (Bld) [#/Vol]Ordere d By: OMAR VERGARA on 01-12-2023 WBC (Bld) [#/Vol] 6.8 10*3/uL 3.5-11.0 [facility] pH Auto test strip (U)Ordere d By: OMAR VERGARA on 01-12-2023 pH (U) 6.5 [pH] 5.0-8.5 [facility] Glycosylated Hemoglobinon Glycosylated Hemoglobin 11.9 % High 4.4-5.6 M [facility] Comment on above: Order Comment: Is th is for the Diabetic ED Research Study No Hemoglobin A1c Nurse Monitor? N Diagnosis/Reason for Test: Hypothyroidism, unspecified Comments: 1 sample(s), Collect by: Collected. Comments: 1 sample(s), Collect by: Collected., When: ANGEL Result Comment: PRE- DIABETES 5.7-6.4 DIABETES > OR = 6.5 Performed By: #### G H #### [facility] [address] [place] [address] , Brannon Mckeon M.D. FCAP, FASCP HbA1c HPLC (Bld) [Mass fract ion]on 08-28-2022 HbA1c (Bld) [Mass fraction] 11.80356 % Invalid Interpretation Code 4.4 - 5.6 % [facility] Work Phone: Serum or plasma thyroxine (T 4) free measurement (mass/volume)Ordered By: LUCAS GRECO on 08-28-2022 Free T4 [Mass/Vol] 1.64 ng/dL 0.93-1.70 [facility] T4 Free SerPl-mCncon 023 Free T4 [Mass/Vol] 1.04127 ng/dL Normal 0.93 - 1 .70 ng/dL [facility] [place] Work [facility]: T4-Freeon 08-28-2022 Free T4 [Mass/Vol] 1.64 ng/dL Normal 0.93-1.70 [facility] Comment on above: Order Comment: Nurse Monitor? N Diagnosis/Reason for Test: Hypothyroidism, unspecified Comments: 1 sample(s), Collect by: Collected. Free T4 Comments: 1 sample(s), Collect by: Collected., When: ANGEL Nurse Monitor? N Diagnosis/Reason for Test: Hypothyroidism, unspecified Comments: 1 sample(s), Collect by: Collected. TSH Comments: 1 sample(s), Collect by: Collected., When: ANGEL Performed By: #### T SH, T4F #### [facility] [address] [place] [address] , Brannon Mckeon M.D. FCAP, FASCP TSH SerPl-aCncon 08-28-2022 TSH Qn 0.55707 uIU/mL Invalid Interpretation Code 0.270 - 4.200 uIU/mL [facility] [place] Work Phone: TSH ser/plasOrdered By: LUCAS GRECO on 08-28-2022 TSH Qn 0.1770 uIU/mL Low 0.270-4.200 [facility] Thyroid Stimulating Hormoneo n 08-28-2022 Thyroid Stimulating Hormone 0.1770 uIU/mL Low 0.270-4.200 [facility] Comment on above: Order Comment: Nurse Monitor? N Diagnosis/Reason for Test: Hypothyroidism, unspecified Comments: 1 sample(s), Collect by: Collected. Free T4 Comments: 1 sample(s), Collect by: Collected., When: ANGEL Nurse Monitor? N Diagnosis/Reason for Test: Hypothyroidism, unspecified Comments: 1 sample(s), Collect by: Collected. TSH Comments: 1 sample(s), Collect by: Collected., When: ANGEL Performed By: #### T SH, T4F #### [facility] [address] [place] [address] , Brannon Mckeon M.D. FCAP, FASCP HbA1c HPLC (Bld) [Mass fract ion]Ordered By: LUCAS GRECO on 04-22-2022 HbA1c (Bld) [Mass fraction] 7.9 % High 4.4-5.6 [facility] Comment on above: PRE-DIABETES 5.7-6.4 DIABETES > OR = 6.5 TSH ser/plasOrdered By: LUCAS GRECO on 02-04-2022 TSH Qn 2.3400 uIU/mL 0.270-4.200 [facility] Serum or plasma thyroxine (T 4) free measurement (mass/volume)Ordered By: LUCAS GRECO on 01-20-2022 Free T4 [Mass/Vol] 0.63 ng/dL Low 0.93-1.70 [facility] TSH ser/plasOrdered By: LUCAS GRECO on 01-20-2022 TSH Qn 75.2000 uIU/mL High 0.270-4.200 [facility] Absolute immature granulocyt e countOrdered By: LUCAS GRECO on 12-20-2021 Immature granulocytes (Bld) [#/Vol] 0.03 10:3/uL 0.01-0.2 [facility] Absolute lymphocyte countOrd ered By: LUCAS GRECO on 12-20-2021 Lymphocytes Auto (Unsp spec) [#/Vol] 2.61 10:3/uL 1.5-4.0 [facility] Alanine aminotransferase [En zymatic activity/volume] in Serum or PlasmaOrdered By: LUCAS GRECO on 12-20-2021 ALT [Catalytic activity/Vol] 18 U/L 10-35 [facility] Blood basophils count (numbe r/volume)Ordered By: LUCAS GRECO on 12-20-2021 Basophils (Bld) [#/Vol] 0.08 10:3/uL 0.0-0.2 [facility] Blood eosinophils count (num myra/volume)Ordered By: LUCAS GRECO on 12-20-2021 Eosinophils (Bld) [#/Vol] 0.17 10:3/uL 0.0-0.5 [facility] Blood erythrocytes count (nu mber/volume)Ordered By: LUCAS GRECO on 12-20-2021 RBC (Bld) [#/Vol] 4.32 10:6/uL 3.80-5.20 [facility] Blood hemoglobin measurement (mass/volume)Ordered By: LUCAS GRECO on 12-20-2021 Hemoglobin (Bld) [Mass/Vol] 12.8 g/dL 11.7-15.7 [facility] Blood leukocytes count (numb er/volume)Ordered By: LUCAS GRECO on 12-20-2021 WBC (Bld) [#/Vol] 8.9 10:3/uL 3.5-11.0 [facility] Blood nucleated erythrocytes count (number/volume)Ordered By: LUCAS GRECO on 12-20-2021 Nucleated RBC (Bld) [#/Vol] 0.00 10:3/uL <0 [facility] Blood platelet countOrdered By: LUCAS GRECO on 12-20-2021 Platelets (Bld) [#/Vol] 222 10:3/uL 130-440 [facility] Complete blood count (CBC) w ith reflex manual white blood cell differentialOrdered By: LUCAS GRECO on 12-20-2021 CBC W Reflex Manual Differential panel (Bld) No [facility] Determination of erythrocyte mean corpuscular volume (MCV)Ordered By: LUCAS GRECO on 12-20-2021 MCV (RBC) [Entitic vol] 92.8 CU uM 80.0-100.0 M [facility] Erythrocyte distribution wid th standard deviationOrdered By: LUCAS GRECO on 12-20-2021 Erythrocyte distribution width (RBC) [Entitic vol] 13.2 fL 11.5-14.5 [facility] Erythrocyte mean corpuscular hemoglobin concentration measurement (mass/volume)Ordered By: LUCAS GRECO on 12-20-2021 MCHC (RBC) [Mass/Vol] 31.9 g/dL 31-36 [facility] HbA1c HPLC (Bld) [Mass fract ion]Ordered By: LUCAS GRECO on 12-20-2021 HbA1c (Bld) [Mass fraction] 8.1 % High 4.4-5.6 [facility] Comment on above: PRE-DIABETES 5.7-6.4 DIABETES > OR = 6.5 Hematocrit Auto (Bld) [Volum e fraction]Ordered By: LUCAS GRECO on 12-20-2021 Hematocrit (Bld) [Volume fraction] 40.1 % 35.0-47.0 [facility] Immature granulocytes/100 WB C Auto (Bld)Ordered By: LUCSA GRECO on 12-20-2021 Immature granulocytes/100 WBC (Bld) 0.3 % 0-0.9 [facility] - Chemistry and C hemistry - challengeOrdered By: LUCAS GRECO on 12-20-2021 GFR/1.73 sq M.predicted among non-blacks MDRD (S/P/Bld) [Vol rate/Area] mL/min/{1.73_m2} [facility] Comment on above: NORMAL: EGFR >60.0TH E GFR IS ESTIMATED USING THE MDRD STUDY EQUATION.*NOTE* IF THE RACE OF THE PATIENT WAS UNKNOWN AT THE TIME OFREGISTRATION, AND THE PATIENT IS , MULTIPLYTHE EGFR RESULT PROVIDED BY 1.21. Laboratory - Hematology and Cell countsOrdered By: LUCAS GRECO on 12-20-2021 MCH (RBC) [Entitic mass] 29.6 pg 27-40 [facility] Lymphocyte percentOrdered By : LUCAS GRECO on 12-20-2021 Basophils/100 WBC (Bld) 0.9 % 0-1.0 M [facility] Eosinophils/100 WBC (Bld) 1.9 % 0.0-3.0 [facility] Lymphocyte percent 5.38 10:3/uL 2.0-7.0 [facility] Lymphocyte percent 0.63 10:3/uL 0.2-0.8 [facility] Lymphocyte percent 0 /100WBC <0 [facility] Lymphocytes/100 WBC (Bld) 29.3 % 20.0-40.0 [facility] Monocytes/100 WBC (Bld) 7.1 % 4.0-10.0 [facility] Segmented neutrophils/100 WB C Auto (Bld)Ordered By: LUCAS GRECO on 12-20-2021 Segmented neutrophils/100 WBC (Bld) 60.5 % 54.0-62.0 [facility] Serum or plasma albumin morgan urement (mass/volume)Ordered By: LUCAS GRECO on 12-20-2021 Albumin [Mass/Vol] 4.3 g/dL 4.0-4.9 [facility] Serum or plasma alkaline fatemeh sphatase measurement (enzymatic activity/volume)Ordered By: LUCAS GRECO on 12-20-2021 ALP [Catalytic activity/Vol] 109 U/L High 35-104 [facility] Serum or plasma anion gapOrd ered By: LUCAS GRECO on 12-20-2021 Anion gap [Moles/Vol] 9 mmol/L 9-15 [facility] Serum or plasma aspartate am inotransferase measurement (enzymatic activity/volume)Ordered By: LUCAS GRECO on 12-20-2021 AST [Catalytic activity/Vol] 17 U/L 10- [facility] Serum or plasma calcium morgan urement (mass/volume)Ordered By: LUCAS GRECO on 12-20-2021 Calcium [Mass/Vol] 9.4 mg/dL 8.6-10.0 [facility] Serum or plasma carbon dioxi de, total measurement (moles/volume)Ordered By: LUCAS GRECO on 12-20-2021 CO2 [Moles/Vol] 29 mmol/L 22-29 [facility] Serum or plasma chloride sweta surement (moles/volume)Ordered By: LUCAS GRECO on 12-20-2021 Chloride [Moles/Vol] 105 mmol/L 98-107 [facility] Serum or plasma creatinine m easurement (mass/volume)Ordered By: LUCAS GRECO on 12-20-2021 Creatinine [Mass/Vol] 0.74 mg/dL 0.51-0.95 [facility] Serum or plasma glucose morgan urement (mass/volume)Ordered By: LUCAS GRECO on 12-20-2021 Glucose [Mass/Vol] 171 mg/dL High 70-100 [facility] Comment on above: INTREPRETATION FOR F ASTING BLOOD GLUCOSE: 70-100 mg/dl NORMAL GLUCOSE [id number] mg/dl IMPAIRED FASTING GLUCOSE (PRE-DIABETES)>125 mg/dl DIABETES - ON MORE THAN ONE TESTING Serum or plasma potassium me asurement (moles/volume)Ordered By: LUCAS GRECO on 12-20-2021 Potassium [Moles/Vol] 3.7 mmol/L 3.6-5.0 [facility] Serum or plasma protein morgan urement (mass/volume)Ordered By: LCUAS GRECO on 12-20-2021 Protein [Mass/Vol] 6.7 g/dL 6.4-8.3 [facility] Serum or plasma sodium measu rement (moles/volume)Ordered By: LUCAS GRECO on 12-20-2021 Sodium [Moles/Vol] 143 mmol/L 136-145 [facility] Serum or plasma urea nitroge n measurement (mass/volume)Ordered By: LUCAS GRECO on 12-20-2021 Urea nitrogen [Mass/Vol] 13.4 mg/dL 6.0-20.0 [facility] Serum total bilirubin measur ement (mass/volume)Ordered By: LUCAS GRECO on 12-20-2021 Bilirubin [Mass/Vol] 0.3 mg/dL 0.2-1.2 [facility] TSH ser/plasOrdered By: LUCAS GRECO on 12-20-2021 TSH Qn 51.5000 uIU/mL High 0.270-4.200 [facility] Cholesterol in LDL Calc [Mas s/Vol]Ordered By: LUCAS GRECO on 10-02-2021 Cholesterol in LDL [Mass/Vol] 116 mg/dL High <100 [facility] Serum or plasma cardiac hear t disease risk ratioOrdered By: LUCAS GRECO on 10-02-2021 Cardiac heart disease risk [Ratio] 4.62 [facility] Comment on above: RISK NORMALS MEN WOMEN [...] on 10-02-2021 Cholesterol [Mass/Vol] 180 mg/dL 0-199 [facility] Serum or plasma glucose morgan urement (mass/volume)Ordered By: LUCAS GRECO on 10-02-2021 Glucose [Mass/Vol] 277 mg/dL High 70-100 [facility] Comment on above: INTREPRETATION FOR F ASTING BLOOD GLUCOSE: 70-100 mg/dl NORMAL GLUCOSE TOLERANCE 100-125 mg/dl IMPAIRED FASTING GLUCOSE (PRE-DIABETES) >125 mg/dl DIABETES - ON MORE THAN ONE TESTING INTREPRETATION FOR F ASTING BLOOD GLUCOSE: 70-100 mg/dl NORMAL GLUCOSE [id number] mg/dl IMPAIRED FASTING GLUCOSE (PRE-DIABETES)>125 mg/dl DIABETES - ON MORE THAN ONE TESTING Serum or plasma high density lipoprotein (HDL) cholesterol measurementOrdered By: LUCAS GRECO on 10-02-2021 Cholesterol in HDL [Mass/Vol] 39 mg/dL Low >61 [facility] Serum or plasma thyroxine (T 4) free measurement (mass/volume)Ordered By: LUCAS GRECO on 10-02-2021 Free T4 [Mass/Vol] 1.38 ng/dL 0.93-1.70 [facility] Serum or plasma triglyceride measurement (mass/volume)Ordered By: LUCAS GRECO on 10-02-2021 Triglyceride [Mass/Vol] 127 mg/dL <150 M [facility] TSH ser/plasOrdered By: LUCAS GRECO on 10-02-2021 TSH Qn 0.8190 uIU/mL 0.270-4.200 [facility] HbA1c HPLC (Bld) [Mass fract ion]on 07-18-2021 HbA1c (Bld) [Mass fraction] 8.5 % 4.4-5.6 [facility] Work Phone: Comment on above: PRE-DIABETES 5.7-6.4 DIABETES > OR = 6.5 Absolute lymphocyte counton 06-12-2020 Lymphocytes Auto (Unsp spec) [#/Vol] 2.20 10:3/uL 1.5-4.0 [facility] Work Phone: Automated blood hematocrit ( volume fraction)on 06-12-2020 Hematocrit (Bld) [Volume fraction] 39.8 % 35.0-47.0 [facility] Work Phone: Automated blood segmented ne utrophils/100 leukocyteson 06-12-2020 Segmented neutrophils/100 WBC (Bld) 63.0 % 54.0-62.0 [facility] Work Phone: Basophil %on 06-12-2020 Basophils/100 WBC (Unsp spec) 0 % 0-1.0 [facility] Work Phone: Blood basophils count (numbe r/volume)on 06-12-2020 Basophils (Bld) [#/Vol] 0 10:3/uL 0.02-0.2 M [facility] Work Phone: Blood eosinophils count (num myra/volume)on 06-12-2020 Eosinophils (Bld) [#/Vol] 0.26 10:3/uL 0-0.5 [facility] Work Phone: Blood erythrocytes count (nu mber/volume)on 06-12-2020 RBC (Bld) [#/Vol] 4.37 10:6/uL 3.80-5.20 [facility] Work Phone: Blood hemoglobin measurement (mass/volume)on 06-12-2020 Hemoglobin (Bld) [Mass/Vol] 12.9 g/dL 11.7-15.7 [facility] Work Phone: Blood leukocytes count (numb er/volume)on 06-12-2020 WBC (Bld) [#/Vol] 8.8 10:3/uL 3.5-11.0 [facility] Work Phone: Blood nucleated erythrocytes count (number/volume)on 06-12-2020 Nucleated RBC (Bld) [#/Vol] 0 10:3/uL <0 [facility] Work Phone: Blood platelet counton 06-12 Platelets (Bld) [#/Vol] 196 10:3/uL 130-440 [facility] Work Phone: Cholesterol in LDL [Mass/vol ume] in Serum or Plasma by calculationon 06-12-2020 Cholesterol in LDL [Mass/Vol] 151 mg/dL <100 [facility] Work Phone: Complete blood count (CBC) w ith reflex manual white blood cell differentialon 06-12-2020 CBC W Reflex Manual Differential panel - Blood Yes [facility] Work Phone: Determination of erythrocyte mean corpuscular volume (MCV)on 06-12-2020 MCV (RBC) [Entitic vol] 91.1 CU uM 80.0-100.0 M [facility] Work Phone: Erythrocyte distribution wid th standard deviationon 06-12-2020 Erythrocyte distribution width (RBC) [Entitic vol] 13.2 fL 11.5-14.5 [facility] Work Phone: Erythrocyte mean corpuscular hemoglobin concentration measurement (mass/volume)on 06-12-2020 MCHC (RBC) [Mass/Vol] 32.4 g/dL 31-36 Mar [facility] Work Phone: Hematologyon 06-12-2020 MCH (RBC) [Entitic mass] 29.5 pg 27-40 [facility] Work Phone: INR in Platelet poor plasma or blood by Coagulation assayon 06-12-2020 INR Coag (Platelet poor plasma or blood) [Relative time] 1.28 0.92-1.2 [facility] Work Phone: Comment on above: THERAPEUTIC: LOW LEV EL COUMADIN = 2.0 - 3.0 HIGH LEVEL COUMADIN = 2.5 - 3.5 Lymphocyte percenton 021 Eosinophils/100 WBC (Bld) 3.0 % 1.0-3.0 [facility] Work Phone: Lymphocyte percent 5.54 10:3/uL 2.0-7.0 [facility] Work Phone: Lymphocyte percent 0.79 10:3/uL 0.2-0.8 [facility] Work Phone: Lymphocyte percent 0 /100WBC <0 [facility] Work Phone: Lymphocytes/100 WBC (Bld) 25.0 % 20.0-40.0 [facility] Work Phone: Lymphocytes/100 WBC (Bld) 5.54 10:3/uL 2.0-7.0 [facility] Work Phone: [phone] Monocytes (Bld) [#/Vol] 0.79 10:3/uL 0.2-0.8 [facility] Work Phone: [phone] Monocytes/100 WBC (Bld) 9.0 % 4.0-10.0 [facility] Work Phone: [phone] Nucleated RBC (Bld) [#/Vol] 0 /100WBC <0 [facility] Work Phone: [phone] Prothrombin time (PT) in pat telet poor plasma by coagulation assayon 06-12-2020 PT Coag (PPP) [Time] 15.9 s 12.1-14.6 [facility] Work Phone: Serum or plasma cardiac hear t disease risk ratioon 06-12-2020 Cardiac heart disease risk [Ratio] 5.55 [facility] Work Phone: Comment on above: RISK NORMALS MEN WOM EN1/[address] 23[address]39 11[address]04 TRIGLYCERIDES >400 MG/DL MAY CAUSE INCONSISTENCIES IN THE LDL. Serum or plasma cholesterol measurement (mass/volume)on 06-12-2020 Cholesterol [Mass/Vol] 222 mg/dL 0-199 [facility] Work Phone: Serum or plasma high density lipoprotein (HDL) cholesterol measurementon 06-12-2020 Cholesterol in HDL [Mass/Vol] 40 mg/dL >61 [facility] Work Phone: Serum or plasma thyroxine (T 4) free measurement (mass/volume)on 06-12-2020 Free T4 [Mass/Vol] 1.23 ng/dL 0.93-1.70 [facility] Work Phone: Serum or plasma triglyceride measurement (mass/volume)on 06-12-2020 Triglyceride [Mass/Vol] 157 mg/dL <150 M [facility] Work Phone: TSH ser/plason 06-12-2020 TSH Qn 5.6500 uIU/mL 0.270-4.200 [facility] Work Phone: [phone] Absolute immature granulocyt e counton 03-20-2020 Immature granulocytes (Bld) [#/Vol] 0.05 10:3/uL 0.01-0.2 [facility] Work Phone: Absolute lymphocyte counton 03-20-2020 Lymphocytes Auto (Unsp spec) [#/Vol] 2.32 10:3/uL 1.5-4.0 [facility] Work Phone: Alanine aminotransferase [En zymatic activity/volume] in Serum or Plasmaon 03-20-2020 ALT [Catalytic activity/Vol] 16 U/L 5-33 [facility] Work Phone: Automated blood hematocrit ( volume fraction)on 03-20-2020 Hematocrit (Bld) [Volume fraction] 40.4 % 35.0-47.0 [facility] Work Phone: Automated blood segmented ne utrophils/100 leukocyteson 03-20-2020 Segmented neutrophils/100 WBC (Bld) 62.7 % 54.0-62.0 [facility] Work Phone: Automated immature granulocy te percentageon 03-20-2020 Immature granulocytes/100 WBC (Bld) 0.6 % 0-0.9 [facility] Work Phone: Basophil %on 03-20-2020 Basophils/100 WBC (Unsp spec) 0.7 % 0-1.0 [facility] Work Phone: Blood basophils count (numbe r/volume)on 03-20-2020 Basophils (Bld) [#/Vol] 0.06 10:3/uL 0.02-0.2 [facility] Work Phone: Blood eosinophils count (num myra/volume)on 03-20-2020 Eosinophils (Bld) [#/Vol] 0.11 10:3/uL 0-0.5 [facility] Work Phone: Blood erythrocytes count (nu mber/volume)on 03-20-2020 RBC (Bld) [#/Vol] 4.26 10:6/uL 3.80-5.20 [facility] Work Phone: Blood hemoglobin A1C/total h emoglobin By HPLCon 03-20-2020 HbA1c (Bld) [Mass fraction] 6.7 % 4.4-5.6 [facility] Work Phone: Comment on above: PRE-DIABETES 5.7-6.4 DIABETES > OR = 6.5 Blood hemoglobin measurement (mass/volume)on 03-20-2020 Hemoglobin (Bld) [Mass/Vol] 12.8 g/dL 11.7-15.7 [facility] Work Phone: Blood leukocytes count (numb er/volume)on 03-20-2020 WBC (Bld) [#/Vol] 8.5 10:3/uL 3.5-11.0 [facility] Work Phone: Blood nucleated erythrocytes count (number/volume)on 03-20-2020 Nucleated RBC (Bld) [#/Vol] 0 10:3/uL <0 [facility] Work Phone: Blood platelet counton 03-20 Platelets (Bld) [#/Vol] 197 10:3/uL 130-440 [facility] Work Phone: Cholesterol in LDL [Mass/vol ume] in Serum or Plasma by calculationon 03-20-2020 Cholesterol in LDL [Mass/Vol] 139 mg/dL <100 [facility] Work Phone: Complete blood count (CBC) w ith reflex manual white blood cell differentialon 03-20-2020 CBC W Reflex Manual Differential panel - Blood No [facility] Work Phone: Determination of erythrocyte mean corpuscular volume (MCV)on 03-20-2020 MCV (RBC) [Entitic vol] 94.8 CU uM 80.0-100.0 M [facility] Work Phone: Erythrocyte distribution wid th standard deviationon 03-20-2020 Erythrocyte distribution width (RBC) [Entitic vol] 12.8 fL 11.5-14.5 [facility] Work Phone: Erythrocyte mean corpuscular hemoglobin concentration measurement (mass/volume)on 03-20-2020 MCHC (RBC) [Mass/Vol] 31.7 g/dL 31-36 [facility] Work Phone: Hematologyon 03-20-2020 MCH (RBC) [Entitic mass] 30.0 pg 27-40 [facility] Work Phone: INR in Platelet poor plasma or blood by Coagulation assayon 03-20-2020 INR Coag (Platelet poor plasma or blood) [Relative time] 0.98 0.92-1.2 [facility] Work Phone: Comment on above: THERAPEUTIC: LOW LEV EL COUMADIN = 2.0 - 3.0 HIGH LEVEL COUMADIN = 2.5 - 3.5 Lymphocyte percenton 021 Eosinophils/100 WBC (Bld) 1.3 % 1.0-3.0 [facility] Work Phone: Lymphocytes/100 WBC (Bld) 5.34 10:3/uL 2.0-7.0 [facility] Work Phone: Lymphocytes/100 WBC (Bld) 27.2 % 20.0-40.0 [facility] Work Phone: Monocytes (Bld) [#/Vol] 0.64 10:3/uL 0.2-0.8 [facility] Work Phone: Monocytes/100 WBC (Bld) 7.5 % 4.0-10.0 M [facility] Work Phone: Nucleated RBC (Bld) [#/Vol] 0 /100WBC <0 [facility] Work Phone: Metabolic Panelon 03-20-2020 GFR/1.73 sq M predicted among non-blacks MDRD (S/P/Bld) [Vol rate/Area] mL/min/{1.73_m2} [facility] Work Phone: Comment on above: NORMAL: EGFR >60.0TH E GFR IS ESTIMATED USING THE MDRD STUDY EQUATION.*NOTE* IF THE RACE OF THE PATIENT WAS UNKNOWN AT THE TIME OFREGISTRATION, AND THE PATIENT IS , MULTIPLYTHE EGFR RESULT PROVIDED BY 1.21. Prothrombin time (PT) in pat telet poor plasma by coagulation assayon 03-20-2020 PT Coag (PPP) [Time] 12.9 s 12.1-14.6 [facility] Work Phone: Serum or plasma albumin morgan urement (mass/volume)on 03-20-2020 Albumin [Mass/Vol] 4.4 g/dL 4.0-4.9 [facility] Work Phone: Serum or plasma alkaline fatemeh sphatase measurement (enzymatic activity/volume)on 03-20-2020 ALP [Catalytic activity/Vol] 95 U/L 35-104 [facility] Work Phone: Serum or plasma anion gapon 03-20-2020 Anion gap [Moles/Vol] 13 mmol/L 9-15 [facility] Work Phone: Serum or plasma aspartate am inotransferase measurement (enzymatic activity/volume)on 03-20-2020 AST [Catalytic activity/Vol] 17 U/L 5-32 [facility] Work Phone: Serum or plasma calcium morgan urement (mass/volume)on 03-20-2020 Calcium [Mass/Vol] 9.5 mg/dL 8.6-10.0 [facility] Work Phone: Serum or plasma carbon dioxi de, total measurement (moles/volume)on 03-20-2020 CO2 [Moles/Vol] 27 mmol/L 22-29 [facility] Work Phone: Serum or plasma cardiac hear t disease risk ratioon 03-20-2020 Cardiac heart disease risk [Ratio] 4.90 [facility] Work Phone: Comment on above: RISK NORMALS MEN WOM EN1/[address] 23[address]39 11.04 TRIGLYCERIDES >400 MG/DL MAY CAUSE INCONSISTENCIES IN THE LDL. Serum or plasma chloride sweta surement (moles/volume)on 03-20-2020 Chloride [Moles/Vol] 103 mmol/L 98-107 [facility] Work Phone: Serum or plasma cholesterol measurement (mass/volume)on 03-20-2020 Cholesterol [Mass/Vol] 206 mg/dL 0-199 [facility] Work Phone: [phone] Serum or plasma creatinine m easurement (mass/volume)on 03-20-2020 Creatinine [Mass/Vol] 0.89 mg/dL 0.51-0.95 [facility] Work Phone: Serum or plasma glucose morgan urement (mass/volume)on 03-20-2020 Glucose [Mass/Vol] 142 mg/dL 70-100 [facility] Work Phone: Comment on above: INTREPRETATION FOR F ASTING BLOOD GLUCOSE: 70-100 mg/dl NORMAL GLUCOSE [id number] mg/dl IMPAIRED FASTING GLUCOSE (PRE-DIABETES)>125 mg/dl DIABETES - ON MORE THAN ONE TESTING Serum or plasma high density lipoprotein (HDL) cholesterol measurementon 03-20-2020 Cholesterol in HDL [Mass/Vol] 42 mg/dL >66 [facility] Work Phone: Serum or plasma potassium me asurement (moles/volume)on 03-20-2020 Potassium [Moles/Vol] 4.1 mmol/L 3.6-5.0 [facility] Work Phone: Serum or plasma protein morgan urement (mass/volume)on 03-20-2020 Protein [Mass/Vol] 6.8 g/dL 6.4-8.3 [facility] Work Phone: Serum or plasma sodium measu rement (moles/volume)on 03-20-2020 Sodium [Moles/Vol] 143 mmol/L 136-145 [facility] Work Phone: Serum or plasma thyroxine (T 4) free measurement (mass/volume)on 03-20-2020 Free T4 [Mass/Vol] 0.72 ng/dL 0.93-1.70 [facility] Work Phone: Serum or plasma triglyceride measurement (mass/volume)on 03-20-2020 Triglyceride [Mass/Vol] 125 mg/dL <150 M [facility] Work Phone: Serum or plasma urea nitroge n measurement (mass/volume)on 03-20-2020 Urea nitrogen [Mass/Vol] 10.8 mg/dL 6.0-20.0 [facility] Work Phone: Serum total bilirubin measur ement (mass/volume)on 03-20-2020 Bilirubin [Mass/Vol] 0.3 mg/dL 0.2-1.2 [facility] Work Phone: TSH ser/plason 03-20-2020 TSH Qn 23.1600 uIU/mL 0.270-4.200 [facility] Work Phone: APTT panel in platelet poor plasmaon 03-10-2019 aPTT Coag (Bld) [Time] 27.0 s 23.9-35.7 Ma [facility] Work Phone: Absolute lymphocyte counton 03-10-2019 Lymphocytes Auto (Unsp spec) [#/Vol] 3.13 10:3/uL 1.5-4.0 [facility] Work Phone: Automated blood hematocrit ( volume fraction)on 03-10-2019 Hematocrit (Bld) [Volume fraction] 40.4 % 35.0-47.0 [facility] Work Phone: Automated blood segmented ne utrophils/100 leukocyteson 03-10-2019 Segmented neutrophils/100 WBC (Bld) 64.0 % High 54.0-62.0 [facility] Work Phone: Automated urine erythrocytes count (number/volume)on 03-10-2019 RBC (U) [#/Vol] 3-5 /HPF [facility] Work Phone: Automated urine hyaline cast s count (number/volume)on 03-10-2019 Hyaline casts Auto (U) [#/Vol] 3-5 /LPF [facility] Work Phone: Basophil %on 03-10-2019 Basophils/100 WBC (Unsp spec) 0 % 0-1.0 [facility] Work Phone: Blood basophils count (numbe r/volume)on 03-10-2019 Basophils (Bld) [#/Vol] 0 10:3/uL Low 0.02-0.2 M [facility] Work Phone: Blood eosinophils count (num myra/volume)on 03-10-2019 Eosinophils (Bld) [#/Vol] 0 10:3/uL 0-0.5 [facility] Work Phone: Blood erythrocytes count (nu mber/volume)on 03-10-2019 RBC (Bld) [#/Vol] 4.32 10:6/uL 3.80-5.20 [facility] Work Phone: Blood hemoglobin measurement (mass/volume)on 03-10-2019 Hemoglobin (Bld) [Mass/Vol] 12.7 g/dL 11.7-15.7 [facility] Work Phone: Blood leukocytes count (numb er/volume)on 03-10-2019 WBC (Bld) [#/Vol] 10.1 10:3/uL 3.5-11.0 [facility] Work Phone: Blood lipase measurementon 0 03-10-2019 Lipase [Catalytic activity/Vol] 30 U/L 13-60 [facility] Work Phone: Blood nucleated erythrocytes count (number/volume)on 03-10-2019 Nucleated RBC (Bld) [#/Vol] 0 10:3/uL <0 [facility] Work Phone: Blood platelet counton 03-10 Platelets (Bld) [#/Vol] 227 10:3/uL 130-440 [facility] Work Phone: Determination of erythrocyte mean corpuscular volume (MCV)on 03-10-2019 MCV (RBC) [Entitic vol] 93.5 CU uM 80.0-100.0 M [facility] Work Phone: Epithelial cells.squamous [# /volume] in Urine by Automated counton 03-10-2019 Epithelial cells.squamous Auto (U) [#/Vol] 5-10 /HPF High [facility] Work Phone: Erythrocyte distribution wid th standard deviationon 03-10-2019 Erythrocyte distribution width (RBC) [Entitic vol] 13.2 fL 11.5-14.5 [facility] Work Phone: Erythrocyte mean corpuscular hemoglobin concentration measurement (mass/volume)on 03-10-2019 MCHC (RBC) [Mass/Vol] 31.4 g/dL 31-36 [facility] Work Phone: GFR estimate MDRDon 03-10-19 20 GFR/1.73 sq M.predicted MDRD (S/P/Bld) [Vol rate/Area] mL/min/{1.73_m2} [facility] Work Phone: Comment on above: NORMAL: EGFR >60.0TH E GFR IS ESTIMATED USING THE MDRD STUDY EQUATION.*NOTE* IF THE RACE OF THE PATIENT WAS UNKNOWN AT THE TIME OFREGISTRATION, AND THE PATIENT IS , MULTIPLYTHE EGFR RESULT PROVIDED BY 1.21. Hematologyon 03-10-2019 Lymphocytes/100 WBC (Bld) 31.0 % 20.0-40.0 [facility] Work Phone: MCH (RBC) [Entitic mass] 29.4 pg 27-40 [facility] Work Phone: INR in Platelet poor plasma or blood by Coagulation assayon 03-10-2019 INR Coag (Platelet poor plasma or blood) [Relative time] 1.04 0.92-1.2 [facility] Work Phone: Comment on above: THERAPEUTIC: LOW LEV EL COUMADIN = 2.0 - 3.0 HIGH LEVEL COUMADIN = 2.5 - 3.5 Leukocytes [#/volume] in Uri ne by Automated counton 03-10-2019 WBC Auto (U) [#/Vol] 3-5 /HPF [facility] Work Phone: [phone] Monocyte %on 03-10-2019 Monocytes/100 WBC (Bld) 5.0 % 4.0-10.0 M [facility] Work Phone: [phone] Monocytes/100 WBC (Bld) 6.46 10:3/uL 2.0-7.0 [facility] Work Phone: [phone] Monocytes/100 WBC (Bld) 0 /100WBC <0 M [facility] Work Phone: Monocytes/100 WBC (Bld) 0.50 10:3/uL 0.2-0.8 [facility] Work Phone: [phone] Monocytes/100 WBC (Bld) 0 % Low 1.0-3.0 M [facility] Work Phone: Prothrombin time (PT) in pat telet poor plasma by coagulation assayon 03-10-2019 PT Coag (PPP) [Time] 13.5 s 12.1-14.6 [facility] Work Phone: Serum or plasma alanine wang otransferase measurement (enzymatic activity/volume)on 03-10-2019 ALT [Catalytic activity/Vol] 16 U/L 5-33 [facility] Work Phone: Serum or plasma albumin morgan urement (mass/volume)on 03-10-2019 Albumin [Mass/Vol] 3.9 g/dL Low 4.0-4.9 [facility] Work Phone: Serum or plasma alkaline fatemeh sphatase measurement (enzymatic activity/volume)on 03-10-2019 ALP [Catalytic activity/Vol] 91 U/L 35-104 [facility] Work Phone: Serum or plasma anion gapon 03-10-2019 Anion gap [Moles/Vol] 12 mmol/L 9-15 [facility] Work Phone: Serum or plasma aspartate am inotransferase measurement (enzymatic activity/volume)on 03-10-2019 AST [Catalytic activity/Vol] 23 U/L 5-32 [facility] Work Phone: Serum or plasma calcium morgan urement (mass/volume)on 03-10-2019 Calcium [Mass/Vol] 9.1 mg/dL 8.6-10.0 [facility] Work Phone: Serum or plasma carbon dioxi de, total measurement (moles/volume)on 03-10-2019 CO2 [Moles/Vol] 27 mmol/L 22-29 [facility] Work Phone: Serum or plasma chloride sweta surement (moles/volume)on 03-10-2019 Chloride [Moles/Vol] 100 mmol/L 98-107 [facility] Work Phone: Serum or plasma creatinine m easurement (mass/volume)on 03-10-2019 Creatinine [Mass/Vol] 0.85 mg/dL 0.51-0.95 [facility] Work Phone: Serum or plasma glucose morgan urement (mass/volume)on 03-10-2019 Glucose [Mass/Vol] 156 mg/dL High 70-100 [facility] Work Phone: Comment on above: INTREPRETATION FOR F ASTING BLOOD GLUCOSE: 70-100 mg/dl NORMAL GLUCOSE [id number] mg/dl IMPAIRED FASTING GLUCOSE (PRE-DIABETES)>125 mg/dl DIABETES - ON MORE THAN ONE TESTING Serum or plasma potassium me asurement (moles/volume)on 03-10-2019 Potassium [Moles/Vol] 3.6 mmol/L 3.6-5.0 [facility] Work Phone: Serum or plasma protein morgan urement (mass/volume)on 03-10-2019 Protein [Mass/Vol] 7.2 g/dL 6.4-8.3 [facility] Work Phone: Serum or plasma sodium measu rement (moles/volume)on 03-10-2019 Sodium [Moles/Vol] 139 mmol/L 136-145 [facility] Work Phone: Serum or plasma total biliru bin measurement (mass/volume)on 03-10-2019 Bilirubin [Mass/Vol] 0.3 mg/dL 0.2-1.2 [facility] Work Phone: Serum or plasma urea nitroge n measurement (mass/volume)on 03-10-2019 Urea nitrogen [Mass/Vol] 10.9 mg/dL 6.0-20.0 [facility] Work Phone: Specific gravity of Urine by Automated test stripon 03-10-2019 Specific gravity (U) [Rel density] 1.011 1.005-1.035 [facility] Work Phone: UA + reflex cultureon 2019 Urinalysis complete W Reflex Culture panel - Urine No culture ordered [facility] Work Phone: Urine clarityon 03-10-2019 Clarity (U) Clear [facility] Work Phone: Urine coloron 03-10-2019 Color (U) Yellow [facility] Work Phone: Urine glucose measurement by automated test strip (mass/volume)on 03-10-2019 Glucose Auto test strip (U) [Mass/Vol] Negative NEGATIVE [facility] Work Phone: Urine hemoglobin measurement by automated test strip (mass/volume)on 03-10-2019 Hemoglobin Auto test strip (U) [Mass/Vol] Negative NEGATIVE [facility] Work Phone: [phone] Urine ketones measurement by automated test strip (mass/volume)on 03-10-2019 Ketones (U) [Mass/Vol] Negative NEGATIVE [facility] Work Phone: Urine leukocyte esterase det ection by automated test stripon 03-10-2019 Leukocyte esterase Auto test strip Ql (U) Negative NEGATIVE [facility] Work Phone: Urine nitrite detection by a utomated test stripon 03-10-2019 Nitrite Auto test strip Ql (U) Negative NEGATIVE [facility] Work Phone: [phone] Urine pH measurement by auto mated test stripon 03-10-2019 pH (U) 6.0 [pH] 5.0-8.5 [facility] Work Phone: Urine protein measurement by automated test strip (mass/volume)on 03-10-2019 Protein (U) [Mass/Vol] Negative NEGATIVE [facility] Work Phone: Urine total bilirubin measur ement by automated test strip (mass/volume)on 03-10-2019 Bilirubin Auto test strip (U) [Mass/Vol] Negative NEGATIVE [facility] Work Phone: Urine urobilinogen measureme nt by automated test strip (mass/volume)on 03-10-2019 Urobilinogen (U) [Mass/Vol] 0.2 EU/DL [facility] Work Phone: Vital Signs Date Time Vital Sign Value Performing Clinician Facility 09-20-2024 00:43-0400 Body temperature 98 [degF] Dr. Philippe Aviles DO Work Phone: [facility] 09-20-2024 00:43-0400 Diastolic blood pressure 164 mm[Hg] Dr. Philippe Aviles DO Work Phone: [phone])057-914297 [place] [address] 09-20-2024 00:43-0400 Heart rate 66 /min Dr. Philippe Aviles DO Work Phone: [phone])[phone] [place] [address] 09-20-2024 00:43-0400 Respiratory rate 18 /min Dr. Philippe Aviles DO Work Phone: [phone])284-531197 [place] [address] 09-20-2024 00:43-0400 SaO2% (BldA) [Mass fraction] 97 % Dr. Philippe Aviles DO Work Phone: [phone])924-895031 [place] [address] 09-20-2024 00:43-0400 Systolic blood pressure 180 mm[Hg] Dr. Philippe Aviles DO Work Phone: 4(705)602-880531 [place] [address] 09-19-2024 19:24-0400 Body height 165.[address] Philippe Aviles DO Work Phone: [phone] [place] [address] 09-19-2024 19:24-0400 Body mass index (BMI) [Ratio] 28.7 kg/m2 Dr. Philippe Aviles DO Work Phone: [phone])[phone] [place] [address] 09-19-2024 19:24-0400 Body weight 78.[address] Philippe Aviles DO Work Phone: [phone])[phone] [place] [address] 07-19-2024 10:36-0400 Body height 165.[address] Philippe Aviles DO Work Phone: [phone])027-898097 [place] [address] 07-19-2024 10:36-0400 Body mass index (BMI) [Ratio] 27.3 kg/m2 Dr. Philippe Aviles DO Work Phone: 4(334)165-375797 [place] [address] 07-19-2024 10:36-0400 Body temperature 98 [degF] Dr. Philippe Aviles DO Work Phone: [phone])780-348997 [place] [address] 07-19-2024 10:36-0400 Body weight 74.[address] Philippe Aviles DO Work Phone: [facility] 07-19-2024 10:36-0400 Diastolic blood pressure 109 mm[Hg] Dr. Philippe Aviles DO Work Phone: [facility] 07-19-2024 10:36-0400 Heart rate 86 /min Dr. Philippe Aviles DO Work Phone: [facility] 07-19-2024 10:36-0400 Respiratory rate 19 /min Dr. Philippe Aviles DO Work Phone: [facility] 07-19-2024 10:36-0400 SaO2% (BldA) [Mass fraction] 99 % Dr. Philippe Aviles DO Work Phone: [facility] 07-19-2024 10:36-0400 Systolic blood pressure 156 mm[Hg] Dr. Pihlippe Aviles DO Work Phone: [facility] 07-14-2023 11:01-0400 Diastolic blood pressure 81 mm[Hg] oJhny Swenson DO Work Phone: [facility] 07-14-2023 11:01-0400 Systolic blood pressure 182 mm[Hg] Johny Swenson DO Work Phone: [facility] 07-14-2023 10:57-0400 Body height 165.1 cm Johny Swenson DO Work Phone: [facility] 07-14-2023 10:57-0400 Body mass index (BMI) [Ratio] 29.77 kg/m2 Johny Swenson DO Work Phone: [facility] 07-14-2023 10:57-0400 Body temperature 97.39 [degF] Johny Swenson DO Work Phone: [facility] 07-14-2023 10:57-0400 Body weight 81.15 kg Johny Swenson DO Work Phone: [facility] 07-14-2023 10:57-0400 Heart rate 70 /min Johny Swenson DO Work Phone: [facility] 07-14-2023 10:57-0400 Respiratory rate 16 /min Johny Swenson DO Work Phone: [facility] 07-14-2023 10:57-0400 SaO2% (BldA) [Mass fraction] 100 % Johny Swenson DO Work Phone: [facility] 01-28-2023 16:37-0500 Diastolic blood pressure 69 mm[Hg] [employer] Work Phone: [facility] 01-28-2023 16:37-0500 Heart rate 63 /min [employer] Work Phone: [facility] 01-28-2023 16:37-0500 Respiratory rate 18 /min [employer]UC[employer] Work Phone: [facility] 01-28-2023 16:37-0500 SaO2% (BldA) [Mass fraction] 97 % [employer]UC[employer] Work Phone: [facility] 01-28-2023 16:37-0500 Systolic blood pressure 146 mm[Hg] [employer]UC[employer] Work Phone: [facility] 01-28-2023 15:57-0500 Body temperature 98.5 [degF] CADENCE GRECO Work Phone: [facility] 01-28-2023 15:38-0500 Body height 165.1 cm [employer]UC[employer] Work Phone: [facility] 01-28-2023 15:38-0500 Body mass index (BMI) [Ratio] 25 kg/m2 CADENCE GRECO Work Phone: [facility] 01-28-2023 15:38-0500 Body weight 68.03 kg CADENCE GRECO Work Phone: [facility] 01-12-2023 18:01-0500 Body height 165.1 cm [employer]UC[employer] Work Phone: [facility] 01-12-2023 18:01-0500 Body mass index (BMI) [Ratio] 26.6 kg/m2 [employer] Work Phone: [facility] 01-12-2023 18:01-0500 Body temperature 97.8 [degF] [employer] Work Phone: [facility] 01-12-2023 18:01-0500 Body weight 72.57 kg [employer] Work Phone: [facility] 01-12-2023 18:01-0500 Diastolic blood pressure 101 mm[Hg] [employer] Work Phone: [facility] 01-12-2023 18:01-0500 Heart rate 85 /min [employer] Work Phone: [facility] 01-12-2023 18:01-0500 Respiratory rate 19 /min [employer] Work Phone: [facility] 01-12-2023 18:01-0500 SaO2% (BldA) [Mass fraction] 100 % [employer] Work Phone: [facility] 01-12-2023 18:01-0500 Systolic blood pressure 180 mm[Hg] CADENCE LUCAS GRECO Work Phone: [facility] 08-27-2022 11:04-0400 Body height 165 cm Ángel Shearer Mobile Phone: [facility] Work Phone: 08-27-2022 11:04-0400 Body mass index (BMI) [Ratio] 29 kg/m2 Ángel Shearer Mobile Phone: [facility] [place] Work Phone: 08-27-2022 11:04-0400 Body weight 78 kg Ángel Lambertkami Shearer [facility] Work Phone: 08-27-2022 11:04-0400 Respiratory rate 18 /min Ángle Lambertr PA C Mobile Phone: [facility] Work Phone: 03-11-2019 01:01-0500 BP Diastolic 84 mm[Hg] [facility] Work Phone: 03-11-2019 01:01-0500 BP Systolic 137 mm[Hg] [facility] Work Phone: 03-11-2019 01:01-0500 Pulse (Heart Rate) 62 /min [facility] Work Phone: 03-11-2019 01:01-0500 Pulse Oximetry 98 % [facility] Work Phone: 03-11-2019 01:01-0500 Respiratory Rate 16 /min [facility] Work Phone: 03-10-2019 23:13-0500 Body Temperature 98.3 [degF] [facility] Work Phone: 03-10-2019 23:10-0500 BMI (Body Mass Index) 31 kg/m2 [facility] Work Phone: 03-10-2019 23:10-0500 Body weight 84.64 kg [facility] Work Phone: 03-10-2019 23:10-0500 Height 165.1 cm [facility] Work Phone: Encounters Encounter Date Encounter Type Care Provider Facility Start: 09-19-2024 End: 09-20-2024 Emergency department patient visit Dr. Philippe Aviles DO Work Phone: -Emergency Department Work Phone: Start: 07-19-2024 End: 07-19-2024 Emergency department patient visit Dr. Philippe Aviles DO Work Phone: -Emergency Department Work Phone: Start: 04-27-2024 [facility] Start: 02-22-2024 End: 02-22-2024 Refill Johny Swenson DO Work Phone: [facility] Comment on above: Refill Request Start: 01-04-2024 End: 01-05-2024 Telephone encounter Johny Swenson DO Work Phone: [facility] Comment on above: prior authorization Start: 01-03-2024 End: 01-03-2024 Emergency department patient visit Amadou Heaven Facility:[facility] Start: 09-29-2023 ambulatory Johny nazario DO Work Phone: [facility] Start: 07-21-2023 Telephone encounter Johny taylor DO Work Phone: [facility] Start: 07-15-2023 ambulatory Johny nazario DO Work Phone: [facility] Start: 07-15-2023 Telephone encounter Pharmacist [facility] Comment on above: Anticoagulation - In itial Consult Start: 07-14-2023 End: 07-14-2023 [facility] Facility:[facility] Start: 07-14-2023 Encounter for genera l adult medical examination without abnormal findings [facility] Start: 07-14-2023 End: 07-14-2023 ambulatory [facility] Facility:[facility] Start: 07-14-2023 End: 07-14-2023 Office outpatient new 45 minutes Johny Swenson DO Work Phone: [facility] Comment on above: Primary hypertension (Primary Dx); Special screening examination for viral disease; History of DVT (deep vein thrombosis); Medication refill; Hypothyroidism, acquired Start: 04-21-2023 ambulatory LUCAS Estes AUSTYNANIL Facil ity:[facility] Start: 04-21-2023 Evaluation and manag ement of inpatient KURT ROBLES [facility] Start: 04-16-2023 End: 04-16-2023 ambulatory LUCAS GRECO Facility:[facility] Start: 04-16-2023 Evaluation and manag ement of inpatient LEXUS ENCINAS [facility] Start: 01-28-2023 End: 01-28-2023 Emergency department patient visit LUCAS Estes SEVERINOJOANNA Facility:[facility] Start: 01-28-2023 Evaluation and manag ement of inpatient LEXUS ENCINAS [facility] Start: 01-28-2023 End: 01-28-2023 Emergency department patient visit CADENCE ZAVALA AUSTYNANIL [facility] Start: 01-23-2023 ambulatory SHERRILL AUSTYNANIL Facil ity:[facility] Start: 01-23-2023 Evaluation and manag ement of inpatient LAYO HERNANDEZ [facility] Start: 01-14-2023 End: 01-14-2023 ambulatory LUCAS Estes AUSTYNANIL Facility:[facility] Start: 01-14-2023 Evaluation and manag ement of inpatient CHRISTINA CARPENTER [facility] Start: 01-14-2023 End: 01-14-2023 ambulatory CADENCE Estes AUSTYNANIL Work Phone: [facility] Work Phone: Start: 01-14-2023 End: 01-14-2023 Patient encounter procedure CADENCE GRECO Work Phone: [facility] Start: 01-12-2023 End: 01-12-2023 Emergency department patient visit OMAR VERGARA Facility:[facility] Start: 01-12-2023 Evaluation and manag ement of inpatient LEXUS ENCINAS [facility] Start: 01-12-2023 End: 01-12-2023 Emergency department patient visit CADENCE ZAVALA AUSTYNANIL Work Phone: [facility] Work Phone: Start: 11-26-2022 ambulatory ÁNGEL GEE Facility:[facility] Start: 11-26-2022 Evaluation and manag ement of inpatient AUTOMATION VISPAFLOW [facility] Start: 11-19-2022 ambulatory LUCAS GRECO [facility] Start: 11-19-2022 Evaluation and manag ement of inpatient AUTOMATION VISPAFLOW2 [facility] Start: 08-28-2022 End: 08-28-2022 ambulatory LUCAS GRECO [facility] Start: 08-28-2022 Evaluation and manag ement of inpatient Background Daon [facility] Start: 08-28-2022 End: 08-28-2022 ambulatory [employer] LUCAS GRECO Work Phone: [facility] Work Phone: Start: 08-28-2022 End: 08-28-2022 Patient encounter procedure CADENCE GRECO Work Phone: [facility] Start: 08-27-2022 End: 08-27-2022 ambulatory ÁNGEL GEE Facility:[facility] Start: 08-27-2022 Evaluation and manag ement of inpatient Background [facility] Start: 08-27-2022 Office outpatient ne w 30 minutes [facility] Start: 07-01-2022 Non-patient / Non-visit CADENCE GRECO Work Phone: [facility] ([facility]) Start: 04-22-2022 End: 04-22-2022 ambulatory [employer] LUCAS GRECO Work Phone: [facility] Work Phone: Start: 04-22-2022 End: 04-22-2022 Patient encounter procedure CADENCE GRECO Work Phone: [facility] Start: 02-04-2022 End: 02-04-2022 ambulatory [employer] LUCAS GRECO Work Phone: [facility] Work Phone: Start: 02-04-2022 End: 02-04-2022 Patient encounter procedure CADENCE GRECO Work Phone: [facility] Start: 01-20-2022 End: 01-20-2022 ambulatory [employer] LUCAS GRECO Work Phone: [facility] Work Phone: Start: 01-20-2022 End: 01-20-2022 Patient encounter procedure [employer] LUCAS GRECO Work Phone: [facility] Start: 12-20-2021 End: 12-20-2021 ambulatory DO RYAN HOPE Work Phone: [facility] Work Phone: Start: 12-20-2021 End: 12-20-2021 Patient encounter procedure DO RYAN HOPE [facility] Start: 10-02-2021 End: 10-02-2021 Patient encounter procedure [facility] Start: 07-18-2021 End: 07-18-2021 [facility] Start: 05-21-2021 End: 05-21-2021 Non-patient / Non-visit [facility] Start: 09-04-2020 Patient encounter procedure [facility] Start: 07-19-2020 End: 07-19-2020 Patient encounter procedure [facility] Start: 07-06-2020 End: 07-06-2020 Patient encounter procedure [facility] Start: 06-21-2020 End: 06-21-2020 Patient encounter procedure [facility] Start: 06-12-2020 End: 06-12-2020 [facility] Start: 03-23-2020 End: 03-23-[address] [facility] Start: 03-20-2020 End: 03-20-2020 [facility] Start: 04-08-2019 Patient encounter procedure RYAN TRUJILLONCER [facility] Start: 03-10-2019 End: 03-11-2019 Emergency department patient visit RYAN HOPE -Emergency Room Procedures Date Procedure Procedure Detail Performing Clinician Start: 09-19-[address] Philippe Aviles DO Work Phone: Start: 09-19-2024 Lymphocyte percent differential count Dr. Philippe Aviles DO Work Phone: Start: 07-14-2023 Lipid 1996 panel - Serum or Plasma Jean Pierre Swenson DO Work Phone: Start: 01-28-2023 Bacterial nucleic acid assay [employer] LUCAS TURK Work Phone: Start: 11-14-2020 Colonoscopy Ángelemir Lambertr PA C Mobile Phone: Start: 11-14-2020 Esophagogastroduodenoscopy Ángel Gee PA C Mobile Phone: Start: 07-19-2020 Screening mammography Start: 07-19-2020 Plain chest X-ray Start: 07-06-2020 Ultrasonography of bilateral kidneys Start: 07-06-2020 US scan of thyroid Start: 03-10-2019 Computed tomography of abdomen and pelvis with contrast RYAN HOPE Start: 09-28-2017 Release of trigger finger Ángelemir Gee P A C Mobile Phone: Biopsy of breast Ángel Petra r PA C Mobile Phone: section Ángel Ker r PA C Mobile Phone: Decompression of median nerve Ángel Gee PA C Mobile Phone: H/O: tubal ligation Ángel Gee PA C Mobile Phone: Hemorrhoidectomy Ángel Ker r PA C Mobile Phone: Oophorectomy Ángel Shearer Mobile Phone: Plan of Treatment Date Care Activity Detail Author Start: 07-13-2028 Lipid panel Lipid Screening [facility] Start: 07-13-2026 Diabetes Screening Diabetes Screenin g [facility] Start: 09-20-2024 [facility] Start: 07-19-2024 [facility] Start: 07-13-2024 Annual PCP Team Hammer Adjuster elyssa Disease Visit Annual PCP Team Chronic Disease Visit [facility] Start: 01-11-2024 End: 01-11-2024 Patient encounter procedure 01/11/2024 12:40 PM EST [facility] [address] [address] Johny Swenson DO [address] [facility] / [place] [address] ER follow up [facility] Comment on above: ER follow up Start: 11-08-2023 Covid-19 Vaccine ( season) Covid-19 Vaccine ( season) [facility] Start: 11-08-2023 Influenza vaccination [facility] Start: 10-14-2023 End: 10-14-2023 Patient encounter procedure 10/14/2023 10:40 AM EDT [facility] [address] [address] Johny Swenson DO [address] [facility] / [place] [address] Follow Up [facility] Comment on above: Follow Up Start: 09-29-2023 End: 12-29-2023 CBC panel - Blood by Automated count COMPLETE BLOOD COUNT Lab Routine Medication management Expected: 09/29/2023, Expires: 12/29/2023 [facility] Comment on above: Expected: 09/29/2023 , Expires: 12/29/2023 Start: 09-29-2023 End: 12-29-2023 Microalbumin/Creatinine [Mass Ratio] in Urine ALBUMIN/CREATININE RATIO, URINE Lab Routine Medication management Expected: 09/29/2023, Expires: 12/29/2023 [facility] Work Phone: Comment on above: Expected: 09/29/2023 , Expires: 12/29/2023 Start: 03-09-2023 Behavioral Health Screening Behavioral Health Screening [facility] Start: 11-07-2022 Covid-19 Vaccine ( season) Covid-19 Vaccine ( season) [facility] Start: 2017 Shingrix Vaccine (1 of 2) Garcia grix Vaccine (1 of 2) [facility] Start: 2012 Screening for malign ant neoplasm of colon [facility] Start: 01-30-2012 Screening for malign ant neoplasm of breast Mammogram Screening [facility] Start: 06-02-2005 Screening for malign ant neoplasm of cervix Pap Testing [facility] Start: 06-03-2003 Screening for malign ant neoplasm of cervix Cervical Cancer Screening [facility] Start: 1997 Screening for malign ant neoplasm of cervix HPV Testing [facility] Start: 1986 Hepatitis B Vaccine (1 of 3 - 19+ 3-dose series) Hepatitis B Vaccine (1 of 3 - 19+ 3-dose series) [facility] Start: 1986 Pneumococcal Vaccine : 50+ (1 of 2 - PCV) Pneumococcal Vaccine: 50+ (1 of 2 - PCV) [facility] Start: 1986 Urine microalbumin profile DTa P,Tdap,Td Vaccine (1 - Tdap) [facility] Start: 1985 Anxiety Screening Anxiety Screening [facility] Start: 1985 Depression Screening Depression Scre ening [facility] Start: 1985 HIV screening HIV Screening [facility] Start: 1985 Spirometry Spirometry [facility] Start: 1973 Pneumococcal vaccination Pneum ococcal Vaccine (1 of 2 - PCV) [facility] Alanine aminotransfe rase [Enzymatic activity/volume] in Serum or Plasma [facility] Work Phone: Albumin [Mass/volume ] in Serum or Plasma [facility] Work Phone: Alkaline phosphatase [Enzymatic activity/volume] in Serum or Plasma [facility] Work Phone: Anion gap measurement [facility] Work Phone: Aspartate aminotrans ferase [Enzymatic activity/volume] in Serum or Plasma [facility] Work Phone: Assessment for risk of cardiovascular disease [facility] Work Phone: Bilirubin.total [Mass/volume] in Serum or Plasma [facility] Work Phone: Calcium [Mass/volume ] in Serum or Plasma [facility] Work Phone: Calculated LDL annalise sterol level [facility] Work Phone: Carbon dioxide, tota l [Moles/volume] in Serum or Plasma [facility] Work Phone: CBC W Reflex Manual Differential panel - Blood [facility] Work Phone: Chloride [Moles/volu me] in Serum or Plasma [facility] Work Phone: Cholesterol [Mass/vo lume] in Serum or Plasma [facility] Work Phone: Cholesterol in HDL [Mass/volume] in Serum or Plasma [facility] Work Phone: Creatinine [Mass/vol ume] in Serum or Plasma [facility] Work Phone: Glucose [Mass/volume ] in Serum or Plasma [facility] Work Phone: Hematocrit [Volume Fraction] of Blood [facility] Work Phone: Hemoglobin [Mass/vol ume] in Blood [facility] Work Phone: Hemoglobin A1c/Hemoglobin.total in Blood [facility] Work Phone: Hemoglobin A1c/Hemoglobin.total in Blood [facility] Hemoglobin A1c/Hemoglobin.total in Blood [facility] Hemoglobin A1c/Hemoglobin.total in Blood [facility] Leukocytes [#/volume ] in Blood [facility] Work Phone: Measurement of renal function [facility] Work Phone: End: 08-13-2024 MG Breast Screening NATY SCREENING Radiology Routine Encounter for screening mammogram for breast cancer 1 Occurrences starting 07/15/2023 until 08/13/2024 [facility] Work Phone: Comment on above: 1 Occurrences starti ng 07/15/2023 until 08/13/[address] [facility] Work Phone: Patient referral [facility] Work Phone: Platelets [#/volume] in Blood [facility] Work Phone: Potassium [Moles/vol ume] in Serum or Plasma [facility] Work Phone: Protein [Mass/volume ] in Serum or Plasma [facility] Work Phone: Red blood cell count [facility] Work Phone: Segmented neutrophil count, blood [facility] Work Phone: Sodium [Moles/volume ] in Serum or Plasma [facility] Work Phone: Thyrotropin [Units/v olume] in Serum or Plasma [facility] Work Phone: Thyrotropin [Units/v olume] in Serum or Plasma [facility] Thyrotropin [Units/v olume] in Serum or Plasma [facility] Thyroxine (T4) free [Moles/volume] in Serum or Plasma [facility] Work Phone: Thyroxine (T4) free [Moles/volume] in Serum or Plasma [facility] Triglyceride [Mass/v olume] in Serum or Plasma [facility] Work Phone: Urea nitrogen [Mass/volume] in Serum or Plasma [facility] Work Phone: Immunizations Immunization Date Immunization Notes Care Provider Timi dickens 11-05-2021 influenza, injectabl e, quadrivalent, preservative free Ángel Gee PA C Mobile Phone: [facility] Work Phone: 11-05-2021 influenza, seasonal, injectable Ángel Gee PA C Mobile Phone: [facility] Work Phone: 05-21-2021 COVID-19, mRNA, LNP- S, PF, 100 mcg/0.5 mL dose (Moderna) Ángel Gee PA C Mobile Phone: [facility] Work Phone: 05-10-2021 COVID-19, mRNA, LNP- S, PF, 100 mcg/0.5 mL dose (Moderna) Ángel Gee PA C Mobile Phone: [facility] Work Phone: 11-10-2020 COVID-19, mRNA, LNP- S, PF, 100 mcg/0.5 mL dose (Moderna) Ángel Gee PA C Mobile Phone: [facility] Work Phone: 11-05-2020 influenza, seasonal, injectable, preservative free Ángel Gee PA C Mobile Phone: [facility] Work Phone: 10-22-2020 influenza, injectabl e, quadrivalent, preservative free Ángel Gee PA C Mobile Phone: [facility] Work Phone: 10-13-2020 COVID-19 (Moderna); Translations: [COVID-19, mRNA, LNP-S, PF, 100 mcg/0.5 mL dose (Moderna)] [facility] 03-20-2020 influenza, injectabl e, quadrivalent, preservative free Ángel Shearer Mobile Phone: [facility] Work Phone: 11-25-2018 influenza virus vacc ine, unspecified formulation Ángel Shearer Mobile Phone: [facility] Work Phone: 11-25-2018 influenza, injectabl e, quadrivalent, preservative free; Translations: [influenza, injectable, quadrivalent, preservative free] [facility] 11-25-2018 zoster vaccine recombinant; Translations: [zoster recombinant] [facility] 11-25-2018 zoster vaccine, live Ángel Shearer Mobile [facility] Phone: 08-17-2018 pneumococcal polysaccharide vaccine, 23 valent; Translations: [pneumococcal polysaccharide PPV23] [facility] 08-17-2018 zoster vaccine recombinant; Translations: [zoster recombinant] [facility] 08-17-2018 zoster vaccine, live Ángel Shearer Mobile Phone: [facility] Work Phone: 11-23-2017 influenza, injectabl e, quadrivalent, preservative free [facility] 11-23-2017 Fluarix Quad 19 (PF) (flu vacc [id number] 6mos up(PF)) 60 mcg (15 mcg x [facility] Work Phone: 12-19-2014 influenza, seasonal, injectable Ángel Shearer Mobile Phone: [facility] Work Phone: 03-09-2014 varicella virus vaccine Raysa Shearer Mobile Phone: [facility] Work Phone: 12-22-2013 Flu Vaccine Qs 2013-(6mos+) (Fluzone Quad ) 1 EACH EACH [facility] Work Phone: 12-22-2013 influenza, seasonal, injectable Ángel Shearer Mobile Phone: [facility] Work Phone: 11-25-2011 influenza virus vacc ine, unspecified formulation Johny Swenson DO Work Phone: [facility] 12-18-2008 influenza virus vacc ine, unspecified formulation Johny Swenson DO Work Phone: [facility] Payers Date Payer Category Payer Self-pay [id number] 2022 Medicaid [id number] 2022 Unknown [id number] Unknown [id number] Unknown [id number] 2. [id number] Unknown [id number] 2. [id number] Unknown [id number] 2. [id number] Unknown [id number] . [id number] Unknown [id number] . [id number] Unknown [id number] 2. [id number] Unknown [id number] 2. [id number] Unknown [id number] 2. [id number] Unknown [id number] 2.16. [id number] Unknown [id number] 2.16. [id number] Unknown [id number] 2.16. [id number] Unknown [id number] 2.16. [id number] Unknown [id number] 2.16. [id number] Unknown [id number] 2.16.8 [id number] Unknown [id number] 2.16.8 [id number] Unknown [id number] 2.16.8 [id number] Social History Date Type Detail Facility Tobacco smoking stat [facility] Unknown if ever smoked [facility] Work Phone: Start: 1965 End: 1965 Sex Assigned At Female [facility] Start: 03-10-2019 End: 09-19-2024 Tobacco smoking status OHIS Current every day smoker [facility] Start: 09-21-[address] [facility] Start: 03-10-2019 Current Every Day Smoke r [facility] Start: 09-21-[address] [facility] Start: 05-19-2018 [facility] Start: 04-11-201303/10 [facility] Work Phone: Start: 12-17-2017 former substan ce user;marijuana [facility] Start: 09-21-[address] [facility] Start: 04-11-201303/10 [facility] History of tobacco use Cigarette Smoker C [facility] Start: 07-14-2023 Cigarettes smoked current (pack per day) - Reported 0.5 [facility] Start: 07-14-2023 Tobacco use and exposure Smokeless tobacco non-user [facility] Start: 07-14-2023 Alcohol intake Current drinke r of alcohol (finding) [facility] Start: 07-14-2023 Tobacco use panel [facility] National Score (1-10 0), lower number is lower risk 80 [facility] Start: 11-04-2011 Alcohol Comment 1 drink every 6 months or so [facility] Start: 1965 Sex Assigned At Not on file C [facility] Start: 07-19-2024 [facility] Medical Equipment Procedure Code Equipment Code Equipment Origin al Text Equipment Identifier Dates Implant ([id number]) Start: 03-18-2021 Lancets Start: 02-21-2021 Blood Sugar Diagnostic (Blood Glucose Test) strip Start: 09-07-2020 End: 03-18-2021 Lancets Start: 09-07-2020 End: 01-21-2021 Lancets Start: 01-21-2021 End: 02-21-2021 Blood Sugar Diagnostic (Blood Glucose Test) strip Start: 03-18-2021 Lancets Start: 02-21-2021 Blood Sugar Diagnostic (Blood Glucose Test) strip Start: 09-07-2020 End: 03-18-2021 Lancets Start: 09-07-2020 End: 01-21-2021 Lancets Start: 01-21-2021 End: 02-21-2021 Blood Sugar Diagnostic (Blood Glucose Test) strip Start: 03-18-2021 Lancets Start: 02-21-2021 Blood Sugar Diagnostic (Blood Glucose Test) strip Start: 09-07-2020 End: 03-18-2021 Lancets Start: 09-07-2020 End: 01-21-2021 Lancets Start: 01-21-2021 End: 02-21-2021 Blood Sugar Diagnostic (Blood Glucose Test) strip Start: 03-18-2021 Lancets Start: 02-21-2021 Blood Sugar Diagnostic (Blood Glucose Test) strip Start: 09-07-2020 End: 03-18-2021 Lancets Start: 09-07-2020 End: 01-21-2021 Lancets Start: 01-21-2021 End: 02-21-2021 Blood Sugar Diagnostic (Blood Glucose Test) strip Start: 03-18-2021 Lancets Start: 10-28-2021 Blood Sugar Diagnostic (Blood Glucose Test) strip Start: 09-07-2020 End: 03-18-2021 Lancets Start: 09-07-2020 End: 01-21-2021 Lancets Start: 01-21-2021 End: 02-21-2021 Lancets Start: 02-21-2021 End: 10-28-2021 Blood Sugar Diagnostic (Blood Glucose Test) strip Start: 03-18-2021 Lancets Start: 10-28-2021 Blood Sugar Diagnostic (Blood Glucose Test) strip Start: 09-07-2020 End: 03-18-2021 Lancets Start: 09-07-2020 End: 01-21-2021 Lancets Start: 01-21-2021 End: 02-21-2021 Lancets Start: 02-21-2021 End: 10-28-2021 Blood Sugar Diagnostic (Blood Glucose Test) strip Start: 03-18-2021 Lancets Start: 10-28-2021 Blood Sugar Diagnostic (Blood Glucose Test) strip Start: 09-07-2020 End: 03-18-2021 Lancets Start: 09-07-2020 End: 01-21-2021 Lancets Start: 01-21-2021 End: 02-21-2021 Lancets Start: 02-21-2021 End: 10-28-2021 Blood Sugar Diagnostic (Blood Glucose Test) strip Start: 03-18-2021 Lancets Start: 10-28-2021 Blood Sugar Diagnostic (Blood Glucose Test) strip Start: 09-07-2020 End: 03-18-2021 Lancets Start: 09-07-2020 End: 01-21-2021 Lancets Start: 01-21-2021 End: 02-21-2021 Lancets Start: 02-21-2021 End: 10-28-2021 Blood Sugar Diagnostic (Blood Glucose Test) strip Start: 03-18-2021 Lancets Start: 10-28-2021 Blood Sugar Diagnostic (Blood Glucose Test) strip Start: 09-07-2020 End: 03-18-2021 Lancets Start: 09-07-2020 End: 01-21-2021 Lancets Start: 01-21-2021 End: 02-21-2021 Lancets Start: 02-21-2021 End: 10-28-2021 Blood Sugar Diagnostic (Blood Glucose Test) strip Start: 04-21-2022 Lancets Start: 10-28-2021 Blood Sugar Diagnostic (Blood Glucose Test) strip Start: 09-07-2020 End: 03-18-2021 Blood Sugar Diagnostic (Blood Glucose Test) strip Start: 03-18-2021 End: 04-21-2022 Lancets Start: 09-07-2020 End: 01-21-2021 Lancets Start: 01-21-2021 End: 02-21-2021 Lancets Start: 02-21-2021 End: 10-28-2021 Blood Sugar Diagnostic (Blood Glucose Test) strip Start: 04-21-2022 Lancets Start: 10-28-2021 Blood Sugar Diagnostic (Blood Glucose Test) strip Start: 09-07-2020 End: 03-18-2021 Blood Sugar Diagnostic (Blood Glucose Test) strip Start: 03-18-2021 End: 04-21-2022 Lancets Start: 09-07-2020 End: 01-21-2021 Lancets Start: 01-21-2021 End: 02-21-2021 Lancets Start: 02-21-2021 End: 10-28-2021 Blood Sugar Diagnostic (Blood Glucose Test) strip Start: 04-21-2022 Lancets Start: 10-28-2021 Blood Sugar Diagnostic (Blood Glucose Test) strip Start: 09-07-2020 End: 03-18-2021 Blood Sugar Diagnostic (Blood Glucose Test) strip Start: 03-18-2021 End: 04-21-2022 Lancets Start: 09-07-2020 End: 01-21-2021 Lancets Start: 01-21-2021 End: 02-21-2021 Lancets Start: 02-21-2021 End: 10-28-2021 Blood Sugar Diagnostic (Blood Glucose Test) strip Start: 04-21-2022 Lancets Start: 10-28-2021 Blood Sugar Diagnostic (Blood Glucose Test) strip Start: 09-07-2020 End: 03-18-2021 Blood Sugar Diagnostic (Blood Glucose Test) strip Start: 03-18-2021 End: 04-21-2022 Lancets Start: 09-07-2020 End: 01-21-2021 Lancets Start: 01-21-2021 End: 02-21-2021 Lancets Start: 02-21-2021 End: 10-28-2021 Blood Sugar Diagnostic (Blood Glucose Test) strip Start: 04-21-2022 Lancets Start: 10-28-2021 Blood Sugar Diagnostic (Blood Glucose Test) strip Start: 09-07-2020 End: 03-18-2021 Blood Sugar Diagnostic (Blood Glucose Test) strip Start: 03-18-2021 End: 04-21-2022 Lancets Start: 09-07-2020 End: 01-21-2021 Lancets Start: 01-21-2021 End: 02-21-2021 Lancets Start: 02-21-2021 End: 10-28-2021 Blood Sugar Diagnostic (Blood Glucose Test) strip Start: 04-21-2022 Lancets Start: 10-28-2021 Blood Sugar Diagnostic (Blood Glucose Test) strip Start: 09-07-2020 End: 03-18-2021 Blood Sugar Diagnostic (Blood Glucose Test) strip Start: 03-18-2021 End: 04-21-2022 Lancets Start: 09-07-2020 End: 01-21-2021 Lancets Start: 01-21-2021 End: 02-21-2021 Lancets Start: 02-21-2021 End: 10-28-2021 Blood Sugar Diagnostic (Blood Glucose Test) strip Start: 04-21-2022 Lancets Start: 10-28-2021 Blood Sugar Diagnostic (Blood Glucose Test) strip Start: 09-07-2020 End: 03-18-2021 Blood Sugar Diagnostic (Blood Glucose Test) strip Start: 03-18-2021 End: 04-21-2022 Lancets Start: 09-07-2020 End: 01-21-2021 Lancets Start: 01-21-2021 End: 02-21-2021 Lancets Start: 02-21-2021 End: 10-28-2021 Blood Sugar Diagnostic (Blood Glucose Test) strip Start: 04-21-2022 Lancets Start: 10-28-2021 Blood Sugar Diagnostic (Blood Glucose Test) strip Start: 09-07-2020 End: 03-18-2021 Blood Sugar Diagnostic (Blood Glucose Test) strip Start: 03-18-2021 End: 04-21-2022 Lancets Start: 09-07-2020 End: 01-21-2021 Lancets Start: 01-21-2021 End: 02-21-2021 Lancets Start: 02-21-2021 End: 10-28-2021 Blood Sugar Diagnostic (Blood Glucose Test) strip Start: 04-21-2022 Lancets Start: 10-28-2021 Blood Sugar Diagnostic (Blood Glucose Test) strip Start: 09-07-2020 End: 03-18-2021 Blood Sugar Diagnostic (Blood Glucose Test) strip Start: 03-18-2021 End: 04-21-2022 Lancets Start: 09-07-2020 End: 01-21-2021 Lancets Start: 01-21-2021 End: 02-21-2021 Lancets Start: 02-21-2021 End: 10-28-2021 Blood Sugar Diagnostic (Blood Glucose Test) strip Start: 04-21-2022 Lancets Start: 10-28-2021 Blood Sugar Diagnostic (Blood Glucose Test) strip Start: 09-07-2020 End: 03-18-2021 Blood Sugar Diagnostic (Blood Glucose Test) strip Start: 03-18-2021 End: 04-21-2022 Lancets Start: 09-07-2020 End: 01-21-2021 Lancets Start: 01-21-2021 End: 02-21-2021 Lancets Start: 02-21-2021 End: 10-28-2021 [id number] Start: 04-07-2023 use 1 LANCET to TEST BLOOD SUGAR daily [id number] Start: 04-07-2023 Goals Date Patient Goal Desired Activity /State Mental Status Date Assessment Result Facility 09-19-2024 Cognitive function Level Of Cons ciousness Awake;Alert;Appropriate;Follow s Commands [facility] Work Phone: 01-28-2023 Cognitive function Person;Place;Time [facility] Work Phone: 03-10-2019 Cognitive function Person;Place;Time [facility] Work Phone: Clinical Notes 07-14-2023 to 02-22-2024 Telephone Encounter - Kelle Valencia MA - 02/22/2024 9:28 AM ESTTelephone Encounter - Kelle Valencia MA - 02/22/2024 9:28 AM ESTTelephone Encounter - Lizbeth Infante LPN - 01/05/2024 11:46 AM EDT Note Date & Type Note Facility 02-22-2024 Telephone encounter Note Pharmacy verified in [email or web address]. Patient has been identified by name and date of : Yes Patient aware RX will be sent to pharmacy. No need to notify patient. Patient phones for refill(s): Requested Prescriptions Pending Prescriptions Disp Refills cloNIDine HCl (CATAPRES) 0.1 mg tablet [Pharmacy Med Name: CLONIDINE HCL 0.1 MG TABLET] 90 tablet 1 Sig: TAKE 1 TABLET BY MOUTH EVERY DAY Date of last office visit : 07/14/2023 Date of next office visit : Visit date not found Last 2 Encounter Wt Readings: Date: Wt: 07/14/2023 81.1 kg (178 lb 14.5 oz) 07/20/2012 88.5 kg (195 lb 3.2 oz) Not applicable Please advise. Kelle Valencia MA [facility] 02-22-2024 Miscellaneous Notes Pharmacy verified in [facility]. Patient has been identified by name and date of : Yes Patient aware RX will be sent to pharmacy. No need to notify patient. Patient phones for refill(s): Requested Prescriptions Pending Prescriptions Disp Refills cloNIDine HCl (CATAPRES) 0.1 mg tablet [Pharmacy Med Name: CLONIDINE HCL 0.1 MG TABLET] 90 tablet 1 Sig: TAKE 1 TABLET BY MOUTH EVERY DAY Date of last office visit : 07/14/2023 Date of next office visit : Visit date not found Last 2 Encounter Wt Readings: Date: Wt: 07/14/2023 81.1 kg (178 lb 14.5 oz) 07/20/2012 88.5 kg (195 lb 3.2 oz) Not applicable Please advise. Kelle Valencia MA documented in this encounter [facility] 01-05-2024 Telephone encounter Note Message left on Patient Private voicemail. Advised that we do not have records from her ER visit at [facility]. Fax number given. Patient has an ER follow up appointment scheduled for 01/11/[address] Swenson, advised that she can bring information with her to that visit. [facility] 01-05-2024 Miscellaneous Notes Message left on Patient Private voicemail. Advised that we do not have records from her ER visit at [facility]. Fax number given. Patient has an ER follow up appointment scheduled for 01/11/[address] Swenson, advised that she can bring information with her to that visit. Patient calling today in regard to ER visit at [facility] Patient is asking for prior authorization for medication Tramadol and orphenacrine which was written by the ER. Patient states she was told by ER that her PCP had to get the prior authorization for the medication. We don't have those records in our system including the ER visit and medications prescribed as we are not tied to the same system. Please return call [phone] documented in this encounter [facility] 01-04-2024 Telephone encounter Note Patient calling today in regard to ER visit at [facility] Patient is asking for prior authorization for medication Tramadol and orphenacrine which was written by the ER. Patient states she was told by ER that her PCP had to get the prior authorization for the medication. We don't have those records in our system including the ER visit and medications prescribed as we are not tied to the same system. Please return call [phone] [facility] 09-29-2023 Note Patient Outreach (IN TMMN) JD ([id number]) 1965 F Date Time Provider Department 09/29/23 JOHNY SWENSON During your visit today, we recorded the following information about you: Allergies As of Date: 09/29/2023 Noted Allergy Reaction BACTRIM (SULFAMETHOXAZOLE) 08/15/2010 2 - Rash Comments: itching METFORMIN 07/14/2023 8 - GI Upset Date Reviewed: 07/14/2023 Reviewed by: Lizbeth Infante LPN - Fully Assessed Visit Diagnosis:Medication management [Z79.899] Order(s):ALBUMIN/CREATININE RATIO, URINE [SQUACR] Order #: [id number] FUTURE COMPLETE BLOOD COUNT [SQCBC] Order #: [id number] FUTURE Prescriptions as of 10/02/2023 - baclofen 10 mg tablet Take 10 [...] SYRINGE ULTRA-FINE 0.3 mL 31 gauge x 16 Inject 1 Each subcutaneously once daily. - [...] once daily. Problem List As Of Date 09/29/2023 Noted Resolved Asthma [493] Phlebitis and Thrombophlebitis of Unspecified S* Lumbago [M54.50] Tobacco dependency [F17.200] 10/26/2008 Postsurgical menopause [E89.40] 10/26/2008 Impaired fasting glucose [R73.01] 12/18/2008 Lipid disorder [E78.9] 12/18/2008 Low Back Ache; chronic; very rare use of Comstock *05/11/2009 Trigger finger (acquired) [M65.30] 08/10/2009 Trochanteric bursitis of left hip [M70.62] 02/13/2011 Impingement syndrome of left shoulder [M75.42] 02/13/2011 ADD (attention deficit disorder) [F98.8] 11/04/2011 Myofascial pain [M79.18] 07/20/2012 Physical deconditioning [R53.81] 07/20/2012 Low back pain [M54.50] 07/20/2012 DVT (deep venous thrombosis) (HCC) [I82.409] 07/14/2023 Encounter Status:Closed by SAMEER COOK on 10/02/23 [facility] 08-27-2023 Telephone encounter Note Original referral was placed on 07/14/2023. Patient has not responded to messages, Mychart, or a letter sent to the patient's residence. Pharmacy Anticoagulation Clinic will disregard referral at this time. Natalee Grimes RN Pharmacy Anticoagulation Clinic [facility] 08-27-2023 Miscellaneous Notes Original referral was [...] return call to Pharmacy Anticoagulation Clinic at [phone] Option #2 to discuss new referral to PAC. Mychart has not been read. Will send the patient a letter. If there is no response, PAC will disregard referral. Natalee Grimes RN Pharmacy, Anticoagulation Clinic A call was placed to patient's home and cell telephone number. A voicemail message was left with request for patient to return call to Pharmacy Anticoagulation Clinic at [phone] Option #2 to discuss new referral to PAC. Natalee Grimes RN Pharmacy, Anticoagulation Clinic Left voice message asking patient to call the Anticoagulation Clinic at [phone] to discuss her referral to the coumadin clinic. Per Dr. Swenson's note - she has been on coumadin since the . Samaria Michel, PharmSheila, [facility] Pharmacy Anticoagulation Clinic Call to patient's home/cell telephone number; left a voicemail message with request for the patient to return call to PAC at [phone] Option #2. Patient has not read Mychart message. Natalee Grimes RN Pharmacy, Anticoagulation Clinic A call was placed to patient's home and cell telephone number. A voicemail message was left with request for patient to return call to Pharmacy Anticoagulation Clinic at [phone] Option #2 to discuss new referral to PAC. Mychart message sent. Natalee Grimes RN Pharmacy, Anticoagulation Clinic A call was placed to patient's home and cell telephone number. A voicemail message was left with request for patient to return call to Pharmacy Anticoagulation Clinic at [phone] Option #2 to discuss new referral to PAC. Mychart message sent. Natalee Grimes RN Pharmacy, Anticoagulation Clinic documented in this encounter [facility] 08-20-2023 Telephone encounter Note Attempted to reach the patient but the number is disconnected. Patient has not read mychart. Letter was sent on 08/12/2023. Natalee Grimes RN Pharmacy Anticoagulation Clinic [facility] 08-12-2023 Telephone encounter Note A call was placed to patient's home and cell telephone number. A voicemail message was left with request for patient to return call to Pharmacy Anticoagulation Clinic at [phone] Option #2 to discuss new referral to PAC. Mychart has not been read. Will send the patient a letter. If there is no response, PAC will disregard referral. Natalee Grimes RN Pharmacy, Anticoagulation Clinic [facility] 08-07-2023 Telephone encounter Note A call was placed to patient's home and cell telephone number. A voicemail message was left with request for patient to return call to Pharmacy Anticoagulation Clinic at [phone] Option #2 to discuss new referral to PAC. Natalee Grimes RN Pharmacy, Anticoagulation Clinic [facility] 07-30-2023 Telephone encounter Note Left voice message asking patient to call the Anticoagulation Clinic at [phone] to discuss her referral to the coumadin clinic. Per Dr. Swenson's note - she has been on coumadin since the . Samaria Michel, PharmD, [facility] Pharmacy Anticoagulation Clinic [facility] 07-28-2023 Telephone encounter Note Call to patient's home/cell telephone number; left a voicemail message with request for the patient to return call to PAC at [phone] Option #2. Patient has not read Mychart message. Natalee Grimes RN Pharmacy, Anticoagulation Clinic [facility] 07-24-2023 Telephone encounter Note A call was placed to patient's home and cell telephone number. A voicemail message was left with request for patient to return call to Pharmacy Anticoagulation Clinic at [phone] Option #2 to discuss new referral to PAC. Mychart message sent. Natalee Grimes RN Pharmacy, Anticoagulation Clinic [facility] 07-24-2023 Telephone encounter Note 3rd attempt LVM to call our office back to scheule a VV to discuss results. Please assist with scheduling once patient calls back. Thanks Luna Hargrove [facility] 07-24-2023 Miscellaneous Notes 3rd attempt LVM [...] discuss results thx documented in this encounter [facility] 07-23-2023 Telephone encounter Note 2nd try. Left Vm [facility] 07-22-2023 Telephone encounter Note Called and left VM [facility] 07-21-2023 Telephone encounter Note ----- Message from Johny Swenson DO sent at 07/21/2023 2:55 PM EDT ----- Pt can do a phone visit to discuss results thx [facility] 07-15-2023 Telephone encounter Note A call was placed to patient's home and cell telephone number. A voicemail message was left with request for patient to return call to Pharmacy Anticoagulation Clinic at [phone] Option #2 to discuss new referral to PAC. [employer] message sent. Natalee Grimes RN Pharmacy, Anticoagulation Clinic [facility] 07-15-2023 Note Patient Outreach (IN TMMN) JD MILLER ([id number]) 1965 F Date Time Provider Department 07/15/23 JOHNY SWENSON During your visit today, we recorded the following information about you: Allergies As of Date: 07/15/2023 Noted Allergy Reaction BACTRIM (SULFAMETHOXAZOLE) 08/15/2010 2 - Rash Comments: itching METFORMIN 07/14/2023 8 - GI Upset Date Reviewed: 07/14/2023 Reviewed by: Lizbeth Infante LPN - Fully Assessed Visit Diagnosis:Encounter for screening mammogram for breast cancer [Z12.31] Order(s):[facility] SCREENING [3712977] Order #: [id number] FUTURE Prescriptions as of 07/20/2023 - baclofen [...] Back Ache; chronic; very rare use of Comstock *05/11/2009 Trigger finger (acquired) [M65.30] 08/10/2009 Trochanteric bursitis of left hip [M70.62] 02/13/2011 Impingement syndrome of left shoulder [M75.42] 02/13/2011 ADD (attention deficit disorder) [F98.8] 11/04/2011 Myofascial pain [M79.18] 07/20/2012 Physical deconditioning [R53.81] 07/20/2012 Low back pain [M54.50] 07/20/2012 DVT (deep venous thrombosis) ([facility]) [I82.409] 07/14/2023 Encounter Status:Closed by EPIC, PRODUSER on 07/20/23 [facility] 07-14-2023 Note HNO ID: [id number] Author: ARJUN, VINCENT, DO Service: ? Author Type: Physician Type: Progress Notes Filed: 07/14/2023 13:06 Note Text: 58 year old female presenting for new pt I have fully reviewed the past medical, surgical, social and family history and updated the Histories section of [facility]. Recurrent DVTs has been on coumadin since [...] with breakfast. FREESTYLE AMADOR 2 SENSOR kit School YourselfTOUCH DELICA PLUS LANCET 33 gauge use 1 [...] - uterus remains Social history reviewed in [facility]. REVIEW OF SYSTEMS: Constitutional: Denies [...] with plan, all (more content not included)... [facility] 07-14-2023 History of Presen t illness Narrative 58 year old female presenting for new pt I have fully reviewed the past medical, surgical, social and family history and updated the Histories section of [facility]. Recurrent DVTs has been on coumadin since [...] - uterus remains Social history reviewed in [facility]. REVIEW OF SYSTEMS: Constitutional: Denies [...] and questions addressed. documented in this encounter [facility] Evaluation note No assessment inform ation available [facility] Work Phone: Evaluation note 1. Diabetes: Foot [...] she works multiple hours per day at [employer]. She has no other foot complaints at [...] foot care. [facility] [place] Work Phone: Evaluation note Diagnosis Primary hypertension- Primary Unspecified essential hypertension Special screening examination for viral disease Special screening examination for unspecified viral disease History of DVT (deep vein thrombosis) Personal history of venous thrombosis and embolism Medication refill Issue of repeat prescriptions Hypothyroidism, acquired Unspecified hypothyroidism [facility] Diagnosis Encounter for screening mammogram for breast cancer documented in this encounter [facility] note* Diagnosis Medication management Encounter for long-term (current) use of other medications documented in this encounter [facility] note* Diagnosis Medication refill Issue of repeat prescriptions documented in this encounter [facility] Discharge instructions Additional Instructions Please follow-up with your PCP for further evaluation and management of your blood sugar. Please return for any new or worsening conditions.[facility] Work Phone: Hospital Discharge instructionsAdditional Instructions Please begin taking the Synthroid and hydralazine as directed to improve your fatigue as well as control your blood pressure and thyroid levels. Follow-up with Dr. Santoyo as you will need repeat testing to ensure the medications are at the appropriate dose. Return to the ER should you have any further concernsW[facility] Work Phone: Reason for referral (narrative)* Diagnostic Procedure Only (Routine) - Pending Review Specialty Diagnoses / Procedures Referred By Tanya marroquin Referred To Contact [facility] Diagnoses Encounter for screening mammogram for breast cancer Procedures NATY SCREENING SCREENING MAMMOGRAPHY BI 2-VIEW BREAST INC Johny Adam DO [address] [facility] / [place] [place] [address] [facility] [address] [place] [address] Referral ID Status Reason Start Date Expiration Date Visits Requested Visits Authorized [id number] Pending Review Auto-Generat ed Referral 07/15/2023 08/13/2024 1 1 [facility] for referral (narrative)No reason for referral information availableWUniversity [facility]als [facility] Work Phone: Chief Complaint and Reason for Visit Chief [...] Complaint HIGH BLOOD SUGAR - SORE THROAT Chief Complaint Admit Date UPPER July 19, 2024 10:35 am Chief Complaint Admit Date UPPER July 19, 2024 10:35 am SLEEP September 19, 2024 7:23 pm Assessments No Assessments Information AvailableNo Assessments Information AvailableNo Assessments Information AvailableNo Assessments Information AvailableNo Assessments Information AvailableNo Assessments Information AvailableNo Assessments Information Available Family History No Family History Records Found Relationship Condition Age at Onset Recorded Date/T [...] you have any worsening symptoms. Advance Directives No Advanced Directives Records Found Advance Directive Response Recorded Date/ Time Does Patient Have Advance Directives? No March 10, 2019 11:10pm Code Status Full Code March 10 0 11:10pm Advance Directive Response Recorded Date/ Time Does Patient Have Advance Directives? No March 10, 2019 11:10pm Code Status Full Code March 10 11:10pm advanced care plan March 23, 2020 [...] 3:18pm Advance Directive Response Recorded Date/ Time Do you have a Healthcare Power of Industrial Trainer? No July 19, 2024 11:57am Advance Directive Response Recorded Date/ Time Do you have a Healthcare Power of Industrial Trainer? No July 19, 2024 11:57am Do you have a Healthcare Power of Industrial Trainer? No September 19, 2024 9:48pm Reason for Referral 3 months: DFE Summary [...] 2023 End: January 12, 2023 OMAR VERGARA DO Emergency Provider Active Start: January 12, 2023 End: January 12, 2023 Team Status: Active Member Role Status Dates LUCAS GRECO CNP Primary Care Pro vider, Attending Provider, Referring Provider Active Team Status: Inactive Member Role Status Dates RYAN HOPE DO Primary Care Provider Active LUCAS GRECO CNP Attending Provider, Referring Provider Active Team Status: Active Member Role Status Dates LUCAS GRECO , CADENCE Primary Care Provider, Attendi ng Provider Active [...] 2023 End: January 28, 2023 MICHELLE CAMACHO DO Emergency Provider Active St art: January 28, 2023 End: January 28, 2023 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 Start Date End Date Johny Swenson DO [address] [place] [address] PCP - General Family Medicine 07/14/23 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 Start Date End Date Johny Swenson DO [address] [place] [address] PCP - General Family Medicine 07/14/23 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 Start Date End Date Johny Swenson DO [address] [place] [address] PCP - General Family Medicine 07/14/23 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 Start Date End Date Johny Swenson DO [address] [place] [address] PCP - General Family Medicine 07/14/23 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 Start Date End Date Johny Swenson DO [address] [place] [address] / [place] [address] PCP - General Family Medicine 07/14/23 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 Philippe Aviles DO Emergency Provider Active Start: July 19, 2024 End: July 19, 2024 No Primary Care Physician Primary Care Provider Active Start: July 19, 2024 End: July 19, 2024 Team Status: Active Member Role/Relationship Status Dates No Primary Care Physician Primary Care Provider Active Team Status: Inactive Member Role/Relationship Status Dates Dr. Philippe Aviles DO Attending Provider Active Start: July 19, 2024 End: July 19, 2024 Dr. Philippe Aviles , Emergency Provider Active Start: July 19, 2024 End: July 19, 2024 No Primary Care Physician Primary Care Provider Active Start: July 19, 2024 End: July 19, 2024 Team Status: Inactive Member Role/Relationship Status Dates No Primary Care Physician Primary Care Provider Active Start: September 19, 2024 End: September 20, 2024 Dr. Zeb Iverson , Emergency Provider Active Start: September 19, 2024 End: September 20, 2024 INFORMATION SOURCE (unrecogn ized section and content) DATE CREATED AUTHOR 07/11/2023 [facility] DATE CREATED AUTHOR AUTHOR'S ORGANIZ ATION 07/11/2023 [facility] DATE CREATED AUTHOR AUTHOR'S ORGANIZ ATION 01/06/2024 [facility] DATE CREATED AUTHOR AUTHOR'S ORGANIZ ATION 04/29/2024 [facility] DATE CREATED AUTHOR AUTHOR'S ORGANIZ ATION 09/23/2024 [facility] Source Comments (unrecognize d section and content) In the event this informatio n is protected by the Federal Confidentiality of Alcohol and Drug Abuse Patient Records regulations: The Federal rules restrict any use of the information to criminally investigate or prosecute any alcohol or drug abuse patient.[facility] the event this information is protected by the Federal Confidentiality of Alcohol and Drug Abuse Patient Records regulations: The Federal rules restrict any use of the information to criminally investigate or prosecute any alcohol or drug abuse patient.[facility] the event this information is protected by the Federal Confidentiality of Alcohol and Drug Abuse Patient Records regulations: The Federal rules restrict any use of the information to criminally investigate or prosecute any alcohol or drug abuse patient.[facility] Hospital[facility] the event this information is protected by the Federal Confidentiality of Alcohol and Drug Abuse Patient Records regulations: The Federal rules restrict any use of the information to criminally investigate or prosecute any alcohol or drug abuse patient.[facility] the event this information is protected by the Federal Confidentiality of Alcohol and Drug Abuse Patient Records regulations: The Federal rules restrict any use of the information to criminally investigate or prosecute any alcohol or drug abuse patient.[facility] the event this information is protected by the Federal Confidentiality of Alcohol and Drug Abuse Patient Records regulations: The Federal rules restrict any use of the information to criminally investigate or prosecute any alcohol or drug abuse patient.[facility] HospitalIn the event this information is protected by the Federal Confidentiality of Alcohol and Drug Abuse Patient Records regulations: The Federal rules restrict any use of the information to criminally investigate or prosecute any alcohol or drug abuse patient.[facility] Reason for Visit (unrecogniz ed section and content) Reason Comments Establish Care Reason Comments Anticoagulation - Initial Consult Reason Comments prior authorization Reason Comments Refill Request FOR RECORDS PERTAINING TO PATIENTS WHO ARE [...] BE BASED ON THE PRIMARY CLINICAL RECORDS. [facility] [employer] provides no warranty or guarantee of the accuracy or completeness of information in this document.
[2024-09-24 16:16] LABS: Hematocrit 37.9 % (37-47); Hemoglobin 12.9 g/dL (12.0-15.0); Immature Granulocytes Count 0.050 X10^3/uL (0.0-0.0); Mean Corp Hgb Conc 34.0 g/dL (32-36); Mean Corpuscular Volume 90.5 fL (81-99); Mean Platelet Vol. 9.3 fl (6.2-12.0); NRBC Flagged by Analyzer 0 % (0-5); Platelet Count 180 K/mm3 (150-450); RBC Distribution Width CV 13.7 % (11.6-14.6); RBC Distribution Width SD 45.2 fl (35.1-43.9); Red Blood Count 4.19 M/mm3 (4.2-5.4); White Blood Count 9.0 K/mm3 (4.4-11.0)
[2024-09-24] MEDS: 0.9% Normal Saline (1000mL) 1,000 ML 999 ML IV (16:22)
[2024-09-24 16:34] LABS: Prothrombin Time (Protime)PT. 12.8 SECONDS (11.7-14.9)
[2024-09-24 16:35] LABS: Partial Thromboplast Time 26.0 Seconds (24.1-36.2)
[2024-09-24 16:53] LABS: Anion Gap 13 (5-15); BUN 8 mg/dL (4-19); BUN/Creat Ratio 10.0 RATIO (10-20); Calcium,Total 9.3 mg/dL (7.6-11.0); Carbon Dioxide 26.3 mmol/L (21.0-32.0); Chloride 101 mmol/L (98-108); Estimated Creatinine Clearance 81.78 ml/min (50-250); Glucose 164 mg/dL (70-99); Potassium 3.4 mmol/L (3.3-5.1); Troponin T High Sensitivity 13 ng/L (<=14)
[2024-09-24 17:13] VITALS: BP 173/96; PULSE 70; O2SAT 97
[2024-09-24 18:02] VITALS: BP 163/95; PULSE 75
[2024-09-24 18:44] LABS: Troponin T High Sens 2 HR 12 ng/L (<=14)
[2024-09-24 20:00] VITALS: BP 162/104; PULSE 72; RESP 18; O2SAT 95
[2024-09-24 20:52] LABS: Troponin T High Sens 4 HR 13 ng/L (<=14)
[2024-09-24 22:00] VITALS: BP 150/97; PULSE 73; RESP 20; O2SAT 96
[2024-09-24 23:00] VITALS: BP 174/64; PULSE 66; RESP 16; TEMP 36.5; O2SAT 98
--- NOTE | 2024-09-25 00:32 | ED.RN ---
report called to Aleksandra at [facility]
== END 2024-09-25 00:34 | disposition other institution (70) ==
PROVIDERS: Emergency Provider Emergency Medicine; Visit Provider Emergency Medicine
DX: I16.1 Hypertensive emergency (principal); H53.8 Other visual disturbances; I10 Essential (primary) hypertension; E03.9 Hypothyroidism, unspecified; R93.0 Abnormal findings on diagnostic imaging of skull and head, not elsewhere classified; F17.210 Nicotine dependence, cigarettes, uncomplicated; Z79.01 Long term (current) use of anticoagulants; Z79.890 Hormone replacement therapy; Z79.899 Other long term (current) drug therapy; Z86.718 Personal history of other venous thrombosis and embolism
CPT/HCPCS: 70450; 71046; 80048; 84484; 85025; 85610; 85730; 93005; 96361; 96374; 99284; A4216